=== PATIENT | female | born 1975 | race African-American/Black ===

== ENCOUNTER 2019-05-01 01:16 | Inpatient (IN) | payer OTHER ==
[~2019-05-01] VITALS: Ht 144.8 cm; Wt 51.7 kg
[2019-05-01 01:20] VITALS: BP 133/66
[2019-05-01] MEDS ORDERED: Piperacillin/Tazobactam 3.375 GM in NS 110 ML IVPB ONE (01:30)
--- NOTE | 2019-05-01 01:54 | Emergency Room Report ---
History of Present Illness General Chief Complaint: Skin Rash/Abscess Source: Patient Present Illness HPI Patient is a 43-year-old female presents after increased right lower extremity problems. Patient a prior history of anemia as well as type 1 diabetes. She reports having increased foul-smelling drainage from her right lower extremity. She had prior history of reported sickle cell anemia. She reports having seen physician at [facility] approximately 2 weeks ago. Patient reports having increased pain to the area. She cannot stay with her normal hemoglobin is. Patient not currently taking antibiotics. She reports having difficulty taking care of her wound. She reports having prior injury to her right lower extremity after a hip replacement. And states that she is not able to move this. Allergies: Coded Allergies: No Known Allergies (Unverified , 05/01/19) Patient History Past Medical History: see triage record Last Menstrual Period: 2014 Now: No : 2 Para: 0 Reviewed Nursing Documentation: PMH: Agreed; PSxH: Agreed Nursing Documentation-PM Past Medical History: No History, Except For Hx Diabetes: Yes Review of Systems All Other Systems: negative except mentioned in HPI Physical Exam Vital Signs Date Time Temp Pulse Resp B/P (MAP) Pulse Ox O2 Delivery O2 Flow Rate FiO2 05/01/19 01:09 98.4 73 18 133/66 (88) 98 Sp02 EP Interpretation: reviewed, normal General Appearance: normal inspection, alert, GCS 15, non-toxic, Chronically Ill Head: atraumatic ENT: normal ENT inspection, hearing grossly normal, normal voice Neck: normal inspection, full range of motion, supple, no bony tend Respiratory: normal inspection, lungs clear, normal breath sounds, no respiratory distress, no retraction, no wheezing Cardiovascular #1: edema Gastrointestinal: normal inspection, normal bowel sounds, non tender, soft, no guarding, no hernia Genitourinary: no CVA tenderness Musculoskeletal: back normal, decreased range of motion, swelling Neurologic: normal inspection, alert, responsive, speech normal, motor weakness , sensory deficit Psychiatric: normal inspection, judgement/insight normal, mood/affect normal Skin: other - grossly discolored foot Medical Decision Making Diagnostic Impression: Primary Impression: Infection of right foot Additional Impressions: Anemia Diabetes ER Course Patient presented for increased foot pain. Differential diagnosis include was not limited to vascular insufficiency, gangrene, sepsis among others. Because of complexity of patient's case laboratory testing and imaging studies were ordered. Patient was noted to have what appears to be a significant infection to her right foot. There appears to be some necrotic tissue. Patient was noted to have significant anemia on laboratory testing. patient was typed and screened for blood. Patient given pain medications. Patient initially refused blood transfusion. Patient will be admitted due to need for IV antibiotics and possible amputation. Dr. Marco Antonio Enriquez was contacted for inpatient management due to panel physician. Last Vital Signs Date Time Temp Pulse Resp B/P (MAP) Pulse Ox O2 Delivery O2 Flow Rate FiO2 05/01/19 01:09 98.4 73 18 133/66 (88) 98 Status: unchanged Disposition: ADMITTED INPATIENT Condition: Serious Scripts Acetaminophen With Codeine (T#3) (TYLENOL #3 TAB*) Y Tab 1 TAB ORAL Q4H PRN for 10 Days, TAB Prov: Serena Gordon MD 05/06/19 [facility] Jorge Upton MD May 01, 2019 01:54
[2019-05-01 01:59] LABS: HEMATOCRIT 18.4 % (37.0-47.0); MEAN CORPUSCULAR VOLUME 80 FL (80-99); PLATELET COUNT 468 K/UL (150-450); RED BLOOD COUNT 2.31 M/UL (4.20-5.40); RED CELL DISTRIBUTION WIDTH 19.2 % (11.6-14.8)
[2019-05-01 02:02] LABS: WHITE BLOOD COUNT 27.5 K/UL (4.8-10.8)
[2019-05-01 02:03] LABS: HEMOGLOBIN 5.5 G/DL (12.0-16.0)
[2019-05-01 02:18] LABS: ANION GAP 8 mmol/L (5-15); BLOOD UREA NITROGEN 29 mg/dL (7-18); CALCIUM 7.5 MG/DL (8.5-10.1); CARBON DIOXIDE 24 MMOL/L (21-32); CHLORIDE 98 MMOL/L (98-107); POTASSIUM 5.2 MMOL/L (3.5-5.1); SODIUM 130 MMOL/L (136-145)
[2019-05-01 02:21] LABS: ALANINE AMINOTRANSFERASE 20 U/L (12-78); ALBUMIN 2.7 G/DL (3.4-5.0); ALBUMIN/GLOBULIN RATIO 0.5 (1.0-2.7); ALKALINE PHOSPHATASE 180 U/L (46-116); ASPARTATE AMINO TRANSFERASE 15 U/L (15-37); BILIRUBIN,TOTAL 0.8 MG/DL (0.2-1.0)
[2019-05-01] MEDS ORDERED: Morphine Sulfate 4mg/ml Inj (IV USE ONLY) ONE (02:51)
[2019-05-01] MEDS ORDERED: Morphine Sulfate 4mg/ml Inj (IV USE ONLY) IVP ONE (03:00)
[2019-05-01 04:32] LABS: APPEARANCE,URINE SLIGHTLY CLOUDY; BILIRUBIN, URINE NEGATIVE (NEGATIVE); COLOR,URINE YELLOW; GLUCOSE, URINE (UA) NEGATIVE (NEGATIVE); KETONES,URINE 3+ (NEGATIVE); NITRITE,URINE NEGATIVE (NEGATIVE); PH,URINE 5 (4.5-8.0); PROTEIN,URINE 2+ (NEGATIVE); UROBILINOGEN,URINE NORMAL MG/DL (0.0-1.0)
[2019-05-01 04:33] LABS: LEUKOCYTE ESTERASE ,URINE 1+ (NEGATIVE)
[2019-05-01 04:37] LABS: INR 1.1 (0.9-1.1)
[2019-05-01] MEDS ORDERED: LANTUS SOL100 UNIT/1 SUBQ (04:43)
[2019-05-01] MEDS ORDERED: HUMALOG 75/255 UNIT1 SUBQ (04:43)
[2019-05-01] MEDS ORDERED: Zolpidem 5mg tab ORAL PRN ×2 (05:00→21:00)
[2019-05-01] MEDS ORDERED: HYDROcodone/Acetamin 5/325 tab ORAL PRN (05:00)
[2019-05-01] MEDS ORDERED: Morphine Sulfate 2mg/ml Inj(IV/IM USE ONLY) IVP PRN ×3 (05:00→18:00)
[2019-05-01] MEDS ORDERED: DiphenhydrAMINE 50mg/ml Inj IVP PRN ×2 (06:30→18:00)
[2019-05-01 08:19] VITALS: BP 122/60
[2019-05-01] MEDS ORDERED: NovoLOG Insulin Flexpen SUBQ SCH ×2 (11:30→18:00)
[2019-05-01] MEDS ORDERED: D5 1/2NS 1,000 ML IV SCH (12:00)
--- NOTE | 2019-05-01 13:31 | Consultation ---
Consult Note Consult Note asked to eval for renal failure Patient is a 43-year-old female presents after increased right lower extremity problems. Patient a prior history of anemia as well as type 1 diabetes. She reports having increased foul-smelling drainage from her right lower extremity. She had prior history of reported sickle cell anemia. She reports having seen physician at [facility] approximately 2 weeks ago. Patient reports having increased pain to the area. She cannot stay with her normal hemoglobin is. Patient not currently taking antibiotics. She reports having difficulty taking care of her wound. She reports having prior injury to her right lower extremity after a hip replacement. And states that she is not able to move this. No Known Allergies (Unverified , 05/01/19) Last Menstrual Period: 2014 Now: No : 2 Para: 0 Past Medical History: No History, Except For Hx Diabetes: Yes examined data reviewed . Assessment/Plan Renal Failure , likely diabetic nephropathy IDDM Anemia, h/o SS disease right foot appears gangerenous Plan: Iron panel NS BS check gastric support per consultants RICARDO Ibuprofen One dose Elfego Lopez MD May 01, 2019 13:30
[2019-05-01 13:58] LABS: FERRITIN 1448 NG/ML (8-388)
[2019-05-01 14:13] LABS: % IRON SATURATION 36 % (15-50); IRON 43 ug/dL (50-175); TOTAL IRON BINDING CAPACITY 118 ug/dL (250-450)
[2019-05-01] MEDS ORDERED: D5NS 1,000 ML IV SCH (14:15)
--- NOTE | 2019-05-01 15:19 | Consultation ---
History of Present Illness General Chief Complaint: Skin Rash/Abscess Present Illness Allergies: Coded Allergies: No Known Allergies (Unverified , 05/01/19) Medication History Scheduled Insulin Glargine (Lantus), 10 SUBQ BEDTIME, (Reported) Insulin Human Lispro (Humalog), 0 SUBQ AC+HS, (Reported) Patient History Healthcare decision maker SELF Resuscitation status Full Code Advanced Directive on File Physical Exam Last 24 Hour Vital Signs Date Time Temp Pulse Resp B/P (MAP) Pulse Ox O2 Delivery O2 Flow Rate FiO2 05/01/19 12:00 70 05/01/19 10:27 98.2 05/01/19 09:37 98.2 05/01/19 09:00 Room Air 05/01/19 08:19 98.2 74 22 122/60 (80) 96 05/01/19 08:00 69 05/01/19 04:32 Room Air 05/01/19 03:49 98.4 80 20 128/70 98 Room Air 05/01/19 01:20 98.4 75 18 133/66 98 Room Air 05/01/19 01:09 98.4 73 18 133/66 (88) 98 Laboratory Tests Test 05/01/19 01:40 05/01/19 02:14 05/01/19 07:30 05/01/19 11:28 White Blood Count 27.5 K/UL (4.8-10.8) *H Red Blood Count 2.31 M/UL (4.20-5.40) L Hemoglobin 5.5 G/DL (12.0-16.0) *L Hematocrit 18.4 % (37.0-47.0) L Mean Corpuscular Volume 80 FL (80-99) Mean Corpuscular Hemoglobin 24.0 PG (27.0-31.0) L Mean Corpuscular Hemoglobin Concent 30.0 G/DL (32.0-36.0) L Red Cell Distribution Width 19.2 % (11.6-14.8) H Platelet Count 468 K/UL (150-450) H Mean Platelet Volume 7.3 FL (6.5-10.1) Neutrophils (%) (Auto) % (45.0-75.0) Lymphocytes (%) (Auto) % (20.0-45.0) Monocytes (%) (Auto) % (1.0-10.0) Eosinophils (%) (Auto) % (0.0-3.0) Basophils (%) (Auto) % (0.0-2.0) Differential Total Cells Counted 100 Neutrophils % (Manual) 74 % (45-75) Lymphocytes % (Manual) 23 % (20-45) Monocytes % (Manual) 3 % (1-10) Eosinophils % (Manual) 0 % (0-3) Basophils % (Manual) 0 % (0-2) Band Neutrophils 0 % (0-8) Platelet Estimate Adequate Platelet Morphology Normal Prothrombin Time 11.3 SEC (9.30-11.50) Prothromb Time International Ratio 1.1 (0.9-1.1) Activated Partial Thromboplast Time 27 SEC (23-33) Sodium Level 130 MMOL/L (136-145) L Potassium Level 5.2 MMOL/L (3.5-5.1) H Chloride Level 98 MMOL/L (98-107) Carbon Dioxide Level 24 MMOL/L (21-32) Anion Gap 8 mmol/L (5-15) Blood Urea Nitrogen 29 mg/dL (7-18) H Creatinine 2.0 MG/DL (0.55-1.30) H Estimat Glomerular Filtration Rate 33.3 mL/min (>60) Glucose Level 371 MG/DL (74-106) H Calcium Level 7.5 MG/DL (8.5-10.1) L Total Bilirubin 0.8 MG/DL (0.2-1.0) Aspartate Amino Transf (AST/SGOT) 15 U/L (15-37) Alanine Aminotransferase (ALT/SGPT) 20 U/L (12-78) Alkaline Phosphatase 180 U/L (46-116) H Total Protein 8.3 G/DL (6.4-8.2) H Albumin 2.7 G/DL (3.4-5.0) L Globulin 5.6 g/dL Albumin/Globulin Ratio 0.5 (1.0-2.7) L Urine Color Yellow Urine Appearance Slightly cloudy Urine pH 5 (4.5-8.0) Urine Specific [place] 1.020 (1.005-1.035) Urine Protein 2+ (NEGATIVE) H Urine Glucose (UA) Negative (NEGATIVE) Urine Ketones 3+ (NEGATIVE) H Urine Blood 3+ (NEGATIVE) H Urine Nitrite Negative (NEGATIVE) Urine Bilirubin Negative (NEGATIVE) Urine Urobilinogen Normal MG/DL (0.0-1.0) Urine Leukocyte Esterase 1+ (NEGATIVE) H Urine RBC 5-10 /HPF (0 - 2) H Urine WBC 2-4 /HPF (0 - 2) Urine Squamous Epithelial Cells Few /LPF (NONE/OCC) Urine Bacteria Few /HPF (NONE) Urine Mucus Few /LPF (NONE/OCC) H Urine HCG, Qualitative Negative (NEGATIVE) Urine Opiates Screen Negative (NEGATIVE) Urine Barbiturates Screen Negative (NEGATIVE) Phencyclidine (PCP) Screen Negative (NEGATIVE) Urine Amphetamines Screen Negative (NEGATIVE) Urine Benzodiazepines Screen Negative (NEGATIVE) Urine Cocaine Screen Negative (NEGATIVE) Urine Marijuana (THC) Screen Negative (NEGATIVE) Erythrocyte Sedimentation Rate 95 MM/HR (0-20) H Hemoglobin A1c 10.0 % (4.3-6.0) H Lactic Acid Level 2.10 mmol/L (0.4-2.0) H 1.30 mmol/L (0.66-2.22) Iron Level 43 ug/dL (50-175) L Total Iron Binding Capacity 118 ug/dL (250-450) L Percent Iron Saturation 36 % (15-50) Unsaturated Iron Binding 75 ug/dL (112-346) L Ferritin 1448 NG/ML (8-388) H C-Reactive Protein, Quantitative 7.1 mg/dL (0.00-0.90) H Vitamin B12 Level 1186 PG/ML (193-986) H Folate 13.6 NG/ML (8.6-58.9) Height (Feet): 4 Height (Inches): 11.00 Weight (Pounds): 110 Medications Current Medications Medications (Trade) Dose Ordered Sig/Trey Route PRN Reason Start Time Stop Time Status Last Admin Dose Admin Acetaminophen (Tylenol) 650 mg Q4H PRN ORAL Mild Pain/Temp > 100.5 05/01/19 08:15 05/31/19 08:14 Acetaminophen/ Hydrocodone Bitart ([place] 5/325) 1 tab Q6H PRN ORAL Moderate Pain (Pain Scale 4-6) 05/01/19 05:00 05/08/19 04:59 05/01/19 09:47 Dextrose (Dextrose 50%) 25 ml Q30M PRN IV Hypoglycemia 05/01/19 11:30 05/31/19 11:29 Dextrose (Dextrose 50%) 50 ml Q30M PRN IV Hypoglycemia 05/01/19 11:30 05/31/19 11:29 05/01/19 11:29 Dextrose/Sodium Chloride 1,000 ml @ 75 mls/hr [id number] IV 05/01/19 14:15 05/31/19 14:14 05/01/19 14:15 Diphenhydramine HCl (Benadryl) 25 mg Q6H PRN IVP Itching 05/01/19 06:30 05/31/19 06:29 05/01/19 06:44 Docusate Sodium (Colace) 100 mg THREE TIMES A DAY ORAL 05/01/19 18:00 05/31/19 17:59 Epoetin Matt (Epoetin Matt-EPBX(NON ESRD)) 4,000 unit 3XW SUBQ 05/02/19 09:00 06/01/19 08:59 Insulin Aspart (NovoLOG) Q6HR SUBQ 05/01/19 18:00 05/31/19 17:59 Morphine Sulfate (Morphine Sulfate) 2 mg Q6H PRN IVP Severe Pain (Pain Scale 7-10) 05/01/19 06:00 05/08/19 05:59 05/01/19 06:08 Ondansetron HCl (Zofran) 4 mg Q6H PRN IVP Nausea & Vomiting 05/01/19 05:00 05/31/19 04:59 Pantoprazole (Protonix) 40 mg EVERY 12 HOURS ORAL 05/01/19 13:45 05/31/19 13:44 Vancomycin HCl 1 gm/Dextrose 275 ml @ 183.708 mls/hr ONCE ONCE IVPB 05/01/19 15:30 05/01/19 16:59 Zolpidem Tartrate (Ambien) 5 mg HSPRN PRN ORAL Insomnia 05/01/19 05:00 05/08/19 04:59 Assessment/Plan Assessment/Plan: Hematology Consultation BRIELLE LYNCH: Cole Enriquez RFC: Anemia of sickle cell disease DOS: 05/01/19 ID 43-year-old female presents after increased right lower extremity problems. Patient a prior history of anemia as well as type 1 diabetes. She reports having increased foul-smelling drainage from her right lower extremity. She had prior history of reported sickle cell anemia. She reports having seen physician at [facility] approximately 2 weeks ago. Patient reports having increased pain to the area. Per discussion, she is not on hydrea and her hgb approx 5-6 range. Patient not currently taking antibiotics. She reports having difficulty taking care of her wound. She reports having prior injury to her right lower extremity after a hip replacement. And states that she is not able to move leg, foul smelling again. Allergies: No Known Allergies (Unverified , 05/01/19) Patient History Past Medical History: see triage record Last Menstrual Period: 2014 Now: No : 2 Para: 0 Reviewed Nursing Documentation: PMH: Agreed; PSxH: Agreed Nursing Documentation-PMH Past Medical History: No History, Except For Hx Diabetes: Yes Review of Systems All Other Systems: negative except mentioned in HPI Physical Exam: Vitals: reviewed General Appearance: NAD HEENT: normocephalic, atraumatic Neck: non-tender, normal alignment Respiratory/Chest: normal breath sounds bilaterally Cardiovascular/Chest: normal peripheral pulses, normal rate Abdomen: normal bowel sounds, soft, nontender Extremities: normal range of motion ++ dressing wrapped on right leg covering eschar/degredattion of primary tissue++ reviewed photos Labs: noted Imaging: noted Assessment and Recs: # Sickle cell disease - hgb now 5-6 range, per patient she does not want blood transfusions --> refusing blood transfusions, per her the baseline is 5-6 range --> anemia panel reviewed and c/w these labs values, ferritin is high --> not in hemolysis at this time --> electrophoresis as needed, not during stay at this time --> epo has been ordered 3 x a week --> iron stores are sufficient --> recommended transfusion can be life saving but patient declined # Leukocytosis/elevated white blood cell count, unspecified likely related to underlying stress reaction, smoking v from crisis --> have reviewed peripheral smear and bandemia/neutrophilia noted --> continue antibiotics if they have been started by ID team --> monitor for resolution --> trend wbc 25k # HAYDEE can be dm related --> trend and establish baseline --> may be dehydrated # Electrolyte abnml --> as per renal, Na+ trend and volume expansion # DM2 --> a1c goal <8 goal The timing of this note does not necessarily reflect the time of the patient was seen. GREATLY APPRECIATE CONSULTATION. Raphael Shrestha MD May 01, 2019 15:19
[2019-05-01] MEDS ORDERED: Vancomycin 1 GM in D5W 275 ML IVPB ONE (15:30)
[2019-05-01 16:00] VITALS: BP 111/53
--- NOTE | 2019-05-01 16:28 | Consultation ---
History of Present Illness General Date patient seen: May 01, 2019 Reason for Hospitalization: Skin Rash/Abscess Present Illness HPI This is a pleasant 43-year-old female with multiple medical comorbidities who presented to the emergency department [facility] complaining of worsening right lower extremity wound. In emergency department identified to have a large concerning wound on her right lower extremity foot ankle requiring extensive care and management. She was identified to have a significant leukocytosis, acidosis, sepsis. She was admitted for care and management. Surgery called to evaluate and assist with care. Patient seen, patient evaluated, chart reviewed. In discussing care with patient states that she is only had this wound on her lower extremity for 2 months and does not take care of herself. She cannot recall how it began. States she has no feeling in her right foot or leg. In reviewing history she does not seem consistent and states that she is been at other hospitals prior. She states that she has not received any information about her extremity but seems to know that in the past they have recommended amputation. Unfortunately believe patient is likely poor historian and potentially even in denial about her care. She was started on IV antibiotics. Wound is been cared for since admission. Allergies: Coded Allergies: No Known Allergies (Unverified , 05/01/19) Medication History Scheduled Insulin Glargine (Lantus), 10 SUBQ BEDTIME, (Reported) Insulin Human Lispro (Humalog), 0 SUBQ AC+HS, (Reported) Patient History Limited by: other History Provided By: Patient, Medical Record, PMD Healthcare decision maker SELF Resuscitation status Full Code Advanced Directive on File Past Medical/Surgical History Past Medical/Surgical History: (1) Ischemia of right lower extremity (2) Infection of right foot (3) Right foot ulcer (4) Anemia Review of Systems Review of Symptoms General ROS: no weight loss or fever Psychological ROS: no depression or mood changes, no memory loss Ophthalmic ROS: no visual changes or eye irritation ENT ROS: no nasal congestion, hearing loss, dizziness Allergy and Immunology ROS: no allergic symptoms or urticaria Hematological and Lymphatic ROS: no swollen glands, unusual bleeding or bruising Endocrine ROS: no polyuria, polydipsia, weight changes, temperature intolerance Respiratory ROS: no cough, shortness of breath, or wheezing Cardiovascular ROS: no chest pain or dyspnea on exertion Gastrointestinal ROS: denies abdominal pain, no bright red blood in stool. Musculoskeletal ROS: no myalgias or arthralgias Neurological ROS: no TIA or stroke symptoms Dermatological ROS: no new or changing skin lesions, rashes or pruritis Physical Exam Physical Exam General appearance: alert, cooperative, no distress, appears stated age Head: Normocephalic, without obvious abnormality, atraumatic Eyes: conjunctivae/corneas clear. PERRL, EOM's intact. Fundi benign Throat: Lips, mucosa, and tongue normal. Teeth and gums normal Neck: supple, symmetrical, trachea midline, no adenopathy, thyroid: not enlarged, symmetric, no tenderness/mass/nodules, no carotid bruit and no JVD Lungs: clear to auscultation bilaterally Heart: regular rate and rhythm, S1, S2 normal, no murmur, click, rub or gallop Abdomen: soft, non-tender. Bowel sounds normal. No masses, no organomegaly Extremities: see below Pulses: 2+ and symmetric Skin: Skin color, texture, turgor normal. No rashes or lesions Neurologic: Grossly normal Last 24 Hour Vital Signs Date Time Temp Pulse Resp B/P (MAP) Pulse Ox O2 Delivery O2 Flow Rate FiO2 05/01/19 16:00 98.2 21 111/53 (72) 96 05/01/19 12:00 70 05/01/19 10:27 98.2 05/01/19 09:37 98.2 05/01/19 09:00 Room Air 05/01/19 08:19 98.2 74 22 122/60 (80) 96 05/01/19 08:00 69 05/01/19 04:32 Room Air 05/01/19 03:49 98.4 80 20 128/70 98 Room Air 05/01/19 01:20 98.4 75 18 133/66 98 Room Air 05/01/19 01:09 98.4 73 18 133/66 (88) 98 Laboratory Tests Test 05/01/19 01:40 05/01/19 02:14 05/01/19 07:30 05/01/19 11:28 White Blood Count 27.5 K/UL (4.8-10.8) *H Red Blood Count 2.31 M/UL (4.20-5.40) L Hemoglobin 5.5 G/DL (12.0-16.0) *L Hematocrit 18.4 % (37.0-47.0) L Mean Corpuscular Volume 80 FL (80-99) Mean Corpuscular Hemoglobin 24.0 PG (27.0-31.0) L Mean Corpuscular Hemoglobin Concent 30.0 G/DL (32.0-36.0) L Red Cell Distribution Width 19.2 % (11.6-14.8) H Platelet Count 468 K/UL (150-450) H Mean Platelet Volume 7.3 FL (6.5-10.1) Neutrophils (%) (Auto) % (45.0-75.0) Lymphocytes (%) (Auto) % (20.0-45.0) Monocytes (%) (Auto) % (1.0-10.0) Eosinophils (%) (Auto) % (0.0-3.0) Basophils (%) (Auto) % (0.0-2.0) Differential Total Cells Counted 100 Neutrophils % (Manual) 74 % (45-75) Lymphocytes % (Manual) 23 % (20-45) Monocytes % (Manual) 3 % (1-10) Eosinophils % (Manual) 0 % (0-3) Basophils % (Manual) 0 % (0-2) Band Neutrophils 0 % (0-8) Platelet Estimate Adequate Platelet Morphology Normal Prothrombin Time 11.3 SEC (9.30-11.50) Prothromb Time International Ratio 1.1 (0.9-1.1) Activated Partial Thromboplast Time 27 SEC (23-33) Sodium Level 130 MMOL/L (136-145) L Potassium Level 5.2 MMOL/L (3.5-5.1) H Chloride Level 98 MMOL/L (98-107) Carbon Dioxide Level 24 MMOL/L (21-32) Anion Gap 8 mmol/L (5-15) Blood Urea Nitrogen 29 mg/dL (7-18) H Creatinine 2.0 MG/DL (0.55-1.30) H Estimat Glomerular Filtration Rate 33.3 mL/min (>60) Glucose Level 371 MG/DL (74-106) H Calcium Level 7.5 MG/DL (8.5-10.1) L Total Bilirubin 0.8 MG/DL (0.2-1.0) Aspartate Amino Transf (AST/SGOT) 15 U/L (15-37) Alanine Aminotransferase (ALT/SGPT) 20 U/L (12-78) Alkaline Phosphatase 180 U/L (46-116) H Total Protein 8.3 G/DL (6.4-8.2) H Albumin 2.7 G/DL (3.4-5.0) L Globulin 5.6 g/dL Albumin/Globulin Ratio 0.5 (1.0-2.7) L Urine Color Yellow Urine Appearance Slightly cloudy Urine pH 5 (4.5-8.0) Urine Specific [place] 1.020 (1.005-1.035) Urine Protein 2+ (NEGATIVE) H Urine Glucose (UA) Negative (NEGATIVE) Urine Ketones 3+ (NEGATIVE) H Urine Blood 3+ (NEGATIVE) H Urine Nitrite Negative (NEGATIVE) Urine Bilirubin Negative (NEGATIVE) Urine Urobilinogen Normal MG/DL (0.0-1.0) Urine Leukocyte Esterase 1+ (NEGATIVE) H Urine RBC 5-10 /HPF (0 - 2) H Urine WBC 2-4 /HPF (0 - 2) Urine Squamous Epithelial Cells Few /LPF (NONE/OCC) Urine Bacteria Few /HPF (NONE) Urine Mucus Few /LPF (NONE/OCC) H Urine HCG, Qualitative Negative (NEGATIVE) Urine Opiates Screen Negative (NEGATIVE) Urine Barbiturates Screen Negative (NEGATIVE) Phencyclidine (PCP) Screen Negative (NEGATIVE) Urine Amphetamines Screen Negative (NEGATIVE) Urine Benzodiazepines Screen Negative (NEGATIVE) Urine Cocaine Screen Negative (NEGATIVE) Urine Marijuana (THC) Screen Negative (NEGATIVE) Erythrocyte Sedimentation Rate 95 MM/HR (0-20) H Reticulocyte Count Pending Hemoglobin A1c 10.0 % (4.3-6.0) H Lactic Acid Level 2.10 mmol/L (0.4-2.0) H 1.30 mmol/L (0.66-2.22) Iron Level 43 ug/dL (50-175) L Total Iron Binding Capacity 118 ug/dL (250-450) L Percent Iron Saturation 36 % (15-50) Unsaturated Iron Binding 75 ug/dL (112-346) L Ferritin 1448 NG/ML (8-388) H C-Reactive Protein, Quantitative 7.1 mg/dL (0.00-0.90) H Vitamin B12 Level 1186 PG/ML (193-986) H Folate 13.6 NG/ML (8.6-58.9) Height (Feet): 4 Height (Inches): 11.00 Weight (Pounds): 110 Medications Current Medications Medications (Trade) Dose Ordered Sig/Trey Route PRN Reason Start Time Stop Time Status Last Admin Dose Admin Acetaminophen (Tylenol) 650 mg Q4H PRN ORAL Mild Pain/Temp > 100.5 05/01/19 08:15 05/31/19 08:14 Acetaminophen/ Hydrocodone Bitart ([place] 5/325) 1 tab Q6H PRN ORAL Moderate Pain (Pain Scale 4-6) 05/01/19 05:00 05/08/19 04:59 05/01/19 09:47 Dextrose (Dextrose 50%) 25 ml Q30M PRN IV Hypoglycemia 05/01/19 11:30 05/31/19 11:29 Dextrose (Dextrose 50%) 50 ml Q30M PRN IV Hypoglycemia 05/01/19 11:30 05/31/19 11:29 05/01/19 16:19 Dextrose/Sodium Chloride 1,000 ml @ 75 mls/hr [id number] IV 05/01/19 14:15 05/31/19 14:14 05/01/19 14:15 Diphenhydramine HCl (Benadryl) 25 mg Q6H PRN IVP Itching 05/01/19 06:30 05/31/19 06:29 05/01/19 06:44 Docusate Sodium (Colace) 100 mg THREE TIMES A DAY ORAL 05/01/19 18:00 05/31/19 17:59 Epoetin Matt (Epoetin Matt-EPBX(NON ESRD)) 4,000 unit 3XW SUBQ 05/02/19 09:00 06/01/19 08:59 Insulin Aspart (NovoLOG) Q6HR SUBQ 05/01/19 18:00 05/31/19 17:59 Morphine Sulfate (Morphine Sulfate) 2 mg Q6H PRN IVP Severe Pain (Pain Scale 7-10) 05/01/19 06:00 05/08/19 05:59 05/01/19 06:08 Ondansetron HCl (Zofran) 4 mg Q6H PRN IVP Nausea & Vomiting 05/01/19 05:00 05/31/19 04:59 Pantoprazole (Protonix) 40 mg EVERY 12 HOURS ORAL 05/01/19 13:45 05/31/19 13:44 05/01/19 15:34 Vancomycin HCl 1 gm/Dextrose 275 ml @ 183.708 mls/hr ONCE ONCE IVPB 05/01/19 15:30 05/01/19 16:59 05/01/19 15:34 Zolpidem Tartrate (Ambien) 5 mg HSPRN PRN ORAL Insomnia 05/01/19 05:00 05/08/19 04:59 Assessment/Plan Problem List: (1) Right foot ulcer ICD Codes: L97.519 - Non-pressure chronic ulcer of other part of right foot with unspecified severity SNOMED: 25115472 (2) Infection of right foot Assessment & Plan: Patient presents with extensive wounds, ischemia, devitalization of her right foot and ankle. This is likely to have been ongoing and chronic for greater than 2 months and unfortunately patient's history is questionable and potentially patient in denial. Wound was evaluated multiple open areas of exposed bone tendon and even potentially bone in some areas. Wound is very foul-smelling with drainage. There is areas of ischemia on the anterior aspect of the ankle. The heel is open and draining. Strong suspicion for osteomyelitis. Strong suspicion for chronic infection with acute on chronic. Etiology of the sepsis likely this right lower extremity as she has a leukocytosis, acidosis, concerning labs. I spoke with patient at bedside regarding these findings and the physical examination. It seems the patient is likely been told in the past that she may require an amputation. Patient is unsure about her plans but was recommended by myself to have amputation of salvage of this extremities no longer possibility and the viability is concerning. Patient has no sensation in the extremity has no motor neuro or sensory below the mid tibia. The wound is very foul-smelling with exposed areas as above. IV antibiotics Recommend amputation Plain films ordered MRI ordered Podiatry evaluation We will follow with recommendations and discussions with patient as she is currently not considering amputation despite above concerns and potentially worsening condition. Thank you for allowing me to participate in patient's care ICD Codes: L08.9 - Local infection of the skin and subcutaneous tissue, unspecified SNOMED: 485929557 (3) Ischemia of right lower extremity ICD Codes: I99.8 - Other disorder of circulatory system SNOMED: 635717201 Tian Avalos May 01, 2019 16:28
[2019-05-01 16:50] VITALS: BP 110/51
[2019-05-01] MEDS ORDERED: Docusate 100mg cap ORAL SCH (18:00)
[2019-05-01] MEDS: NovoLOG Insulin Flexpen SUBQ SCH (18:00)
--- NOTE | 2019-05-01 18:00 | History and Physical Report ---
DATE OF ADMISSION: 05/01/2019 DATE AND TIME SEEN: 05/01/2019 at 11 a.m. CONSULTANTS: 1. Salvador Marques M.D. 2. Raphael Shrestha M.D. 3. Tian Avalos M.D. 4. Faraz Marsh M.D. CHIEF COMPLAINT: Necrotic right leg, sickle cell, diabetes, and anemia of 5.4. BRIEF HISTORY: The patient is a 43-year-old female, who lives at home with history of sickle cell disease and diabetes, developed right leg wound about a month, getting worse, became necrotic, came to [facility], diagnosed as above, admitted to telemetry for further care. Currently, slightly weak in bed. No complaint. REVIEW OF SYSTEMS: No chest pain. No shortness of breath. No nausea, vomiting, or diarrhea. PAST MEDICAL HISTORY: Includes diabetes, hypertension, anemia, and right leg wound. PAST SURGICAL HISTORY: Right hip. ALLERGIES: Denies. MEDICATIONS: Include insulin, dextrose, ibuprofen, morphine, Zofran, zolpidem, hydrocodone, IV fluids, and Zosyn. SOCIAL HISTORY: Positive smoking. No alcohol. No intravenous drug abuse. FAMILY HISTORY: Noncontributory. PHYSICAL EXAMINATION: GENERAL: Calm in bed, oriented x3, in slight distress secondary to pain. VITAL SIGNS: Temperature 98 degrees, pulse 74, respirations 22, and blood pressure 122/60. CARDIOVASCULAR: No murmurs. LUNGS: Distant and clear. ABDOMEN: Bowel sounds positive. Nontender. Nondistended. EXTREMITIES: No cyanosis, clubbing, or edema. Right foot dressing is clean and dry. NEUROLOGIC: The patient moves all extremities, slightly weak. LABORATORY AND DIAGNOSTIC DATA: Labs at this time show white count 27, H and H of 5.5/18, and platelets 468,000. BMP shows sodium 138, potassium 5.2, BUN and creatinine 29/2.0. Calcium . INR is 1.1. Urine tox is negative. Urinalysis, 1+ leukocyte esterase. ASSESSMENT: 1. Necrotic right leg. 2. Diabetes. 3. Sickle cell. 4. Renal insufficiency. 5. Anemia. 6. Hypertension. PLAN: 1. Transfuse p.r.n. 2. Wound care. 3. Antibiotics per Infectious disease. 4. Blood pressure and blood sugar control. 5. Pain control. 6. Dietary followup. 7. We will add Nephrology evaluation. Marco Antonio Enriquez D.O. DR: RALPH JOB#: [id number] CC:
[2019-05-01] MEDS: Docusate 100mg cap ORAL SCH (18:03)
[2019-05-01] MEDS: D5NS 1,000 ML IV SCH (18:03)
--- NOTE | 2019-05-01 18:26 | Diagnostic Imaging Report ---
Indication: Right ankle pain, infection Technique: XRAY Ankle 2v R Comparison: None FINDINGS-IMPRESSION: There is marked soft tissue swelling and significant amount of soft tissue gas including gas in the plantar soft tissues of the foot highly concerning for infection. There is soft tissue deficiency in the posterior aspect of the distal leg/ankle suggesting broad-based ulceration. Correlation with physical exam recommended. There is chronic appearing deformity of the hindfoot with flattening of the calcaneus which may represent sequela of remote trauma or degenerative changes. Superimposed acute infection/osteomyelitis cannot be excluded. No obvious acute fractures identified. Ankle mortise is intact. No radiopaque foreign body.
--- NOTE | 2019-05-01 18:26 | Diagnostic Imaging Report ---
Indication: Right foot pain, infection Technique: 2 views of the right foot Comparison: None FINDINGS-IMPRESSION: There is marked soft tissue swelling and significant amount of soft tissue gas including gas in the plantar soft tissues of the foot highly concerning for infection. There is soft tissue deficiency in the posterior aspect of the distal leg/ankle adjusting broad-based ulceration. Correlation with physical exam recommended. There is chronic appearing deformity of the hindfoot with flattening of the calcaneus which may represent sequela of remote trauma or degenerative changes. Superimposed acute infection/osteomyelitis cannot be excluded. No obvious acute fractures identified. No radiopaque foreign body.
--- NOTE | 2019-05-01 18:26 | Diagnostic Imaging Report ---
Indication: Right leg pain. Technique: XRAY Leg Lower Tib Fib 2v R Comparison: None FINDINGS-IMPRESSION: Marked soft tissue gas and edema in the distal leg and ankle highly concerning for an infection. Gas is also noted within the plantar soft tissues of the foot. There appears to be significant soft tissue deficiency of the posterior aspect of the ankle. Correlation with physical exam is recommended. There is chronic appearing deformity of the hindfoot with flattened an abnormal appearance of the calcaneus. No definite evidence of acute fracture. No radiopaque foreign body.
--- NOTE | 2019-05-01 19:22 | Consultation ---
History of Present Illness General Date patient seen: May 01, 2019 Chief Complaint: Skin Rash/Abscess Present Illness HPI 43 y/o F with hx of Dm1, HTN, sickle cell anemia, R hip replacement presented to ED on 05/01 with worsening RLE wound with foul-smelling drainage, pain. Upon admission, patient was found to have leukocytosis, acidosis, renal failure. She reports having an injusry to her RLE after she got R hip replacement. Denied CP, SOB, n/v/d. Allergies: Coded Allergies: No Known Allergies (Unverified , 05/01/19) Medication History Scheduled Insulin Glargine (Lantus), 10 SUBQ BEDTIME, (Reported) Insulin Human Lispro (Humalog), 0 SUBQ AC+HS, (Reported) Patient History Healthcare decision maker SELF Resuscitation status Full Code Advanced Directive on File Patient History Narrative Pmhx: as above Shx: Positive smoking. No alcohol. No intravenous drug abuse. Fhx: non contributory Review of Systems All Other Systems: negative except mentioned in HPI Physical Exam Physical Exam Narrative General appearance: alert, cooperative, no distress, appears stated age Head: Normocephalic, without obvious abnormality, atraumatic Eyes: conjunctivae/corneas clear. PERRL, EOM's intact. Fundi benign Throat: Lips, mucosa, and tongue normal. Teeth and gums normal Neck: supple, symmetrical, trachea midline, no adenopathy, thyroid: not enlarged, symmetric, no tenderness/mass/nodules, no carotid bruit and no JVD Lungs: clear to auscultation bilaterally Heart: regular rate and rhythm, S1, S2 normal, no murmur, click, rub or gallop Abdomen: soft, non-tender. Bowel sounds normal. No masses, no organomegaly Extremities: multiple open areas of exposed bone tendon and even potentially bone in some areas. Wound is very foul-smelling with drainage. There is areas of ischemia on the anterior aspect of the ankle. The heel is open and draining Pulses: 2+ and symmetric Skin: Skin color, texture, turgor normal. No rashes or lesions Neurologic: Grossly normal Last 24 Hour Vital Signs Date Time Temp Pulse Resp B/P (MAP) Pulse Ox O2 Delivery O2 Flow Rate FiO2 05/01/19 16:50 97.7 18 110/51 (70) 99 05/01/19 16:00 74 05/01/19 16:00 98.2 21 111/53 (72) 96 05/01/19 12:00 70 05/01/19 10:27 98.2 05/01/19 09:37 98.2 05/01/19 09:00 Room Air 05/01/19 08:19 98.2 74 22 122/60 (80) 96 05/01/19 08:00 69 05/01/19 04:32 Room Air 05/01/19 03:49 98.4 80 20 128/70 98 Room Air 05/01/19 01:20 98.4 75 18 133/66 98 Room Air 05/01/19 01:09 98.4 73 18 133/66 (88) 98 Laboratory Tests Test 05/01/19 01:40 05/01/19 02:14 05/01/19 07:30 05/01/19 11:28 White Blood Count 27.5 K/UL (4.8-10.8) *H Red Blood Count 2.31 M/UL (4.20-5.40) L Hemoglobin 5.5 G/DL (12.0-16.0) *L Hematocrit 18.4 % (37.0-47.0) L Mean Corpuscular Volume 80 FL (80-99) Mean Corpuscular Hemoglobin 24.0 PG (27.0-31.0) L Mean Corpuscular Hemoglobin Concent 30.0 G/DL (32.0-36.0) L Red Cell Distribution Width 19.2 % (11.6-14.8) H Platelet Count 468 K/UL (150-450) H Mean Platelet Volume 7.3 FL (6.5-10.1) Neutrophils (%) (Auto) % (45.0-75.0) Lymphocytes (%) (Auto) % (20.0-45.0) Monocytes (%) (Auto) % (1.0-10.0) Eosinophils (%) (Auto) % (0.0-3.0) Basophils (%) (Auto) % (0.0-2.0) Differential Total Cells Counted 100 Neutrophils % (Manual) 74 % (45-75) Lymphocytes % (Manual) 23 % (20-45) Monocytes % (Manual) 3 % (1-10) Eosinophils % (Manual) 0 % (0-3) Basophils % (Manual) 0 % (0-2) Band Neutrophils 0 % (0-8) Platelet Estimate Adequate Platelet Morphology Normal Prothrombin Time 11.3 SEC (9.30-11.50) Prothromb Time International Ratio 1.1 (0.9-1.1) Activated Partial Thromboplast Time 27 SEC (23-33) Sodium Level 130 MMOL/L (136-145) L Potassium Level 5.2 MMOL/L (3.5-5.1) H Chloride Level 98 MMOL/L (98-107) Carbon Dioxide Level 24 MMOL/L (21-32) Anion Gap 8 mmol/L (5-15) Blood Urea Nitrogen 29 mg/dL (7-18) H Creatinine 2.0 MG/DL (0.55-1.30) H Estimat Glomerular Filtration Rate 33.3 mL/min (>60) Glucose Level 371 MG/DL (74-106) H Calcium Level 7.5 MG/DL (8.5-10.1) L Total Bilirubin 0.8 MG/DL (0.2-1.0) Aspartate Amino Transf (AST/SGOT) 15 U/L (15-37) Alanine Aminotransferase (ALT/SGPT) 20 U/L (12-78) Alkaline Phosphatase 180 U/L (46-116) H Total Protein 8.3 G/DL (6.4-8.2) H Albumin 2.7 G/DL (3.4-5.0) L Globulin 5.6 g/dL Albumin/Globulin Ratio 0.5 (1.0-2.7) L Urine Color Yellow Urine Appearance Slightly cloudy Urine pH 5 (4.5-8.0) Urine Specific Bim 1.020 (1.005-1.035) Urine Protein 2+ (NEGATIVE) H Urine Glucose (UA) Negative (NEGATIVE) Urine Ketones 3+ (NEGATIVE) H Urine Blood 3+ (NEGATIVE) H Urine Nitrite Negative (NEGATIVE) Urine Bilirubin Negative (NEGATIVE) Urine Urobilinogen Normal MG/DL (0.0-1.0) Urine Leukocyte Esterase 1+ (NEGATIVE) H Urine RBC 5-10 /HPF (0 - 2) H Urine WBC 2-4 /HPF (0 - 2) Urine Squamous Epithelial Cells Few /LPF (NONE/OCC) Urine Bacteria Few /HPF (NONE) Urine Mucus Few /LPF (NONE/OCC) H Urine HCG, Qualitative Negative (NEGATIVE) Urine Opiates Screen Negative (NEGATIVE) Urine Barbiturates Screen Negative (NEGATIVE) Phencyclidine (PCP) Screen Negative (NEGATIVE) Urine Amphetamines Screen Negative (NEGATIVE) Urine Benzodiazepines Screen Negative (NEGATIVE) Urine Cocaine Screen Negative (NEGATIVE) Urine Marijuana (THC) Screen Negative (NEGATIVE) Erythrocyte Sedimentation Rate 95 MM/HR (0-20) H Reticulocyte Count 7.9 % (0.5-2.0) H Hemoglobin A1c 10.0 % (4.3-6.0) H Lactic Acid Level 2.10 mmol/L (0.4-2.0) H 1.30 mmol/L (0.66-2.22) Iron Level 43 ug/dL (50-175) L Total Iron Binding Capacity 118 ug/dL (250-450) L Percent Iron Saturation 36 % (15-50) Unsaturated Iron Binding 75 ug/dL (112-346) L Ferritin 1448 NG/ML (8-388) H C-Reactive Protein, Quantitative 7.1 mg/dL (0.00-0.90) H Vitamin B12 Level 1186 PG/ML (193-986) H Folate 13.6 NG/ML (8.6-58.9) Height (Feet): 4 Height (Inches): 11.00 Weight (Pounds): 110 Medications Current Medications Medications (Trade) Dose Ordered Sig/Trey Route PRN Reason Start Time Stop Time Status Last Admin Dose Admin Acetaminophen (Tylenol) 650 mg Q4H PRN ORAL Mild Pain/Temp > 100.5 05/01/19 18:00 05/31/19 17:59 Acetaminophen/ Hydrocodone Bitart ([place] 5/325) 1 tab Q6H PRN ORAL Moderate Pain (Pain Scale 4-6) 05/01/19 18:00 05/08/19 17:59 Dextrose (Dextrose 50%) 25 ml Q30M PRN IV Hypoglycemia 05/01/19 18:00 05/31/19 17:59 Dextrose (Dextrose 50%) 50 ml Q30M PRN IV Hypoglycemia 05/01/19 18:00 05/31/19 17:59 Dextrose/Sodium Chloride 1,000 ml @ 75 mls/hr [id number] IV 05/01/19 18:00 05/31/19 17:59 05/01/19 18:03 Diphenhydramine HCl (Benadryl) 25 mg Q6H PRN IVP Itching 05/01/19 18:00 05/31/19 17:59 Docusate Sodium (Colace) 100 mg THREE TIMES A DAY ORAL 05/01/19 18:00 05/31/19 17:59 05/01/19 18:03 Epoetin Matt (Epoetin Matt-EPBX(NON ESRD)) 4,000 unit MON-SUN-SUN SUBQ 05/02/19 21:00 06/01/19 20:59 Insulin Aspart (NovoLOG) Q6HR SUBQ 05/01/19 18:00 05/31/19 17:59 Morphine Sulfate (Morphine Sulfate) 2 mg Q6H PRN IVP Severe Pain (Pain Scale 7-10) 05/01/19 18:00 05/08/19 05:59 Ondansetron HCl (Zofran) 4 mg Q6H PRN IVP Nausea & Vomiting 05/01/19 18:00 05/31/19 17:59 Pantoprazole (Protonix) 40 mg EVERY 12 HOURS ORAL 05/01/19 21:00 05/31/19 13:44 Zolpidem Tartrate (Ambien) 5 mg HSPRN PRN ORAL Insomnia 05/01/19 21:00 05/08/19 20:59 Assessment/Plan Assessment/Plan: Abx: IV Vancomycin x1 05/01 Zosyn x1 05/01 Assessment: R LE wound- severe infection, likely necrotizing- r/o OM -Xray tibia/fibula: Soft tissue gas and edema in the foot and ankle are concerning for infection. No definite acute osseous abnormality. Osteopenia. -R foot/ankle xray: Soft tissue gas and edema in the foot and ankle are concerning for infection. Extensive soft tissue gas limits evaluation of fine bony detail. Deformity of the calcaneus is nonspecific and may be related to osteomyelitis or trauma. MRI with and without intravenous contrast may be considered for further characterization. -ESR 95, CRP 7.1 Afebrile Leukocytosis Dm1 HTN sickle cell anemia R hip replacement Plan: -Continue empiric IV Vancomcyin and ZOsyn #1 -f/u cx -Monitor CBC/CMP, temperatures -BCx x2, wound cx Thank you for this consultation. Will continue to follow along with you. Discussed with BARB. Radha Gill M.D. May 01, 2019 19:22
[2019-05-01] MEDS: Piperacillin/Tazobactam 3.375 GM in NS 110 ML IVPB SCH (20:32)
[2019-05-01] MEDS: HYDROcodone/Acetamin 5/325 tab ORAL PRN (20:32)
[2019-05-01] MEDS ORDERED: Levemir Flexpen SUBQ SCH (21:00)
[2019-05-02] VITALS (13 sets, daily range): BP systolic 93–130; BP diastolic 50–76
[2019-05-02] MEDS: Piperacillin/Tazobactam 3.375 GM in NS 110 ML IVPB SCH ×3 (05:27→22:06)
[2019-05-02] MEDS: D5NS 1,000 ML IV SCH ×2 (05:50→19:00)
[2019-05-02] MEDS: NovoLOG Insulin Flexpen SUBQ SCH ×5 (05:56→23:34)
[2019-05-02] MEDS: HYDROcodone/Acetamin 5/325 tab ORAL PRN (06:01)
[2019-05-02 07:31] LABS: HEMATOCRIT 15.3 % (37.0-47.0); MEAN CORPUSCULAR VOLUME 80 FL (80-99); PLATELET COUNT 379 K/UL (150-450); RED BLOOD COUNT 1.91 M/UL (4.20-5.40)
[2019-05-02 08:02] LABS: ALANINE AMINOTRANSFERASE 12 U/L (12-78); ALBUMIN 2.1 G/DL (3.4-5.0); ALBUMIN/GLOBULIN RATIO 0.4 (1.0-2.7); ALKALINE PHOSPHATASE 147 U/L (46-116); ANION GAP 3 mmol/L (5-15); ASPARTATE AMINO TRANSFERASE 14 U/L (15-37); BILIRUBIN,TOTAL 0.7 MG/DL (0.2-1.0); BLOOD UREA NITROGEN 21 mg/dL (7-18); CALCIUM 7.3 MG/DL (8.5-10.1); CARBON DIOXIDE 23 MMOL/L (21-32); CHLORIDE 106 MMOL/L (98-107); CHOLESTEROL 78 MG/DL (< 200); CREATININE 1.5 MG/DL (0.55-1.30); GAMMA GLUTAMYL TRANSPEPTIDASE 42 U/L (5-85); HDL CHOLESTEROL 21 MG/DL (40-60); POTASSIUM 4.3 MMOL/L (3.5-5.1); SODIUM 132 MMOL/L (136-145); TRIGLYCERIDES 108 MG/DL (30-150)
[2019-05-02 08:16] LABS: HEMOGLOBIN 4.8 G/DL (12.0-16.0); WHITE BLOOD COUNT 24.3 K/UL (4.8-10.8)
--- NOTE | 2019-05-02 08:58 | General Progress Note ---
Assessment/Plan Problem List: (1) Diabetes ICD Codes: E11.9 - Type 2 diabetes mellitus without complications SNOMED: 74097391 (2) Renal insufficiency ICD Codes: N28.9 - Disorder of kidney and ureter, unspecified SNOMED: 066083556, 061953332 (3) Anemia ICD Codes: D64.9 - Anemia, unspecified SNOMED: 422510292 (4) Infection of right foot ICD Codes: L08.9 - Local infection of the skin and subcutaneous tissue, unspecified SNOMED: 982321901 (5) Right foot ulcer ICD Codes: L97.519 - Non-pressure chronic ulcer of other part of right foot with unspecified severity SNOMED: 47456121 (6) Ischemia of right lower extremity ICD Codes: I99.8 - Other disorder of circulatory system SNOMED: 868507468 Status: stable, progressing Assessment/Plan: wound care abx pain control cbc bmp am Subjective Constitutional: Reports: weakness Allergies: Coded Allergies: No Known Allergies (Unverified , 05/01/19) All Systems: reviewed and negative except above Subjective calm awaiting mri Objective Last 24 Hour Vital Signs Date Time Temp Pulse Resp B/P (MAP) Pulse Ox O2 Delivery O2 Flow Rate FiO2 05/01/19 21:00 Room Air 05/01/19 16:50 97.7 18 110/51 (70) 99 05/01/19 16:00 74 05/01/19 16:00 98.2 21 111/53 (72) 96 05/01/19 12:00 70 05/01/19 10:27 98.2 05/01/19 09:37 98.2 05/01/19 09:00 Room Air Intake and Output 05/01/19 05/02/19 19:00 07:00 Intake Total 525 ml Balance 525 ml Intake IV Total 525 ml Laboratory Tests 05/01/19 11:28: Lactic Acid Level 1.30 05/02/19 05:28: Lactic Acid Level 1.20, White Blood Count 24.3*H, Red Blood Count 1.91L, Hemoglobin 4.8*L, Hematocrit 15.3L, Mean Corpuscular Volume 80, Mean Corpuscular Hemoglobin 25.1L, Mean Corpuscular Hemoglobin Concent 31.2L, Red Cell Distribution Width 19.0H, Platelet Count 379, Mean Platelet Volume 7.5, Neutrophils (%) (Auto) , Lymphocytes (%) (Auto) , Monocytes (%) (Auto) , Eosinophils (%) (Auto) , Basophils (%) (Auto) , Neutrophils % (Manual) [Pending] , Lymphocytes % (Manual) [Pending], Platelet Estimate [Pending], Platelet Morphology [Pending], Sodium Level 132L, Potassium Level 4.3, Chloride Level 106 , Carbon Dioxide Level 23, Anion Gap 3L, Blood Urea Nitrogen 21H, Creatinine 1.5H, Estimat Glomerular Filtration Rate 46.4, Glucose Level 65#L, Uric Acid 6.1 , Calcium Level 7.3L, Phosphorus Level 3.0, Magnesium Level 2.1, Total Bilirubin 0.7, Gamma Glutamyl Transpeptidase 42, Aspartate Amino Transf (AST/ SGOT) 14L, Alanine Aminotransferase (ALT/SGPT) 12, Alkaline Phosphatase 147H, C- Reactive Protein, Quantitative 4.6H, Pro-B-Type Natriuretic Peptide 1579H, Total Protein 6.8, Albumin 2.1L, Globulin 4.7, Albumin/Globulin Ratio 0.4L, Triglycerides Level 108, Cholesterol Level 78, LDL Cholesterol 37, HDL Cholesterol 21L, Cholesterol/HDL Ratio 3.7, Lipase 20L, Thyroid Stimulating Hormone (TSH) 2.104, Random Vancomycin Level 15.4 Height (Feet): 4 Height (Inches): 11.00 Weight (Pounds): 110 General Appearance: lethargic EENT: normal ENT inspection Neck: normal alignment Cardiovascular: normal peripheral pulses, normal rate, regular rhythm Respiratory/Chest: chest wall non-tender, lungs clear, normal breath sounds Abdomen: normal bowel sounds, non tender, soft Extremities: normal inspection Edema: no edema noted Arm (L), no edema noted Arm (R), no edema noted Leg (L), no edema noted Leg (R), no edema noted Pedal (L), no edema noted Pedal (R), no edema noted Generalized Neurologic: motor weakness Skin: normal pigmentation, warm/dry Marco Antonio Enriquez DO May 02, 2019 08:57
[2019-05-02] MEDS ORDERED: Epoetin Alfa-EPBX (NON ESRD)4000 units/ml vial SUBQ SCH ×3 (09:00→21:00)
[2019-05-02] MEDS: Docusate 100mg cap ORAL SCH ×3 (09:00→19:20)
--- NOTE | 2019-05-02 09:19 | Consultation ---
History of Present Illness General Date patient seen: May 02, 2019 Chief Complaint: Present Illness Allergies: Coded Allergies: No Known Allergies (Unverified , 05/01/19) Medication History Scheduled Insulin Glargine (Lantus), 10 SUBQ BEDTIME, (Reported) Insulin Human Lispro (Humalog), 0 SUBQ AC+HS, (Reported) Patient History Healthcare decision maker SELF Resuscitation status Full Code Advanced Directive on File Physical Exam Last 24 Hour Vital Signs Date Time Temp Pulse Resp B/P (MAP) Pulse Ox O2 Delivery O2 Flow Rate FiO2 05/02/19 08:00 98.0 61 18 94/53 (67) 99 05/01/19 21:00 Room Air 05/01/19 16:50 97.7 18 110/51 (70) 99 05/01/19 16:00 74 05/01/19 16:00 98.2 21 111/53 (72) 96 05/01/19 12:00 70 05/01/19 10:27 98.2 05/01/19 09:37 98.2 Intake and Output 05/01/19 05/02/19 19:00 07:00 Intake Total 525 ml Balance 525 ml Intake IV Total 525 ml Laboratory Tests Test 05/01/19 11:28 05/02/19 05:28 Lactic Acid Level 1.30 mmol/L (0.66-2.22) 1.20 mmol/L (0.4-2.0) White Blood Count 24.3 K/UL (4.8-10.8) *H Red Blood Count 1.91 M/UL (4.20-5.40) L Hemoglobin 4.8 G/DL (12.0-16.0) *L Hematocrit 15.3 % (37.0-47.0) L Mean Corpuscular Volume 80 FL (80-99) Mean Corpuscular Hemoglobin 25.1 PG (27.0-31.0) L Mean Corpuscular Hemoglobin Concent 31.2 G/DL (32.0-36.0) L Red Cell Distribution Width 19.0 % (11.6-14.8) H Platelet Count 379 K/UL (150-450) Mean Platelet Volume 7.5 FL (6.5-10.1) Neutrophils (%) (Auto) % (45.0-75.0) Lymphocytes (%) (Auto) % (20.0-45.0) Monocytes (%) (Auto) % (1.0-10.0) Eosinophils (%) (Auto) % (0.0-3.0) Basophils (%) (Auto) % (0.0-2.0) Neutrophils % (Manual) Pending Lymphocytes % (Manual) Pending Platelet Estimate Pending Platelet Morphology Pending Sodium Level 132 MMOL/L (136-145) L Potassium Level 4.3 MMOL/L (3.5-5.1) Chloride Level 106 MMOL/L (98-107) Carbon Dioxide Level 23 MMOL/L (21-32) Anion Gap 3 mmol/L (5-15) L Blood Urea Nitrogen 21 mg/dL (7-18) H Creatinine 1.5 MG/DL (0.55-1.30) H Estimat Glomerular Filtration Rate 46.4 mL/min (>60) Glucose Level 65 MG/DL (74-106) #L Uric Acid 6.1 MG/DL (2.6-7.2) Calcium Level 7.3 MG/DL (8.5-10.1) L Phosphorus Level 3.0 MG/DL (2.5-4.9) Magnesium Level 2.1 MG/DL (1.8-2.4) Total Bilirubin 0.7 MG/DL (0.2-1.0) Gamma Glutamyl Transpeptidase 42 U/L (5-85) Aspartate Amino Transf (AST/SGOT) 14 U/L (15-37) L Alanine Aminotransferase (ALT/SGPT) 12 U/L (12-78) Alkaline Phosphatase 147 U/L (46-116) H C-Reactive Protein, Quantitative 4.6 mg/dL (0.00-0.90) H Pro-B-Type Natriuretic Peptide 1579 pg/mL (0-125) H Total Protein 6.8 G/DL (6.4-8.2) Albumin 2.1 G/DL (3.4-5.0) L Globulin 4.7 g/dL Albumin/Globulin Ratio 0.4 (1.0-2.7) L Triglycerides Level 108 MG/DL (30-150) Cholesterol Level 78 MG/DL (< 200) LDL Cholesterol 37 mg/dL (<100) HDL Cholesterol 21 MG/DL (40-60) L Cholesterol/HDL Ratio 3.7 (3.3-4.4) Lipase 20 U/L (73-393) L Thyroid Stimulating Hormone (TSH) 2.104 uiU/mL (0.358-3.740) Random Vancomycin Level 15.4 ug/mL Height (Feet): 4 Height (Inches): 11.00 Weight (Pounds): 110 Medications Current Medications Medications (Trade) Dose Ordered Sig/Trey Route PRN Reason Start Time Stop Time Status Last Admin Dose Admin Acetaminophen (Tylenol) 650 mg Q4H PRN ORAL Mild Pain/Temp > 100.5 05/01/19 18:00 05/31/19 17:59 Acetaminophen/ Hydrocodone Bitart ([place] 5/325) 1 tab Q6H PRN ORAL Moderate Pain (Pain Scale 4-6) 05/01/19 18:00 05/08/19 17:59 05/02/19 06:01 Dextrose (Dextrose 50%) 25 ml Q30M PRN IV Hypoglycemia 05/01/19 18:00 05/31/19 17:59 Dextrose (Dextrose 50%) 50 ml Q30M PRN IV Hypoglycemia 05/01/19 18:00 05/31/19 17:59 05/02/19 00:12 Dextrose/Sodium Chloride 1,000 ml @ 75 mls/hr [id number] IV 05/01/19 18:00 05/31/19 17:59 05/01/19 18:03 Diphenhydramine HCl (Benadryl) 25 mg Q6H PRN IVP Itching 05/01/19 18:00 05/31/19 17:59 Docusate Sodium (Colace) 100 mg THREE TIMES A DAY ORAL 05/01/19 18:00 05/31/19 17:59 05/01/19 18:03 Epoetin Matt (Epoetin Matt-EPBX(NON ESRD)) 4,000 unit SUN-SUN-SUN SUBQ 05/02/19 21:00 06/01/19 20:59 Insulin Aspart (NovoLOG) Q6HR SUBQ 05/01/19 18:00 05/31/19 17:59 Morphine Sulfate (Morphine Sulfate) 2 mg Q6H PRN IVP Severe Pain (Pain Scale 7-10) 05/01/19 18:00 05/08/19 05:59 05/02/19 00:58 Ondansetron HCl (Zofran) 4 mg Q6H PRN IVP Nausea & Vomiting 05/01/19 18:00 05/31/19 17:59 Pantoprazole (Protonix) 40 mg EVERY 12 HOURS ORAL 05/01/19 21:00 05/31/19 13:44 05/01/19 20:31 Piperacillin Sod/ Tazobactam Sod 3.375 gm/Sodium Chloride 110 ml @ 27.5 mls/hr EVERY 8 HOURS IVPB 05/01/19 20:00 05/08/19 19:59 05/02/19 05:27 Vancomycin HCl (Vanco rx to dose) 1 ea DAILY PRN MISC Per rx protocol 05/01/19 19:30 05/31/19 19:29 Zolpidem Tartrate (Ambien) 5 mg HSPRN PRN ORAL Insomnia 05/01/19 21:00 05/08/19 20:59 Assessment/Plan Assessment/Plan: (1) Right foot pain (2) Right foot ulcer seen dictated Navi Menchcaa May 02, 2019 09:19
[2019-05-02] MEDS ORDERED: HYDROcodone/Acetamin 10/325 tab ORAL PRN ×2 (09:45→17:45)
--- NOTE | 2019-05-02 10:01 | Nephrology Progress Note ---
Assessment/Plan Problem List: (1) Diabetic nephropathy (2) Renal failure (ARF), acute on chronic (3) Anemia (4) Ischemia of right lower extremity (5) Right foot ulcer (6) Infection of right foot Assessment Renal Failure , likely diabetic nephropathy IDDM Anemia, h/o SS disease right foot appears gangerenous Plan Anemia management NS BS check gastric support per consultants DC Ibuprofen One dose Vanco given 05/01 Need amputation ! Subjective ROS Limited/Unobtainable: No Constitutional: Reports: malaise Objective Objective Last 24 Hour Vital Signs Date Time Temp Pulse Resp B/P (MAP) Pulse Ox O2 Delivery O2 Flow Rate FiO2 05/02/19 08:00 98.0 61 18 94/53 (67) 99 05/01/19 21:00 Room Air 05/01/19 16:50 97.7 18 110/51 (70) 99 05/01/19 16:00 74 05/01/19 16:00 98.2 21 111/53 (72) 96 05/01/19 12:00 70 05/01/19 10:27 98.2 Intake and Output 05/01/19 05/02/19 19:00 07:00 Intake Total 525 ml Balance 525 ml Intake IV Total 525 ml Laboratory Tests 05/01/19 11:28: Lactic Acid Level 1.30 05/02/19 05:28: Lactic Acid Level 1.20, White Blood Count 24.3*H, Red Blood Count 1.91L, Hemoglobin 4.8*L, Hematocrit 15.3L, Mean Corpuscular Volume 80, Mean Corpuscular Hemoglobin 25.1L, Mean Corpuscular Hemoglobin Concent 31.2L, Red Cell Distribution Width 19.0H, Platelet Count 379, Mean Platelet Volume 7.5, Neutrophils (%) (Auto) , Lymphocytes (%) (Auto) , Monocytes (%) (Auto) , Eosinophils (%) (Auto) , Basophils (%) (Auto) , Neutrophils % (Manual) [Pending] , Lymphocytes % (Manual) [Pending], Platelet Estimate [Pending], Platelet Morphology [Pending], Sodium Level 132L, Potassium Level 4.3, Chloride Level 106 , Carbon Dioxide Level 23, Anion Gap 3L, Blood Urea Nitrogen 21H, Creatinine 1.5H, Estimat Glomerular Filtration Rate 46.4, Glucose Level 65#L, Uric Acid 6.1 , Calcium Level 7.3L, Phosphorus Level 3.0, Magnesium Level 2.1, Total Bilirubin 0.7, Gamma Glutamyl Transpeptidase 42, Aspartate Amino Transf (AST/ SGOT) 14L, Alanine Aminotransferase (ALT/SGPT) 12, Alkaline Phosphatase 147H, C- Reactive Protein, Quantitative 4.6H, Pro-B-Type Natriuretic Peptide 1579H, Total Protein 6.8, Albumin 2.1L, Globulin 4.7, Albumin/Globulin Ratio 0.4L, Triglycerides Level 108, Cholesterol Level 78, LDL Cholesterol 37, HDL Cholesterol 21L, Cholesterol/HDL Ratio 3.7, Lipase 20L, Thyroid Stimulating Hormone (TSH) 2.104, Random Vancomycin Level 15.4 Height (Feet): 4 Height (Inches): 11.00 Weight (Pounds): 110 General Appearance: no apparent distress Extremities: other - right foot and LE ischemic Objective no change Elfego Vázquez MD May 02, 2019 10:01
[2019-05-02] MEDS ORDERED: Dyna-Hex 2% Top Sol 2oz TOPIC SCH (11:00)
[2019-05-02] MEDS ORDERED: Lac Hydrin 12% Lotion 8oz TOPIC SCH (11:30)
--- NOTE | 2019-05-02 12:41 | Infectious Diseases Prog Note ---
Assessment/Plan Assessment/Plan Abx: IV Vancomycin x1 05/01 Zosyn x1 05/01 Assessment: R LE wound- severe infection, likely necrotizing- r/o OM -Xray tibia/fibula: Soft tissue gas and edema in the foot and ankle are concerning for infection. No definite acute osseous abnormality. Osteopenia. -R foot/ankle xray: Soft tissue gas and edema in the foot and ankle are concerning for infection. Extensive soft tissue gas limits evaluation of fine bony detail. Deformity of the calcaneus is nonspecific and may be related to osteomyelitis or trauma. MRI with and without intravenous contrast may be considered for further characterization. -ESR 95, CRP 7.1 Afebrile Leukocytosis; improving Dm1 HTN sickle cell anemia R hip replacement Plan: -Continue empiric IV Vancomcyin and ZOsyn #2 -f/u cx -Monitor CBC/CMP, temperatures -f/u BCx x2, wound cx -Sx f/u- will likely need amputation Thank you for this consultation. Will continue to follow along with you. Discussed with RN. Subjective Allergies: Coded Allergies: No Known Allergies (Unverified , 05/01/19) Subjective afebrile wbc improving Objective Vital Signs Last 24 Hour Vital Signs Date Time Temp Pulse Resp B/P (MAP) Pulse Ox O2 Delivery O2 Flow Rate FiO2 05/02/19 08:00 98.0 61 18 94/53 (67) 99 05/01/19 21:00 Room Air 05/01/19 16:50 97.7 18 110/51 (70) 99 05/01/19 16:00 74 05/01/19 16:00 98.2 21 111/53 (72) 96 Height (Feet): 4 Height (Inches): 11.00 Weight (Pounds): 110 Objective General appearance: alert, cooperative, no distress, appears stated age Head: Normocephalic, without obvious abnormality, atraumatic Eyes: conjunctivae/corneas clear. PERRL, EOM's intact. Fundi benign Throat: Lips, mucosa, and tongue normal. Teeth and gums normal Neck: supple, symmetrical, trachea midline, no adenopathy, thyroid: not enlarged, symmetric, no tenderness/mass/nodules, no carotid bruit and no JVD Lungs: clear to auscultation bilaterally Heart: regular rate and rhythm, S1, S2 normal, no murmur, click, rub or gallop Abdomen: soft, non-tender. Bowel sounds normal. No masses, no organomegaly Extremities: multiple open areas of exposed bone tendon and even potentially bone in some areas. Wound is very foul-smelling with drainage. There is areas of ischemia on the anterior aspect of the ankle. The heel is open and draining Pulses: 2+ and symmetric Skin: Skin color, texture, turgor normal. No rashes or lesions Neurologic: Grossly normal Laboratory Tests Test 05/02/19 05:28 White Blood Count 24.3 K/UL (4.8-10.8) *H Red Blood Count 1.91 M/UL (4.20-5.40) L Hemoglobin 4.8 G/DL (12.0-16.0) *L Hematocrit 15.3 % (37.0-47.0) L Mean Corpuscular Volume 80 FL (80-99) Mean Corpuscular Hemoglobin 25.1 PG (27.0-31.0) L Mean Corpuscular Hemoglobin Concent 31.2 G/DL (32.0-36.0) L Red Cell Distribution Width 19.0 % (11.6-14.8) H Platelet Count 379 K/UL (150-450) Mean Platelet Volume 7.5 FL (6.5-10.1) Neutrophils (%) (Auto) % (45.0-75.0) Lymphocytes (%) (Auto) % (20.0-45.0) Monocytes (%) (Auto) % (1.0-10.0) Eosinophils (%) (Auto) % (0.0-3.0) Basophils (%) (Auto) % (0.0-2.0) Differential Total Cells Counted 100 Neutrophils % (Manual) 74 % (45-75) Lymphocytes % (Manual) 18 % (20-45) L Monocytes % (Manual) 2 % (1-10) Eosinophils % (Manual) 2 % (0-3) Basophils % (Manual) 0 % (0-2) Band Neutrophils 4 % (0-8) Platelet Estimate Adequate Platelet Morphology Normal Polychromasia 3+ Hypochromasia 3+ Anisocytosis 1+ Microcytosis 2+ Target Cells 3+ Tear Drop Cells Occasional Ovalocytes 1+ Blum-Frankclay Bodies Rare Sodium Level 132 MMOL/L (136-145) L Potassium Level 4.3 MMOL/L (3.5-5.1) Chloride Level 106 MMOL/L (98-107) Carbon Dioxide Level 23 MMOL/L (21-32) Anion Gap 3 mmol/L (5-15) L Blood Urea Nitrogen 21 mg/dL (7-18) H Creatinine 1.5 MG/DL (0.55-1.30) H Estimat Glomerular Filtration Rate 46.4 mL/min (>60) Glucose Level 65 MG/DL (74-106) #L Lactic Acid Level 1.20 mmol/L (0.4-2.0) Uric Acid 6.1 MG/DL (2.6-7.2) Calcium Level 7.3 MG/DL (8.5-10.1) L Phosphorus Level 3.0 MG/DL (2.5-4.9) Magnesium Level 2.1 MG/DL (1.8-2.4) Total Bilirubin 0.7 MG/DL (0.2-1.0) Gamma Glutamyl Transpeptidase 42 U/L (5-85) Aspartate Amino Transf (AST/SGOT) 14 U/L (15-37) L Alanine Aminotransferase (ALT/SGPT) 12 U/L (12-78) Alkaline Phosphatase 147 U/L (46-116) H C-Reactive Protein, Quantitative 4.6 mg/dL (0.00-0.90) H Pro-B-Type Natriuretic Peptide 1579 pg/mL (0-125) H Total Protein 6.8 G/DL (6.4-8.2) Albumin 2.1 G/DL (3.4-5.0) L Globulin 4.7 g/dL Albumin/Globulin Ratio 0.4 (1.0-2.7) L Triglycerides Level 108 MG/DL (30-150) Cholesterol Level 78 MG/DL (< 200) LDL Cholesterol 37 mg/dL (<100) HDL Cholesterol 21 MG/DL (40-60) L Cholesterol/HDL Ratio 3.7 (3.3-4.4) Lipase 20 U/L (73-393) L Thyroid Stimulating Hormone (TSH) 2.104 uiU/mL (0.358-3.740) Random Vancomycin Level 15.4 ug/mL Current Medications Medications (Trade) Dose Ordered Sig/Trey Route PRN Reason Start Time Stop Time Status Last Admin Dose Admin Acetaminophen (Tylenol) 650 mg Q4H PRN ORAL Mild Pain/Temp > 100.5 05/01/19 18:00 05/31/19 17:59 Acetaminophen/ Hydrocodone Bitart ([place] 10/325) 1 tab Q4H PRN ORAL modp 05/02/19 09:45 05/09/19 09:44 05/02/19 10:03 Ammonium Lactate (Lac Hydrin) 1 applic TWICE A DAY TOPIC 05/02/19 11:30 06/01/19 11:29 Chlorhexidine Gluconate (An-Hex 2%) 1 applic TWICE A DAY TOPIC 05/02/19 11:00 06/01/19 10:59 Dextrose (Dextrose 50%) 25 ml Q30M PRN IV Hypoglycemia 05/01/19 18:00 05/31/19 17:59 Dextrose (Dextrose 50%) 50 ml Q30M PRN IV Hypoglycemia 05/01/19 18:00 05/31/19 17:59 05/02/19 00:12 Dextrose/Sodium Chloride 1,000 ml @ 75 mls/hr [id number] IV 05/01/19 18:00 05/31/19 17:59 05/01/19 18:03 Diphenhydramine HCl (Benadryl) 25 mg Q6H PRN IVP Itching 05/01/19 18:00 05/31/19 17:59 Docusate Sodium (Colace) 100 mg THREE TIMES A DAY ORAL 05/01/19 18:00 05/31/19 17:59 05/01/19 18:03 Epoetin Matt (Epoetin Matt-EPBX(NON ESRD)) 4,000 unit SUN-SUN-SUN SUBQ 05/02/19 21:00 06/01/19 20:59 Insulin Aspart (NovoLOG) Q6HR SUBQ 05/01/19 18:00 05/31/19 17:59 Morphine Sulfate (Morphine Sulfate) 2 mg Q6H PRN IVP Severe Pain (Pain Scale 7-10) 05/01/19 18:00 05/08/19 05:59 05/02/19 00:58 Ondansetron HCl (Zofran) 4 mg Q6H PRN IVP Nausea & Vomiting 05/01/19 18:00 05/31/19 17:59 Pantoprazole (Protonix) 40 mg EVERY 12 HOURS ORAL 05/01/19 21:00 05/31/19 13:44 05/01/19 20:31 Piperacillin Sod/ Tazobactam Sod 3.375 gm/Sodium Chloride 110 ml @ 27.5 mls/hr EVERY 8 HOURS IVPB 05/01/19 20:00 05/08/19 19:59 05/02/19 05:27 Vancomycin HCl (Vanco rx to dose) 1 ea DAILY PRN MISC Per rx protocol 05/01/19 19:30 05/31/19 19:29 Zolpidem Tartrate (Ambien) 5 mg HSPRN PRN ORAL Insomnia 05/01/19 21:00 05/08/19 20:59 Radha Gill M.D. May 02, 2019 12:41
[2019-05-02] MEDS ORDERED: LR 1000ml ONE (14:00)
[2019-05-02] MEDS ORDERED: Propofol 200mg/20ml IV ONE (14:00)
[2019-05-02] MEDS ORDERED: LR 1000ml 1,000 ML IVLG SCH (14:24)
--- NOTE | 2019-05-02 14:27 | Anethesia Preoperative Eval ---
Anesthesia Pre-op PMH/ROS General Date of Evaluation: May 02, 2019 Time of Evaluation: 14:19 Anesthesiologist: Devante ASA Score: ASA 3 Mallampati Score Class I : Soft palate, uvula, fauces, pillars visible Class II: Soft palate, uvula, fauces visible Class III: Soft palate, base of uvula visible Class IV: Only hard plate visible Mallampati Classification: Class II Surgeon: Apryl Diagnosis: R Foot Necrosis Surgical Procedure: R BKA Anesthesia History: none Family History: no anesthesia problems Allergies: Coded Allergies: No Known Allergies (Unverified , 05/01/19) Medications: see eMAR Patient NPO?: Yes NPO Date: May 01, 2019 NPO Time: 0000 Past Medical History Endocrine: Reports: DM Hematology/Immune: Reports: anemia, other - SSA Anesthesia Pre-op Phys. Exam Physician Exam Last Vital Signs Date Time Temp Pulse Resp B/P (MAP) Pulse Ox O2 Delivery O2 Flow Rate FiO2 05/02/19 09:00 Room Air 05/02/19 08:00 98.0 61 18 94/53 (67) 99 Constitutional: NAD Neurologic: CN 2-12 intact Cardiovascular: RRR Respiratory: CTA Gastrointestinal: S/NT/ND Airway Exam Mallampati Score: Class II MO: limited ROM: limited Teeth: missing Dentures: upper, lower Anesthesia Pre-op A/P Labs Hematology Test 05/02/19 05:28 White Blood Count 24.3 K/UL (4.8-10.8) *H Red Blood Count 1.91 M/UL (4.20-5.40) L Hemoglobin 4.8 G/DL (12.0-16.0) *L Hematocrit 15.3 % (37.0-47.0) L Mean Corpuscular Volume 80 FL (80-99) Mean Corpuscular Hemoglobin 25.1 PG (27.0-31.0) L Mean Corpuscular Hemoglobin Concent 31.2 G/DL (32.0-36.0) L Red Cell Distribution Width 19.0 % (11.6-14.8) H Platelet Count 379 K/UL (150-450) Mean Platelet Volume 7.5 FL (6.5-10.1) Neutrophils (%) (Auto) % (45.0-75.0) Lymphocytes (%) (Auto) % (20.0-45.0) Monocytes (%) (Auto) % (1.0-10.0) Eosinophils (%) (Auto) % (0.0-3.0) Basophils (%) (Auto) % (0.0-2.0) Differential Total Cells Counted 100 Neutrophils % (Manual) 74 % (45-75) Lymphocytes % (Manual) 18 % (20-45) L Monocytes % (Manual) 2 % (1-10) Eosinophils % (Manual) 2 % (0-3) Basophils % (Manual) 0 % (0-2) Band Neutrophils 4 % (0-8) Platelet Estimate Adequate Platelet Morphology Normal Polychromasia 3+ Hypochromasia 3+ Anisocytosis 1+ Microcytosis 2+ Target Cells 3+ Tear Drop Cells Occasional Ovalocytes 1+ Blum-Woodson Bodies Rare Chemistry Test 05/02/19 05:28 Sodium Level 132 MMOL/L (136-145) L Potassium Level 4.3 MMOL/L (3.5-5.1) Chloride Level 106 MMOL/L (98-107) Carbon Dioxide Level 23 MMOL/L (21-32) Anion Gap 3 mmol/L (5-15) L Blood Urea Nitrogen 21 mg/dL (7-18) H Creatinine 1.5 MG/DL (0.55-1.30) H Estimat Glomerular Filtration Rate 46.4 mL/min (>60) Glucose Level 65 MG/DL (74-106) #L Lactic Acid Level 1.20 mmol/L (0.4-2.0) Uric Acid 6.1 MG/DL (2.6-7.2) Calcium Level 7.3 MG/DL (8.5-10.1) L Phosphorus Level 3.0 MG/DL (2.5-4.9) Magnesium Level 2.1 MG/DL (1.8-2.4) Total Bilirubin 0.7 MG/DL (0.2-1.0) Gamma Glutamyl Transpeptidase 42 U/L (5-85) Aspartate Amino Transf (AST/SGOT) 14 U/L (15-37) L Alanine Aminotransferase (ALT/SGPT) 12 U/L (12-78) Alkaline Phosphatase 147 U/L (46-116) H C-Reactive Protein, Quantitative 4.6 mg/dL (0.00-0.90) H Pro-B-Type Natriuretic Peptide 1579 pg/mL (0-125) H Total Protein 6.8 G/DL (6.4-8.2) Albumin 2.1 G/DL (3.4-5.0) L Globulin 4.7 g/dL Albumin/Globulin Ratio 0.4 (1.0-2.7) L Triglycerides Level 108 MG/DL (30-150) Cholesterol Level 78 MG/DL (< 200) LDL Cholesterol 37 mg/dL (<100) HDL Cholesterol 21 MG/DL (40-60) L Cholesterol/HDL Ratio 3.7 (3.3-4.4) Lipase 20 U/L (73-393) L Thyroid Stimulating Hormone (TSH) 2.104 uiU/mL (0.358-3.740) Risk Assessment & Plan Assessment: ASA 3E Plan: GA Status Change Before Surgery: No Pre-Antibiotics Dru Gram Ancef IV Given Within 1 Hr of Incision: Yes Time Given: 14:46 Fabio Maradiaga MD May 02, 2019 14:27
[2019-05-02] MEDS ORDERED: Metoclopramide 10mg/2ml Inj IVP PRN ×2 (14:30→16:30)
[2019-05-02] MEDS ORDERED: Ketorolac 30mg Inj IV PRN ×4 (14:30→16:30)
[2019-05-02] MEDS ORDERED: oxyCODONE HCL/Acetaminophen 5/325mg ORAL PRN ×2 (14:30→16:30)
[2019-05-02] MEDS ORDERED: Labetalol 5mg/ml 20ml vial IV PRN ×2 (14:30→16:30)
[2019-05-02] MEDS ORDERED: DiphenhydrAMINE 50mg/ml Inj IVP PRN ×3 (14:30→17:00)
[2019-05-02] MEDS ORDERED: LORazepam Inj 2mg/ml 1ml IV PRN ×2 (14:30→16:30)
[2019-05-02] MEDS ORDERED: fentaNYL 100 mcg/2 mL IV PRN ×2 (14:30→16:30)
[2019-05-02] MEDS ORDERED: Hydromorphone 0.5mg/0.5ml inj IVP PRN ×2 (14:30→16:30)
[2019-05-02] MEDS ORDERED: Meperidine 50mg/ml Inj(FOR RIGORS ONLY) IVP PRN ×2 (14:30→16:30)
[2019-05-02] MEDS ORDERED: HYDROcodone/Acetamin 7.5/325 tab ORAL PRN ×2 (14:30→16:30)
[2019-05-02] MEDS ORDERED: HYDROcodone/Acetamin 5/325 tab ORAL PRN ×2 (14:30→16:30)
[2019-05-02] MEDS ORDERED: Midazolam 2mg/2ml Inj IVP PRN ×2 (14:30→16:30)
[2019-05-02] MEDS ORDERED: Atropine Sulfate 0.4mg/ml inj IVP PRN ×2 (14:30→16:30)
--- NOTE | 2019-05-02 14:33 | Pre-Procedure Note/Attestation ---
Pre-Procedure Note/Attestation Complete Prior to Procedure Planned Procedure: right Procedure Narrative: emergency right lower extremity amputation, AKA vs BKA Indications for Procedure Pre-Operative Diagnosis: right lower extremity infection Attestation I attest that I discussed the nature of the procedure; its benefits; risks and complications; and alternatives (and the risks and benefits of such alternatives ), prior to the procedure, with the patient (or the patient's legal sales representative livestock). I attest that, if there was a reasonable possibility of needing a blood transfusion, the patient (or the patient's legal sales representative livestock) was given the [facility] standardized written summary, pursuant to the [place] Blood Safety Act ([place] Health and Safety Code # 1645, as amended). I attest that I re-evaluated the patient just prior to the surgery and that there has been no change in the patient's H&P, except as documented below: Tian Avalos May 02, 2019 14:33
[2019-05-02] MEDS ORDERED: Bacitracin 50000 Units Vial ONE (14:36)
[2019-05-02] MEDS ORDERED: Bacitracin Oint 15gm Tube TOPIC ONE (14:36)
[2019-05-02] MEDS ORDERED: Lidocaine 1% MPF 10mg/ml 5ml ONE (14:42)
[2019-05-02] MEDS ORDERED: Sodium Chloride 10ml vial INJ ONE (14:42)
[2019-05-02] MEDS ORDERED: fentaNYL 100 mcg/2 mL IV ONE (14:44)
[2019-05-02] MEDS ORDERED: Lidocaine 1% Plain 30 ml INJ ONE (14:50)
[2019-05-02] MEDS ORDERED: Phenylephrine 10mg/ml Vial ONE (14:53)
--- NOTE | 2019-05-02 15:10 | Hematology/Onc Progress Note ---
Assessment/Plan Assessment/Plan Assessment and Recs: # Sickle cell disease - hgb baseline 5-6 range, per patient she does not want blood transfusions --> refusing blood transfusions, per her the baseline is 5-6 range --> trend hgb 5.85-->4.8 --> anemia panel reviewed and c/w these labs values, ferritin is high --> not in hemolysis at this time --> electrophoresis as needed, not during stay at this time --> epo has been ordered 3 x a week --> iron stores are sufficient --> recommended transfusion can be life saving but patient declined # Leukocytosis/elevated white blood cell count, unspecified likely related to underlying stress reaction, smoking v from crisis --> have reviewed peripheral smear and bandemia/neutrophilia noted --> continue antibiotics if they have been started by ID team --> monitor for resolution --> trend wbc 25k-->23k --> may need surg, refusing # HAYDEE can be dm related --> trend and establish baseline --> may be dehydrated --> cr 2-->1.5 # Electrolyte abnml --> as per renal, Na+ trend and volume expansion # DM2 --> a1c goal <8 goal The timing of this note does not necessarily reflect the time of the patient was seen. GREATLY APPRECIATE CONSULTATION. Subjective Constitutional: Denies: no symptoms, chills, fever, malaise, weakness, other Genitourinary: Denies: no symptoms, burning, discharge, frequency, flank pain, hematuria, incontinence, pain, urgency, other Neurologic/Psychiatric: Denies: no symptoms, anxiety, depressed, emotional problems, headache, numbness, paresthesia, pre-existing deficit, seizure, tingling, tremors, weakness, other Endocrine: Denies: no symptoms, excessive sweating, flushing, intolerance to cold, intolerance to heat, increased hunger, increased thirst, increased urine, unexplained weight gain, unexplained weight loss, other Hematologic/Lymphatic: Denies: no symptoms, anemia, easy bleeding, easy bruising, adenopathy, other Allergies: Coded Allergies: No Known Allergies (Unverified , 05/01/19) Subjective 05/02: on epogen, hgb lower 4.8, initially refused transfusion, now accepting, shiva rn, refusing sx Objective Objective Current Medications Medications (Trade) Dose Ordered Sig/Trey Route PRN Reason Start Time Stop Time Status Last Admin Dose Admin Acetaminophen (Tylenol) 650 mg Q4H PRN ORAL Mild Pain/Temp > 100.5 05/01/19 18:00 05/31/19 17:59 Acetaminophen/ Hydrocodone Bitart ([place] 10/325) 1 tab Q4H PRN ORAL modp 05/02/19 09:45 05/09/19 09:44 05/02/19 10:03 Acetaminophen/ Hydrocodone Bitart ([place] 5/325) 1 tab Q1H PRN ORAL Mild Pain (Pain Scale 1-3) 05/02/19 14:30 05/02/19 20:30 Acetaminophen/ Hydrocodone Bitart ([place] 7.5/325) 1 tab Q1H PRN ORAL Moderate Pain (Pain Scale 4-6) 05/02/19 14:30 05/02/19 20:30 Al Hydroxide/Mg Hydroxide (Mylanta) 15 ml Q1H PRN ORAL gi upset 05/02/19 14:30 05/02/19 20:30 Ammonium Lactate (Lac Hydrin) 1 applic TWICE A DAY TOPIC 05/02/19 11:30 06/01/19 11:29 Atropine Sulfate (Atropine 0.4mg/ ml) 0.5 mg Q5M PRN IVP HR<40 05/02/19 14:30 05/02/19 20:30 Chlorhexidine Gluconate (An-Hex 2%) 1 applic TWICE A DAY TOPIC 05/02/19 11:00 06/01/19 10:59 Dextrose (Dextrose 50%) 25 ml Q30M PRN IV Hypoglycemia 05/01/19 18:00 05/31/19 17:59 Dextrose (Dextrose 50%) 50 ml Q30M PRN IV Hypoglycemia 05/01/19 18:00 05/31/19 17:59 05/02/19 00:12 Dextrose/Sodium Chloride 1,000 ml @ 75 mls/hr [id number] IV 05/01/19 18:00 05/31/19 17:59 05/01/19 18:03 Diphenhydramine HCl (Benadryl) 25 mg Q15M PRN IVP Itching 05/02/19 14:30 05/02/19 20:30 Diphenhydramine HCl (Benadryl) 25 mg Q6H PRN IVP Itching 05/01/19 18:00 05/31/19 17:59 Docusate Sodium (Colace) 100 mg THREE TIMES A DAY ORAL 05/01/19 18:00 05/31/19 17:59 05/01/19 18:03 Epoetin Matt (Epoetin Matt-EPBX(NON ESRD)) 4,000 unit SUN-SUN-SUN SUBQ 05/02/19 21:00 06/01/19 20:59 Fentanyl Citrate (Sublimaze 100 mcg/2 mL) 25 mcg Q10M PRN IV Moderate Pain (Pain Scale 4-6) 05/02/19 14:30 05/02/19 20:30 Hydralazine HCl (Apresoline) 5 mg Q30M PRN IV SBP>160 / DBP>90 05/02/19 14:30 05/02/19 20:30 Hydromorphone HCl (Dilaudid) 0.5 mg Q15M PRN IVP Severe Pain (Pain Scale 7-10) 05/02/19 14:30 05/02/19 20:30 Insulin Aspart (NovoLOG) Q6HR SUBQ 05/01/19 18:00 05/31/19 17:59 Ketorolac Tromethamine (Toradol 30mg) 15 mg Q1H PRN IV Moderate Breakthru Pain (5-7) 05/02/19 14:30 05/02/19 20:30 Ketorolac Tromethamine (Toradol 30mg) 30 mg Q1H PRN IV Severe Breakthru Pain (>7) 05/02/19 14:30 05/02/19 20:30 Labetalol HCl (Normodyne) 5 mg Q10M PRN IV SBP>160 / DBP>90 05/02/19 14:30 05/02/19 20:30 Lactated Ringer's 1,000 ml @ 10 mls/hr Q24H IVLG 05/02/19 14:24 05/02/19 16:23 Lorazepam (Ativan 2mg/ml 1ml) 1 mg Q15M PRN IV For Anxiety 05/02/19 14:30 05/02/19 20:30 Meperidine HCl (Demerol) 25 mg Q5M PRN IVP Shivering.May repeat x 1 8/9/19 14:30 05/02/19 20:30 Metoclopramide HCl (Reglan) 10 mg Q1H PRN IVP Nausea & Vomiting 05/02/19 14:30 05/02/19 20:30 Midazolam HCl (Versed 2mg/2ml vial) 1 mg Q15M PRN IVP For Anxiety 05/02/19 14:30 05/02/19 20:30 Morphine Sulfate (Morphine Sulfate) 2 mg Q6H PRN IVP Severe Pain (Pain Scale 7-10) 05/01/19 18:00 05/08/19 05:59 05/02/19 00:58 Ondansetron HCl (Zofran) 4 mg Q1H PRN IVP Nausea & Vomiting 05/02/19 14:30 05/02/19 20:30 Ondansetron HCl (Zofran) 4 mg Q6H PRN IVP Nausea & Vomiting 05/01/19 18:00 05/31/19 17:59 Oxycodone/ Acetaminophen (Percocet 5-325) 1 tab Q1H PRN ORAL Severe Pain (Pain Scale 7-10) 05/02/19 14:30 05/02/19 20:30 Pantoprazole (Protonix) 40 mg EVERY 12 HOURS ORAL 05/01/19 21:00 05/31/19 13:44 05/01/19 20:31 Piperacillin Sod/ Tazobactam Sod 3.375 gm/Sodium Chloride 110 ml @ 27.5 mls/hr EVERY 8 HOURS IVPB 05/01/19 20:00 05/08/19 19:59 05/02/19 05:27 Vancomycin HCl (Vanco rx to dose) 1 ea DAILY PRN MISC Per rx protocol 05/01/19 19:30 05/31/19 19:29 Vancomycin HCl 750 mg/Sodium Chloride 275 ml @ 183.333 mls/hr Q24H IVPB 05/02/19 16:00 05/07/19 15:59 Zolpidem Tartrate (Ambien) 5 mg HSPRN PRN ORAL Insomnia 05/01/19 21:00 05/08/19 20:59 Last 24 Hour Vital Signs Date Time Temp Pulse Resp B/P (MAP) Pulse Ox O2 Delivery O2 Flow Rate FiO2 05/02/19 09:00 Room Air 05/02/19 08:00 98.0 61 18 94/53 (67) 99 05/01/19 21:00 Room Air 05/01/19 16:50 97.7 18 110/51 (70) 99 05/01/19 16:00 74 05/01/19 16:00 98.2 21 111/53 (72) 96 05/01/19 12:00 70 05/01/19 10:27 98.2 05/01/19 09:37 98.2 05/01/19 09:00 Room Air 05/01/19 08:19 98.2 74 22 122/60 (80) 96 05/01/19 08:00 69 05/01/19 04:32 Room Air 05/01/19 03:49 98.4 80 20 128/70 98 Room Air 05/01/19 01:20 98.4 75 18 133/66 98 Room Air 05/01/19 01:09 98.4 73 18 133/66 (88) 98 Intake and Output 05/01/19 05/02/19 19:00 07:00 Intake Total 525 ml Balance 525 ml Intake IV Total 525 ml Labs Test 05/01/19 01:40 05/01/19 02:14 05/01/19 07:30 05/01/19 11:28 White Blood Count 27.5 K/UL (4.8-10.8) Red Blood Count 2.31 M/UL (4.20-5.40) Hemoglobin 5.5 G/DL (12.0-16.0) Hematocrit 18.4 % (37.0-47.0) Mean Corpuscular Volume 80 FL (80-99) Mean Corpuscular Hemoglobin 24.0 PG (27.0-31.0) Mean Corpuscular Hemoglobin Concent 30.0 G/DL (32.0-36.0) Red Cell Distribution Width 19.2 % (11.6-14.8) Platelet Count 468 K/UL (150-450) Mean Platelet Volume 7.3 FL (6.5-10.1) Neutrophils (%) (Auto) % (45.0-75.0) Lymphocytes (%) (Auto) % (20.0-45.0) Monocytes (%) (Auto) % (1.0-10.0) Eosinophils (%) (Auto) % (0.0-3.0) Basophils (%) (Auto) % (0.0-2.0) Differential Total Cells Counted 100 Neutrophils % (Manual) 74 % (45-75) Lymphocytes % (Manual) 23 % (20-45) Monocytes % (Manual) 3 % (1-10) Eosinophils % (Manual) 0 % (0-3) Basophils % (Manual) 0 % (0-2) Band Neutrophils 0 % (0-8) Platelet Estimate Adequate Platelet Morphology Normal Prothrombin Time 11.3 SEC (9.30-11.50) Prothromb Time International Ratio 1.1 (0.9-1.1) Activated Partial Thromboplast Time 27 SEC (23-33) Sodium Level 130 MMOL/L (136-145) Potassium Level 5.2 MMOL/L (3.5-5.1) Chloride Level 98 MMOL/L (98-107) Carbon Dioxide Level 24 MMOL/L (21-32) Anion Gap 8 mmol/L (5-15) Blood Urea Nitrogen 29 mg/dL (7-18) Creatinine 2.0 MG/DL (0.55-1.30) Estimat Glomerular Filtration Rate 33.3 mL/min (>60) Glucose Level 371 MG/DL (74-106) Calcium Level 7.5 MG/DL (8.5-10.1) Total Bilirubin 0.8 MG/DL (0.2-1.0) Aspartate Amino Transf (AST/SGOT) 15 U/L (15-37) Alanine Aminotransferase (ALT/SGPT) 20 U/L (12-78) Alkaline Phosphatase 180 U/L (46-116) Total Protein 8.3 G/DL (6.4-8.2) Albumin 2.7 G/DL (3.4-5.0) Globulin 5.6 g/dL Albumin/Globulin Ratio 0.5 (1.0-2.7) Urine Color Yellow Urine Appearance Slightly cloudy Urine pH 5 (4.5-8.0) Urine Specific [place] 1.020 (1.005-1.035) Urine Protein 2+ (NEGATIVE) Urine Glucose (UA) Negative (NEGATIVE) Urine Ketones 3+ (NEGATIVE) Urine Blood 3+ (NEGATIVE) Urine Nitrite Negative (NEGATIVE) Urine Bilirubin Negative (NEGATIVE) Urine Urobilinogen Normal MG/DL (0.0-1.0) Urine Leukocyte Esterase 1+ (NEGATIVE) Urine RBC 5-10 /HPF (0 - 2) Urine WBC 2-4 /HPF (0 - 2) Urine Squamous Epithelial Cells Few /LPF (NONE/OCC) Urine Bacteria Few /HPF (NONE) Urine Mucus Few /LPF (NONE/OCC) Urine HCG, Qualitative Negative (NEGATIVE) Urine Opiates Screen Negative (NEGATIVE) Urine Barbiturates Screen Negative (NEGATIVE) Phencyclidine (PCP) Screen Negative (NEGATIVE) Urine Amphetamines Screen Negative (NEGATIVE) Urine Benzodiazepines Screen Negative (NEGATIVE) Urine Cocaine Screen Negative (NEGATIVE) Urine Marijuana (THC) Screen Negative (NEGATIVE) Erythrocyte Sedimentation Rate 95 MM/HR (0-20) Reticulocyte Count 7.9 % (0.5-2.0) Hemoglobin A1c 10.0 % (4.3-6.0) Lactic Acid Level 2.10 mmol/L (0.4-2.0) 1.30 mmol/L (0.66-2.22) Iron Level 43 ug/dL (50-175) Total Iron Binding Capacity 118 ug/dL (250-450) Percent Iron Saturation 36 % (15-50) Unsaturated Iron Binding 75 ug/dL (112-346) Ferritin 1448 NG/ML (8-388) C-Reactive Protein, Quantitative 7.1 mg/dL (0.00-0.90) Vitamin B12 Level 1186 PG/ML (193-986) Folate 13.6 NG/ML (8.6-58.9) Test 05/02/19 05:28 White Blood Count 24.3 K/UL (4.8-10.8) Red Blood Count 1.91 M/UL (4.20-5.40) Hemoglobin 4.8 G/DL (12.0-16.0) Hematocrit 15.3 % (37.0-47.0) Mean Corpuscular Volume 80 FL (80-99) Mean Corpuscular Hemoglobin 25.1 PG (27.0-31.0) Mean Corpuscular Hemoglobin Concent 31.2 G/DL (32.0-36.0) Red Cell Distribution Width 19.0 % (11.6-14.8) Platelet Count 379 K/UL (150-450) Mean Platelet Volume 7.5 FL (6.5-10.1) Neutrophils (%) (Auto) % (45.0-75.0) Lymphocytes (%) (Auto) % (20.0-45.0) Monocytes (%) (Auto) % (1.0-10.0) Eosinophils (%) (Auto) % (0.0-3.0) Basophils (%) (Auto) % (0.0-2.0) Differential Total Cells Counted 100 Neutrophils % (Manual) 74 % (45-75) Lymphocytes % (Manual) 18 % (20-45) Monocytes % (Manual) 2 % (1-10) Eosinophils % (Manual) 2 % (0-3) Basophils % (Manual) 0 % (0-2) Band Neutrophils 4 % (0-8) Platelet Estimate Adequate Platelet Morphology Normal Polychromasia 3+ Hypochromasia 3+ Anisocytosis 1+ Microcytosis 2+ Target Cells 3+ Tear Drop Cells Occasional Ovalocytes 1+ [place] Bodies Rare Sodium Level 132 MMOL/L (136-145) Potassium Level 4.3 MMOL/L (3.5-5.1) Chloride Level 106 MMOL/L (98-107) Carbon Dioxide Level 23 MMOL/L (21-32) Anion Gap 3 mmol/L (5-15) Blood Urea Nitrogen 21 mg/dL (7-18) Creatinine 1.5 MG/DL (0.55-1.30) Estimat Glomerular Filtration Rate 46.4 mL/min (>60) Glucose Level 65 MG/DL (74-106) Lactic Acid Level 1.20 mmol/L (0.4-2.0) Uric Acid 6.1 MG/DL (2.6-7.2) Calcium Level 7.3 MG/DL (8.5-10.1) Phosphorus Level 3.0 MG/DL (2.5-4.9) Magnesium Level 2.1 MG/DL (1.8-2.4) Total Bilirubin 0.7 MG/DL (0.2-1.0) Gamma Glutamyl Transpeptidase 42 U/L (5-85) Aspartate Amino Transf (AST/SGOT) 14 U/L (15-37) Alanine Aminotransferase (ALT/SGPT) 12 U/L (12-78) Alkaline Phosphatase 147 U/L (46-116) C-Reactive Protein, Quantitative 4.6 mg/dL (0.00-0.90) Pro-B-Type Natriuretic Peptide 1579 pg/mL (0-125) Total Protein 6.8 G/DL (6.4-8.2) Albumin 2.1 G/DL (3.4-5.0) Globulin 4.7 g/dL Albumin/Globulin Ratio 0.4 (1.0-2.7) Triglycerides Level 108 MG/DL (30-150) Cholesterol Level 78 MG/DL (< 200) LDL Cholesterol 37 mg/dL (<100) HDL Cholesterol 21 MG/DL (40-60) Cholesterol/HDL Ratio 3.7 (3.3-4.4) Lipase 20 U/L (73-393) Thyroid Stimulating Hormone (TSH) 2.104 uiU/mL (0.358-3.740) Random Vancomycin Level 15.4 ug/mL Height (Feet): 4 Height (Inches): 9.00 Weight (Pounds): 106 Objective Vitals: reviewed General Appearance: NAD HEENT: normocephalic, atraumatic Neck: non-tender, normal alignment Respiratory/Chest: normal breath sounds bilaterally Cardiovascular/Chest: normal peripheral pulses, normal rate Abdomen: normal bowel sounds, soft, nontender Extremities: normal range of motion ++ dressing wrapped on right leg covering eschar/degredattion of primary tissue Raphael Shrestha MD May 02, 2019 15:10
--- NOTE | 2019-05-02 15:11 | Immediate Post-Op Evaluation ---
Immediate Post-Op Evalulation Immediate Post-Op Evalulation Procedure: R BKA Date of Evaluation: May 02, 2019 Time of Evaluation: 16:32 IV Fluids: 500 LR Blood Products: 0 Estimated Blood Loss: 75 Urinary Output: 0 Blood Pressure Systolic: 142 Blood Pressure Diastolic: 83 Pulse Rate: 98 Respiratory Rate: 9 O2 Sat by Pulse Oximetry: 100 Temperature (Fahrenheit): 97.4 Pain Score (1-10): 2 Nausea: No Vomiting: No Complications 0 Patient Status: awake, reacts, patent, none Hydration Status: adequate Dru Gram Ancef IV Given Within 1 Hr of Incision: Yes Time Given: 14:46 Fabio Maradiaga MD May 02, 2019 15:11
--- NOTE | 2019-05-02 15:11 | 48 Hour Post Anesthesia Eval ---
Post Anesthesia Evaluation Procedure: R BKA Date of Evaluation: May 02, 2019 Time of Evaluation: 18:43 Blood Pressure Systolic: 104 0: 67 Pulse Rate: 56 Respiratory Rate: 12 Temperature (Fahrenheit): 98 O2 Sat by Pulse Oximetry: 100 Airway: patent Nausea: No Vomiting: No Pain Intensity: 3 Hydration Status: adequate Cardiopulmonary Status: Stable Mental Status/LOC: patient returned to baseline Follow-up Care/Observations: 0 Post-Anesthesia Complications: 0 Follow-up care needed: ready to discharge Fabio Maradiaga MD May 02, 2019 15:11
[2019-05-02] MEDS ORDERED: NS Irrig 1000ml IRRIG ONE (15:15)
--- NOTE | 2019-05-02 15:20 | Diagnostic Imaging Report ---
Indication: Right ankle pain with large necrotic wound. Assess for osteomyelitis. Technique: MRI of the right leg was performed utilizing a multisequence, multiplanar acquisition without IV gadolinium. Sequences obtained: 3 plane localizer; axial coronal and sagittal T1 and STIR sequences. Comparison: Concurrent radiographs of the right leg/ankle/foot Findings: There is a large broad-based ulcer with soft tissue swelling and subcutaneous cutaneous phlegmon/abscess involving the soft tissues of the distal posterior leg. There is extensive subcutaneous gas. There is also marked soft tissue swelling of the soft tissues of the foot. There is chronic appearing destruction and flattening of the calcaneus and degenerative changes involving multiple hindfoot articulations which may be on the basis of osteomyelitis (acute or chronic) as well as chronic injury. There is some serpiginous areas of T1 signal loss in the distal tibial metaphysis and epiphysis which may representing areas of bone infarct, especially given history of sickle cell disease. There is diffuse marrow signal heterogeneity which may potentially be related to marrow changes related to known history of sickle cell disease. There is more focal abnormal T1 hypointense intensity/STIR signal hyperintensity involving the distal tibial diaphysis spanning up to approximately 9 to 10 cm cranial of the ankle joint concerning for infection/osteomyelitis. IMPRESSION: Large ulcer with large amount of subcutaneous gas in the soft tissues of the posterior distal leg. Chronic deformity of the calcaneus with abnormal bone marrow signal suggesting osteomyelitis. Markedly abnormal bone marrow signal of the distal tibia including the tibial diaphysis spanning up at least 10 cm cranial to the ankle joint highly concerning for infection/osteomyelitis. This is on a background of diffuse marrow signal heterogeneity which may be related to patient's known history of sickle cell disease. Findings discussed with ordering physician Dr. Avalos
[2019-05-02] MEDS ORDERED: ePHEDrine 50mg/ml Inj ONE (15:43)
[2019-05-02] MEDS ORDERED: EPINEPHrine 1mg/1ml Amp ONE (15:47)
--- NOTE | 2019-05-02 15:53 | Brief Operative Note ---
Immediate Post Operative Note Operative Note Pre-op Diagnosis: right lower extremity infection Procedure: emergency right lower extremity amputation bka Post-op Diagnosis: same as pre-op Surgeon: hieu Anesthesiologist: diana Anesthesia: general Specimen: yes Complications: none Fluids: see records Estimated Blood Loss: minimal Drains: none Implant(s) used?: No Tian Avalos May 02, 2019 15:53
[2019-05-02] MEDS ORDERED: Vancomycin 750 MG in NS 275 ML IVPB SCH ×2 (16:00→18:00)
[2019-05-02] MEDS ORDERED: Morphine Sulfate 2mg/ml Inj(IV/IM USE ONLY) IVP PRN (18:00)
[2019-05-02] MEDS: Lac Hydrin 12% Lotion 8oz TOPIC SCH (18:00)
--- NOTE | 2019-05-02 18:15 | Consultation ---
DATE OF CONSULTATION: 05/02/2019 PAIN MANAGEMENT CONSULTATION CONSULTING PHYSICIAN: Faraz Marsh M.D. REFERRING PHYSICIAN: Marco Antonio Enriquez D.O. PHYSICIAN CORPORATE TRAVEL AGENT: BARBARA Xie. CHIEF COMPLAINT: Right foot pain. HISTORY OF PRESENT ILLNESS: This is a 43-year-old female, who is being seen on the Med/Surg floor of [facility] for initial pain management consultation. The patient was admitted under the care of Dr. Enriquez with right foot pain for the past 2 months. It is a constant acute pain, rating at a 8/10, describing as sharp pain with burning, increased with touch and movement, and reduced with medication. As an outpatient, she is taking morphine 30 mg 3 times a day as needed for pain due to sickle cell disease and anemia. Needing a right hip replacement in the past due to avascular necrosis. Now is in the hospital on morphine 2 mg IV every 6 hours as needed for severe pain and [place] 5/325 one tablet every 6 hours as needed for moderate pain with minimal pain relief. Due to this, we were consulted to help the patient to have adequate pain control while here in the hospital. PAST MEDICAL HISTORY: Hypertension, diabetes mellitus, sickle cell disease. PAST SURGICAL HISTORY: Right hip replacement. SOCIAL HISTORY: She is a smoker. Denies alcohol or IV drug abuse. ALLERGIES: No known drug allergies. MEDICATIONS: Morphine extended release, insulin. REVIEW OF SYSTEMS: Denies rash, fever, chills, sweating, dizziness, drowsiness, blurred vision, sore throat, change in weight. No shortness of breath or chest pain. No nausea, vomiting, or blood in the stool or urine. No bowel or bladder incontinence. No dysuria. She is complaining of right foot pain. PHYSICAL EXAMINATION: GENERAL: Alert, awake, and oriented x3. VITAL SIGNS: Blood pressure 94/50, heart rate 61, oxygen saturation 98%, respiratory rate 18, temperature 98 degrees Fahrenheit. HEENT: PERRLA. NECK: Range of motion is full. No tenderness to paracervical muscles. No adenopathy. LUNGS: Decreased breath sounds bilaterally. HEART: S1 and S2 regular. ABDOMEN: Soft, nontender. BACK: Range motion is decreased in flexion, extension. EXTREMITIES: Upper and lower extremity range of motion due to the patient's condition with right foot ulcer noted. Tenderness to palpation. Sensory is reduced. Reflexes are not obtainable. No adenopathy. ASSESSMENT AND PLAN: This is a 43-year-old female with right foot pain, right foot ulcer. The patient will be continued on the morphine. We will increase the [place] to 10/325 one tablet every 4 hours as needed for moderate pain. The patient was discussed with Dr. Marsh and he concurred. We will follow the patient. Thank you very much for the courtesy of this consultation. Faraz Marsh M.D. BARBARA Tsai DR: JANICE JOB#: [id number] CC:
[2019-05-02] MEDS: Dyna-Hex 2% Top Sol 2oz TOPIC SCH (19:20)
[2019-05-02] MEDS ORDERED: Zolpidem 5mg tab ORAL PRN (21:00)
[2019-05-02] MEDS ORDERED: Hydromorphone 0.5mg/0.5ml inj ONE (21:13)
[2019-05-02] MEDS: Hydromorphone 0.5mg/0.5ml inj IVP PRN ×2 (21:15→23:15)
[2019-05-03] VITALS (10 sets, daily range): BP systolic 109–140; BP diastolic 56–75
[2019-05-03] MEDS: Hydromorphone 0.5mg/0.5ml inj IVP PRN ×8 (01:26→21:36)
--- NOTE | 2019-05-03 04:00 | Operative Note - Dictated ---
DATE OF OPERATION: 05/02/2019 PREOPERATIVE DIAGNOSES: Acutely infected necrotic gangrenous with subcutaneous gas and soft tissues of the right lower extremity concerning for necrotizing infection and with sepsis. POSTOPERATIVE DIAGNOSES: 1. Acutely infected necrotic gangrenous with subcutaneous gas and soft tissues of the right lower extremity concerning for necrotizing infection and with sepsis. 2. Emergency amputation of right lower extremity, below-knee amputation. ATTENDING SURGEON: Tian Avalos M.D. OPERATING ROOM COORDINATOR: None. ANESTHESIOLOGIST: Fabio Maradiaga M.D. ANESTHESIA: General TRACTOR SWEEPER DRIVER. ESTIMATED BLOOD LOSS: 10 mL. IV FLUIDS: Please see anesthesia records. COMPLICATIONS: None. DRAINS: None. COUNTS: Sponge and needle count correct x2. SPECIMENS: Right lower extremity below-knee amputation. WOUND CONSULTATION: Class 3/4. IV ANTIBIOTICS: The patient is on scheduled IV antibiotics. INDICATIONS FOR PROCEDURE: This is a 43-year-old female with a history of right lower extremity wound from uncontrolled diabetes and peripheral vascular disease who has multiple medical comorbidities, who presented to [facility] with sepsis. Noted to have significantly elevated leukocytosis of 27,500, ESR of 95, abnormal electrolytes, renal insufficiency, lactic acidosis of 2.0, and CRP of 4.6. She is complaining of worsening right lower extremity. The patient was identified to have significant open wounds to the right lower extremity with significant foul smell and crepitus. MRI and plain films were performed. The patient was started on resuscitation and IV antibiotics. MRI and plain films concerning for subcutaneous tissue, gas and the patient's condition did not significantly improve and she remained with leukocytosis and in guarded condition. Amputation was indicated and recommended. The patient states she has been told she needs amputation prior, but has declined, but states that she is unable to use the extremity or move it and currently has no feeling with worsening wound and identified that it is worsening to the point that she understands that she needs amputation. Long discussion was held with the patient in regard to physical exam findings, laboratory data, examination findings, and imaging. It was all explained to the patient in detail. She understood and expressed understanding of need for amputation. Discussion was had about below and above-knee amputation. The patient expressed understanding of rationale for the two and intraoperative decision-making depending on tissue viability. The patient understands the postoperative course afterwards and the high risk for potential infection and further surgery being necessary. Consent was obtained from the patient. The patient initially stated that she is not a Judaism, and her air press operator told her in the past that she does not need a blood transfusion and she was firm on that decision. In discussing the operative plan and her current hematological status, I explained to her that I do strongly recommend that she receive transfusion as necessary as long as she has no potential scientology or personal beliefs against them. The patient states she is okay with the transfusion but just believes she did not need one as she was told by an outside air press operator prior that she does not need one. I explained to her that her current condition is different than what may have been at that time and I do recommend she get transfusion as necessary. The patient expressed understanding. After discussion was had about transfusions and their risks, benefits, and alternatives, consented to transfusion as necessary. OPERATIVE NOTE: The patient was taken to the operating room and placed on the operating table in supine position with bilateral arms out. All bony prominences well padded. SCDs were placed on left lower extremity. General anesthesia was induced and the patient was intubated. The right lower extremity was prepped and draped in standard surgical fashion. A transverse incision was made at the midshaft of the tibia and a long posterior flap was created. It was taken to the subcutaneous tissue with electrocautery. The superficial peroneal nerve was identified, clamped and cut. The anterior compartment was divided. The anterior neurovascular bundle was identified, clamped and cut after hemostasis was obtained with #0 silk tie. The plane was taken between the deep superficial compartments. The superficial compartment was reflected posteriorly. The tibial nerve was identified, clamped, and cut. The tibial vessels were identified, clamped, ligated with #0 silk tie and cut. The periosteum of the tibia was elevated proximally along with the fibula. The tibia was then cut with an electric saw. It was beveled anteriorly and smoothened down with a rasp. The fibula was then cut about a centimeter and a half proximal to this with a large bone cutter. The remaining very posterior compartment was then divided. The peroneal bundle was identified, clamped and cut. The leg was then passed off the operative field. Of note, each vascular bundle was doubly ligated with #0 silk tie. The nerves were then pulled at length and proximally allowed to retract. The wound was then copiously irrigated with antibiotic impregnated solution. The deep wound and the bone were then closed with reapproximation of the fascia over the muscle. #0 Vicryl sutures were used in interrupted fashion to reapproximate the fascia allowing the muscle to cover the bone. Following this, the subcutaneous tissue was reapproximated using 3-0 Vicryl sutures, followed by closure of the skin using surgical skin randi. Xeroform, 4 x 4s, and padded dressing were applied. The patient tolerated the procedure well, was taken to the intensive care unit postoperatively for monitoring. Tian Avalos M.D. DR: JESSE JOB#: [id number] CC:
[2019-05-03] MEDS: Piperacillin/Tazobactam 3.375 GM in NS 110 ML IVPB SCH ×3 (05:35→22:29)
[2019-05-03] MEDS: NovoLOG Insulin Flexpen SUBQ SCH ×3 (05:45→18:20)
--- NOTE | 2019-05-03 06:07 | Pulmonolgy Critical Care Note ---
Critical Care - Asmt/Plan Problems: (1) Renal failure (ARF), acute on chronic (2) Gas gangrene (3) Anemia (4) Right foot ulcer (5) Diabetes (6) Diabetic nephropathy Respiratory: monitor respiratory rate, adjust FIO2 Cardiac: continue to monitor HR/BP Renal: F/U I&O, keep IV fluid Infectious Disease: check cultures Gastrointestinal: continue feedings/current rate Endocrine: monitor blood sugar, continue sliding scale insulin Hematologic: monitor H/H, transfuse if hgb<8.5 Neurologic: PRN Ativan, keep patient comfortable Affect: PRN ativan Prophylaxis: Heparin Notes Reviewed: safety lamp keeper Discussed with: nurses, consultants, upper casermanager statistical - Objective Last 24 Hour Vital Signs Date Time Temp Pulse Resp B/P (MAP) Pulse Ox O2 Delivery O2 Flow Rate FiO2 05/03/19 04:00 Room Air 05/03/19 04:00 65 05/03/19 01:00 73 14 125/60 (81) 100 05/03/19 00:00 Room Air 05/03/19 00:00 97.4 75 10 140/64 (89) 99 05/03/19 00:00 75 05/02/19 23:00 75 13 130/60 (83) 100 05/02/19 22:00 79 16 119/66 (83) 100 05/02/19 21:00 101 20 125/76 (92) 100 05/02/19 20:11 99 05/02/19 20:00 99 14 115/59 (77) 94 05/02/19 19:00 95 17 121/62 (81) 100 05/02/19 18:00 89 16 103/55 (71) 05/02/19 18:00 Simple Mask 4.0 05/02/19 17:54 90 12 106/57 (73) 05/02/19 17:30 92 11 94/59 (71) 100 05/02/19 17:27 97.5 93 13 93/50 (64) 100 05/02/19 17:12 97.3 94 12 99/57 (71) 05/02/19 17:00 96 13 100/52 (68) 05/02/19 16:30 Simple Mask 4.0 05/02/19 16:30 98 16 122/62 (82) 05/02/19 16:18 56 12 100 05/02/19 16:15 98 9 100 05/02/19 09:00 Room Air 05/02/19 08:00 98.0 61 18 94/53 (67) 99 Status: awake Condition: improving HEENT: atraumatic Neck: full ROM Lungs: clear Heart: HR/BP stable, regular Abdomen: non-tender, feeding tube Extremities: no C/C/E Micro: Microbiology Date/Time Source Procedure Growth Status 05/01/19 20:40 Blood Blood Culture - Preliminary NO GROWTH AFTER 24 HOURS Resulted 05/01/19 20:35 Blood Blood Culture - Preliminary NO GROWTH AFTER 24 HOURS Resulted Accucheck: 263 Critical Care - Subjective ROS Limited/Unobtainable: Yes Condition: critical EKG Rhythm: Sinus Rhythm I&O: Intake and Output 05/02/19 05/03/19 19:00 07:00 Intake Total 430.0 ml 1750.000 ml Output Total 0 ml 600 ml Balance 430.0 ml 1150.000 ml Intake Oral 0 ml 90 ml IV Total 430.0 ml 1060.000 ml Blood Product 600 ml Output Urine Total 0 ml 600 ml Serena Gordon MD May 03, 2019 06:07
[2019-05-03 06:28] LABS: HEMATOCRIT 27.7 % (37.0-47.0); MEAN CORPUSCULAR VOLUME 86 FL (80-99); PLATELET COUNT 327 K/UL (150-450); RED BLOOD COUNT 3.21 M/UL (4.20-5.40); WHITE BLOOD COUNT 19.5 K/UL (4.8-10.8)
[2019-05-03 07:09] LABS: HEMOGLOBIN 8.9 G/DL (12.0-16.0)
[2019-05-03 07:50] LABS: ALANINE AMINOTRANSFERASE 12 U/L (12-78); ALBUMIN 2.1 G/DL (3.4-5.0); ALBUMIN/GLOBULIN RATIO 0.4 (1.0-2.7); ALKALINE PHOSPHATASE 156 U/L (46-116); ANION GAP 7 mmol/L (5-15); ASPARTATE AMINO TRANSFERASE 14 U/L (15-37); BILIRUBIN,TOTAL 0.9 MG/DL (0.2-1.0); BLOOD UREA NITROGEN 21 mg/dL (7-18); CALCIUM 7.1 MG/DL (8.5-10.1); CARBON DIOXIDE 23 MMOL/L (21-32); CHLORIDE 106 MMOL/L (98-107); CREATININE 1.8 MG/DL (0.55-1.30); POTASSIUM 4.3 MMOL/L (3.5-5.1); SODIUM 136 MMOL/L (136-145)
[2019-05-03] MEDS: Dyna-Hex 2% Top Sol 2oz TOPIC SCH ×2 (08:04→18:23)
[2019-05-03] MEDS: Docusate 100mg cap ORAL SCH ×5 (08:04→18:00)
[2019-05-03] MEDS: Lac Hydrin 12% Lotion 8oz TOPIC SCH ×2 (08:04→18:22)
[2019-05-03] MEDS: D5NS 1,000 ML IV SCH ×2 (08:04→11:07)
[2019-05-03 08:21] LABS: PHOSPHORUS 3.7 MG/DL (2.5-4.9)
--- NOTE | 2019-05-03 09:09 | General Progress Note ---
Assessment/Plan Problem List: (1) Diabetes ICD Codes: E11.9 - Type 2 diabetes mellitus without complications SNOMED: 55992443 (2) Renal insufficiency ICD Codes: N28.9 - Disorder of kidney and ureter, unspecified SNOMED: 530781282, 921907695 (3) Anemia ICD Codes: D64.9 - Anemia, unspecified SNOMED: 246084158 (4) Infection of right foot ICD Codes: L08.9 - Local infection of the skin and subcutaneous tissue, unspecified SNOMED: 074001691 (5) Right foot ulcer ICD Codes: L97.519 - Non-pressure chronic ulcer of other part of right foot with unspecified severity SNOMED: 44715828 (6) Ischemia of right lower extremity ICD Codes: I99.8 - Other disorder of circulatory system SNOMED: 199582924 Status: stable, progressing Assessment/Plan: wound care abx pain control cbc bmp am Subjective Allergies: Coded Allergies: No Known Allergies (Unverified , 05/01/19) All Systems: reviewed and negative except above Subjective calm in icu Objective Last 24 Hour Vital Signs Date Time Temp Pulse Resp B/P (MAP) Pulse Ox O2 Delivery O2 Flow Rate FiO2 05/03/19 04:00 Room Air 05/03/19 04:00 65 05/03/19 01:00 73 14 125/60 (81) 100 05/03/19 00:00 Room Air 05/03/19 00:00 97.4 75 10 140/64 (89) 99 05/03/19 00:00 75 05/02/19 23:00 75 13 130/60 (83) 100 05/02/19 22:00 79 16 119/66 (83) 100 05/02/19 21:00 101 20 125/76 (92) 100 05/02/19 20:11 99 05/02/19 20:00 99 14 115/59 (77) 94 05/02/19 19:00 95 17 121/62 (81) 100 05/02/19 18:00 89 16 103/55 (71) 05/02/19 18:00 Simple Mask 4.0 05/02/19 17:54 90 12 106/57 (73) 05/02/19 17:30 92 11 94/59 (71) 100 05/02/19 17:27 97.5 93 13 93/50 (64) 100 05/02/19 17:12 97.3 94 12 99/57 (71) 05/02/19 17:00 96 13 100/52 (68) 05/02/19 16:30 Simple Mask 4.0 05/02/19 16:30 98 16 122/62 (82) 05/02/19 16:18 56 12 100 05/02/19 16:15 98 9 100 Intake and Output 05/02/19 05/03/19 18:59 06:59 Intake Total 430.0 ml 1927.500 ml Output Total 0 ml 700 ml Balance 430.0 ml 1227.500 ml Intake Oral 0 ml 90 ml IV Total 430.0 ml 1237.500 ml Blood Product 600 ml Output Urine Total 0 ml 700 ml Laboratory Tests 05/03/19 06:00: White Blood Count 19.5H, Red Blood Count 3.21L, Hemoglobin 8.9#L, Hematocrit 27.7#L, Mean Corpuscular Volume 86, Mean Corpuscular Hemoglobin 27.7, Mean Corpuscular Hemoglobin Concent 32.1, Red Cell Distribution Width 17.0H, Platelet Count 327, Mean Platelet Volume 7.9, Neutrophils (%) (Auto) , Lymphocytes (%) (Auto) , Monocytes (%) (Auto) , Eosinophils (%) (Auto) , Basophils (%) (Auto) , Differential Total Cells Counted 100, Neutrophils % ( Manual) 72, Lymphocytes % (Manual) 19L, Monocytes % (Manual) 6, Eosinophils % ( Manual) 2, Basophils % (Manual) 1, Band Neutrophils 0, Platelet Estimate Adequate, Platelet Morphology Normal, Polychromasia 2+, Target Cells 3+, Ovalocytes Rare, Sodium Level 136, Potassium Level 4.3, Chloride Level 106, Carbon Dioxide Level 23, Anion Gap 7, Blood Urea Nitrogen 21H, Creatinine 1.8H, Estimat Glomerular Filtration Rate 37.6, Glucose Level 258#H, Calcium Level 7.1L , Phosphorus Level 3.7, Magnesium Level 2.0, Total Bilirubin 0.9, Aspartate Amino Transf (AST/SGOT) 14L, Alanine Aminotransferase (ALT/SGPT) 12, Alkaline Phosphatase 156H, Total Protein 7.0, Albumin 2.1L, Globulin 4.9, Albumin/ Globulin Ratio 0.4L Height (Feet): 4 Height (Inches): 9.00 Weight (Pounds): 101 General Appearance: lethargic EENT: normal ENT inspection Neck: normal alignment Cardiovascular: normal peripheral pulses, normal rate, regular rhythm Respiratory/Chest: chest wall non-tender, lungs clear, normal breath sounds Abdomen: normal bowel sounds, non tender, soft Extremities: normal inspection Edema: no edema noted Arm (L), no edema noted Arm (R), no edema noted Leg (L), no edema noted Leg (R), no edema noted Pedal (L), no edema noted Pedal (R), no edema noted Generalized Neurologic: responsive, motor weakness Skin: normal pigmentation, warm/dry Marco Antonio Enriquez DO May 03, 2019 09:09
--- NOTE | 2019-05-03 10:14 | Nephrology Progress Note ---
Assessment/Plan Problem List: (1) Diabetic nephropathy (2) Renal failure (ARF), acute on chronic (3) Anemia (4) Ischemia of right lower extremity (5) Right foot ulcer (6) Infection of right foot Assessment Renal Failure , likely diabetic nephropathy IDDM Anemia, h/o SS disease right foot appears gangerenous Plan Anemia management NS BS check gastric support per consultants DC Ibuprofen One dose Vanco given 05/01 post amputation day 1 Subjective ROS Limited/Unobtainable: No Constitutional: Reports: malaise Objective Objective Last 24 Hour Vital Signs Date Time Temp Pulse Resp B/P (MAP) Pulse Ox O2 Delivery O2 Flow Rate FiO2 05/03/19 09:00 76 17 110/64 (79) 100 05/03/19 08:00 97.8 64 14 129/59 (82) 100 05/03/19 08:00 Room Air 05/03/19 07:00 64 11 129/60 (83) 100 05/03/19 04:00 Room Air 05/03/19 04:00 65 05/03/19 01:00 73 14 125/60 (81) 100 05/03/19 00:00 Room Air 05/03/19 00:00 97.4 75 10 140/64 (89) 99 05/03/19 00:00 75 05/02/19 23:00 75 13 130/60 (83) 100 05/02/19 22:00 79 16 119/66 (83) 100 05/02/19 21:00 101 20 125/76 (92) 100 05/02/19 20:11 99 05/02/19 20:00 99 14 115/59 (77) 94 05/02/19 19:00 95 17 121/62 (81) 100 05/02/19 18:00 89 16 103/55 (71) 05/02/19 18:00 Simple Mask 4.0 05/02/19 17:54 90 12 106/57 (73) 05/02/19 17:30 92 11 94/59 (71) 100 05/02/19 17:27 97.5 93 13 93/50 (64) 100 05/02/19 17:12 97.3 94 12 99/57 (71) 05/02/19 17:00 96 13 100/52 (68) 05/02/19 16:30 Simple Mask 4.0 05/02/19 16:30 98 16 122/62 (82) 05/02/19 16:18 56 12 100 05/02/19 16:15 98 9 100 Intake and Output 05/02/19 05/03/19 19:00 07:00 Intake Total 430.0 ml 2030.000 ml Output Total 0 ml 700 ml Balance 430.0 ml 1330.000 ml Intake Oral 0 ml 90 ml IV Total 430.0 ml 1340.000 ml Blood Product 600 ml Output Urine Total 0 ml 700 ml Laboratory Tests 05/03/19 06:00: White Blood Count 19.5H, Red Blood Count 3.21L, Hemoglobin 8.9#L, Hematocrit 27.7#L, Mean Corpuscular Volume 86, Mean Corpuscular Hemoglobin 27.7, Mean Corpuscular Hemoglobin Concent 32.1, Red Cell Distribution Width 17.0H, Platelet Count 327, Mean Platelet Volume 7.9, Neutrophils (%) (Auto) , Lymphocytes (%) (Auto) , Monocytes (%) (Auto) , Eosinophils (%) (Auto) , Basophils (%) (Auto) , Differential Total Cells Counted 100, Neutrophils % ( Manual) 72, Lymphocytes % (Manual) 19L, Monocytes % (Manual) 6, Eosinophils % ( Manual) 2, Basophils % (Manual) 1, Band Neutrophils 0, Platelet Estimate Adequate, Platelet Morphology Normal, Polychromasia 2+, Target Cells 3+, Ovalocytes Rare, Sodium Level 136, Potassium Level 4.3, Chloride Level 106, Carbon Dioxide Level 23, Anion Gap 7, Blood Urea Nitrogen 21H, Creatinine 1.8H, Estimat Glomerular Filtration Rate 37.6, Glucose Level 258#H, Calcium Level 7.1L , Phosphorus Level 3.7, Magnesium Level 2.0, Total Bilirubin 0.9, Aspartate Amino Transf (AST/SGOT) 14L, Alanine Aminotransferase (ALT/SGPT) 12, Alkaline Phosphatase 156H, Total Protein 7.0, Albumin 2.1L, Globulin 4.9, Albumin/ Globulin Ratio 0.4L Height (Feet): 4 Height (Inches): 9.00 Weight (Pounds): 101 General Appearance: no apparent distress Respiratory/Chest: lungs clear Abdomen: soft Extremities: other - right leg BK dreessed Objective no change Elfego Vázquez MD May 03, 2019 10:14
[2019-05-03] MEDS ORDERED: Tubing IV Secondary IV ONE (10:42)
[2019-05-03] MEDS ORDERED: D5NS 1000ml IV ONE (10:42)
[2019-05-03] MEDS ORDERED: NS 275ml ONE (10:42)
[2019-05-03] MEDS ORDERED: Tubing IV Blood Pump IV ONE (10:42)
--- NOTE | 2019-05-03 11:13 | General Progress Note ---
Progress Note Progress Note POD #1 doing well labs improved looks better today dressings c/d/i diet activity rx as written Tian Avalos May 03, 2019 11:13
--- NOTE | 2019-05-03 11:35 | Infectious Diseases Prog Note ---
Assessment/Plan Assessment/Plan Assessment: R LE wound- severe necrotizing infection, gangrene, OM -05/02 SP emergency right lower extremity amputation bka --OR findings: Acutely infected necrotic gangrenous with subcutaneous gas and soft tissues of the right lower extremity --cx: -Tibia/fibula MRI: Large ulcer with large amount of subcutaneous gas in the soft tissues of the posterior distal leg. Chronic deformity of the calcaneus with abnormal bone marrow signal suggesting osteomyelitis. Markedly abnormal bone marrow signal of the distal tibia including the tibial diaphysis spanning up at least 10 cm cranial to the ankle joint highly concerning for infection/ osteomyelitis. This is on a background of diffuse marrow signal heterogeneity which may be related to patient's known history of sickle cell disease. -Xray tibia/fibula: Soft tissue gas and edema in the foot and ankle are concerning for infection. No definite acute osseous abnormality. Osteopenia. -R foot/ankle xray: Soft tissue gas and edema in the foot and ankle are concerning for infection. Extensive soft tissue gas limits evaluation of fine bony detail. Deformity of the calcaneus is nonspecific and may be related to osteomyelitis or trauma. MRI with and without intravenous contrast may be considered for further characterization. -ESR 95, CRP 7.1 Afebrile Leukocytosis; improving Dm1 HTN sickle cell anemia R hip replacement Plan: -Continue empiric IV Vancomcyin and ZOsyn #3 pending cultures -f/u cx -Monitor CBC/CMP, temperatures -f/u BCx x2, wound cx -Sx f/u -wound care per surgical team -ICU care -aspiration precautions Thank you for this consultation. Will continue to follow along with you. Discussed with RN. Subjective Allergies: Coded Allergies: No Known Allergies (Unverified , 05/01/19) Subjective afebrile wbc improving s/p R BKA yesterday, now on ICU for post-op care Objective Vital Signs Last 24 Hour Vital Signs Date Time Temp Pulse Resp B/P (MAP) Pulse Ox O2 Delivery O2 Flow Rate FiO2 05/03/19 10:00 67 15 133/56 (81) 100 05/03/19 09:00 76 17 110/64 (79) 100 05/03/19 08:00 97.8 64 14 129/59 (82) 100 05/03/19 08:00 Room Air 05/03/19 08:00 66 05/03/19 07:00 64 11 129/60 (83) 100 05/03/19 04:00 Room Air 05/03/19 04:00 65 05/03/19 01:00 73 14 125/60 (81) 100 05/03/19 00:00 Room Air 05/03/19 00:00 97.4 75 10 140/64 (89) 99 05/03/19 00:00 75 05/02/19 23:00 75 13 130/60 (83) 100 05/02/19 22:00 79 16 119/66 (83) 100 05/02/19 21:00 101 20 125/76 (92) 100 05/02/19 20:11 99 05/02/19 20:00 99 14 115/59 (77) 94 05/02/19 19:00 95 17 121/62 (81) 100 05/02/19 18:00 89 16 103/55 (71) 05/02/19 18:00 Simple Mask 4.0 05/02/19 17:54 90 12 106/57 (73) 05/02/19 17:30 92 11 94/59 (71) 100 05/02/19 17:27 97.5 93 13 93/50 (64) 100 05/02/19 17:12 97.3 94 12 99/57 (71) 05/02/19 17:00 96 13 100/52 (68) 05/02/19 16:30 Simple Mask 4.0 05/02/19 16:30 98 16 122/62 (82) 05/02/19 16:18 56 12 100 05/02/19 16:15 98 9 100 Height (Feet): 4 Height (Inches): 9.00 Weight (Pounds): 101 Objective General appearance: alert, cooperative, no distress, appears stated age Head: Normocephalic, without obvious abnormality, atraumatic Eyes: conjunctivae/corneas clear. PERRL, EOM's intact. Fundi benign Throat: Lips, mucosa, and tongue normal. Teeth and gums normal Neck: supple, symmetrical, trachea midline, no adenopathy, thyroid: not enlarged, symmetric, no tenderness/mass/nodules, no carotid bruit and no JVD Lungs: clear to auscultation bilaterally Heart: regular rate and rhythm, S1, S2 normal, no murmur, click, rub or gallop Abdomen: soft, non-tender. Bowel sounds normal. No masses, no organomegaly Extremities: multiple open areas of exposed bone tendon and even potentially bone in some areas. Wound is very foul-smelling with drainage. There is areas of ischemia on the anterior aspect of the ankle. The heel is open and draining Pulses: 2+ and symmetric Skin: Skin color, texture, turgor normal. No rashes or lesions Neurologic: Grossly normal Microbiology Date/Time Source Procedure Growth Status 05/01/19 20:40 Blood Blood Culture - Preliminary NO GROWTH AFTER 24 HOURS Resulted 05/01/19 20:35 Blood Blood Culture - Preliminary NO GROWTH AFTER 24 HOURS Resulted Laboratory Tests Test 05/03/19 06:00 White Blood Count 19.5 K/UL (4.8-10.8) H Red Blood Count 3.21 M/UL (4.20-5.40) L Hemoglobin 8.9 G/DL (12.0-16.0) #L Hematocrit 27.7 % (37.0-47.0) #L Mean Corpuscular Volume 86 FL (80-99) Mean Corpuscular Hemoglobin 27.7 PG (27.0-31.0) Mean Corpuscular Hemoglobin Concent 32.1 G/DL (32.0-36.0) Red Cell Distribution Width 17.0 % (11.6-14.8) H Platelet Count 327 K/UL (150-450) Mean Platelet Volume 7.9 FL (6.5-10.1) Neutrophils (%) (Auto) % (45.0-75.0) Lymphocytes (%) (Auto) % (20.0-45.0) Monocytes (%) (Auto) % (1.0-10.0) Eosinophils (%) (Auto) % (0.0-3.0) Basophils (%) (Auto) % (0.0-2.0) Differential Total Cells Counted 100 Neutrophils % (Manual) 72 % (45-75) Lymphocytes % (Manual) 19 % (20-45) L Monocytes % (Manual) 6 % (1-10) Eosinophils % (Manual) 2 % (0-3) Basophils % (Manual) 1 % (0-2) Band Neutrophils 0 % (0-8) Platelet Estimate Adequate Platelet Morphology Normal Polychromasia 2+ Target Cells 3+ Ovalocytes Rare Sodium Level 136 MMOL/L (136-145) Potassium Level 4.3 MMOL/L (3.5-5.1) Chloride Level 106 MMOL/L (98-107) Carbon Dioxide Level 23 MMOL/L (21-32) Anion Gap 7 mmol/L (5-15) Blood Urea Nitrogen 21 mg/dL (7-18) H Creatinine 1.8 MG/DL (0.55-1.30) H Estimat Glomerular Filtration Rate 37.6 mL/min (>60) Glucose Level 258 MG/DL (74-106) #H Calcium Level 7.1 MG/DL (8.5-10.1) L Phosphorus Level 3.7 MG/DL (2.5-4.9) Magnesium Level 2.0 MG/DL (1.8-2.4) Total Bilirubin 0.9 MG/DL (0.2-1.0) Aspartate Amino Transf (AST/SGOT) 14 U/L (15-37) L Alanine Aminotransferase (ALT/SGPT) 12 U/L (12-78) Alkaline Phosphatase 156 U/L (46-116) H Total Protein 7.0 G/DL (6.4-8.2) Albumin 2.1 G/DL (3.4-5.0) L Globulin 4.9 g/dL Albumin/Globulin Ratio 0.4 (1.0-2.7) L Current Medications Medications (Trade) Dose Ordered Sig/Trey Route PRN Reason Start Time Stop Time Status Last Admin Dose Admin Acetaminophen (Tylenol) 650 mg Q4H PRN ORAL Mild Pain/Temp > 100.5 05/03/19 11:05 06/02/19 11:04 Acetaminophen/ Hydrocodone Bitart ([place] 10/325) 1 tab Q4H PRN ORAL Moderate Pain (Pain Scale 4-6) 05/03/19 11:06 05/10/19 11:05 Ammonium Lactate (Lac Hydrin) 1 applic TWICE A DAY TOPIC 05/03/19 18:00 06/01/19 11:29 Chlorhexidine Gluconate (An-Hex 2%) 1 applic TWICE A DAY TOPIC 05/03/19 18:00 06/01/19 10:59 Dextrose (Dextrose 50%) 25 ml Q30M PRN IV Hypoglycemia 05/03/19 11:00 05/31/19 17:59 Dextrose (Dextrose 50%) 50 ml Q30M PRN IV Hypoglycemia 05/03/19 11:00 05/31/19 17:59 Dextrose/Sodium Chloride 1,000 ml @ 75 mls/hr [id number] IV 05/03/19 11:04 06/02/19 11:03 05/03/19 11:07 Diphenhydramine HCl (Benadryl) 25 mg Q6H PRN IVP Itching 05/03/19 11:05 06/02/19 11:04 Docusate Sodium (Colace) 100 mg THREE TIMES A DAY ORAL 05/03/19 13:00 05/31/19 17:59 Epoetin Matt (Epoetin Matt-EPBX(NON ESRD)) 4,000 unit SUN- SUBQ 05/05/19 21:00 06/01/19 20:59 Hydromorphone HCl (Dilaudid) 0.5 mg Q2H PRN IVP Severe Breakthru Pain (>7) 05/03/19 11:06 05/10/19 11:05 Insulin Aspart (NovoLOG) Q6HR SUBQ 05/03/19 12:00 05/31/19 17:59 Morphine Sulfate (Morphine Sulfate) 2 mg Q6H PRN IVP Severe Pain (Pain Scale 7-10) 05/03/19 11:06 05/10/19 11:05 Ondansetron HCl (Zofran) 4 mg Q6H PRN IVP Nausea & Vomiting 05/03/19 12:00 05/31/19 17:59 Pantoprazole (Protonix) 40 mg EVERY 12 HOURS ORAL 05/03/19 21:00 05/31/19 13:44 Piperacillin Sod/ Tazobactam Sod 3.375 gm/Sodium Chloride 110 ml @ 27.5 mls/hr EVERY 8 HOURS IVPB 05/03/19 14:00 05/08/19 19:59 Vancomycin HCl (Vanco rx to dose) 1 ea DAILY PRN MISC Per rx protocol 05/04/19 09:00 06/01/19 16:59 Zolpidem Tartrate (Ambien) 5 mg HSPRN PRN ORAL Insomnia 05/03/19 21:00 05/08/19 20:59 Radha Gill M.D. May 03, 2019 11:35
[2019-05-03] MEDS ORDERED: Vancomycin 500mg/D5W 110ml IVPB ONE ×2 (20:00)
[2019-05-03] MEDS ORDERED: NovoLOG Insulin Flexpen SUBQ STA ×2 (22:00→22:09)
[2019-05-04] VITALS: BP 126/66
[2019-05-04] MEDS: Morphine Sulfate 2mg/ml Inj(IV/IM USE ONLY) IVP PRN (00:22)
[2019-05-04] MEDS: D5NS 1,000 ML IV SCH ×3 (00:25→23:53)
[2019-05-04] MEDS: Hydromorphone 0.5mg/0.5ml inj IVP PRN ×6 (01:38→21:21)
[2019-05-04 04:00] VITALS: BP 146/75
[2019-05-04] MEDS: Piperacillin/Tazobactam 3.375 GM in NS 110 ML IVPB SCH ×3 (06:10→21:22)
[2019-05-04] MEDS: HYDROcodone/Acetamin 10/325 tab ORAL PRN ×2 (06:10→12:07)
[2019-05-04] MEDS: NovoLOG Insulin Flexpen SUBQ SCH ×4 (06:18→21:31)
[2019-05-04 08:00] VITALS: BP_SYST 146; BP_SYST 156; BP_DIAS 75; BP_DIAS 81
[2019-05-04 08:23] LABS: ALANINE AMINOTRANSFERASE 13 U/L (12-78); ALBUMIN 2.1 G/DL (3.4-5.0); ALBUMIN/GLOBULIN RATIO 0.4 (1.0-2.7); ALKALINE PHOSPHATASE 163 U/L (46-116); ANION GAP 10 mmol/L (5-15); ASPARTATE AMINO TRANSFERASE 19 U/L (15-37); BILIRUBIN,TOTAL 0.5 MG/DL (0.2-1.0); BLOOD UREA NITROGEN 18 mg/dL (7-18); CALCIUM 6.8 MG/DL (8.5-10.1); CARBON DIOXIDE 19 MMOL/L (21-32); CHLORIDE 107 MMOL/L (98-107); CREATININE 1.9 MG/DL (0.55-1.30); PHOSPHORUS 3.5 MG/DL (2.5-4.9); POTASSIUM 3.9 MMOL/L (3.5-5.1); SODIUM 136 MMOL/L (136-145)
[2019-05-04 08:25] LABS: BASOPHILS % (AUTO) 0.5 % (0.0-2.0); EOSINOPHILS % (AUTO) 3.7 % (0.0-3.0); HEMOGLOBIN 8.9 G/DL (12.0-16.0); INR 1.2 (0.9-1.1); LYMPHOCYTES % (AUTO) 18.8 % (20.0-45.0); MEAN CORPUSCULAR VOLUME 87 FL (80-99); MONOCYTES % (AUTO) 4.3 % (1.0-10.0); NEUTROPHILS % (AUTO) 72.7 % (45.0-75.0); PLATELET COUNT 347 K/UL (150-450); RED BLOOD COUNT 3.21 M/UL (4.20-5.40); WHITE BLOOD COUNT 11.5 K/UL (4.8-10.8)
[2019-05-04] MEDS: Docusate 100mg cap ORAL SCH ×4 (08:35→17:15)
[2019-05-04] MEDS: Dyna-Hex 2% Top Sol 2oz TOPIC SCH (08:36)
[2019-05-04] MEDS: Lac Hydrin 12% Lotion 8oz TOPIC SCH ×2 (08:37→17:21)
--- NOTE | 2019-05-04 08:54 | General Progress Note ---
Assessment/Plan Problem List: (1) Diabetes ICD Codes: E11.9 - Type 2 diabetes mellitus without complications SNOMED: 85073970 (2) Renal insufficiency ICD Codes: N28.9 - Disorder of kidney and ureter, unspecified SNOMED: 018025827, 246875034 (3) Anemia ICD Codes: D64.9 - Anemia, unspecified SNOMED: 246048598 (4) Infection of right foot ICD Codes: L08.9 - Local infection of the skin and subcutaneous tissue, unspecified SNOMED: 975827299 (5) Right foot ulcer ICD Codes: L97.519 - Non-pressure chronic ulcer of other part of right foot with unspecified severity SNOMED: 61849846 (6) Ischemia of right lower extremity ICD Codes: I99.8 - Other disorder of circulatory system SNOMED: 312523563 Status: stable, progressing Assessment/Plan: wound care abx pain control cbc bmp am Subjective Constitutional: Reports: weakness Allergies: Coded Allergies: No Known Allergies (Unverified , 05/01/19) All Systems: reviewed and negative except above Subjective calm in bed Objective Last 24 Hour Vital Signs Date Time Temp Pulse Resp B/P (MAP) Pulse Ox O2 Delivery O2 Flow Rate FiO2 05/04/19 04:00 99.0 67 18 146/75 (98) 96 05/04/19 00:00 98.4 84 18 126/66 (86) 98 05/03/19 21:00 Room Air 05/03/19 20:00 98.4 84 18 109/75 (86) 97 05/03/19 18:08 97.8 05/03/19 16:00 97.2 78 18 125/71 (89) 98 05/03/19 12:00 67 15 133/56 (81) 100 05/03/19 11:00 67 15 133/56 (81) 100 05/03/19 10:00 67 15 133/56 (81) 100 05/03/19 09:00 76 17 110/64 (79) 100 Intake and Output 05/03/19 05/04/19 19:00 07:00 Intake Total 480 ml Output Total 300 ml 600 ml Balance 180 ml -600 ml Intake Oral 480 ml Output Urine Total 300 ml 600 ml # Voids 2 Laboratory Tests 05/03/19 17:15: Vancomycin Level Trough 17.8H 05/03/19 19:30: Glucose Level 512#*H 05/04/19 07:15: Glucose Level 328#H, White Blood Count 11.5H, Red Blood Count 3.21L, Hemoglobin 8.9L, Hematocrit 28.0L, Mean Corpuscular Volume 87, Mean Corpuscular Hemoglobin 27.6, Mean Corpuscular Hemoglobin Concent 31.7L, Red Cell Distribution Width 18.0H, Platelet Count 347, Mean Platelet Volume 7.6, Neutrophils (%) (Auto) 72.7 , Lymphocytes (%) (Auto) 18.8L, Monocytes (%) (Auto) 4.3, Eosinophils (%) (Auto ) 3.7H, Basophils (%) (Auto) 0.5, Prothrombin Time 12.2H, Prothromb Time International Ratio 1.2H, Activated Partial Thromboplast Time 36H, Sodium Level 136, Potassium Level 3.9, Chloride Level 107, Carbon Dioxide Level 19L, Anion Gap 10, Blood Urea Nitrogen 18, Creatinine 1.9H, Estimat Glomerular Filtration Rate 35.4, Calcium Level 6.8L, Phosphorus Level 3.5, Magnesium Level 1.8, Total Bilirubin 0.5, Aspartate Amino Transf (AST/SGOT) 19, Alanine Aminotransferase ( ALT/SGPT) 13, Alkaline Phosphatase 163H, Total Protein 7.3, Albumin 2.1L, Globulin 5.2, Albumin/Globulin Ratio 0.4L Height (Feet): 4 Height (Inches): 9.00 Weight (Pounds): 121 General Appearance: lethargic EENT: normal ENT inspection Neck: normal alignment Cardiovascular: normal peripheral pulses, normal rate, regular rhythm Respiratory/Chest: chest wall non-tender, lungs clear, normal breath sounds Abdomen: normal bowel sounds, non tender, soft Extremities: normal inspection Edema: no edema noted Arm (L), no edema noted Arm (R), no edema noted Leg (L), no edema noted Leg (R), no edema noted Pedal (L), no edema noted Pedal (R), no edema noted Generalized Neurologic: responsive, motor weakness Skin: normal pigmentation, warm/dry Marco Antonio Enriquez DO May 04, 2019 08:54
--- NOTE | 2019-05-04 11:54 | Nephrology Progress Note ---
Assessment/Plan Problem List: (1) Diabetic nephropathy (2) Renal failure (ARF), acute on chronic (3) Anemia (4) Ischemia of right lower extremity (5) Right foot ulcer (6) Infection of right foot Assessment Renal Failure , likely diabetic nephropathy IDDM Anemia, h/o SS disease right foot appears gangerenous Plan Anemia management BS check gastric support per consultants post amputation care ( 05/02/19 amputation) Subjective ROS Limited/Unobtainable: No Constitutional: Reports: malaise, weakness Objective Objective Last 24 Hour Vital Signs Date Time Temp Pulse Resp B/P (MAP) Pulse Ox O2 Delivery O2 Flow Rate FiO2 05/04/19 09:00 Room Air 05/04/19 08:00 97.8 87 18 156/81 (106) 97 05/04/19 04:00 99.0 67 18 146/75 (98) 96 05/04/19 00:00 98.4 84 18 126/66 (86) 98 05/03/19 21:00 Room Air 05/03/19 20:00 98.4 84 18 109/75 (86) 97 05/03/19 18:08 97.8 05/03/19 16:00 97.2 78 18 125/71 (89) 98 05/03/19 12:00 67 15 133/56 (81) 100 Intake and Output 05/03/19 05/04/19 19:00 07:00 Intake Total 480 ml Output Total 300 ml 600 ml Balance 180 ml -600 ml Intake Oral 480 ml Output Urine Total 300 ml 600 ml # Voids 2 Laboratory Tests 05/03/19 17:15: Vancomycin Level Trough 17.8H 05/03/19 19:30: Glucose Level 512#*H 05/04/19 07:15: Glucose Level 328#H, White Blood Count 11.5H, Red Blood Count 3.21L, Hemoglobin 8.9L, Hematocrit 28.0L, Mean Corpuscular Volume 87, Mean Corpuscular Hemoglobin 27.6, Mean Corpuscular Hemoglobin Concent 31.7L, Red Cell Distribution Width 18.0H, Platelet Count 347, Mean Platelet Volume 7.6, Neutrophils (%) (Auto) 72.7 , Lymphocytes (%) (Auto) 18.8L, Monocytes (%) (Auto) 4.3, Eosinophils (%) (Auto ) 3.7H, Basophils (%) (Auto) 0.5, Prothrombin Time 12.2H, Prothromb Time International Ratio 1.2H, Activated Partial Thromboplast Time 36H, Sodium Level 136, Potassium Level 3.9, Chloride Level 107, Carbon Dioxide Level 19L, Anion Gap 10, Blood Urea Nitrogen 18, Creatinine 1.9H, Estimat Glomerular Filtration Rate 35.4, Calcium Level 6.8L, Phosphorus Level 3.5, Magnesium Level 1.8, Total Bilirubin 0.5, Aspartate Amino Transf (AST/SGOT) 19, Alanine Aminotransferase ( ALT/SGPT) 13, Alkaline Phosphatase 163H, Total Protein 7.3, Albumin 2.1L, Globulin 5.2, Albumin/Globulin Ratio 0.4L Height (Feet): 4 Height (Inches): 9.00 Weight (Pounds): 121 General Appearance: no apparent distress Objective no change Elfego Vázquez MD May 04, 2019 11:54
[2019-05-04 12:00] VITALS: BP 140/68
--- NOTE | 2019-05-04 12:22 | General Progress Note ---
Progress Note Progress Note POD #2 doing well labs improved looks better dressings c/d/i diet activity rx as written keep dressings for now Tian Avalos May 04, 2019 12:22
--- NOTE | 2019-05-04 14:57 | Cardiology Report ---
APPROVED REPORT EKG Measurement Heart [id number] Normal sinus rhythm Normal ECG
[2019-05-04] MEDS ORDERED: D5NS 1000ml IV ONE (15:24)
[2019-05-04] MEDS ORDERED: Tubing IV Secondary IV ONE (15:24)
--- NOTE | 2019-05-04 15:59 | Hematology/Onc Progress Note ---
Assessment/Plan Assessment/Plan Assessment and Recs: # Sickle cell disease - hgb baseline 5-6 range, per patient she does not want blood transfusions --> refusing blood transfusions, per her the baseline is 5-6 range --> trend hgb 5.85-->4.8->8.9-->8.9 --> anemia panel reviewed and c/w these labs values, ferritin is high --> not in hemolysis at this time --> electrophoresis as needed, not during stay at this time --> epo has been ordered 3 x a week --> iron stores are sufficient --> recommended transfusion can be life saving but patient declined # Leukocytosis/elevated white blood cell count, unspecified likely related to underlying stress reaction, smoking v from crisis, doing better s/o bka r --> have reviewed peripheral smear and bandemia/neutrophilia noted --> continue antibiotics if they have been started by ID team --> monitor for resolution --> trend wbc 25k-->23k->12k --> may need surg, refusing # HAYDEE can be dm related --> trend and establish baseline --> may be dehydrated --> cr 2-->1.5 # Electrolyte abnml --> as per renal, Na+ trend and volume expansion # DM2 --> a1c goal <8 goal The timing of this note does not necessarily reflect the time of the patient was seen. GREATLY APPRECIATE CONSULTATION. Subjective HEENT: Denies: no symptoms, eye pain, blurred vision, tearing, double vision, ear pain, ear discharge, nose pain, nose congestion, throat pain, throat swelling, mouth pain, mouth swelling, other Cardiovascular: Denies: no symptoms, chest pain, edema, irregular heart rate, lightheadedness, palpitations, syncope, other Respiratory: Denies: no symptoms, cough, shortness of breath, SOB with excertion, SOB at rest, sputum, wheezing, other Gastrointestinal/Abdominal: Denies: no symptoms, abdomen distended, abdominal pain, black stools, tarry stools, blood in stool, constipated, diarrhea, difficulty swallowing, nausea, poor appetite, poor fluid intake, rectal bleeding , vomiting, other Genitourinary: Denies: no symptoms, burning, discharge, frequency, flank pain, hematuria, incontinence, pain, urgency, other Neurologic/Psychiatric: Denies: no symptoms, anxiety, depressed, emotional problems, headache, numbness, paresthesia, pre-existing deficit, seizure, tingling, tremors, weakness, other Endocrine: Denies: no symptoms, excessive sweating, flushing, intolerance to cold, intolerance to heat, increased hunger, increased thirst, increased urine, unexplained weight gain, unexplained weight loss, other Hematologic/Lymphatic: Denies: no symptoms, anemia, easy bleeding, easy bruising, adenopathy, other Allergies: Coded Allergies: No Known Allergies (Unverified , 05/01/19) Subjective 05/02: on epogen, hgb lower 4.8, initially refused transfusion, now accepting, shiva rn, refusing sx 05/04: is pod 2 and doing better, still in pain this am Objective Objective Current Medications Medications (Trade) Dose Ordered Sig/Trey Route PRN Reason Start Time Stop Time Status Last Admin Dose Admin Acetaminophen (Tylenol) 650 mg Q4H PRN ORAL Mild Pain/Temp > 100.5 05/03/19 11:05 06/02/19 11:04 Acetaminophen/ Hydrocodone Bitart ([place] 10/325) 1 tab Q4H PRN ORAL Moderate Pain (Pain Scale 4-6) 05/03/19 11:06 05/10/19 11:05 05/04/19 12:07 Ammonium Lactate (Lac Hydrin) 1 applic TWICE A DAY TOPIC 05/03/19 18:00 06/01/19 11:29 05/04/19 08:37 Chlorhexidine Gluconate (An-Hex 2%) 1 applic TWICE A DAY TOPIC 05/03/19 18:00 06/01/19 10:59 05/04/19 08:36 Dextrose (Dextrose 50%) 25 ml Q30M PRN IV Hypoglycemia 05/03/19 11:00 05/31/19 17:59 Dextrose (Dextrose 50%) 50 ml Q30M PRN IV Hypoglycemia 05/03/19 11:00 05/31/19 17:59 Dextrose/Sodium Chloride 1,000 ml @ 75 mls/hr [id number] IV 05/03/19 11:04 06/02/19 11:03 05/04/19 14:06 Diphenhydramine HCl (Benadryl) 25 mg Q6H PRN IVP Itching 05/03/19 11:05 06/02/19 11:04 Docusate Sodium (Colace) 100 mg THREE TIMES A DAY ORAL 05/03/19 13:00 05/31/19 17:59 Epoetin Matt (Epoetin Matt-EPBX(NON ESRD)) 4,000 unit MON-WED-SUN SUBQ 05/05/19 21:00 06/01/19 20:59 Hydromorphone HCl (Dilaudid) 0.5 mg Q2H PRN IVP Severe Breakthru Pain (>7) 05/03/19 11:06 05/10/19 11:05 05/04/19 13:03 Insulin Aspart (NovoLOG) BEFORE MEALS AND HS SUBQ 05/04/19 06:30 05/31/19 17:59 05/04/19 12:26 Morphine Sulfate (Morphine Sulfate) 2 mg Q6H PRN IVP Severe Pain (Pain Scale 7-10) 05/03/19 11:06 05/10/19 11:05 05/04/19 00:22 Ondansetron HCl (Zofran) 4 mg Q6H PRN IVP Nausea & Vomiting 05/03/19 12:00 05/31/19 17:59 Pantoprazole (Protonix) 40 mg EVERY 12 HOURS ORAL 05/03/19 21:00 05/31/19 13:44 05/03/19 21:28 Piperacillin Sod/ Tazobactam Sod 3.375 gm/Sodium Chloride 110 ml @ 27.5 mls/hr EVERY 8 HOURS IVPB 05/03/19 14:00 05/08/19 19:59 05/04/19 14:05 Vancomycin HCl (Vanco rx to dose) 1 ea DAILY PRN MISC Per rx protocol 05/04/19 09:00 06/01/19 16:59 Zolpidem Tartrate (Ambien) 5 mg HSPRN PRN ORAL Insomnia 05/03/19 21:00 05/08/19 20:59 Last 24 Hour Vital Signs Date Time Temp Pulse Resp B/P (MAP) Pulse Ox O2 Delivery O2 Flow Rate FiO2 05/04/19 12:00 98.1 70 18 140/68 (92) 100 05/04/19 09:00 Room Air 05/04/19 08:00 97.8 87 18 156/81 (106) 97 05/04/19 04:00 99.0 67 18 146/75 (98) 96 05/04/19 00:00 98.4 84 18 126/66 (86) 98 05/03/19 21:00 Room Air 05/03/19 20:00 98.4 84 18 109/75 (86) 97 05/03/19 18:08 97.8 05/03/19 16:00 97.2 78 18 125/71 (89) 98 05/03/19 12:00 67 15 133/56 (81) 100 05/03/19 11:00 67 15 133/56 (81) 100 05/03/19 10:00 67 15 133/56 (81) 100 05/03/19 09:00 76 17 110/64 (79) 100 05/03/19 08:00 97.8 64 14 129/59 (82) 100 05/03/19 08:00 Room Air 05/03/19 08:00 66 05/03/19 07:00 64 11 129/60 (83) 100 05/03/19 04:00 Room Air 05/03/19 04:00 65 05/03/19 01:00 73 14 125/60 (81) 100 05/03/19 00:00 Room Air 05/03/19 00:00 97.4 75 10 140/64 (89) 99 05/03/19 00:00 75 05/02/19 23:00 75 13 130/60 (83) 100 05/02/19 22:00 79 16 119/66 (83) 100 05/02/19 21:00 101 20 125/76 (92) 100 05/02/19 20:11 99 05/02/19 20:00 99 14 115/59 (77) 94 05/02/19 19:00 95 17 121/62 (81) 100 05/02/19 18:00 89 16 103/55 (71) 05/02/19 18:00 Simple Mask 4.0 05/02/19 17:54 90 12 106/57 (73) 05/02/19 17:30 92 11 94/59 (71) 100 05/02/19 17:27 97.5 93 13 93/50 (64) 100 05/02/19 17:12 97.3 94 12 99/57 (71) 05/02/19 17:00 96 13 100/52 (68) 05/02/19 16:30 Simple Mask 4.0 05/02/19 16:30 98 16 122/62 (82) 05/02/19 16:18 56 12 100 05/02/19 16:15 98 9 100 Intake and Output 05/03/19 05/04/19 18:59 06:59 Intake Total 582.5 ml Output Total 300 ml 600 ml Balance 282.5 ml -600 ml Intake Oral 480 ml IV Total 102.5 ml Output Urine Total 300 ml 600 ml # Voids 2 Labs Test 05/02/19 05:28 05/03/19 06:00 05/03/19 17:15 05/03/19 19:30 White Blood Count 24.3 K/UL (4.8-10.8) 19.5 K/UL (4.8-10.8) Red Blood Count 1.91 M/UL (4.20-5.40) 3.21 M/UL (4.20-5.40) Hemoglobin 4.8 G/DL (12.0-16.0) 8.9 G/DL (12.0-16.0) Hematocrit 15.3 % (37.0-47.0) 27.7 % (37.0-47.0) Mean Corpuscular Volume 80 FL (80-99) 86 FL (80-99) Mean Corpuscular Hemoglobin 25.1 PG (27.0-31.0) 27.7 PG (27.0-31.0) Mean Corpuscular Hemoglobin Concent 31.2 G/DL (32.0-36.0) 32.1 G/DL (32.0-36.0) Red Cell Distribution Width 19.0 % (11.6-14.8) 17.0 % (11.6-14.8) Platelet Count 379 K/UL (150-450) 327 K/UL (150-450) Mean Platelet Volume 7.5 FL (6.5-10.1) 7.9 FL (6.5-10.1) Neutrophils (%) (Auto) % (45.0-75.0) % (45.0-75.0) Lymphocytes (%) (Auto) % (20.0-45.0) % (20.0-45.0) Monocytes (%) (Auto) % (1.0-10.0) % (1.0-10.0) Eosinophils (%) (Auto) % (0.0-3.0) % (0.0-3.0) Basophils (%) (Auto) % (0.0-2.0) % (0.0-2.0) Differential Total Cells Counted 100 100 Neutrophils % (Manual) 74 % (45-75) 72 % (45-75) Lymphocytes % (Manual) 18 % (20-45) 19 % (20-45) Monocytes % (Manual) 2 % (1-10) 6 % (1-10) Eosinophils % (Manual) 2 % (0-3) 2 % (0-3) Basophils % (Manual) 0 % (0-2) 1 % (0-2) Band Neutrophils 4 % (0-8) 0 % (0-8) Platelet Estimate Adequate Adequate Platelet Morphology Normal Normal Polychromasia 3+ 2+ Hypochromasia 3+ Anisocytosis 1+ Microcytosis 2+ Target Cells 3+ 3+ Tear Drop Cells Occasional Ovalocytes 1+ Rare [place] Bodies Rare Sodium Level 132 MMOL/L (136-145) 136 MMOL/L (136-145) Potassium Level 4.3 MMOL/L (3.5-5.1) 4.3 MMOL/L (3.5-5.1) Chloride Level 106 MMOL/L (98-107) 106 MMOL/L (98-107) Carbon Dioxide Level 23 MMOL/L (21-32) 23 MMOL/L (21-32) Anion Gap 3 mmol/L (5-15) 7 mmol/L (5-15) Blood Urea Nitrogen 21 mg/dL (7-18) 21 mg/dL (7-18) Creatinine 1.5 MG/DL (0.55-1.30) 1.8 MG/DL (0.55-1.30) Estimat Glomerular Filtration Rate 46.4 mL/min (>60) 37.6 mL/min (>60) Glucose Level 65 MG/DL (74-106) 258 MG/DL (74-106) 512 MG/DL (74-106) Lactic Acid Level 1.20 mmol/L (0.4-2.0) Uric Acid 6.1 MG/DL (2.6-7.2) Calcium Level 7.3 MG/DL (8.5-10.1) 7.1 MG/DL (8.5-10.1) Phosphorus Level 3.0 MG/DL (2.5-4.9) 3.7 MG/DL (2.5-4.9) Magnesium Level 2.1 MG/DL (1.8-2.4) 2.0 MG/DL (1.8-2.4) Total Bilirubin 0.7 MG/DL (0.2-1.0) 0.9 MG/DL (0.2-1.0) Gamma Glutamyl Transpeptidase 42 U/L (5-85) Aspartate Amino Transf (AST/SGOT) 14 U/L (15-37) 14 U/L (15-37) Alanine Aminotransferase (ALT/SGPT) 12 U/L (12-78) 12 U/L (12-78) Alkaline Phosphatase 147 U/L (46-116) 156 U/L (46-116) C-Reactive Protein, Quantitative 4.6 mg/dL (0.00-0.90) Pro-B-Type Natriuretic Peptide 1579 pg/mL (0-125) Total Protein 6.8 G/DL (6.4-8.2) 7.0 G/DL (6.4-8.2) Albumin 2.1 G/DL (3.4-5.0) 2.1 G/DL (3.4-5.0) Globulin 4.7 g/dL 4.9 g/dL Albumin/Globulin Ratio 0.4 (1.0-2.7) 0.4 (1.0-2.7) Triglycerides Level 108 MG/DL (30-150) Cholesterol Level 78 MG/DL (< 200) LDL Cholesterol 37 mg/dL (<100) HDL Cholesterol 21 MG/DL (40-60) Cholesterol/HDL Ratio 3.7 (3.3-4.4) Lipase 20 U/L (73-393) Thyroid Stimulating Hormone (TSH) 2.104 uiU/mL (0.358-3.740) Random Vancomycin Level 15.4 ug/mL Vancomycin Level Trough 17.8 ug/mL (5.0-12.0) Test 05/04/19 07:15 White Blood Count 11.5 K/UL (4.8-10.8) Red Blood Count 3.21 M/UL (4.20-5.40) Hemoglobin 8.9 G/DL (12.0-16.0) Hematocrit 28.0 % (37.0-47.0) Mean Corpuscular Volume 87 FL (80-99) Mean Corpuscular Hemoglobin 27.6 PG (27.0-31.0) Mean Corpuscular Hemoglobin Concent 31.7 G/DL (32.0-36.0) Red Cell Distribution Width 18.0 % (11.6-14.8) Platelet Count 347 K/UL (150-450) Mean Platelet Volume 7.6 FL (6.5-10.1) Neutrophils (%) (Auto) 72.7 % (45.0-75.0) Lymphocytes (%) (Auto) 18.8 % (20.0-45.0) Monocytes (%) (Auto) 4.3 % (1.0-10.0) Eosinophils (%) (Auto) 3.7 % (0.0-3.0) Basophils (%) (Auto) 0.5 % (0.0-2.0) Prothrombin Time 12.2 SEC (9.30-11.50) Prothromb Time International Ratio 1.2 (0.9-1.1) Activated Partial Thromboplast Time 36 SEC (23-33) Sodium Level 136 MMOL/L (136-145) Potassium Level 3.9 MMOL/L (3.5-5.1) Chloride Level 107 MMOL/L (98-107) Carbon Dioxide Level 19 MMOL/L (21-32) Anion Gap 10 mmol/L (5-15) Blood Urea Nitrogen 18 mg/dL (7-18) Creatinine 1.9 MG/DL (0.55-1.30) Estimat Glomerular Filtration Rate 35.4 mL/min (>60) Glucose Level 328 MG/DL (74-106) Calcium Level 6.8 MG/DL (8.5-10.1) Phosphorus Level 3.5 MG/DL (2.5-4.9) Magnesium Level 1.8 MG/DL (1.8-2.4) Total Bilirubin 0.5 MG/DL (0.2-1.0) Aspartate Amino Transf (AST/SGOT) 19 U/L (15-37) Alanine Aminotransferase (ALT/SGPT) 13 U/L (12-78) Alkaline Phosphatase 163 U/L (46-116) Total Protein 7.3 G/DL (6.4-8.2) Albumin 2.1 G/DL (3.4-5.0) Globulin 5.2 g/dL Albumin/Globulin Ratio 0.4 (1.0-2.7) Height (Feet): 4 Height (Inches): 9.00 Weight (Pounds): 121 Objective Vitals: reviewed General Appearance: NAD HEENT: normocephalic, atraumatic Neck: non-tender, normal alignment Respiratory/Chest: normal breath sounds bilaterally Cardiovascular/Chest: normal peripheral pulses, normal rate Abdomen: normal bowel sounds, soft, nontender Extremities: normal range of motion, is now s/p R BKA (05/02) Raphael Shrestha MD May 04, 2019 15:59
[2019-05-04 16:00] VITALS: BP 133/70
--- NOTE | 2019-05-04 19:33 | Pulmonology Progress Note ---
Assessment/Plan Problems: (1) Gas gangrene (2) Diabetic nephropathy (3) Renal insufficiency (4) Diabetes (5) Ischemia of right lower extremity Assessment/Plan s/p amputation sliding scale diabetic diet Subjective ROS Limited/Unobtainable: Yes Constitutional: Reports: no symptoms HEENT: Repors: no symptoms Allergies: Coded Allergies: No Known Allergies (Unverified , 05/01/19) Objective Last 24 Hour Vital Signs Date Time Temp Pulse Resp B/P (MAP) Pulse Ox O2 Delivery O2 Flow Rate FiO2 05/04/19 16:00 97.6 69 18 133/70 (91) 99 05/04/19 12:00 98.1 70 18 140/68 (92) 100 05/04/19 09:00 Room Air 05/04/19 08:00 97.8 87 18 156/81 (106) 97 05/04/19 04:00 99.0 67 18 146/75 (98) 96 05/04/19 00:00 98.4 84 18 126/66 (86) 98 05/03/19 21:00 Room Air 05/03/19 20:00 98.4 84 18 109/75 (86) 97 Intake and Output 05/03/19 05/04/19 18:59 06:59 Intake Total 582.5 ml Output Total 300 ml 600 ml Balance 282.5 ml -600 ml Intake Oral 480 ml IV Total 102.5 ml Output Urine Total 300 ml 600 ml # Voids 2 General Appearance: WD/WN HEENT: normocephalic, atraumatic Respiratory/Chest: chest wall non-tender, lungs clear Breasts: no masses Cardiovascular: normal peripheral pulses Abdomen: normal bowel sounds, soft, non tender Genitourinary: normal external genitalia Extremities: no cyanosis, no clubbing Neurologic/Psychiatric: columnist II-XII grossly normal Lymphatic: no neck adenopathy Musculoskeletal: normal muscle bulk Microbiology Date/Time Source Procedure Growth Status 05/01/19 20:40 Blood Blood Culture - Preliminary NO GROWTH AFTER 48 HOURS Resulted 05/01/19 20:35 Blood Blood Culture - Preliminary NO GROWTH AFTER 48 HOURS Resulted Laboratory Tests 05/04/19 07:15: White Blood Count 11.5H, Red Blood Count 3.21L, Hemoglobin 8.9L, Hematocrit 28.0L, Mean Corpuscular Volume 87, Mean Corpuscular Hemoglobin 27.6, Mean Corpuscular Hemoglobin Concent 31.7L, Red Cell Distribution Width 18.0H, Platelet Count 347, Mean Platelet Volume 7.6, Neutrophils (%) (Auto) 72.7, Lymphocytes (%) (Auto) 18.8L, Monocytes (%) (Auto) 4.3, Eosinophils (%) (Auto) 3.7H, Basophils (%) (Auto) 0.5, Prothrombin Time 12.2H, Prothromb Time International Ratio 1.2H, Activated Partial Thromboplast Time 36H, Sodium Level 136, Potassium Level 3.9, Chloride Level 107, Carbon Dioxide Level 19L, Anion Gap 10, Blood Urea Nitrogen 18, Creatinine 1.9H, Estimat Glomerular Filtration Rate 35.4, Glucose Level 328#H, Calcium Level 6.8L, Phosphorus Level 3.5, Magnesium Level 1.8, Total Bilirubin 0.5, Aspartate Amino Transf (AST/SGOT) 19, Alanine Aminotransferase (ALT/SGPT) 13, Alkaline Phosphatase 163H, Total Protein 7.3, Albumin 2.1L, Globulin 5.2, Albumin/Globulin Ratio 0.4L 05/04/19 18:30: Random Vancomycin Level [Pending] Current Medications Medications (Trade) Dose Ordered Sig/Trey Route PRN Reason Start Time Stop Time Status Last Admin Dose Admin Acetaminophen (Tylenol) 650 mg Q4H PRN ORAL Mild Pain/Temp > 100.5 05/03/19 11:05 06/02/19 11:04 Acetaminophen/ Hydrocodone Bitart ([place] 10/325) 1 tab Q4H PRN ORAL Moderate Pain (Pain Scale 4-6) 05/03/19 11:06 05/10/19 11:05 05/04/19 12:07 Ammonium Lactate (Lac Hydrin) 1 applic TWICE A DAY TOPIC 05/03/19 18:00 06/01/19 11:29 05/04/19 17:21 Dextrose (Dextrose 50%) 25 ml Q30M PRN IV Hypoglycemia 05/03/19 11:00 05/31/19 17:59 Dextrose (Dextrose 50%) 50 ml Q30M PRN IV Hypoglycemia 05/03/19 11:00 05/31/19 17:59 Dextrose/Sodium Chloride 1,000 ml @ 75 mls/hr [id number] IV 05/03/19 11:04 06/02/19 11:03 05/04/19 14:06 Diphenhydramine HCl (Benadryl) 25 mg Q6H PRN IVP Itching 05/03/19 11:05 06/02/19 11:04 Docusate Sodium (Colace) 100 mg THREE TIMES A DAY ORAL 05/03/19 13:00 05/31/19 17:59 Epoetin Matt (Epoetin Matt-EPBX(NON ESRD)) 4,000 unit SUN-SUN-SUN SUBQ 05/05/19 21:00 06/01/19 20:59 Hydromorphone HCl (Dilaudid) 0.5 mg Q2H PRN IVP Severe Breakthru Pain (>7) 05/03/19 11:06 05/10/19 11:05 05/04/19 16:31 Insulin Aspart (NovoLOG) BEFORE MEALS AND HS SUBQ 05/04/19 06:30 05/31/19 17:59 05/04/19 17:19 Morphine Sulfate (Morphine Sulfate) 2 mg Q6H PRN IVP Severe Pain (Pain Scale 7-10) 05/03/19 11:06 05/10/19 11:05 05/04/19 00:22 Ondansetron HCl (Zofran) 4 mg Q6H PRN IVP Nausea & Vomiting 05/03/19 12:00 05/31/19 17:59 Pantoprazole (Protonix) 40 mg EVERY 12 HOURS ORAL 05/03/19 21:00 05/31/19 13:44 05/03/19 21:28 Piperacillin Sod/ Tazobactam Sod 3.375 gm/Sodium Chloride 110 ml @ 27.5 mls/hr EVERY 8 HOURS IVPB 05/03/19 14:00 05/08/19 19:59 05/04/19 14:05 Vancomycin HCl (Vanco rx to dose) 1 ea DAILY PRN MISC Per rx protocol 05/04/19 09:00 06/01/19 16:59 Zolpidem Tartrate (Ambien) 5 mg HSPRN PRN ORAL Insomnia 05/03/19 21:00 05/08/19 20:59 Serena Gordon MD May 04, 2019 19:33
[2019-05-04 20:00] VITALS: BP 134/71
[2019-05-04] MEDS: Zolpidem 5mg tab ORAL PRN (22:15)
[2019-05-04] MEDS: DiphenhydrAMINE 50mg/ml Inj IVP PRN (23:48)
[2019-05-05] VITALS: BP 144/75
[2019-05-05] MEDS ORDERED: Vancomycin 500mg/D5W 110ml IVPB ONE ×2
[2019-05-05 04:00] VITALS: BP 142/85
[2019-05-05] MEDS: Piperacillin/Tazobactam 3.375 GM in NS 110 ML IVPB SCH ×3 (05:19→21:07)
[2019-05-05] MEDS: Hydromorphone 0.5mg/0.5ml inj IVP PRN ×8 (05:19→22:34)
[2019-05-05] MEDS: NovoLOG Insulin Flexpen SUBQ SCH ×4 (05:58→21:06)
[2019-05-05 06:39] LABS: BASOPHILS % (AUTO) 1.7 % (0.0-2.0); EOSINOPHILS % (AUTO) 2.7 % (0.0-3.0); HEMATOCRIT 30.5 % (37.0-47.0); HEMOGLOBIN 9.5 G/DL (12.0-16.0); LYMPHOCYTES % (AUTO) 22.3 % (20.0-45.0); MEAN CORPUSCULAR VOLUME 88 FL (80-99); MONOCYTES % (AUTO) 4.3 % (1.0-10.0); PLATELET COUNT 341 K/UL (150-450); RED BLOOD COUNT 3.47 M/UL (4.20-5.40); RED CELL DISTRIBUTION WIDTH 17.7 % (11.6-14.8); WHITE BLOOD COUNT 12.1 K/UL (4.8-10.8)
[2019-05-05 06:52] LABS: ANION GAP 10 mmol/L (5-15); BLOOD UREA NITROGEN 13 mg/dL (7-18); CARBON DIOXIDE 19 MMOL/L (21-32); CHLORIDE 109 MMOL/L (98-107); CREATININE 1.8 MG/DL (0.55-1.30); POTASSIUM 4.1 MMOL/L (3.5-5.1); SODIUM 138 MMOL/L (136-145)
[2019-05-05 08:00] VITALS: BP 152/93
[2019-05-05] MEDS: Docusate 100mg cap ORAL SCH ×3 (08:17→17:10)
[2019-05-05] MEDS: Lac Hydrin 12% Lotion 8oz TOPIC SCH ×2 (08:34→17:10)
--- NOTE | 2019-05-05 08:49 | General Progress Note ---
Assessment/Plan Assessment/Plan: (1) Right foot pain (2) Right foot ulcer (3) S/p Right LE BKA Patient will be continued on [place], Morphine and Dilaudid. D/w Dr. Marsh and he concurred. Subjective Date patient seen: May 05, 2019 Time patient seen: 07:15 - am Constitutional: Reports: no symptoms HEENT: Reports: no symptoms Cardiovascular: Reports: no symptoms Respiratory: Reports: no symptoms Gastrointestinal/Abdominal: Reports: no symptoms Genitourinary: Reports: no symptoms Neurologic/Psychiatric: Reports: no symptoms Endocrine: Reports: no symptoms Hematologic/Lymphatic: Reports: no symptoms Allergies: Coded Allergies: No Known Allergies (Unverified , 05/01/19) Subjective Patient is in bed and is s/p right BKA amputation which was performed on Sunday, started on Dilaudid .5mg IV Q2H PRN with adequate pain relief. . Objective Last 24 Hour Vital Signs Date Time Temp Pulse Resp B/P (MAP) Pulse Ox O2 Delivery O2 Flow Rate FiO2 05/05/19 08:00 98.0 80 20 152/93 (112) 100 05/05/19 04:00 98.1 69 18 142/85 (104) 99 05/05/19 00:00 98.1 68 18 144/75 (98) 100 05/04/19 21:00 Room Air 05/04/19 20:00 98.0 72 18 134/71 (92) 100 05/04/19 16:00 97.6 69 18 133/70 (91) 99 05/04/19 12:00 98.1 70 18 140/68 (92) 100 05/04/19 09:00 Room Air Intake and Output 05/04/19 05/05/19 19:00 07:00 Intake Total 360 ml Output Total 600 ml Balance -240 ml Intake Oral 360 ml Output Urine Total 600 ml # Voids 3 Laboratory Tests 05/04/19 18:30: Random Vancomycin Level 19.6 05/05/19 05:05: White Blood Count 12.1H, Red Blood Count 3.47L, Hemoglobin 9.5L, Hematocrit 30.5L, Mean Corpuscular Volume 88, Mean Corpuscular Hemoglobin 27.3, Mean Corpuscular Hemoglobin Concent 31.1L, Red Cell Distribution Width 17.7H, Platelet Count 341, Mean Platelet Volume 7.1, Neutrophils (%) (Auto) 69.0, Lymphocytes (%) (Auto) 22.3, Monocytes (%) (Auto) 4.3, Eosinophils (%) (Auto) 2.7, Basophils (%) (Auto) 1.7, Sodium Level 138, Potassium Level 4.1, Chloride Level 109H, Carbon Dioxide Level 19L, Anion Gap 10, Blood Urea Nitrogen 13, Creatinine 1.8H, Estimat Glomerular Filtration Rate 37.6, Glucose Level 82#, Calcium Level 7.0L Height (Feet): 4 Height (Inches): 9.00 Weight (Pounds): 125 General Appearance: no apparent distress, alert EENT: PERRL/EOMI, normal ENT inspection Neck: non-tender, normal alignment Cardiovascular: normal rate, regular rhythm Respiratory/Chest: lungs clear, normal breath sounds Abdomen: non tender, soft Extremities: other - right LE BKA noted Edema: trace edema Neurologic: alert, oriented x 3 Skin: normal pigmentation Navi Menchaca May 05, 2019 08:49
--- NOTE | 2019-05-05 09:02 | General Progress Note ---
Assessment/Plan Problem List: (1) Diabetes ICD Codes: E11.9 - Type 2 diabetes mellitus without complications SNOMED: 66578024 (2) Renal insufficiency ICD Codes: N28.9 - Disorder of kidney and ureter, unspecified SNOMED: 644587497, 752457421 (3) Anemia ICD Codes: D64.9 - Anemia, unspecified SNOMED: 222038412 (4) Infection of right foot ICD Codes: L08.9 - Local infection of the skin and subcutaneous tissue, unspecified SNOMED: 820928114 (5) Right foot ulcer ICD Codes: L97.519 - Non-pressure chronic ulcer of other part of right foot with unspecified severity SNOMED: 10921837 (6) Ischemia of right lower extremity ICD Codes: I99.8 - Other disorder of circulatory system SNOMED: 644984609 Status: stable, progressing Assessment/Plan: wound care abx pain control cbc bmp am Subjective Constitutional: Reports: weakness Allergies: Coded Allergies: No Known Allergies (Unverified , 05/01/19) All Systems: reviewed and negative except above Subjective calm in bed Objective Last 24 Hour Vital Signs Date Time Temp Pulse Resp B/P (MAP) Pulse Ox O2 Delivery O2 Flow Rate FiO2 05/05/19 08:00 98.0 80 20 152/93 (112) 100 05/05/19 04:00 98.1 69 18 142/85 (104) 99 05/05/19 00:00 98.1 68 18 144/75 (98) 100 05/04/19 21:00 Room Air 05/04/19 20:00 98.0 72 18 134/71 (92) 100 05/04/19 16:00 97.6 69 18 133/70 (91) 99 05/04/19 12:00 98.1 70 18 140/68 (92) 100 Intake and Output 05/04/19 05/05/19 19:00 07:00 Intake Total 360 ml Output Total 600 ml Balance -240 ml Intake Oral 360 ml Output Urine Total 600 ml # Voids 3 Laboratory Tests 05/04/19 18:30: Random Vancomycin Level 19.6 05/05/19 05:05: White Blood Count 12.1H, Red Blood Count 3.47L, Hemoglobin 9.5L, Hematocrit 30.5L, Mean Corpuscular Volume 88, Mean Corpuscular Hemoglobin 27.3, Mean Corpuscular Hemoglobin Concent 31.1L, Red Cell Distribution Width 17.7H, Platelet Count 341, Mean Platelet Volume 7.1, Neutrophils (%) (Auto) 69.0, Lymphocytes (%) (Auto) 22.3, Monocytes (%) (Auto) 4.3, Eosinophils (%) (Auto) 2.7, Basophils (%) (Auto) 1.7, Sodium Level 138, Potassium Level 4.1, Chloride Level 109H, Carbon Dioxide Level 19L, Anion Gap 10, Blood Urea Nitrogen 13, Creatinine 1.8H, Estimat Glomerular Filtration Rate 37.6, Glucose Level 82#, Calcium Level 7.0L Height (Feet): 4 Height (Inches): 9.00 Weight (Pounds): 125 General Appearance: lethargic EENT: normal ENT inspection Neck: normal alignment Cardiovascular: normal peripheral pulses, normal rate, regular rhythm Respiratory/Chest: chest wall non-tender, lungs clear, normal breath sounds Abdomen: normal bowel sounds, non tender, soft Extremities: normal inspection Edema: no edema noted Arm (L), no edema noted Arm (R), no edema noted Leg (L), no edema noted Leg (R), no edema noted Pedal (L), no edema noted Pedal (R), no edema noted Generalized Neurologic: motor weakness Skin: normal pigmentation, warm/dry Marco Antonio Enriquez DO May 05, 2019 09:02
[2019-05-05 10:17] LABS: ALANINE AMINOTRANSFERASE 12 U/L (12-78); ALBUMIN 1.9 G/DL (3.4-5.0); ALKALINE PHOSPHATASE 153 U/L (46-116); ASPARTATE AMINO TRANSFERASE 22 U/L (15-37); BILIRUBIN,DIRECT 0.2 MG/DL (0.0-0.3); BILIRUBIN,TOTAL 0.6 MG/DL (0.2-1.0); PHOSPHORUS 2.8 MG/DL (2.5-4.9)
--- NOTE | 2019-05-05 10:49 | Hematology/Onc Progress Note ---
Assessment/Plan Assessment/Plan Assessment and Recs: # Sickle cell disease - hgb baseline 5-6 range, per patient she does not want blood transfusions --> refusing blood transfusions, per her the baseline is 5-6 range --> trend hgb 5.85-->4.8->8.9-->8.9-->9.5 --> anemia panel reviewed and c/w these labs values, ferritin is high --> not in hemolysis at this time --> electrophoresis as needed, not during stay at this time --> epo has been ordered 3 x a week --> iron stores are sufficient --> recommended transfusion can be life saving but patient declined # Leukocytosis/elevated white blood cell count, unspecified likely related to underlying stress reaction, smoking v from crisis, doing better s/o bka r --> have reviewed peripheral smear and bandemia/neutrophilia noted --> continue antibiotics if they have been started by ID team --> monitor for resolution --> trend wbc 25k-->23k->12k --> may need surg, refusing # HAYDEE can be dm related --> trend and establish baseline --> may be dehydrated --> cr 2-->1.5-->1.8 # Electrolyte abnml --> as per renal, Na+ trend and volume expansion # DM2 --> a1c goal <8 goal --> accuchecks qac and qhs The timing of this note does not necessarily reflect the time of the patient was seen. GREATLY APPRECIATE CONSULTATION. Subjective HEENT: Denies: no symptoms, eye pain, blurred vision, tearing, double vision, ear pain, ear discharge, nose pain, nose congestion, throat pain, throat swelling, mouth pain, mouth swelling, other Cardiovascular: Denies: no symptoms, chest pain, edema, irregular heart rate, lightheadedness, palpitations, syncope, other Respiratory: Denies: no symptoms, cough, shortness of breath, SOB with excertion, SOB at rest, sputum, wheezing, other Gastrointestinal/Abdominal: Denies: no symptoms, abdomen distended, abdominal pain, black stools, tarry stools, blood in stool, constipated, diarrhea, difficulty swallowing, nausea, poor appetite, poor fluid intake, rectal bleeding , vomiting, other Neurologic/Psychiatric: Denies: no symptoms, anxiety, depressed, emotional problems, headache, numbness, paresthesia, pre-existing deficit, seizure, tingling, tremors, weakness, other Endocrine: Denies: no symptoms, excessive sweating, flushing, intolerance to cold, intolerance to heat, increased hunger, increased thirst, increased urine, unexplained weight gain, unexplained weight loss, other Allergies: Coded Allergies: No Known Allergies (Unverified , 05/01/19) Subjective 05/02: on epogen, hgb lower 4.8, initially refused transfusion, now accepting, shiva rn, refusing sx 05/04: is pod 2 and doing better, still in pain this am 05/05: no bleeding noted, no chills, no night sweats, no f/c Objective Objective Current Medications Medications (Trade) Dose Ordered Sig/Trey Route PRN Reason Start Time Stop Time Status Last Admin Dose Admin Acetaminophen (Tylenol) 650 mg Q4H PRN ORAL Mild Pain/Temp > 100.5 05/03/19 11:05 06/02/19 11:04 Acetaminophen/ Hydrocodone Bitart ([place] 10/325) 1 tab Q4H PRN ORAL Moderate Pain (Pain Scale 4-6) 05/03/19 11:06 05/10/19 11:05 05/04/19 12:07 Ammonium Lactate (Lac Hydrin) 1 applic TWICE A DAY TOPIC 05/03/19 18:00 06/01/19 11:29 05/04/19 17:21 Dextrose (Dextrose 50%) 25 ml Q30M PRN IV Hypoglycemia 05/03/19 11:00 05/31/19 17:59 Dextrose (Dextrose 50%) 50 ml Q30M PRN IV Hypoglycemia 05/03/19 11:00 05/31/19 17:59 Dextrose/Sodium Chloride 1,000 ml @ 75 mls/hr [id number] IV 05/03/19 11:04 06/02/19 11:03 05/04/19 23:53 Diphenhydramine HCl (Benadryl) 25 mg Q6H PRN IVP Itching 05/03/19 11:05 06/02/19 11:04 05/04/19 23:48 Docusate Sodium (Colace) 100 mg THREE TIMES A DAY ORAL 05/03/19 13:00 05/31/19 17:59 Epoetin Matt (Epoetin Matt-EPBX(NON ESRD)) 4,000 unit MON-SUN-SUN SUBQ 05/05/19 21:00 06/01/19 20:59 Hydromorphone HCl (Dilaudid) 0.5 mg Q2H PRN IVP Severe Breakthru Pain (>7) 05/03/19 11:06 05/10/19 11:05 05/05/19 10:38 Insulin Aspart (NovoLOG) BEFORE MEALS AND HS SUBQ 05/04/19 06:30 05/31/19 17:59 05/05/19 05:58 Morphine Sulfate (Morphine Sulfate) 2 mg Q6H PRN IVP Severe Pain (Pain Scale 7-10) 05/03/19 11:06 05/10/19 11:05 05/04/19 00:22 Ondansetron HCl (Zofran) 4 mg Q6H PRN IVP Nausea & Vomiting 05/03/19 12:00 05/31/19 17:59 Pantoprazole (Protonix) 40 mg EVERY 12 HOURS ORAL 05/03/19 21:00 05/31/19 13:44 05/05/19 08:33 Piperacillin Sod/ Tazobactam Sod 3.375 gm/Sodium Chloride 110 ml @ 27.5 mls/hr EVERY 8 HOURS IVPB 05/03/19 14:00 05/08/19 19:59 05/05/19 05:19 Vancomycin HCl (Vanco rx to dose) 1 ea DAILY PRN MISC Per rx protocol 05/04/19 09:00 06/01/19 16:59 Zolpidem Tartrate (Ambien) 5 mg HSPRN PRN ORAL Insomnia 05/03/19 21:00 05/08/19 20:59 05/04/19 22:15 Last 24 Hour Vital Signs Date Time Temp Pulse Resp B/P (MAP) Pulse Ox O2 Delivery O2 Flow Rate FiO2 05/05/19 09:03 98.0 05/05/19 08:00 98.0 80 20 152/93 (112) 100 05/05/19 04:00 98.1 69 18 142/85 (104) 99 05/05/19 00:00 98.1 68 18 144/75 (98) 100 05/04/19 21:00 Room Air 05/04/19 20:00 98.0 72 18 134/71 (92) 100 05/04/19 16:00 97.6 69 18 133/70 (91) 99 05/04/19 12:00 98.1 70 18 140/68 (92) 100 05/04/19 09:00 Room Air 05/04/19 08:00 97.8 87 18 156/81 (106) 97 05/04/19 04:00 99.0 67 18 146/75 (98) 96 05/04/19 00:00 98.4 84 18 126/66 (86) 98 05/03/19 21:00 Room Air 05/03/19 20:00 98.4 84 18 109/75 (86) 97 05/03/19 16:00 97.2 78 18 125/71 (89) 98 05/03/19 12:00 67 15 133/56 (81) 100 05/03/19 11:00 67 15 133/56 (81) 100 Intake and Output 05/04/19 05/05/19 19:00 07:00 Intake Total 360 ml Output Total 600 ml Balance -240 ml Intake Oral 360 ml Output Urine Total 600 ml # Voids 3 Labs Test 05/03/19 06:00 05/03/19 17:15 05/03/19 19:30 05/04/19 07:15 White Blood Count 19.5 K/UL (4.8-10.8) 11.5 K/UL (4.8-10.8) Red Blood Count 3.21 M/UL (4.20-5.40) 3.21 M/UL (4.20-5.40) Hemoglobin 8.9 G/DL (12.0-16.0) 8.9 G/DL (12.0-16.0) Hematocrit 27.7 % (37.0-47.0) 28.0 % (37.0-47.0) Mean Corpuscular Volume 86 FL (80-99) 87 FL (80-99) Mean Corpuscular Hemoglobin 27.7 PG (27.0-31.0) 27.6 PG (27.0-31.0) Mean Corpuscular Hemoglobin Concent 32.1 G/DL (32.0-36.0) 31.7 G/DL (32.0-36.0) Red Cell Distribution Width 17.0 % (11.6-14.8) 18.0 % (11.6-14.8) Platelet Count 327 K/UL (150-450) 347 K/UL (150-450) Mean Platelet Volume 7.9 FL (6.5-10.1) 7.6 FL (6.5-10.1) Neutrophils (%) (Auto) % (45.0-75.0) 72.7 % (45.0-75.0) Lymphocytes (%) (Auto) % (20.0-45.0) 18.8 % (20.0-45.0) Monocytes (%) (Auto) % (1.0-10.0) 4.3 % (1.0-10.0) Eosinophils (%) (Auto) % (0.0-3.0) 3.7 % (0.0-3.0) Basophils (%) (Auto) % (0.0-2.0) 0.5 % (0.0-2.0) Differential Total Cells Counted 100 Neutrophils % (Manual) 72 % (45-75) Lymphocytes % (Manual) 19 % (20-45) Monocytes % (Manual) 6 % (1-10) Eosinophils % (Manual) 2 % (0-3) Basophils % (Manual) 1 % (0-2) Band Neutrophils 0 % (0-8) Platelet Estimate Adequate Platelet Morphology Normal Polychromasia 2+ Target Cells 3+ Ovalocytes Rare Sodium Level 136 MMOL/L (136-145) 136 MMOL/L (136-145) Potassium Level 4.3 MMOL/L (3.5-5.1) 3.9 MMOL/L (3.5-5.1) Chloride Level 106 MMOL/L (98-107) 107 MMOL/L (98-107) Carbon Dioxide Level 23 MMOL/L (21-32) 19 MMOL/L (21-32) Anion Gap 7 mmol/L (5-15) 10 mmol/L (5-15) Blood Urea Nitrogen 21 mg/dL (7-18) 18 mg/dL (7-18) Creatinine 1.8 MG/DL (0.55-1.30) 1.9 MG/DL (0.55-1.30) Estimat Glomerular Filtration Rate 37.6 mL/min (>60) 35.4 mL/min (>60) Glucose Level 258 MG/DL (74-106) 512 MG/DL (74-106) 328 MG/DL (74-106) Calcium Level 7.1 MG/DL (8.5-10.1) 6.8 MG/DL (8.5-10.1) Phosphorus Level 3.7 MG/DL (2.5-4.9) 3.5 MG/DL (2.5-4.9) Magnesium Level 2.0 MG/DL (1.8-2.4) 1.8 MG/DL (1.8-2.4) Total Bilirubin 0.9 MG/DL (0.2-1.0) 0.5 MG/DL (0.2-1.0) Aspartate Amino Transf (AST/SGOT) 14 U/L (15-37) 19 U/L (15-37) Alanine Aminotransferase (ALT/SGPT) 12 U/L (12-78) 13 U/L (12-78) Alkaline Phosphatase 156 U/L (46-116) 163 U/L (46-116) Total Protein 7.0 G/DL (6.4-8.2) 7.3 G/DL (6.4-8.2) Albumin 2.1 G/DL (3.4-5.0) 2.1 G/DL (3.4-5.0) Globulin 4.9 g/dL 5.2 g/dL Albumin/Globulin Ratio 0.4 (1.0-2.7) 0.4 (1.0-2.7) Vancomycin Level Trough 17.8 ug/mL (5.0-12.0) Prothrombin Time 12.2 SEC (9.30-11.50) Prothromb Time International Ratio 1.2 (0.9-1.1) Activated Partial Thromboplast Time 36 SEC (23-33) Test 05/04/19 18:30 05/05/19 05:05 Random Vancomycin Level 19.6 ug/mL White Blood Count 12.1 K/UL (4.8-10.8) Red Blood Count 3.47 M/UL (4.20-5.40) Hemoglobin 9.5 G/DL (12.0-16.0) Hematocrit 30.5 % (37.0-47.0) Mean Corpuscular Volume 88 FL (80-99) Mean Corpuscular Hemoglobin 27.3 PG (27.0-31.0) Mean Corpuscular Hemoglobin Concent 31.1 G/DL (32.0-36.0) Red Cell Distribution Width 17.7 % (11.6-14.8) Platelet Count 341 K/UL (150-450) Mean Platelet Volume 7.1 FL (6.5-10.1) Neutrophils (%) (Auto) 69.0 % (45.0-75.0) Lymphocytes (%) (Auto) 22.3 % (20.0-45.0) Monocytes (%) (Auto) 4.3 % (1.0-10.0) Eosinophils (%) (Auto) 2.7 % (0.0-3.0) Basophils (%) (Auto) 1.7 % (0.0-2.0) Sodium Level 138 MMOL/L (136-145) Potassium Level 4.1 MMOL/L (3.5-5.1) Chloride Level 109 MMOL/L (98-107) Carbon Dioxide Level 19 MMOL/L (21-32) Anion Gap 10 mmol/L (5-15) Blood Urea Nitrogen 13 mg/dL (7-18) Creatinine 1.8 MG/DL (0.55-1.30) Estimat Glomerular Filtration Rate 37.6 mL/min (>60) Glucose Level 82 MG/DL (74-106) Calcium Level 7.0 MG/DL (8.5-10.1) Phosphorus Level 2.8 MG/DL (2.5-4.9) Magnesium Level 1.5 MG/DL (1.8-2.4) Total Bilirubin 0.6 MG/DL (0.2-1.0) Direct Bilirubin 0.2 MG/DL (0.0-0.3) Aspartate Amino Transf (AST/SGOT) 22 U/L (15-37) Alanine Aminotransferase (ALT/SGPT) 12 U/L (12-78) Alkaline Phosphatase 153 U/L (46-116) Total Protein 7.2 G/DL (6.4-8.2) Albumin 1.9 G/DL (3.4-5.0) Height (Feet): 4 Height (Inches): 9.00 Weight (Pounds): 125 Objective Vitals: reviewed General Appearance: NAD HEENT: normocephalic, atraumatic Neck: non-tender, normal alignment Respiratory/Chest: normal breath sounds bilaterally Cardiovascular/Chest: normal peripheral pulses, normal rate Abdomen: normal bowel sounds, soft, nontender Extremities: normal range of motion, is now s/p R BKA (05/02) Raphael Shrestha MD May 05, 2019 10:49
--- NOTE | 2019-05-05 11:52 | Nephrology Progress Note ---
Assessment/Plan Problem List: (1) Diabetic nephropathy (2) Renal failure (ARF), acute on chronic (3) Anemia (4) Ischemia of right lower extremity (5) Right foot ulcer (6) Infection of right foot Assessment Renal Failure , likely diabetic nephropathy IDDM Anemia, h/o SS disease right foot appears gangerenous Plan Anemia management BS check gastric support per consultants post amputation care ( 05/02/19 amputation) Subjective ROS Limited/Unobtainable: No Objective Objective Last 24 Hour Vital Signs Date Time Temp Pulse Resp B/P (MAP) Pulse Ox O2 Delivery O2 Flow Rate FiO2 05/05/19 11:08 98.0 05/05/19 09:00 Room Air 05/05/19 08:00 98.0 80 20 152/93 (112) 100 05/05/19 04:00 98.1 69 18 142/85 (104) 99 05/05/19 00:00 98.1 68 18 144/75 (98) 100 05/04/19 21:00 Room Air 05/04/19 20:00 98.0 72 18 134/71 (92) 100 05/04/19 16:00 97.6 69 18 133/70 (91) 99 05/04/19 12:00 98.1 70 18 140/68 (92) 100 Intake and Output 05/04/19 05/05/19 19:00 07:00 Intake Total 360 ml Output Total 600 ml Balance -240 ml Intake Oral 360 ml Output Urine Total 600 ml # Voids 3 Laboratory Tests 05/04/19 18:30: Random Vancomycin Level 19.6 05/05/19 05:05: White Blood Count 12.1H, Red Blood Count 3.47L, Hemoglobin 9.5L, Hematocrit 30.5L, Mean Corpuscular Volume 88, Mean Corpuscular Hemoglobin 27.3, Mean Corpuscular Hemoglobin Concent 31.1L, Red Cell Distribution Width 17.7H, Platelet Count 341, Mean Platelet Volume 7.1, Neutrophils (%) (Auto) 69.0, Lymphocytes (%) (Auto) 22.3, Monocytes (%) (Auto) 4.3, Eosinophils (%) (Auto) 2.7, Basophils (%) (Auto) 1.7, Sodium Level 138, Potassium Level 4.1, Chloride Level 109H, Carbon Dioxide Level 19L, Anion Gap 10, Blood Urea Nitrogen 13, Creatinine 1.8H, Estimat Glomerular Filtration Rate 37.6, Glucose Level 82#, Calcium Level 7.0L, Phosphorus Level 2.8, Magnesium Level 1.5L, Total Bilirubin 0.6, Direct Bilirubin 0.2, Aspartate Amino Transf (AST/SGOT) 22, Alanine Aminotransferase (ALT/SGPT) 12, Alkaline Phosphatase 153H, Total Protein 7.2, Albumin 1.9L Height (Feet): 4 Height (Inches): 9.00 Weight (Pounds): 125 General Appearance: no apparent distress Objective no change Elfego Vázquez MD May 05, 2019 11:52
[2019-05-05 12:00] VITALS: BP 152/93
--- NOTE | 2019-05-05 12:12 | Pulmonology Progress Note ---
Assessment/Plan Problems: (1) Gas gangrene (2) Diabetic nephropathy (3) Renal insufficiency (4) Diabetes (5) Ischemia of right lower extremity Assessment/Plan s/p amputation sliding scale diabetic diet Subjective ROS Limited/Unobtainable: No Constitutional: Reports: no symptoms HEENT: Repors: no symptoms Respiratory: Reports: no symptoms Allergies: Coded Allergies: No Known Allergies (Unverified , 05/01/19) Objective Last 24 Hour Vital Signs Date Time Temp Pulse Resp B/P (MAP) Pulse Ox O2 Delivery O2 Flow Rate FiO2 05/05/19 11:08 98.0 05/05/19 09:00 Room Air 05/05/19 08:00 98.0 80 20 152/93 (112) 100 05/05/19 04:00 98.1 69 18 142/85 (104) 99 05/05/19 00:00 98.1 68 18 144/75 (98) 100 05/04/19 21:00 Room Air 05/04/19 20:00 98.0 72 18 134/71 (92) 100 05/04/19 16:00 97.6 69 18 133/70 (91) 99 Intake and Output 05/04/19 05/05/19 19:00 07:00 Intake Total 360 ml Output Total 600 ml Balance -240 ml Intake Oral 360 ml Output Urine Total 600 ml # Voids 3 General Appearance: WD/WN HEENT: normocephalic, atraumatic Respiratory/Chest: chest wall non-tender, lungs clear Breasts: no masses Cardiovascular: normal rate Abdomen: normal bowel sounds, no organomegaly Genitourinary: normal external genitalia Skin: no rash Laboratory Tests 05/04/19 18:30: Random Vancomycin Level 19.6 05/05/19 05:05: White Blood Count 12.1H, Red Blood Count 3.47L, Hemoglobin 9.5L, Hematocrit 30.5L, Mean Corpuscular Volume 88, Mean Corpuscular Hemoglobin 27.3, Mean Corpuscular Hemoglobin Concent 31.1L, Red Cell Distribution Width 17.7H, Platelet Count 341, Mean Platelet Volume 7.1, Neutrophils (%) (Auto) 69.0, Lymphocytes (%) (Auto) 22.3, Monocytes (%) (Auto) 4.3, Eosinophils (%) (Auto) 2.7, Basophils (%) (Auto) 1.7, Sodium Level 138, Potassium Level 4.1, Chloride Level 109H, Carbon Dioxide Level 19L, Anion Gap 10, Blood Urea Nitrogen 13, Creatinine 1.8H, Estimat Glomerular Filtration Rate 37.6, Glucose Level 82#, Calcium Level 7.0L, Phosphorus Level 2.8, Magnesium Level 1.5L, Total Bilirubin 0.6, Direct Bilirubin 0.2, Aspartate Amino Transf (AST/SGOT) 22, Alanine Aminotransferase (ALT/SGPT) 12, Alkaline Phosphatase 153H, Total Protein 7.2, Albumin 1.9L Current Medications Medications (Trade) Dose Ordered Sig/Trey Route PRN Reason Start Time Stop Time Status Last Admin Dose Admin Acetaminophen (Tylenol) 650 mg Q4H PRN ORAL Mild Pain/Temp > 100.5 05/03/19 11:05 06/02/19 11:04 Acetaminophen/ Hydrocodone Bitart ([place] 10/325) 1 tab Q4H PRN ORAL Moderate Pain (Pain Scale 4-6) 05/03/19 11:06 05/10/19 11:05 05/04/19 12:07 Ammonium Lactate (Lac Hydrin) 1 applic TWICE A DAY TOPIC 05/03/19 18:00 06/01/19 11:29 05/04/19 17:21 Dextrose (Dextrose 50%) 25 ml Q30M PRN IV Hypoglycemia 05/03/19 11:00 05/31/19 17:59 Dextrose (Dextrose 50%) 50 ml Q30M PRN IV Hypoglycemia 05/03/19 11:00 05/31/19 17:59 Dextrose/Sodium Chloride 1,000 ml @ 75 mls/hr [id number] IV 05/03/19 11:04 06/02/19 11:03 05/04/19 23:53 Diphenhydramine HCl (Benadryl) 25 mg Q6H PRN IVP Itching 05/03/19 11:05 06/02/19 11:04 05/04/19 23:48 Docusate Sodium (Colace) 100 mg THREE TIMES A DAY ORAL 05/03/19 13:00 05/31/19 17:59 Epoetin Matt (Epoetin Matt-EPBX(NON ESRD)) 4,000 unit SUN-SUN-SUN SUBQ 05/05/19 21:00 06/01/19 20:59 Hydromorphone HCl (Dilaudid) 0.5 mg Q2H PRN IVP Severe Breakthru Pain (>7) 05/03/19 11:06 05/10/19 11:05 05/05/19 10:38 Insulin Aspart (NovoLOG) BEFORE MEALS AND HS SUBQ 05/04/19 06:30 05/31/19 17:59 05/05/19 12:05 Magnesium Sulfate 100 ml @ 100 mls/hr Q1H IVPB 05/05/19 12:00 05/05/19 13:59 Morphine Sulfate (Morphine Sulfate) 2 mg Q6H PRN IVP Severe Pain (Pain Scale 7-10) 05/03/19 11:06 05/10/19 11:05 05/04/19 00:22 Ondansetron HCl (Zofran) 4 mg Q6H PRN IVP Nausea & Vomiting 05/03/19 12:00 05/31/19 17:59 Pantoprazole (Protonix) 40 mg EVERY 12 HOURS ORAL 05/03/19 21:00 05/31/19 13:44 05/05/19 08:33 Piperacillin Sod/ Tazobactam Sod 3.375 gm/Sodium Chloride 110 ml @ 27.5 mls/hr EVERY 8 HOURS IVPB 05/03/19 14:00 05/08/19 19:59 05/05/19 05:19 Vancomycin HCl (Vanco rx to dose) 1 ea DAILY PRN MISC Per rx protocol 05/04/19 09:00 06/01/19 16:59 Zolpidem Tartrate (Ambien) 5 mg HSPRN PRN ORAL Insomnia 05/03/19 21:00 05/08/19 20:59 05/04/19 22:15 Serean Gordon MD May 05, 2019 12:12
--- NOTE | 2019-05-05 13:16 | Infectious Diseases Prog Note ---
Assessment/Plan Assessment/Plan Assessment: R LE wound- severe necrotizing infection, gangrene, OM -05/02 SP emergency right lower extremity amputation bka --OR findings: Acutely infected necrotic gangrenous with subcutaneous gas and soft tissues of the right lower extremity --cx: ?done -Tibia/fibula MRI: Large ulcer with large amount of subcutaneous gas in the soft tissues of the posterior distal leg. Chronic deformity of the calcaneus with abnormal bone marrow signal suggesting osteomyelitis. Markedly abnormal bone marrow signal of the distal tibia including the tibial diaphysis spanning up at least 10 cm cranial to the ankle joint highly concerning for infection/ osteomyelitis. This is on a background of diffuse marrow signal heterogeneity which may be related to patient's known history of sickle cell disease. -Xray tibia/fibula: Soft tissue gas and edema in the foot and ankle are concerning for infection. No definite acute osseous abnormality. Osteopenia. -R foot/ankle xray: Soft tissue gas and edema in the foot and ankle are concerning for infection. Extensive soft tissue gas limits evaluation of fine bony detail. Deformity of the calcaneus is nonspecific and may be related to osteomyelitis or trauma. MRI with and without intravenous contrast may be considered for further characterization. -ESR 95, CRP 7.1 Afebrile Leukocytosis; improving Dm1 HTN sickle cell anemia R hip replacement Plan: -Continue empiric IV Vancomcyin and ZOsyn #5/7 -f/u cx -Monitor CBC/CMP, temperatures -f/u BCx x2, wound cx -Sx f/u -wound care per surgical team -aspiration precautions Thank you for this consultation. Will continue to follow along with you. Discussed with RN. Subjective Allergies: Coded Allergies: No Known Allergies (Unverified , 05/01/19) Subjective afebrile wbc improving no wound cx result available Objective Vital Signs Last 24 Hour Vital Signs Date Time Temp Pulse Resp B/P (MAP) Pulse Ox O2 Delivery O2 Flow Rate FiO2 05/05/19 12:00 98.0 80 20 152/93 (112) 100 05/05/19 11:08 98.0 05/05/19 09:00 Room Air 05/05/19 08:00 98.0 80 20 152/93 (112) 100 05/05/19 04:00 98.1 69 18 142/85 (104) 99 05/05/19 00:00 98.1 68 18 144/75 (98) 100 05/04/19 21:00 Room Air 05/04/19 20:00 98.0 72 18 134/71 (92) 100 05/04/19 16:00 97.6 69 18 133/70 (91) 99 Height (Feet): 4 Height (Inches): 9.00 Weight (Pounds): 125 Objective General appearance: alert, cooperative, no distress, appears stated age Head: Normocephalic, without obvious abnormality, atraumatic Eyes: conjunctivae/corneas clear. PERRL, EOM's intact. Fundi benign Throat: Lips, mucosa, and tongue normal. Teeth and gums normal Neck: supple, symmetrical, trachea midline, no adenopathy, thyroid: not enlarged, symmetric, no tenderness/mass/nodules, no carotid bruit and no JVD Lungs: clear to auscultation bilaterally Heart: regular rate and rhythm, S1, S2 normal, no murmur, click, rub or gallop Abdomen: soft, non-tender. Bowel sounds normal. No masses, no organomegaly Extremities: multiple open areas of exposed bone tendon and even potentially bone in some areas. Wound is very foul-smelling with drainage. There is areas of ischemia on the anterior aspect of the ankle. The heel is open and draining Pulses: 2+ and symmetric Skin: Skin color, texture, turgor normal. No rashes or lesions Neurologic: Grossly normal Laboratory Tests Test 05/04/19 18:30 05/05/19 05:05 Random Vancomycin Level 19.6 ug/mL White Blood Count 12.1 K/UL (4.8-10.8) H Red Blood Count 3.47 M/UL (4.20-5.40) L Hemoglobin 9.5 G/DL (12.0-16.0) L Hematocrit 30.5 % (37.0-47.0) L Mean Corpuscular Volume 88 FL (80-99) Mean Corpuscular Hemoglobin 27.3 PG (27.0-31.0) Mean Corpuscular Hemoglobin Concent 31.1 G/DL (32.0-36.0) L Red Cell Distribution Width 17.7 % (11.6-14.8) H Platelet Count 341 K/UL (150-450) Mean Platelet Volume 7.1 FL (6.5-10.1) Neutrophils (%) (Auto) 69.0 % (45.0-75.0) Lymphocytes (%) (Auto) 22.3 % (20.0-45.0) Monocytes (%) (Auto) 4.3 % (1.0-10.0) Eosinophils (%) (Auto) 2.7 % (0.0-3.0) Basophils (%) (Auto) 1.7 % (0.0-2.0) Sodium Level 138 MMOL/L (136-145) Potassium Level 4.1 MMOL/L (3.5-5.1) Chloride Level 109 MMOL/L (98-107) H Carbon Dioxide Level 19 MMOL/L (21-32) L Anion Gap 10 mmol/L (5-15) Blood Urea Nitrogen 13 mg/dL (7-18) Creatinine 1.8 MG/DL (0.55-1.30) H Estimat Glomerular Filtration Rate 37.6 mL/min (>60) Glucose Level 82 MG/DL (74-106) # Calcium Level 7.0 MG/DL (8.5-10.1) L Phosphorus Level 2.8 MG/DL (2.5-4.9) Magnesium Level 1.5 MG/DL (1.8-2.4) L Total Bilirubin 0.6 MG/DL (0.2-1.0) Direct Bilirubin 0.2 MG/DL (0.0-0.3) Aspartate Amino Transf (AST/SGOT) 22 U/L (15-37) Alanine Aminotransferase (ALT/SGPT) 12 U/L (12-78) Alkaline Phosphatase 153 U/L (46-116) H Total Protein 7.2 G/DL (6.4-8.2) Albumin 1.9 G/DL (3.4-5.0) L Current Medications Medications (Trade) Dose Ordered Sig/Trey Route PRN Reason Start Time Stop Time Status Last Admin Dose Admin Acetaminophen (Tylenol) 650 mg Q4H PRN ORAL Mild Pain/Temp > 100.5 05/03/19 11:05 06/02/19 11:04 Acetaminophen/ Hydrocodone Bitart ([place] 10) 1 tab Q4H PRN ORAL Moderate Pain (Pain Scale 4-6) 05/03/19 11:06 05/10/19 11:05 05/04/19 12:07 Ammonium Lactate (Lac Hydrin) 1 applic TWICE A DAY TOPIC 05/03/19 18:00 06/01/19 11:29 05/04/19 17:21 Dextrose (Dextrose 50%) 25 ml Q30M PRN IV Hypoglycemia 05/03/19 11:00 05/31/19 17:59 Dextrose (Dextrose 50%) 50 ml Q30M PRN IV Hypoglycemia 05/03/19 11:00 05/31/19 17:59 Dextrose/Sodium Chloride 1,000 ml @ 75 mls/hr [id number] IV 05/03/19 11:04 06/02/19 11:03 05/04/19 23:53 Diphenhydramine HCl (Benadryl) 25 mg Q6H PRN IVP Itching 05/03/19 11:05 06/02/19 11:04 05/04/19 23:48 Docusate Sodium (Colace) 100 mg THREE TIMES A DAY ORAL 05/03/19 13:00 05/31/19 17:59 Epoetin Matt (Epoetin Matt-EPBX(NON ESRD)) 4,000 unit SUN-SUN-SUN SUBQ 05/05/19 21:00 06/01/19 20:59 Hydromorphone HCl (Dilaudid) 0.5 mg Q2H PRN IVP Severe Breakthru Pain (>7) 05/03/19 11:06 05/10/19 11:05 05/05/19 12:48 Insulin Aspart (NovoLOG) BEFORE MEALS AND HS SUBQ 05/04/19 06:30 05/31/19 17:59 05/05/19 12:05 Magnesium Sulfate 100 ml @ 100 mls/hr Q1H IVPB 05/05/19 12:00 05/05/19 13:59 05/05/19 12:44 Morphine Sulfate (Morphine Sulfate) 2 mg Q6H PRN IVP Severe Pain (Pain Scale 7-10) 05/03/19 11:06 05/10/19 11:05 05/04/19 00:22 Ondansetron HCl (Zofran) 4 mg Q6H PRN IVP Nausea & Vomiting 05/03/19 12:00 05/31/19 17:59 Pantoprazole (Protonix) 40 mg EVERY 12 HOURS ORAL 05/03/19 21:00 05/31/19 13:44 05/05/19 08:33 Piperacillin Sod/ Tazobactam Sod 3.375 gm/Sodium Chloride 110 ml @ 27.5 mls/hr EVERY 8 HOURS IVPB 05/03/19 14:00 05/08/19 19:59 05/05/19 05:19 Vancomycin HCl (Vanco rx to dose) 1 ea DAILY PRN MISC Per rx protocol 05/04/19 09:00 06/01/19 16:59 Zolpidem Tartrate (Ambien) 5 mg HSPRN PRN ORAL Insomnia 05/03/19 21:00 05/08/19 20:59 05/04/19 22:15 Radha Gill M.D. May 05, 2019 13:16
[2019-05-05] MEDS ORDERED: D5NS 1000ml IV ONE ×2 (14:41)
[2019-05-05] MEDS ORDERED: Tubing IV Secondary IV ONE (14:41)
[2019-05-05 16:00] VITALS: BP 155/73
[2019-05-05] MEDS: D5NS 1,000 ML IV SCH (17:21)
[2019-05-05 20:00] VITALS: BP 134/68
[2019-05-05] MEDS: Epoetin Alfa-EPBX (NON ESRD)4000 units/ml vial SUBQ SCH (21:14)
[2019-05-05] MEDS: Zolpidem 5mg tab ORAL PRN (23:28)
[2019-05-06] VITALS: BP 151/71
[2019-05-06] MEDS: Hydromorphone 0.5mg/0.5ml inj IVP PRN ×7 (03:38→23:22)
[2019-05-06 04:00] VITALS: BP 155/79
[2019-05-06] MEDS: D5NS 1,000 ML IV SCH (05:52)
[2019-05-06] MEDS: Piperacillin/Tazobactam 3.375 GM in NS 110 ML IVPB SCH ×3 (05:52→21:02)
[2019-05-06 06:11] LABS: BASOPHILS % (AUTO) 0.7 % (0.0-2.0); EOSINOPHILS % (AUTO) 3.2 % (0.0-3.0); HEMATOCRIT 28.9 % (37.0-47.0); LYMPHOCYTES % (AUTO) 36.5 % (20.0-45.0); MEAN CORPUSCULAR VOLUME 88 FL (80-99); MONOCYTES % (AUTO) 6.5 % (1.0-10.0); PLATELET COUNT 322 K/UL (150-450); RED BLOOD COUNT 3.28 M/UL (4.20-5.40); RED CELL DISTRIBUTION WIDTH 17.9 % (11.6-14.8); WHITE BLOOD COUNT 12.5 K/UL (4.8-10.8)
[2019-05-06 06:26] LABS: ANION GAP 10 mmol/L (5-15); BLOOD UREA NITROGEN 12 mg/dL (7-18); CARBON DIOXIDE 19 MMOL/L (21-32); CHLORIDE 111 MMOL/L (98-107); CREATININE 1.8 MG/DL (0.55-1.30); POTASSIUM 3.9 MMOL/L (3.5-5.1); SODIUM 140 MMOL/L (136-145)
[2019-05-06] MEDS: NovoLOG Insulin Flexpen SUBQ SCH ×4 (06:30→20:26)
[2019-05-06 08:00] VITALS: BP 130/68
--- NOTE | 2019-05-06 08:13 | Surgery Progress Note ---
Surgery Progress Note Subjective Procedure Performed emergency right lower extremity amputation bka Additional Comments labs stable exam stable recovering pain improved no n/v/f/c. Objective Last 24 Hour Vital Signs Date Time Temp Pulse Resp B/P (MAP) Pulse Ox O2 Delivery O2 Flow Rate FiO2 05/06/19 04:00 98.2 64 18 155/79 (104) 100 05/06/19 00:00 97.6 62 18 151/71 (97) 100 05/05/19 21:00 Room Air 05/05/19 20:00 97.6 66 18 134/68 (90) 95 05/05/19 17:35 98.0 05/05/19 16:00 98.3 65 20 155/73 (100) 100 05/05/19 12:00 98.0 80 20 152/93 (112) 100 05/05/19 09:00 Room Air I&O Intake and Output 05/05/19 05/06/19 19:00 07:00 Intake Total 300 ml Balance 300 ml Intake Oral 300 ml # Voids 3 3 # Bowel Movements 2 Dressing: dry Wound: clean, dry Cardiovascular: RSR Respiratory: clear Abdomen: soft, flat, non-tender, present bowel sounds Extremities: no cyanosis, other Laboratory Tests Test 05/06/19 05:25 White Blood Count 12.5 K/UL (4.8-10.8) H Red Blood Count 3.28 M/UL (4.20-5.40) L Hemoglobin 9.0 G/DL (12.0-16.0) L Hematocrit 28.9 % (37.0-47.0) L Mean Corpuscular Volume 88 FL (80-99) Mean Corpuscular Hemoglobin 27.5 PG (27.0-31.0) Mean Corpuscular Hemoglobin Concent 31.2 G/DL (32.0-36.0) L Red Cell Distribution Width 17.9 % (11.6-14.8) H Platelet Count 322 K/UL (150-450) Mean Platelet Volume 7.5 FL (6.5-10.1) Neutrophils (%) (Auto) 53.0 % (45.0-75.0) Lymphocytes (%) (Auto) 36.5 % (20.0-45.0) Monocytes (%) (Auto) 6.5 % (1.0-10.0) Eosinophils (%) (Auto) 3.2 % (0.0-3.0) H Basophils (%) (Auto) 0.7 % (0.0-2.0) Sodium Level 140 MMOL/L (136-145) Potassium Level 3.9 MMOL/L (3.5-5.1) Chloride Level 111 MMOL/L (98-107) H Carbon Dioxide Level 19 MMOL/L (21-32) L Anion Gap 10 mmol/L (5-15) Blood Urea Nitrogen 12 mg/dL (7-18) Creatinine 1.8 MG/DL (0.55-1.30) H Estimat Glomerular Filtration Rate 37.6 mL/min (>60) Glucose Level 80 MG/DL (74-106) Calcium Level 7.0 MG/DL (8.5-10.1) L Random Vancomycin Level 17.3 ug/mL Plan Problems: (1) Right foot ulcer (2) Infection of right foot Assessment & Plan: Patient presents with extensive wounds, ischemia, devitalization of her right foot and ankle. This is likely to have been ongoing and chronic for greater than 2 months and unfortunately patient's history is questionable and potentially patient in denial. Wound was evaluated multiple open areas of exposed bone tendon and even potentially bone in some areas. Wound is very foul-smelling with drainage. There is areas of ischemia on the anterior aspect of the ankle. The heel is open and draining. Strong suspicion for osteomyelitis. Strong suspicion for chronic infection with acute on chronic. Etiology of the sepsis likely this right lower extremity as she has a leukocytosis, acidosis, concerning labs. I spoke with patient at bedside regarding these findings and the physical examination. It seems the patient is likely been told in the past that she may require an amputation. Patient is unsure about her plans but was recommended by myself to have amputation of salvage of this extremities no longer possibility and the viability is concerning. Patient has no sensation in the extremity has no motor neuro or sensory below the mid tibia. The wound is very foul-smelling with exposed areas as above. s/p right BKA recovering wound evaluated today and flap looks good with randi intact and clean edges dressings daily with dry gauze and wrap randi to be removed in 6 weeks d/c planning thank you (3) Ischemia of right lower extremity Tian Avalos May 06, 2019 08:13
[2019-05-06] MEDS: Docusate 100mg cap ORAL SCH ×3 (08:42→17:59)
[2019-05-06] MEDS: Lac Hydrin 12% Lotion 8oz TOPIC SCH ×2 (08:43→17:58)
[2019-05-06] MEDS ORDERED: Vancomycin 500mg/D5W 110ml IVPB SCH ×2 (09:00)
--- NOTE | 2019-05-06 09:03 | General Progress Note ---
Assessment/Plan Status: stable, progressing Assessment/Plan: (1) Right foot pain (2) Right foot ulcer (3) S/p Right LE BKA Patient will be continued on Cambria, Morphine and Dilaudid. D/w Dr. Marsh and he concurred. Subjective Date patient seen: May 06, 2019 Time patient seen: 07:15 - am Constitutional: Reports: no symptoms HEENT: Reports: no symptoms Cardiovascular: Reports: no symptoms Respiratory: Reports: no symptoms Gastrointestinal/Abdominal: Reports: no symptoms Genitourinary: Reports: no symptoms Neurologic/Psychiatric: Reports: no symptoms Endocrine: Reports: no symptoms Hematologic/Lymphatic: Reports: no symptoms Allergies: Coded Allergies: No Known Allergies (Unverified , 05/01/19) Subjective Patient reports continued pain which has been tolerated at a moderate level on the Dilaudid, Morphine and Cambria. No new complaints at this time. Objective Last 24 Hour Vital Signs Date Time Temp Pulse Resp B/P (MAP) Pulse Ox O2 Delivery O2 Flow Rate FiO2 05/06/19 04:00 98.2 64 18 155/79 (104) 100 05/06/19 00:00 97.6 62 18 151/71 (97) 100 05/05/19 21:00 Room Air 05/05/19 20:00 97.6 66 18 134/68 (90) 95 05/05/19 17:35 98.0 05/05/19 16:00 98.3 65 20 155/73 (100) 100 05/05/19 12:00 98.0 80 20 152/93 (112) 100 Intake and Output 05/05/19 05/06/19 19:00 07:00 Intake Total 300 ml Balance 300 ml Intake Oral 300 ml # Voids 3 3 # Bowel Movements 2 Laboratory Tests 05/06/19 05:25: White Blood Count 12.5H, Red Blood Count 3.28L, Hemoglobin 9.0L, Hematocrit 28.9L, Mean Corpuscular Volume 88, Mean Corpuscular Hemoglobin 27.5, Mean Corpuscular Hemoglobin Concent 31.2L, Red Cell Distribution Width 17.9H, Platelet Count 322, Mean Platelet Volume 7.5, Neutrophils (%) (Auto) 53.0, Lymphocytes (%) (Auto) 36.5, Monocytes (%) (Auto) 6.5, Eosinophils (%) (Auto) 3.2H, Basophils (%) (Auto) 0.7, Sodium Level 140, Potassium Level 3.9, Chloride Level 111H, Carbon Dioxide Level 19L, Anion Gap 10, Blood Urea Nitrogen 12, Creatinine 1.8H, Estimat Glomerular Filtration Rate 37.6, Glucose Level 80, Calcium Level 7.0L, Random Vancomycin Level 17.3 Height (Feet): 4 Height (Inches): 9.00 Weight (Pounds): 125 General Appearance: no apparent distress, alert EENT: PERRL/EOMI, normal ENT inspection Neck: non-tender, normal alignment Respiratory/Chest: lungs clear, normal breath sounds Abdomen: non tender, soft Extremities: swelling - right BKA noted, other Neurologic: alert, oriented x 3 Skin: warm/dry Navi Menchaca May 06, 2019 09:03
[2019-05-06] MEDS: DiphenhydrAMINE 50mg/ml Inj IVP PRN (09:49)
--- NOTE | 2019-05-06 10:32 | Nephrology Progress Note ---
Assessment/Plan Problem List: (1) Diabetic nephropathy (2) Renal failure (ARF), acute on chronic (3) Anemia (4) Ischemia of right lower extremity (5) Right foot ulcer (6) Infection of right foot Assessment Renal Failure , likely diabetic nephropathy IDDM Anemia, h/o SS disease right foot appears gangerenous Plan DC IV fluid Anemia management BS check gastric support per consultants post amputation care ( 05/02/19 amputation) Subjective ROS Limited/Unobtainable: No Constitutional: Reports: malaise Objective Objective Last 24 Hour Vital Signs Date Time Temp Pulse Resp B/P (MAP) Pulse Ox O2 Delivery O2 Flow Rate FiO2 05/06/19 09:43 98.2 05/06/19 04:00 98.2 64 18 155/79 (104) 100 05/06/19 00:00 97.6 62 18 151/71 (97) 100 05/05/19 21:00 Room Air 05/05/19 20:00 97.6 66 18 134/68 (90) 95 05/05/19 16:00 98.3 65 20 155/73 (100) 100 05/05/19 12:00 98.0 80 20 152/93 (112) 100 Intake and Output 05/05/19 05/06/19 19:00 07:00 Intake Total 300 ml Balance 300 ml Intake Oral 300 ml # Voids 3 3 # Bowel Movements 2 Laboratory Tests 05/06/19 05:25: White Blood Count 12.5H, Red Blood Count 3.28L, Hemoglobin 9.0L, Hematocrit 28.9L, Mean Corpuscular Volume 88, Mean Corpuscular Hemoglobin 27.5, Mean Corpuscular Hemoglobin Concent 31.2L, Red Cell Distribution Width 17.9H, Platelet Count 322, Mean Platelet Volume 7.5, Neutrophils (%) (Auto) 53.0, Lymphocytes (%) (Auto) 36.5, Monocytes (%) (Auto) 6.5, Eosinophils (%) (Auto) 3.2H, Basophils (%) (Auto) 0.7, Sodium Level 140, Potassium Level 3.9, Chloride Level 111H, Carbon Dioxide Level 19L, Anion Gap 10, Blood Urea Nitrogen 12, Creatinine 1.8H, Estimat Glomerular Filtration Rate 37.6, Glucose Level 80, Calcium Level 7.0L, Random Vancomycin Level 17.3 Height (Feet): 4 Height (Inches): 9.00 Weight (Pounds): 125 General Appearance: no apparent distress Objective no change Elfego Vázquez MD May 06, 2019 10:32
--- NOTE | 2019-05-06 11:36 | Infectious Diseases Prog Note ---
Assessment/Plan Assessment/Plan Assessment: R LE wound- severe necrotizing infection, gangrene, OM -05/02 SP emergency right lower extremity amputation bka --OR findings: Acutely infected necrotic gangrenous with subcutaneous gas and soft tissues of the right lower extremity --cx: ?done -Tibia/fibula MRI: Large ulcer with large amount of subcutaneous gas in the soft tissues of the posterior distal leg. Chronic deformity of the calcaneus with abnormal bone marrow signal suggesting osteomyelitis. Markedly abnormal bone marrow signal of the distal tibia including the tibial diaphysis spanning up at least 10 cm cranial to the ankle joint highly concerning for infection/ osteomyelitis. This is on a background of diffuse marrow signal heterogeneity which may be related to patient's known history of sickle cell disease. -Xray tibia/fibula: Soft tissue gas and edema in the foot and ankle are concerning for infection. No definite acute osseous abnormality. Osteopenia. -R foot/ankle xray: Soft tissue gas and edema in the foot and ankle are concerning for infection. Extensive soft tissue gas limits evaluation of fine bony detail. Deformity of the calcaneus is nonspecific and may be related to osteomyelitis or trauma. MRI with and without intravenous contrast may be considered for further characterization. -ESR 95, CRP 7.1 Afebrile Leukocytosis; improving Dm1 HTN sickle cell anemia R hip replacement Plan: -Continue empiric IV Vancomcyin and ZOsyn #6/7 -f/u cx -Monitor CBC/CMP, temperatures -f/u BCx x2, wound cx -Sx f/u -wound care per surgical team -aspiration precautions Thank you for this consultation. Will continue to follow along with you. Discussed with RN. Subjective Allergies: Coded Allergies: No Known Allergies (Unverified , 05/01/19) Subjective afebrile wbc improving no wound cx result available Bcx NTD Objective Vital Signs Last 24 Hour Vital Signs Date Time Temp Pulse Resp B/P (MAP) Pulse Ox O2 Delivery O2 Flow Rate FiO2 05/06/19 09:43 98.2 05/06/19 04:00 98.2 64 18 155/79 (104) 100 05/06/19 00:00 97.6 62 18 151/71 (97) 100 05/05/19 21:00 Room Air 05/05/19 20:00 97.6 66 18 134/68 (90) 95 8/12/19 16:00 98.3 65 20 155/73 (100) 100 05/05/19 12:00 98.0 80 20 152/93 (112) 100 Height (Feet): 4 Height (Inches): 9.00 Weight (Pounds): 125 Objective General appearance: alert, cooperative, no distress, appears stated age Head: Normocephalic, without obvious abnormality, atraumatic Eyes: conjunctivae/corneas clear. PERRL, EOM's intact. Fundi benign Throat: Lips, mucosa, and tongue normal. Teeth and gums normal Neck: supple, symmetrical, trachea midline, no adenopathy, thyroid: not enlarged, symmetric, no tenderness/mass/nodules, no carotid bruit and no JVD Lungs: clear to auscultation bilaterally Heart: regular rate and rhythm, S1, S2 normal, no murmur, click, rub or gallop Abdomen: soft, non-tender. Bowel sounds normal. No masses, no organomegaly Extremities: s/p R BKA, dressings in place Pulses: 2+ and symmetric Skin: Skin color, texture, turgor normal. No rashes or lesions Neurologic: Grossly normal Laboratory Tests Test 05/06/19 05:25 White Blood Count 12.5 K/UL (4.8-10.8) H Red Blood Count 3.28 M/UL (4.20-5.40) L Hemoglobin 9.0 G/DL (12.0-16.0) L Hematocrit 28.9 % (37.0-47.0) L Mean Corpuscular Volume 88 FL (80-99) Mean Corpuscular Hemoglobin 27.5 PG (27.0-31.0) Mean Corpuscular Hemoglobin Concent 31.2 G/DL (32.0-36.0) L Red Cell Distribution Width 17.9 % (11.6-14.8) H Platelet Count 322 K/UL (150-450) Mean Platelet Volume 7.5 FL (6.5-10.1) Neutrophils (%) (Auto) 53.0 % (45.0-75.0) Lymphocytes (%) (Auto) 36.5 % (20.0-45.0) Monocytes (%) (Auto) 6.5 % (1.0-10.0) Eosinophils (%) (Auto) 3.2 % (0.0-3.0) H Basophils (%) (Auto) 0.7 % (0.0-2.0) Sodium Level 140 MMOL/L (136-145) Potassium Level 3.9 MMOL/L (3.5-5.1) Chloride Level 111 MMOL/L (98-107) H Carbon Dioxide Level 19 MMOL/L (21-32) L Anion Gap 10 mmol/L (5-15) Blood Urea Nitrogen 12 mg/dL (7-18) Creatinine 1.8 MG/DL (0.55-1.30) H Estimat Glomerular Filtration Rate 37.6 mL/min (>60) Glucose Level 80 MG/DL (74-106) Calcium Level 7.0 MG/DL (8.5-10.1) L Random Vancomycin Level 17.3 ug/mL Current Medications Medications (Trade) Dose Ordered Sig/Trey Route PRN Reason Start Time Stop Time Status Last Admin Dose Admin Acetaminophen (Tylenol) 650 mg Q4H PRN ORAL Mild Pain/Temp > 100.5 05/03/19 11:05 06/02/19 11:04 Acetaminophen/ Hydrocodone Bitart ([place] 10/325) 1 tab Q4H PRN ORAL Moderate Pain (Pain Scale 4-6) 05/03/19 11:06 05/10/19 11:05 05/04/19 12:07 Ammonium Lactate (Lac Hydrin) 1 applic TWICE A DAY TOPIC 05/03/19 18:00 06/01/19 11:29 05/06/19 08:43 Dextrose (Dextrose 50%) 25 ml Q30M PRN IV Hypoglycemia 05/03/19 11:00 05/31/19 17:59 Dextrose (Dextrose 50%) 50 ml Q30M PRN IV Hypoglycemia 05/03/19 11:00 05/31/19 17:59 Diphenhydramine HCl (Benadryl) 25 mg Q6H PRN IVP Itching 05/03/19 11:05 06/02/19 11:04 05/06/19 09:49 Docusate Sodium (Colace) 100 mg THREE TIMES A DAY ORAL 05/03/19 13:00 05/31/19 17:59 05/06/19 08:42 Epoetin Matt (Epoetin Matt-EPBX(NON ESRD)) 4,000 unit SUN-SUN-SUN SUBQ 05/05/19 21:00 06/01/19 20:59 05/05/19 21:14 Hydromorphone HCl (Dilaudid) 0.5 mg Q2H PRN IVP Severe Breakthru Pain (>7) 05/03/19 11:06 05/10/19 11:05 05/06/19 09:13 Insulin Aspart (NovoLOG) BEFORE MEALS AND HS SUBQ 05/04/19 06:30 05/31/19 17:59 05/05/19 21:06 Morphine Sulfate (Morphine Sulfate) 2 mg Q6H PRN IVP Severe Pain (Pain Scale 7-10) 05/03/19 11:06 05/10/19 11:05 05/04/19 00:22 Ondansetron HCl (Zofran) 4 mg Q6H PRN IVP Nausea & Vomiting 05/03/19 12:00 05/31/19 17:59 Pantoprazole (Protonix) 40 mg EVERY 12 HOURS ORAL 05/03/19 21:00 05/31/19 13:44 05/06/19 08:42 Piperacillin Sod/ Tazobactam Sod 3.375 gm/Sodium Chloride 110 ml @ 27.5 mls/hr EVERY 8 HOURS IVPB 05/03/19 14:00 05/08/19 19:59 05/06/19 05:52 Vancomycin HCl (Vanco rx to dose) 1 ea DAILY PRN MISC Per rx protocol 05/04/19 09:00 06/01/19 16:59 Zolpidem Tartrate (Ambien) 5 mg HSPRN PRN ORAL Insomnia 05/03/19 21:00 05/08/19 20:59 05/05/19 23:28 Radha Gill M.D. May 06, 2019 11:35
--- NOTE | 2019-05-06 11:55 | Pulmonology Progress Note ---
Assessment/Plan Problems: (1) Gas gangrene (2) Diabetic nephropathy (3) Renal insufficiency (4) Diabetes (5) Ischemia of right lower extremity Assessment/Plan s/p amputation sliding scale diabetic diet dc home when ok with surgeon Subjective ROS Limited/Unobtainable: No Constitutional: Reports: no symptoms Respiratory: Reports: no symptoms Allergies: Coded Allergies: No Known Allergies (Unverified , 05/01/19) Objective Last 24 Hour Vital Signs Date Time Temp Pulse Resp B/P (MAP) Pulse Ox O2 Delivery O2 Flow Rate FiO2 05/06/19 09:43 98.2 05/06/19 04:00 98.2 64 18 155/79 (104) 100 05/06/19 00:00 97.6 62 18 151/71 (97) 100 05/05/19 21:00 Room Air 05/05/19 20:00 97.6 66 18 134/68 (90) 95 05/05/19 16:00 98.3 65 20 155/73 (100) 100 05/05/19 12:00 98.0 80 20 152/93 (112) 100 Intake and Output 05/05/19 05/06/19 19:00 07:00 Intake Total 300 ml Balance 300 ml Intake Oral 300 ml # Voids 3 3 # Bowel Movements 2 General Appearance: WD/WN HEENT: normocephalic, atraumatic Respiratory/Chest: lungs clear, normal breath sounds Cardiovascular: normal peripheral pulses, regularly irregular Abdomen: soft, non tender Laboratory Tests 05/06/19 05:25: White Blood Count 12.5H, Red Blood Count 3.28L, Hemoglobin 9.0L, Hematocrit 28.9L, Mean Corpuscular Volume 88, Mean Corpuscular Hemoglobin 27.5, Mean Corpuscular Hemoglobin Concent 31.2L, Red Cell Distribution Width 17.9H, Platelet Count 322, Mean Platelet Volume 7.5, Neutrophils (%) (Auto) 53.0, Lymphocytes (%) (Auto) 36.5, Monocytes (%) (Auto) 6.5, Eosinophils (%) (Auto) 3.2H, Basophils (%) (Auto) 0.7, Sodium Level 140, Potassium Level 3.9, Chloride Level 111H, Carbon Dioxide Level 19L, Anion Gap 10, Blood Urea Nitrogen 12, Creatinine 1.8H, Estimat Glomerular Filtration Rate 37.6, Glucose Level 80, Calcium Level 7.0L, Random Vancomycin Level 17.3 Current Medications Medications (Trade) Dose Ordered Sig/Trey Route PRN Reason Start Time Stop Time Status Last Admin Dose Admin Acetaminophen (Tylenol) 650 mg Q4H PRN ORAL Mild Pain/Temp > 100.5 05/03/19 11:05 06/02/19 11:04 Acetaminophen/ Hydrocodone Bitart ([place] 10/325) 1 tab Q4H PRN ORAL Moderate Pain (Pain Scale 4-6) 05/03/19 11:06 05/10/19 11:05 05/04/19 12:07 Ammonium Lactate (Lac Hydrin) 1 applic TWICE A DAY TOPIC 05/03/19 18:00 06/01/19 11:29 05/06/19 08:43 Dextrose (Dextrose 50%) 25 ml Q30M PRN IV Hypoglycemia 05/03/19 11:00 05/31/19 17:59 Dextrose (Dextrose 50%) 50 ml Q30M PRN IV Hypoglycemia 05/03/19 11:00 05/31/19 17:59 Diphenhydramine HCl (Benadryl) 25 mg Q6H PRN IVP Itching 05/03/19 11:05 06/02/19 11:04 05/06/19 09:49 Docusate Sodium (Colace) 100 mg THREE TIMES A DAY ORAL 05/03/19 13:00 05/31/19 17:59 05/06/19 08:42 Epoetin Matt (Epoetin Matt-EPBX(NON ESRD)) 4,000 unit SUN-SUN-SUN SUBQ 05/05/19 21:00 06/01/19 20:59 05/05/19 21:14 Hydromorphone HCl (Dilaudid) 0.5 mg Q2H PRN IVP Severe Breakthru Pain (>7) 05/03/19 11:06 05/10/19 11:05 05/06/19 09:13 Insulin Aspart (NovoLOG) BEFORE MEALS AND HS SUBQ 05/04/19 06:30 05/31/19 17:59 05/05/19 21:06 Morphine Sulfate (Morphine Sulfate) 2 mg Q6H PRN IVP Severe Pain (Pain Scale 7-10) 05/03/19 11:06 05/10/19 11:05 05/04/19 00:22 Ondansetron HCl (Zofran) 4 mg Q6H PRN IVP Nausea & Vomiting 05/03/19 12:00 05/31/19 17:59 Pantoprazole (Protonix) 40 mg EVERY 12 HOURS ORAL 05/03/19 21:00 05/31/19 13:44 05/06/19 08:42 Piperacillin Sod/ Tazobactam Sod 3.375 gm/Sodium Chloride 110 ml @ 27.5 mls/hr EVERY 8 HOURS IVPB 05/03/19 14:00 05/08/19 19:59 05/06/19 05:52 Vancomycin HCl (Vanco rx to dose) 1 ea DAILY PRN MISC Per rx protocol 05/04/19 09:00 06/01/19 16:59 Zolpidem Tartrate (Ambien) 5 mg HSPRN PRN ORAL Insomnia 05/03/19 21:00 05/08/19 20:59 05/05/19 23:28 Serena Gordon MD May 06, 2019 11:55
[2019-05-06] MEDS ORDERED: ACETAMINOPHEN-1 EAC1 ORAL (11:56)
[2019-05-06 12:00] VITALS: BP 134/73
[2019-05-06] MEDS: Morphine Sulfate 2mg/ml Inj(IV/IM USE ONLY) IVP PRN ×2 (14:43→20:54)
--- NOTE | 2019-05-06 14:58 | General Progress Note ---
Assessment/Plan Problem List: (1) Diabetes ICD Codes: E11.9 - Type 2 diabetes mellitus without complications SNOMED: 71643274 (2) Renal insufficiency ICD Codes: N28.9 - Disorder of kidney and ureter, unspecified SNOMED: 946186267, 209766654 (3) Anemia ICD Codes: D64.9 - Anemia, unspecified SNOMED: 601848592 (4) Infection of right foot ICD Codes: L08.9 - Local infection of the skin and subcutaneous tissue, unspecified SNOMED: 143757389 (5) Right foot ulcer ICD Codes: L97.519 - Non-pressure chronic ulcer of other part of right foot with unspecified severity SNOMED: 53108225 (6) Ischemia of right lower extremity ICD Codes: I99.8 - Other disorder of circulatory system SNOMED: 455222856 Status: stable, progressing Assessment/Plan: wound care abx pain control cbc bmp am dc plan snf Subjective Constitutional: Reports: weakness Allergies: Coded Allergies: No Known Allergies (Unverified , 05/01/19) All Systems: reviewed and negative except above Subjective calm in bed Objective Last 24 Hour Vital Signs Date Time Temp Pulse Resp B/P (MAP) Pulse Ox O2 Delivery O2 Flow Rate FiO2 05/06/19 14:15 98.8 05/06/19 12:00 98.8 68 18 134/73 (93) 100 05/06/19 09:00 Room Air 05/06/19 08:00 98.6 65 18 130/68 (88) 100 05/06/19 04:00 98.2 64 18 155/79 (104) 100 05/06/19 00:00 97.6 62 18 151/71 (97) 100 05/05/19 21:00 Room Air 05/05/19 20:00 97.6 66 18 134/68 (90) 95 05/05/19 16:00 98.3 65 20 155/73 (100) 100 Intake and Output 05/05/19 05/06/19 19:00 07:00 Intake Total 300 ml Balance 300 ml Intake Oral 300 ml # Voids 3 3 # Bowel Movements 2 Laboratory Tests 05/06/19 05:25: White Blood Count 12.5H, Red Blood Count 3.28L, Hemoglobin 9.0L, Hematocrit 28.9L, Mean Corpuscular Volume 88, Mean Corpuscular Hemoglobin 27.5, Mean Corpuscular Hemoglobin Concent 31.2L, Red Cell Distribution Width 17.9H, Platelet Count 322, Mean Platelet Volume 7.5, Neutrophils (%) (Auto) 53.0, Lymphocytes (%) (Auto) 36.5, Monocytes (%) (Auto) 6.5, Eosinophils (%) (Auto) 3.2H, Basophils (%) (Auto) 0.7, Sodium Level 140, Potassium Level 3.9, Chloride Level 111H, Carbon Dioxide Level 19L, Anion Gap 10, Blood Urea Nitrogen 12, Creatinine 1.8H, Estimat Glomerular Filtration Rate 37.6, Glucose Level 80, Calcium Level 7.0L, Random Vancomycin Level 17.3 Height (Feet): 4 Height (Inches): 9.00 Weight (Pounds): 125 General Appearance: lethargic EENT: normal ENT inspection Neck: normal alignment Cardiovascular: normal peripheral pulses, normal rate, regular rhythm Respiratory/Chest: chest wall non-tender, lungs clear, normal breath sounds Abdomen: normal bowel sounds, non tender, soft Extremities: normal inspection Edema: no edema noted Arm (L), no edema noted Arm (R), no edema noted Leg (L), no edema noted Leg (R), no edema noted Pedal (L), no edema noted Pedal (R), no edema noted Generalized Neurologic: motor weakness Skin: normal pigmentation, warm/dry Marco Antonio Enriquez DO May 06, 2019 14:58
[2019-05-06 16:00] VITALS: BP 166/80
--- NOTE | 2019-05-06 16:22 | Hematology/Onc Progress Note ---
Assessment/Plan Assessment/Plan Assessment and Recs: # Sickle cell disease - hgb baseline 5-6 range, per patient she does not want blood transfusions --> refusing blood transfusions, per her the baseline is 5-6 range --> trend hgb 5.85-->4.8->8.9-->8.9-->9.5->9 --> anemia panel reviewed and c/w these labs values, ferritin is high --> not in hemolysis at this time --> electrophoresis as needed, not during stay at this time --> epo has been ordered 3 x a week --> iron stores are sufficient --> recommended transfusion can be life saving but patient declined # Leukocytosis/elevated white blood cell count, unspecified likely related to underlying stress reaction, smoking v from crisis, doing better s/o bka r --> have reviewed peripheral smear and bandemia/neutrophilia noted --> continue antibiotics if they have been started by ID team --> monitor for resolution --> trend wbc 25k-->23k->12k --> may need surg, refusing # HAYDEE can be dm related --> trend and establish baseline --> may be dehydrated --> cr 2-->1.5-->1.8 # Electrolyte abnml --> as per renal, Na+ trend and volume expansion # DM2 --> a1c goal <8 goal --> accuchecks qac and qhs The timing of this note does not necessarily reflect the time of the patient was seen. GREATLY APPRECIATE CONSULTATION. Subjective Constitutional: Denies: no symptoms, chills, fever, malaise, weakness, other HEENT: Denies: no symptoms, eye pain, blurred vision, tearing, double vision, ear pain, ear discharge, nose pain, nose congestion, throat pain, throat swelling, mouth pain, mouth swelling, other Cardiovascular: Denies: no symptoms, chest pain, edema, irregular heart rate, lightheadedness, palpitations, syncope, other Gastrointestinal/Abdominal: Denies: no symptoms, abdomen distended, abdominal pain, black stools, tarry stools, blood in stool, constipated, diarrhea, difficulty swallowing, nausea, poor appetite, poor fluid intake, rectal bleeding , vomiting, other Genitourinary: Denies: no symptoms, burning, discharge, frequency, flank pain, hematuria, incontinence, pain, urgency, other Neurologic/Psychiatric: Denies: no symptoms, anxiety, depressed, emotional problems, headache, numbness, paresthesia, pre-existing deficit, seizure, tingling, tremors, weakness, other Endocrine: Denies: no symptoms, excessive sweating, flushing, intolerance to cold, intolerance to heat, increased hunger, increased thirst, increased urine, unexplained weight gain, unexplained weight loss, other Allergies: Coded Allergies: No Known Allergies (Unverified , 05/01/19) Subjective 05/02: on epogen, hgb lower 4.8, initially refused transfusion, now accepting, shiva rn, refusing sx 05/04: is pod 2 and doing better, still in pain this am 05/05: no bleeding noted, no chills, no night sweats, no f/c 05/06: no bleeding, no chills, appears to be in pain on subj, but when not interviewed asymptomatic Objective Objective Current Medications Medications (Trade) Dose Ordered Sig/Trey Route PRN Reason Start Time Stop Time Status Last Admin Dose Admin Acetaminophen (Tylenol) 650 mg Q4H PRN ORAL Mild Pain/Temp > 100.5 05/03/19 11:05 06/02/19 11:04 Acetaminophen/ Hydrocodone Bitart ([place] 10/325) 1 tab Q4H PRN ORAL Moderate Pain (Pain Scale 4-6) 05/03/19 11:06 05/10/19 11:05 05/04/19 12:07 Ammonium Lactate (Lac Hydrin) 1 applic TWICE A DAY TOPIC 05/03/19 18:00 06/01/19 11:29 05/06/19 08:43 Dextrose (Dextrose 50%) 25 ml Q30M PRN IV Hypoglycemia 05/03/19 11:00 05/31/19 17:59 Dextrose (Dextrose 50%) 50 ml Q30M PRN IV Hypoglycemia 05/03/19 11:00 05/31/19 17:59 Diphenhydramine HCl (Benadryl) 25 mg Q6H PRN IVP Itching 05/03/19 11:05 06/02/19 11:04 05/06/19 09:49 Docusate Sodium (Colace) 100 mg THREE TIMES A DAY ORAL 05/03/19 13:00 05/31/19 17:59 05/06/19 12:17 Epoetin Matt (Epoetin Matt-EPBX(NON ESRD)) 4,000 unit SUN-SUN-SUN SUBQ 05/05/19 21:00 06/01/19 20:59 05/05/19 21:14 Hydromorphone HCl (Dilaudid) 0.5 mg Q2H PRN IVP Severe Breakthru Pain (>7) 05/03/19 11:06 05/10/19 11:05 05/06/19 13:45 Insulin Aspart (NovoLOG) BEFORE MEALS AND HS SUBQ 05/04/19 06:30 05/31/19 17:59 05/06/19 12:15 Morphine Sulfate (Morphine Sulfate) 2 mg Q6H PRN IVP Severe Pain (Pain Scale 7-10) 05/03/19 11:06 05/10/19 11:05 05/06/19 14:43 Ondansetron HCl (Zofran) 4 mg Q6H PRN IVP Nausea & Vomiting 05/03/19 12:00 05/31/19 17:59 Pantoprazole (Protonix) 40 mg EVERY 12 HOURS ORAL 05/03/19 21:00 05/31/19 13:44 05/06/19 08:42 Piperacillin Sod/ Tazobactam Sod 3.375 gm/Sodium Chloride 110 ml @ 27.5 mls/hr EVERY 8 HOURS IVPB 05/03/19 14:00 05/08/19 19:59 05/06/19 13:45 Vancomycin HCl (Vanco rx to dose) 1 ea DAILY PRN MISC Per rx protocol 05/04/19 09:00 06/01/19 16:59 Zolpidem Tartrate (Ambien) 5 mg HSPRN PRN ORAL Insomnia 05/03/19 21:00 05/08/19 20:59 05/05/19 23:28 Last 24 Hour Vital Signs Date Time Temp Pulse Resp B/P (MAP) Pulse Ox O2 Delivery O2 Flow Rate FiO2 05/06/19 16:00 98.1 65 20 166/80 (108) 100 05/06/19 15:13 98.8 05/06/19 14:15 98.8 05/06/19 12:00 98.8 68 18 134/73 (93) 100 05/06/19 09:00 Room Air 05/06/19 08:00 98.6 65 18 130/68 (88) 100 05/06/19 04:00 98.2 64 18 155/79 (104) 100 05/06/19 00:00 97.6 62 18 151/71 (97) 100 05/05/19 21:00 Room Air 05/05/19 20:00 97.6 66 18 134/68 (90) 95 05/05/19 16:00 98.3 65 20 155/73 (100) 100 05/05/19 12:00 98.0 80 20 152/93 (112) 100 05/05/19 09:00 Room Air 05/05/19 08:00 98.0 80 20 152/93 (112) 100 05/05/19 04:00 98.1 69 18 142/85 (104) 99 05/05/19 00:00 98.1 68 18 144/75 (98) 100 05/04/19 21:00 Room Air 05/04/19 20:00 98.0 72 18 134/71 (92) 100 Intake and Output 05/05/19 05/06/19 19:00 07:00 Intake Total 300 ml Balance 300 ml Intake Oral 300 ml # Voids 3 3 # Bowel Movements 2 Labs Test 05/03/19 17:15 05/03/19 19:30 05/04/19 07:15 05/04/19 18:30 Vancomycin Level Trough 17.8 ug/mL (5.0-12.0) Glucose Level 512 MG/DL (74-106) 328 MG/DL (74-106) White Blood Count 11.5 K/UL (4.8-10.8) Red Blood Count 3.21 M/UL (4.20-5.40) Hemoglobin 8.9 G/DL (12.0-16.0) Hematocrit 28.0 % (37.0-47.0) Mean Corpuscular Volume 87 FL (80-99) Mean Corpuscular Hemoglobin 27.6 PG (27.0-31.0) Mean Corpuscular Hemoglobin Concent 31.7 G/DL (32.0-36.0) Red Cell Distribution Width 18.0 % (11.6-14.8) Platelet Count 347 K/UL (150-450) Mean Platelet Volume 7.6 FL (6.5-10.1) Neutrophils (%) (Auto) 72.7 % (45.0-75.0) Lymphocytes (%) (Auto) 18.8 % (20.0-45.0) Monocytes (%) (Auto) 4.3 % (1.0-10.0) Eosinophils (%) (Auto) 3.7 % (0.0-3.0) Basophils (%) (Auto) 0.5 % (0.0-2.0) Prothrombin Time 12.2 SEC (9.30-11.50) Prothromb Time International Ratio 1.2 (0.9-1.1) Activated Partial Thromboplast Time 36 SEC (23-33) Sodium Level 136 MMOL/L (136-145) Potassium Level 3.9 MMOL/L (3.5-5.1) Chloride Level 107 MMOL/L (98-107) Carbon Dioxide Level 19 MMOL/L (21-32) Anion Gap 10 mmol/L (5-15) Blood Urea Nitrogen 18 mg/dL (7-18) Creatinine 1.9 MG/DL (0.55-1.30) Estimat Glomerular Filtration Rate 35.4 mL/min (>60) Calcium Level 6.8 MG/DL (8.5-10.1) Phosphorus Level 3.5 MG/DL (2.5-4.9) Magnesium Level 1.8 MG/DL (1.8-2.4) Total Bilirubin 0.5 MG/DL (0.2-1.0) Aspartate Amino Transf (AST/SGOT) 19 U/L (15-37) Alanine Aminotransferase (ALT/SGPT) 13 U/L (12-78) Alkaline Phosphatase 163 U/L (46-116) Total Protein 7.3 G/DL (6.4-8.2) Albumin 2.1 G/DL (3.4-5.0) Globulin 5.2 g/dL Albumin/Globulin Ratio 0.4 (1.0-2.7) Random Vancomycin Level 19.6 ug/mL Test 05/05/19 05:05 05/06/19 05:25 White Blood Count 12.1 K/UL (4.8-10.8) 12.5 K/UL (4.8-10.8) Red Blood Count 3.47 M/UL (4.20-5.40) 3.28 M/UL (4.20-5.40) Hemoglobin 9.5 G/DL (12.0-16.0) 9.0 G/DL (12.0-16.0) Hematocrit 30.5 % (37.0-47.0) 28.9 % (37.0-47.0) Mean Corpuscular Volume 88 FL (80-99) 88 FL (80-99) Mean Corpuscular Hemoglobin 27.3 PG (27.0-31.0) 27.5 PG (27.0-31.0) Mean Corpuscular Hemoglobin Concent 31.1 G/DL (32.0-36.0) 31.2 G/DL (32.0-36.0) Red Cell Distribution Width 17.7 % (11.6-14.8) 17.9 % (11.6-14.8) Platelet Count 341 K/UL (150-450) 322 K/UL (150-450) Mean Platelet Volume 7.1 FL (6.5-10.1) 7.5 FL (6.5-10.1) Neutrophils (%) (Auto) 69.0 % (45.0-75.0) 53.0 % (45.0-75.0) Lymphocytes (%) (Auto) 22.3 % (20.0-45.0) 36.5 % (20.0-45.0) Monocytes (%) (Auto) 4.3 % (1.0-10.0) 6.5 % (1.0-10.0) Eosinophils (%) (Auto) 2.7 % (0.0-3.0) 3.2 % (0.0-3.0) Basophils (%) (Auto) 1.7 % (0.0-2.0) 0.7 % (0.0-2.0) Sodium Level 138 MMOL/L (136-145) 140 MMOL/L (136-145) Potassium Level 4.1 MMOL/L (3.5-5.1) 3.9 MMOL/L (3.5-5.1) Chloride Level 109 MMOL/L (98-107) 111 MMOL/L (98-107) Carbon Dioxide Level 19 MMOL/L (21-32) 19 MMOL/L (21-32) Anion Gap 10 mmol/L (5-15) 10 mmol/L (5-15) Blood Urea Nitrogen 13 mg/dL (7-18) 12 mg/dL (7-18) Creatinine 1.8 MG/DL (0.55-1.30) 1.8 MG/DL (0.55-1.30) Estimat Glomerular Filtration Rate 37.6 mL/min (>60) 37.6 mL/min (>60) Glucose Level 82 MG/DL (74-106) 80 MG/DL (74-106) Calcium Level 7.0 MG/DL (8.5-10.1) 7.0 MG/DL (8.5-10.1) Phosphorus Level 2.8 MG/DL (2.5-4.9) Magnesium Level 1.5 MG/DL (1.8-2.4) Total Bilirubin 0.6 MG/DL (0.2-1.0) Direct Bilirubin 0.2 MG/DL (0.0-0.3) Aspartate Amino Transf (AST/SGOT) 22 U/L (15-37) Alanine Aminotransferase (ALT/SGPT) 12 U/L (12-78) Alkaline Phosphatase 153 U/L (46-116) Total Protein 7.2 G/DL (6.4-8.2) Albumin 1.9 G/DL (3.4-5.0) Random Vancomycin Level 17.3 ug/mL Height (Feet): 4 Height (Inches): 9.00 Weight (Pounds): 125 Objective Vitals: reviewed General Appearance: NAD HEENT: normocephalic, atraumatic Neck: non-tender, normal alignment Respiratory/Chest: normal breath sounds bilaterally Cardiovascular/Chest: normal peripheral pulses, normal rate Abdomen: normal bowel sounds, soft, nontender Extremities: normal range of motion, is now s/p R BKA (05/02) Raphael Shrestha MD May 06, 2019 16:22
[2019-05-06 20:00] VITALS: BP 157/75
[2019-05-06] MEDS: Zolpidem 5mg tab ORAL PRN (20:30)
[2019-05-07] VITALS: BP 144/78
[2019-05-07] MEDS: DiphenhydrAMINE 50mg/ml Inj IVP PRN ×2 (00:19→20:03)
[2019-05-07] MEDS: Hydromorphone 0.5mg/0.5ml inj IVP PRN ×6 (02:38→20:04)
[2019-05-07 04:00] VITALS: BP 165/75
[2019-05-07] MEDS: Morphine Sulfate 2mg/ml Inj(IV/IM USE ONLY) IVP PRN ×2 (04:02→11:37)
[2019-05-07] MEDS: Piperacillin/Tazobactam 3.375 GM in NS 110 ML IVPB SCH ×3 (05:43→21:20)
[2019-05-07 05:49] LABS: BASOPHILS % (AUTO) 1.1 % (0.0-2.0); EOSINOPHILS % (AUTO) 3.5 % (0.0-3.0); HEMATOCRIT 27.6 % (37.0-47.0); HEMOGLOBIN 8.6 G/DL (12.0-16.0); LYMPHOCYTES % (AUTO) 35.1 % (20.0-45.0); MEAN CORPUSCULAR VOLUME 88 FL (80-99); MONOCYTES % (AUTO) 6.1 % (1.0-10.0); NEUTROPHILS % (AUTO) 54.2 % (45.0-75.0); PLATELET COUNT 292 K/UL (150-450); RED BLOOD COUNT 3.13 M/UL (4.20-5.40); RED CELL DISTRIBUTION WIDTH 17.7 % (11.6-14.8); WHITE BLOOD COUNT 14.2 K/UL (4.8-10.8)
[2019-05-07 06:30] LABS: ALANINE AMINOTRANSFERASE 34 U/L (12-78); ALBUMIN 1.8 G/DL (3.4-5.0); ALBUMIN/GLOBULIN RATIO 0.4 (1.0-2.7); ALKALINE PHOSPHATASE 324 U/L (46-116); ANION GAP 10 mmol/L (5-15); ASPARTATE AMINO TRANSFERASE 57 U/L (15-37); BILIRUBIN,TOTAL 0.4 MG/DL (0.2-1.0); BLOOD UREA NITROGEN 12 mg/dL (7-18); CALCIUM 6.9 MG/DL (8.5-10.1); CARBON DIOXIDE 18 MMOL/L (21-32); CHLORIDE 111 MMOL/L (98-107); CREATININE 1.8 MG/DL (0.55-1.30); POTASSIUM 3.9 MMOL/L (3.5-5.1); SODIUM 139 MMOL/L (136-145)
[2019-05-07 08:00] VITALS: BP 171/79
[2019-05-07] MEDS: Docusate 100mg cap ORAL SCH ×4 (08:31→18:00)
[2019-05-07] MEDS: Lac Hydrin 12% Lotion 8oz TOPIC SCH ×2 (09:00→18:02)
[2019-05-07] MEDS ORDERED: Levemir Flexpen SUBQ SCH (09:00)
--- NOTE | 2019-05-07 09:01 | General Progress Note ---
Assessment/Plan Assessment/Plan: (1) Right foot pain (2) Right foot ulcer (3) S/p Right LE BKA Patient will be continued on [place], Morphine and Dilaudid. D/w Dr. Marsh and he concurred. Subjective Date patient seen: May 07, 2019 Time patient seen: 07:00 - am Constitutional: Reports: no symptoms HEENT: Reports: no symptoms Cardiovascular: Reports: no symptoms Respiratory: Reports: no symptoms Gastrointestinal/Abdominal: Reports: no symptoms Genitourinary: Reports: no symptoms Neurologic/Psychiatric: Reports: no symptoms Endocrine: Reports: no symptoms Hematologic/Lymphatic: Reports: no symptoms Allergies: Coded Allergies: No Known Allergies (Unverified , 05/01/19) Subjective Patient is in bed showing no signs of pain or distress. Pain has been at a moderate level and tolerated on the Morphine, [place] and Dilaudid. She has no new complaints at this time. Objective Last 24 Hour Vital Signs Date Time Temp Pulse Resp B/P (MAP) Pulse Ox O2 Delivery O2 Flow Rate FiO2 05/07/19 04:00 98.0 66 18 165/75 (105) 100 05/07/19 00:00 98.2 62 18 144/78 (100) 98 05/06/19 21:00 Room Air 05/06/19 20:00 97.9 66 17 157/75 (102) 99 05/06/19 17:26 98.1 05/06/19 16:00 98.1 65 20 166/80 (108) 100 05/06/19 15:13 98.8 05/06/19 12:00 98.8 68 18 134/73 (93) 100 Intake and Output 05/06/19 05/07/19 19:00 07:00 Intake Total 300 ml 137.5 ml Balance 300 ml 137.5 ml Intake Oral 300 ml IV Total 137.5 ml # Voids 3 2 # Bowel Movements 3 Laboratory Tests 05/07/19 05:20: White Blood Count 14.2H, Red Blood Count 3.13L, Hemoglobin 8.6L, Hematocrit 27.6L, Mean Corpuscular Volume 88, Mean Corpuscular Hemoglobin 27.4, Mean Corpuscular Hemoglobin Concent 31.2L, Red Cell Distribution Width 17.7H, Platelet Count 292, Mean Platelet Volume 7.6, Neutrophils (%) (Auto) 54.2, Lymphocytes (%) (Auto) 35.1, Monocytes (%) (Auto) 6.1, Eosinophils (%) (Auto) 3.5H, Basophils (%) (Auto) 1.1, Sodium Level 139, Potassium Level 3.9, Chloride Level 111H, Carbon Dioxide Level 18L, Anion Gap 10, Blood Urea Nitrogen 12, Creatinine 1.8H, Estimat Glomerular Filtration Rate 37.6, Glucose Level 116H, Uric Acid 3.8, Calcium Level 6.9L, Phosphorus Level 3.0, Magnesium Level 1.7L, Total Bilirubin 0.4, Aspartate Amino Transf (AST/SGOT) 57H, Alanine Aminotransferase (ALT/SGPT) 34, Alkaline Phosphatase 324H, C-Reactive Protein, Quantitative 0.8, Pro-B-Type Natriuretic Peptide 2955H, Total Protein 6.5, Albumin 1.8L, Globulin 4.7, Albumin/Globulin Ratio 0.4L Height (Feet): 4 Height (Inches): 9.00 Weight (Pounds): 117 General Appearance: no apparent distress, alert EENT: PERRL/EOMI, normal ENT inspection Neck: non-tender, normal alignment Cardiovascular: normal rate, regular rhythm Abdomen: non tender, soft Extremities: other - BKA noted Neurologic: abnormal gait, oriented x 3 Skin: normal pigmentation Navi Menchaca May 07, 2019 09:01
--- NOTE | 2019-05-07 09:02 | Consultation ---
History of Present Illness General Date patient seen: May 07, 2019 Time patient seen: 08:56 Chief Complaint: Skin Rash/Abscess Present Illness HPI Coverage for [facility] Cardiology consulted for hypertension management. 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 BP noted to be in 160s Allergies: Coded Allergies: No Known Allergies (Unverified , 05/01/19) Medication History Scheduled Insulin Glargine (Lantus), 10 SUBQ BEDTIME, (Reported) Insulin Human Lispro (Humalog), 0 SUBQ AC+HS, (Reported) Scheduled PRN Acetaminophen With Codeine (T#3) (Tylenol #3 Tab*), 1 TAB ORAL Q4H PRN Patient History Healthcare decision maker SELF Resuscitation status Full Code Advanced Directive on File Review of Systems Constitutional: Reports: no symptoms Eye: Reports: no symptoms ENT: Reports: no symptoms Respiratory: Reports: no symptoms Cardiovascular: Reports: no symptoms Gastrointestinal: Reports: no symptoms Genitourinary: Reports: no symptoms Musculoskeletal: Reports: no symptoms Skin: Reports: no symptoms Psychiatric: Reports: no symptoms Neurological: Reports: no symptoms Endocrine: Reports: no symptoms Hematologic/Lymphatic: Reports: no symptoms Physical Exam General Appearance: no apparent distress, alert Lines, tubes and drains: peripheral HEENT: normocephalic, atraumatic, anicteric, mucous membranes moist, PERRL Neck: non-tender, normal alignment, supple, normal inspection Respiratory/Chest: chest wall non-tender, lungs clear, normal breath sounds Cardiovascular/Chest: normal peripheral pulses, normal rate, regular rhythm Abdomen: normal bowel sounds, non tender, soft, no organomegaly Extremities: normal range of motion, non-tender, normal inspection Skin Exam: normal pigmentation, palled 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, no motor/sensory deficits Last 24 Hour Vital Signs Date Time Temp Pulse Resp B/P (MAP) Pulse Ox O2 Delivery O2 Flow Rate FiO2 05/07/19 04:00 98.0 66 18 165/75 (105) 100 05/07/19 00:00 98.2 62 18 144/78 (100) 98 05/06/19 21:00 Room Air 05/06/19 20:00 97.9 66 17 157/75 (102) 99 05/06/19 17:26 98.1 05/06/19 16:00 98.1 65 20 166/80 (108) 100 05/06/19 15:13 98.8 05/06/19 12:00 98.8 68 18 134/73 (93) 100 05/06/19 09:00 Room Air Intake and Output 05/06/19 05/07/19 19:00 07:00 Intake Total 300 ml 137.5 ml Balance 300 ml 137.5 ml Intake Oral 300 ml IV Total 137.5 ml # Voids 3 2 # Bowel Movements 3 Laboratory Tests Test 05/07/19 05:20 White Blood Count 14.2 K/UL (4.8-10.8) H Red Blood Count 3.13 M/UL (4.20-5.40) L Hemoglobin 8.6 G/DL (12.0-16.0) L Hematocrit 27.6 % (37.0-47.0) L Mean Corpuscular Volume 88 FL (80-99) Mean Corpuscular Hemoglobin 27.4 PG (27.0-31.0) Mean Corpuscular Hemoglobin Concent 31.2 G/DL (32.0-36.0) L Red Cell Distribution Width 17.7 % (11.6-14.8) H Platelet Count 292 K/UL (150-450) Mean Platelet Volume 7.6 FL (6.5-10.1) Neutrophils (%) (Auto) 54.2 % (45.0-75.0) Lymphocytes (%) (Auto) 35.1 % (20.0-45.0) Monocytes (%) (Auto) 6.1 % (1.0-10.0) Eosinophils (%) (Auto) 3.5 % (0.0-3.0) H Basophils (%) (Auto) 1.1 % (0.0-2.0) Sodium Level 139 MMOL/L (136-145) Potassium Level 3.9 MMOL/L (3.5-5.1) Chloride Level 111 MMOL/L (98-107) H Carbon Dioxide Level 18 MMOL/L (21-32) L Anion Gap 10 mmol/L (5-15) Blood Urea Nitrogen 12 mg/dL (7-18) Creatinine 1.8 MG/DL (0.55-1.30) H Estimat Glomerular Filtration Rate 37.6 mL/min (>60) Glucose Level 116 MG/DL (74-106) H Uric Acid 3.8 MG/DL (2.6-7.2) Calcium Level 6.9 MG/DL (8.5-10.1) L Phosphorus Level 3.0 MG/DL (2.5-4.9) Magnesium Level 1.7 MG/DL (1.8-2.4) L Total Bilirubin 0.4 MG/DL (0.2-1.0) Aspartate Amino Transf (AST/SGOT) 57 U/L (15-37) H Alanine Aminotransferase (ALT/SGPT) 34 U/L (12-78) Alkaline Phosphatase 324 U/L (46-116) H C-Reactive Protein, Quantitative 0.8 mg/dL (0.00-0.90) Pro-B-Type Natriuretic Peptide 2955 pg/mL (0-125) H Total Protein 6.5 G/DL (6.4-8.2) Albumin 1.8 G/DL (3.4-5.0) L Globulin 4.7 g/dL Albumin/Globulin Ratio 0.4 (1.0-2.7) L Height (Feet): 4 Height (Inches): 9.00 Weight (Pounds): 117 Medications Current Medications Medications (Trade) Dose Ordered Sig/Trye Route PRN Reason Start Time Stop Time Status Last Admin Dose Admin Acetaminophen (Tylenol) 650 mg Q4H PRN ORAL Mild Pain/Temp > 100.5 05/03/19 11:05 06/02/19 11:04 Acetaminophen/ Hydrocodone Bitart ([place] 10/325) 1 tab Q4H PRN ORAL Moderate Pain (Pain Scale 4-6) 05/03/19 11:06 05/10/19 11:05 05/04/19 12:07 Ammonium Lactate (Lac Hydrin) 1 applic TWICE A DAY TOPIC 05/03/19 18:00 06/01/19 11:29 05/06/19 17:58 Clonidine HCl (Catapres Tab) 0.1 mg Q12H PRN ORAL For High Blood Pressure 05/07/19 08:30 06/06/19 08:29 Dextrose (Dextrose 50%) 25 ml Q30M PRN IV Hypoglycemia 05/07/19 06:45 06/06/19 06:44 Dextrose (Dextrose 50%) 50 ml Q30M PRN IV Hypoglycemia 05/07/19 06:45 06/06/19 06:44 Diphenhydramine HCl (Benadryl) 25 mg Q6H PRN IVP Itching 05/03/19 11:05 06/02/19 11:04 05/07/19 00:19 Docusate Sodium (Colace) 100 mg THREE TIMES A DAY ORAL 05/03/19 13:00 05/31/19 17:59 05/06/19 12:17 Epoetin Matt (Epoetin Matt-EPBX(NON ESRD)) 4,000 unit SUN-SUN-SUN SUBQ 05/05/19 21:00 06/01/19 20:59 05/05/19 21:14 Hydralazine HCl (Apresoline) 25 mg Q6H PRN ORAL For High Blood Pressure 05/07/19 08:30 06/06/19 08:29 Hydromorphone HCl (Dilaudid) 0.5 mg Q2H PRN IVP Severe Breakthru Pain (>7) 05/03/19 11:06 05/10/19 11:05 05/07/19 08:32 Insulin Aspart (NovoLOG) BEFORE MEALS AND HS SUBQ 05/07/19 11:30 06/06/19 11:29 Insulin Detemir (Levemir) 3 units DAILY SUBQ 05/07/19 09:00 06/06/19 08:59 Morphine Sulfate (Morphine Sulfate) 2 mg Q6H PRN IVP Severe Pain (Pain Scale 7-10) 05/03/19 11:06 05/10/19 11:05 05/07/19 04:02 Ondansetron HCl (Zofran) 4 mg Q6H PRN IVP Nausea & Vomiting 05/03/19 12:00 05/31/19 17:59 Pantoprazole (Protonix) 40 mg EVERY 12 HOURS ORAL 05/03/19 21:00 05/31/19 13:44 05/06/19 20:26 Piperacillin Sod/ Tazobactam Sod 3.375 gm/Sodium Chloride 110 ml @ 27.5 mls/hr EVERY 8 HOURS IVPB 05/03/19 14:00 05/08/19 19:59 05/07/19 05:43 Vancomycin HCl (Vanco rx to dose) 1 ea DAILY PRN MISC Per rx protocol 05/04/19 09:00 06/01/19 16:59 Zolpidem Tartrate (Ambien) 5 mg HSPRN PRN ORAL Insomnia 05/03/19 21:00 05/08/19 20:59 05/06/19 20:30 Assessment/Plan Status: stable Assessment/Plan: Assessment/Plan Problem List: Assessment: (1) Diabetes (2) Renal insufficiency (3) Anemia (4) Infection of right foot (5) Right foot ulcer (6) Ischemia of right lower extremity (7) Hypertension Recommendations/Plan: Echocardiogram re: elevated BNP Start norvasc 10 mg daily Continue to monitor Outpatient stress test when stable Christopher Cole MD May 07, 2019 09:02
--- NOTE | 2019-05-07 10:12 | General Progress Note ---
Assessment/Plan Problem List: (1) Diabetes ICD Codes: E11.9 - Type 2 diabetes mellitus without complications SNOMED: 02254763 (2) Renal insufficiency ICD Codes: N28.9 - Disorder of kidney and ureter, unspecified SNOMED: 364809831, 214195226 (3) Anemia ICD Codes: D64.9 - Anemia, unspecified SNOMED: 611280521 (4) Infection of right foot ICD Codes: L08.9 - Local infection of the skin and subcutaneous tissue, unspecified SNOMED: 996658699 (5) Right foot ulcer ICD Codes: L97.519 - Non-pressure chronic ulcer of other part of right foot with unspecified severity SNOMED: 26871399 (6) Ischemia of right lower extremity ICD Codes: I99.8 - Other disorder of circulatory system SNOMED: 712972785 Status: stable, progressing Assessment/Plan: wound care abx pain control cbc bmp am dc plan snf Subjective Constitutional: Reports: weakness Allergies: Coded Allergies: No Known Allergies (Unverified , 05/01/19) All Systems: reviewed and negative except above Subjective calm in bed Objective Last 24 Hour Vital Signs Date Time Temp Pulse Resp B/P (MAP) Pulse Ox O2 Delivery O2 Flow Rate FiO2 05/07/19 09:02 98.0 05/07/19 09:00 Room Air 05/07/19 08:00 97.9 66 18 171/79 (109) 99 05/07/19 04:00 98.0 66 18 165/75 (105) 100 05/07/19 00:00 98.2 62 18 144/78 (100) 98 05/06/19 21:00 Room Air 05/06/19 20:00 97.9 66 17 157/75 (102) 99 05/06/19 16:00 98.1 65 20 166/80 (108) 100 05/06/19 15:13 98.8 05/06/19 12:00 98.8 68 18 134/73 (93) 100 Intake and Output 05/06/19 05/07/19 19:00 07:00 Intake Total 300 ml 137.5 ml Balance 300 ml 137.5 ml Intake Oral 300 ml IV Total 137.5 ml # Voids 3 2 # Bowel Movements 3 Laboratory Tests 05/07/19 05:20: White Blood Count 14.2H, Red Blood Count 3.13L, Hemoglobin 8.6L, Hematocrit 27.6L, Mean Corpuscular Volume 88, Mean Corpuscular Hemoglobin 27.4, Mean Corpuscular Hemoglobin Concent 31.2L, Red Cell Distribution Width 17.7H, Platelet Count 292, Mean Platelet Volume 7.6, Neutrophils (%) (Auto) 54.2, Lymphocytes (%) (Auto) 35.1, Monocytes (%) (Auto) 6.1, Eosinophils (%) (Auto) 3.5H, Basophils (%) (Auto) 1.1, Sodium Level 139, Potassium Level 3.9, Chloride Level 111H, Carbon Dioxide Level 18L, Anion Gap 10, Blood Urea Nitrogen 12, Creatinine 1.8H, Estimat Glomerular Filtration Rate 37.6, Glucose Level 116H, Uric Acid 3.8, Calcium Level 6.9L, Phosphorus Level 3.0, Magnesium Level 1.7L, Total Bilirubin 0.4, Aspartate Amino Transf (AST/SGOT) 57H, Alanine Aminotransferase (ALT/SGPT) 34, Alkaline Phosphatase 324H, C-Reactive Protein, Quantitative 0.8, Pro-B-Type Natriuretic Peptide 2955H, Total Protein 6.5, Albumin 1.8L, Globulin 4.7, Albumin/Globulin Ratio 0.4L Height (Feet): 4 Height (Inches): 9.00 Weight (Pounds): 117 General Appearance: lethargic EENT: normal ENT inspection Neck: normal alignment Cardiovascular: normal peripheral pulses, normal rate, regular rhythm Respiratory/Chest: chest wall non-tender, lungs clear, normal breath sounds Abdomen: normal bowel sounds, non tender, soft Extremities: normal inspection Edema: no edema noted Arm (L), no edema noted Arm (R), no edema noted Leg (L), no edema noted Leg (R), no edema noted Pedal (L), no edema noted Pedal (R), no edema noted Generalized Neurologic: responsive, motor weakness Skin: normal pigmentation, warm/dry Marco Antonio Enriquez DO May 07, 2019 10:11
[2019-05-07] MEDS: NovoLOG Insulin Flexpen SUBQ SCH ×3 (11:30→20:06)
--- NOTE | 2019-05-07 11:49 | Pulmonology Progress Note ---
Assessment/Plan Problems: (1) Gas gangrene (2) Diabetic nephropathy (3) Renal insufficiency (4) Diabetes (5) Ischemia of right lower extremity Assessment/Plan s/p amputation sliding scale diabetic diet needs placement pt./ot pending Subjective ROS Limited/Unobtainable: No Constitutional: Reports: no symptoms HEENT: Repors: no symptoms Respiratory: Reports: no symptoms Allergies: Coded Allergies: No Known Allergies (Unverified , 05/01/19) Objective Last 24 Hour Vital Signs Date Time Temp Pulse Resp B/P (MAP) Pulse Ox O2 Delivery O2 Flow Rate FiO2 05/07/19 09:02 98.0 05/07/19 09:00 Room Air 05/07/19 08:00 97.9 66 18 171/79 (109) 99 05/07/19 04:00 98.0 66 18 165/75 (105) 100 05/07/19 00:00 98.2 62 18 144/78 (100) 98 05/06/19 21:00 Room Air 05/06/19 20:00 97.9 66 17 157/75 (102) 99 05/06/19 16:00 98.1 65 20 166/80 (108) 100 05/06/19 15:13 98.8 05/06/19 12:00 98.8 68 18 134/73 (93) 100 Intake and Output 05/06/19 05/07/19 19:00 07:00 Intake Total 300 ml 137.5 ml Balance 300 ml 137.5 ml Intake Oral 300 ml IV Total 137.5 ml # Voids 3 2 # Bowel Movements 3 General Appearance: WD/WN HEENT: normocephalic, atraumatic Respiratory/Chest: chest wall non-tender, lungs clear Breasts: no masses Cardiovascular: normal peripheral pulses, regularly irregular Abdomen: soft, non tender, no organomegaly Genitourinary: normal external genitalia Extremities: no clubbing Skin: no rash Laboratory Tests 05/07/19 05:20: White Blood Count 14.2H, Red Blood Count 3.13L, Hemoglobin 8.6L, Hematocrit 27.6L, Mean Corpuscular Volume 88, Mean Corpuscular Hemoglobin 27.4, Mean Corpuscular Hemoglobin Concent 31.2L, Red Cell Distribution Width 17.7H, Platelet Count 292, Mean Platelet Volume 7.6, Neutrophils (%) (Auto) 54.2, Lymphocytes (%) (Auto) 35.1, Monocytes (%) (Auto) 6.1, Eosinophils (%) (Auto) 3.5H, Basophils (%) (Auto) 1.1, Sodium Level 139, Potassium Level 3.9, Chloride Level 111H, Carbon Dioxide Level 18L, Anion Gap 10, Blood Urea Nitrogen 12, Creatinine 1.8H, Estimat Glomerular Filtration Rate 37.6, Glucose Level 116H, Uric Acid 3.8, Calcium Level 6.9L, Phosphorus Level 3.0, Magnesium Level 1.7L, Total Bilirubin 0.4, Aspartate Amino Transf (AST/SGOT) 57H, Alanine Aminotransferase (ALT/SGPT) 34, Alkaline Phosphatase 324H, C-Reactive Protein, Quantitative 0.8, Pro-B-Type Natriuretic Peptide 2955H, Total Protein 6.5, Albumin 1.8L, Globulin 4.7, Albumin/Globulin Ratio 0.4L Current Medications Medications (Trade) Dose Ordered Sig/Trey Route PRN Reason Start Time Stop Time Status Last Admin Dose Admin Acetaminophen (Tylenol) 650 mg Q4H PRN ORAL Mild Pain/Temp > 100.5 05/03/19 11:05 06/02/19 11:04 Acetaminophen/ Hydrocodone Bitart ([place] 10/325) 1 tab Q4H PRN ORAL Moderate Pain (Pain Scale 4-6) 05/03/19 11:06 05/10/19 11:05 05/04/19 12:07 Amlodipine Besylate (Norvasc) 10 mg DAILY ORAL 05/08/19 09:00 06/07/19 08:59 Ammonium Lactate (Lac Hydrin) 1 applic TWICE A DAY TOPIC 05/03/19 18:00 06/01/19 11:29 05/07/19 09:00 Clonidine HCl (Catapres Tab) 0.1 mg Q12H PRN ORAL For High Blood Pressure 05/07/19 08:30 06/06/19 08:29 Dextrose (Dextrose 50%) 25 ml Q30M PRN IV Hypoglycemia 05/07/19 06:45 06/06/19 06:44 Dextrose (Dextrose 50%) 50 ml Q30M PRN IV Hypoglycemia 05/07/19 06:45 06/06/19 06:44 Diphenhydramine HCl (Benadryl) 25 mg Q6H PRN IVP Itching 05/03/19 11:05 06/02/19 11:04 05/07/19 00:19 Docusate Sodium (Colace) 100 mg THREE TIMES A DAY ORAL 05/03/19 13:00 05/31/19 17:59 05/06/19 12:17 Epoetin Matt (Epoetin Matt-EPBX(NON ESRD)) 4,000 unit SUN-SUN-SUN SUBQ 05/05/19 21:00 06/01/19 20:59 05/05/19 21:14 Hydralazine HCl (Apresoline) 25 mg Q6H PRN ORAL For High Blood Pressure 05/07/19 08:30 06/06/19 08:29 Hydromorphone HCl (Dilaudid) 0.5 mg Q2H PRN IVP Severe Breakthru Pain (>7) 05/03/19 11:06 05/10/19 11:05 05/07/19 08:32 Insulin Aspart (NovoLOG) BEFORE MEALS AND HS SUBQ 05/07/19 11:30 06/06/19 11:29 Insulin Detemir (Levemir) 3 units DAILY SUBQ 05/07/19 09:00 06/06/19 08:59 05/07/19 09:52 Morphine Sulfate (Morphine Sulfate) 2 mg Q6H PRN IVP Severe Pain (Pain Scale 7-10) 05/03/19 11:06 05/10/19 11:05 05/07/19 11:37 Ondansetron HCl (Zofran) 4 mg Q6H PRN IVP Nausea & Vomiting 05/03/19 12:00 05/31/19 17:59 Pantoprazole (Protonix) 40 mg EVERY 12 HOURS ORAL 05/03/19 21:00 05/31/19 13:44 05/06/19 20:26 Piperacillin Sod/ Tazobactam Sod 3.375 gm/Sodium Chloride 110 ml @ 27.5 mls/hr EVERY 8 HOURS IVPB 05/03/19 14:00 05/08/19 19:59 05/07/19 05:43 Vancomycin HCl (Vanco rx to dose) 1 ea DAILY PRN MISC Per rx protocol 05/04/19 09:00 06/01/19 16:59 Zolpidem Tartrate (Ambien) 5 mg HSPRN PRN ORAL Insomnia 05/03/19 21:00 05/08/19 20:59 05/06/19 20:30 Serena Gordon MD May 07, 2019 11:49
[2019-05-07 12:00] VITALS: BP 166/79
[2019-05-07] MEDS: HydrALAZINE 25mg tab ORAL PRN (12:15)
--- NOTE | 2019-05-07 12:57 | Infectious Diseases Prog Note ---
Assessment/Plan Assessment/Plan Assessment: R LE wound- severe necrotizing infection, gangrene, OM -05/02 SP emergency right lower extremity amputation bka --OR findings: Acutely infected necrotic gangrenous with subcutaneous gas and soft tissues of the right lower extremity --cx: ?done -Tibia/fibula MRI: Large ulcer with large amount of subcutaneous gas in the soft tissues of the posterior distal leg. Chronic deformity of the calcaneus with abnormal bone marrow signal suggesting osteomyelitis. Markedly abnormal bone marrow signal of the distal tibia including the tibial diaphysis spanning up at least 10 cm cranial to the ankle joint highly concerning for infection/ osteomyelitis. This is on a background of diffuse marrow signal heterogeneity which may be related to patient's known history of sickle cell disease. -Xray tibia/fibula: Soft tissue gas and edema in the foot and ankle are concerning for infection. No definite acute osseous abnormality. Osteopenia. -R foot/ankle xray: Soft tissue gas and edema in the foot and ankle are concerning for infection. Extensive soft tissue gas limits evaluation of fine bony detail. Deformity of the calcaneus is nonspecific and may be related to osteomyelitis or trauma. MRI with and without intravenous contrast may be considered for further characterization. -ESR 95, CRP 7.1 Afebrile Leukocytosis; increased Dm1 HTN sickle cell anemia R hip replacement Plan: -Continue empiric IV Vancomcyin and ZOsyn #7/7 -f/u cx -Monitor CBC/CMP, temperatures -f/u BCx x2 -Sx f/u -wound care per surgical team -aspiration precautions -Cdiff, CXR Thank you for this consultation. Will continue to follow along with you. Discussed with RN. Subjective Allergies: Coded Allergies: No Known Allergies (Unverified , 05/01/19) Subjective afebrile wbc increased Bcx Neg Objective Vital Signs Last 24 Hour Vital Signs Date Time Temp Pulse Resp B/P (MAP) Pulse Ox O2 Delivery O2 Flow Rate FiO2 05/07/19 12:15 166/79 05/07/19 12:07 98.0 05/07/19 12:00 98.4 63 21 166/79 (108) 99 05/07/19 09:02 98.0 05/07/19 09:00 Room Air 05/07/19 08:00 97.9 66 18 171/79 (109) 99 8/14/19 04:00 98.0 66 18 165/75 (105) 100 05/07/19 00:00 98.2 62 18 144/78 (100) 98 05/06/19 21:00 Room Air 05/06/19 20:00 97.9 66 17 157/75 (102) 99 05/06/19 16:00 98.1 65 20 166/80 (108) 100 Height (Feet): 4 Height (Inches): 9.00 Weight (Pounds): 117 Objective General appearance: alert, cooperative, no distress, appears stated age Head: Normocephalic, without obvious abnormality, atraumatic Eyes: conjunctivae/corneas clear. PERRL, EOM's intact. Fundi benign Throat: Lips, mucosa, and tongue normal. Teeth and gums normal Neck: supple, symmetrical, trachea midline, no adenopathy, thyroid: not enlarged, symmetric, no tenderness/mass/nodules, no carotid bruit and no JVD Lungs: clear to auscultation bilaterally Heart: regular rate and rhythm, S1, S2 normal, no murmur, click, rub or gallop Abdomen: soft, non-tender. Bowel sounds normal. No masses, no organomegaly Extremities: s/p R BKA, dressings in place Pulses: 2+ and symmetric Skin: Skin color, texture, turgor normal. No rashes or lesions Neurologic: Grossly normal Laboratory Tests Test 05/07/19 05:20 White Blood Count 14.2 K/UL (4.8-10.8) H Red Blood Count 3.13 M/UL (4.20-5.40) L Hemoglobin 8.6 G/DL (12.0-16.0) L Hematocrit 27.6 % (37.0-47.0) L Mean Corpuscular Volume 88 FL (80-99) Mean Corpuscular Hemoglobin 27.4 PG (27.0-31.0) Mean Corpuscular Hemoglobin Concent 31.2 G/DL (32.0-36.0) L Red Cell Distribution Width 17.7 % (11.6-14.8) H Platelet Count 292 K/UL (150-450) Mean Platelet Volume 7.6 FL (6.5-10.1) Neutrophils (%) (Auto) 54.2 % (45.0-75.0) Lymphocytes (%) (Auto) 35.1 % (20.0-45.0) Monocytes (%) (Auto) 6.1 % (1.0-10.0) Eosinophils (%) (Auto) 3.5 % (0.0-3.0) H Basophils (%) (Auto) 1.1 % (0.0-2.0) Sodium Level 139 MMOL/L (136-145) Potassium Level 3.9 MMOL/L (3.5-5.1) Chloride Level 111 MMOL/L (98-107) H Carbon Dioxide Level 18 MMOL/L (21-32) L Anion Gap 10 mmol/L (5-15) Blood Urea Nitrogen 12 mg/dL (7-18) Creatinine 1.8 MG/DL (0.55-1.30) H Estimat Glomerular Filtration Rate 37.6 mL/min (>60) Glucose Level 116 MG/DL (74-106) H Uric Acid 3.8 MG/DL (2.6-7.2) Calcium Level 6.9 MG/DL (8.5-10.1) L Phosphorus Level 3.0 MG/DL (2.5-4.9) Magnesium Level 1.7 MG/DL (1.8-2.4) L Total Bilirubin 0.4 MG/DL (0.2-1.0) Aspartate Amino Transf (AST/SGOT) 57 U/L (15-37) H Alanine Aminotransferase (ALT/SGPT) 34 U/L (12-78) Alkaline Phosphatase 324 U/L (46-116) H C-Reactive Protein, Quantitative 0.8 mg/dL (0.00-0.90) Pro-B-Type Natriuretic Peptide 2955 pg/mL (0-125) H Total Protein 6.5 G/DL (6.4-8.2) Albumin 1.8 G/DL (3.4-5.0) L Globulin 4.7 g/dL Albumin/Globulin Ratio 0.4 (1.0-2.7) L Current Medications Medications (Trade) Dose Ordered Sig/Trey Route PRN Reason Start Time Stop Time Status Last Admin Dose Admin Acetaminophen (Tylenol) 650 mg Q4H PRN ORAL Mild Pain/Temp > 100.5 05/03/19 11:05 06/02/19 11:04 Acetaminophen/ Hydrocodone Bitart ([place] 10/325) 1 tab Q4H PRN ORAL Moderate Pain (Pain Scale 4-6) 05/03/19 11:06 05/10/19 11:05 05/04/19 12:07 Amlodipine Besylate (Norvasc) 10 mg DAILY ORAL 05/08/19 09:00 06/07/19 08:59 Ammonium Lactate (Lac Hydrin) 1 applic TWICE A DAY TOPIC 05/03/19 18:00 06/01/19 11:29 05/07/19 09:00 Clonidine HCl (Catapres Tab) 0.1 mg Q12H PRN ORAL For High Blood Pressure 05/07/19 08:30 06/06/19 08:29 Dextrose (Dextrose 50%) 25 ml Q30M PRN IV Hypoglycemia 05/07/19 06:45 06/06/19 06:44 Dextrose (Dextrose 50%) 50 ml Q30M PRN IV Hypoglycemia 05/07/19 06:45 06/06/19 06:44 Diphenhydramine HCl (Benadryl) 25 mg Q6H PRN IVP Itching 05/03/19 11:05 06/02/19 11:04 05/07/19 00:19 Docusate Sodium (Colace) 100 mg THREE TIMES A DAY ORAL 05/03/19 13:00 05/31/19 17:59 05/06/19 12:17 Epoetin Matt (Epoetin Matt-EPBX(NON ESRD)) 4,000 unit SUN-SUN-SUN SUBQ 05/05/19 21:00 06/01/19 20:59 05/05/19 21:14 Hydralazine HCl (Apresoline) 25 mg Q6H PRN ORAL For High Blood Pressure 05/07/19 08:30 06/06/19 08:29 05/07/19 12:15 Hydromorphone HCl (Dilaudid) 0.5 mg Q2H PRN IVP Severe Breakthru Pain (>7) 05/03/19 11:06 05/10/19 11:05 05/07/19 08:32 Insulin Aspart (NovoLOG) BEFORE MEALS AND HS SUBQ 05/07/19 11:30 06/06/19 11:29 Insulin Detemir (Levemir) 3 units DAILY SUBQ 05/07/19 09:00 06/06/19 08:59 05/07/19 09:52 Morphine Sulfate (Morphine Sulfate) 2 mg Q6H PRN IVP Severe Pain (Pain Scale 7-10) 05/03/19 11:06 05/10/19 11:05 05/07/19 11:37 Ondansetron HCl (Zofran) 4 mg Q6H PRN IVP Nausea & Vomiting 05/03/19 12:00 05/31/19 17:59 Pantoprazole (Protonix) 40 mg EVERY 12 HOURS ORAL 05/03/19 21:00 05/31/19 13:44 05/06/19 20:26 Piperacillin Sod/ Tazobactam Sod 3.375 gm/Sodium Chloride 110 ml @ 27.5 mls/hr EVERY 8 HOURS IVPB 05/03/19 14:00 05/08/19 19:59 05/07/19 05:43 Vancomycin HCl (Vanco rx to dose) 1 ea DAILY PRN MISC Per rx protocol 05/04/19 09:00 06/01/19 16:59 Zolpidem Tartrate (Ambien) 5 mg HSPRN PRN ORAL Insomnia 05/03/19 21:00 05/08/19 20:59 05/06/19 20:30 Radha Gill M.D. May 07, 2019 12:57
--- NOTE | 2019-05-07 13:18 | Nephrology Progress Note ---
Assessment/Plan Problem List: (1) Diabetic nephropathy (2) Renal failure (ARF), acute on chronic (3) Anemia (4) Ischemia of right lower extremity (5) Right foot ulcer (6) Infection of right foot Assessment Renal Failure , likely diabetic nephropathy IDDM Anemia, h/o SS disease right foot appears gangerenous Plan DC IV fluid Anemia management BS check gastric support per consultants post amputation care ( 05/02/19 amputation) Subjective ROS Limited/Unobtainable: No Objective Objective Last 24 Hour Vital Signs Date Time Temp Pulse Resp B/P (MAP) Pulse Ox O2 Delivery O2 Flow Rate FiO2 05/07/19 12:15 166/79 05/07/19 12:07 98.0 05/07/19 12:00 98.4 63 21 166/79 (108) 99 05/07/19 09:02 98.0 05/07/19 09:00 Room Air 05/07/19 08:00 97.9 66 18 171/79 (109) 99 05/07/19 04:00 98.0 66 18 165/75 (105) 100 05/07/19 00:00 98.2 62 18 144/78 (100) 98 05/06/19 21:00 Room Air 05/06/19 20:00 97.9 66 17 157/75 (102) 99 05/06/19 16:00 98.1 65 20 166/80 (108) 100 Intake and Output 05/06/19 05/07/19 19:00 07:00 Intake Total 300 ml 137.5 ml Balance 300 ml 137.5 ml Intake Oral 300 ml IV Total 137.5 ml # Voids 3 2 # Bowel Movements 3 Laboratory Tests 05/07/19 05:20: White Blood Count 14.2H, Red Blood Count 3.13L, Hemoglobin 8.6L, Hematocrit 27.6L, Mean Corpuscular Volume 88, Mean Corpuscular Hemoglobin 27.4, Mean Corpuscular Hemoglobin Concent 31.2L, Red Cell Distribution Width 17.7H, Platelet Count 292, Mean Platelet Volume 7.6, Neutrophils (%) (Auto) 54.2, Lymphocytes (%) (Auto) 35.1, Monocytes (%) (Auto) 6.1, Eosinophils (%) (Auto) 3.5H, Basophils (%) (Auto) 1.1, Sodium Level 139, Potassium Level 3.9, Chloride Level 111H, Carbon Dioxide Level 18L, Anion Gap 10, Blood Urea Nitrogen 12, Creatinine 1.8H, Estimat Glomerular Filtration Rate 37.6, Glucose Level 116H, Uric Acid 3.8, Calcium Level 6.9L, Phosphorus Level 3.0, Magnesium Level 1.7L, Total Bilirubin 0.4, Aspartate Amino Transf (AST/SGOT) 57H, Alanine Aminotransferase (ALT/SGPT) 34, Alkaline Phosphatase 324H, C-Reactive Protein, Quantitative 0.8, Pro-B-Type Natriuretic Peptide 2955H, Total Protein 6.5, Albumin 1.8L, Globulin 4.7, Albumin/Globulin Ratio 0.4L Height (Feet): 4 Height (Inches): 9.00 Weight (Pounds): 117 General Appearance: no apparent distress Cardiovascular: normal rate Respiratory/Chest: lungs clear Abdomen: soft Objective no change Elfego Vázquez MD May 07, 2019 13:18
--- NOTE | 2019-05-07 13:29 | Hematology/Onc Progress Note ---
Assessment/Plan Assessment/Plan Assessment and Recs: # Sickle cell disease - hgb baseline 5-6 range, per patient she does not want blood transfusions --> refusing blood transfusions, per her the baseline is 5-6 range --> trend hgb 5.85-->4.8->8.9-->8.9-->9.5->9->8.6 --> anemia panel reviewed and c/w these labs values, ferritin is high --> not in hemolysis at this time --> electrophoresis as needed, not during stay at this time --> epo has been ordered 3 x a week --> iron stores are sufficient --> recommended transfusion can be life saving but patient declined # Leukocytosis/elevated white blood cell count, unspecified likely related to underlying stress reaction, smoking v from crisis, doing better s/o bka r --> have reviewed peripheral smear and bandemia/neutrophilia noted --> continue antibiotics if they have been started by ID team --> monitor for resolution --> trend wbc 25k-->23k->12k --> may need surg, refusing # HAYDEE can be dm related --> trend and establish baseline --> may be dehydrated --> cr 2-->1.5-->1.8 # Electrolyte abnml --> as per renal, Na+ trend and volume expansion # DM2 --> a1c goal <8 goal --> accuchecks qac and qhs # HTN, persistent --> bp goal <150, on clonidine and hydra prn The timing of this note does not necessarily reflect the time of the patient was seen. GREATLY APPRECIATE CONSULTATION. Subjective HEENT: Denies: no symptoms, eye pain, blurred vision, tearing, double vision, ear pain, ear discharge, nose pain, nose congestion, throat pain, throat swelling, mouth pain, mouth swelling, other Cardiovascular: Denies: no symptoms, chest pain, edema, irregular heart rate, lightheadedness, palpitations, syncope, other Respiratory: Denies: no symptoms, cough, shortness of breath, SOB with excertion, SOB at rest, sputum, wheezing, other Gastrointestinal/Abdominal: Denies: no symptoms, abdomen distended, abdominal pain, black stools, tarry stools, blood in stool, constipated, diarrhea, difficulty swallowing, nausea, poor appetite, poor fluid intake, rectal bleeding , vomiting, other Genitourinary: Denies: no symptoms, burning, discharge, frequency, flank pain, hematuria, incontinence, pain, urgency, other Neurologic/Psychiatric: Denies: no symptoms, anxiety, depressed, emotional problems, headache, numbness, paresthesia, pre-existing deficit, seizure, tingling, tremors, weakness, other Endocrine: Denies: no symptoms, excessive sweating, flushing, intolerance to cold, intolerance to heat, increased hunger, increased thirst, increased urine, unexplained weight gain, unexplained weight loss, other Allergies: Coded Allergies: No Known Allergies (Unverified , 05/01/19) Subjective 05/02: on epogen, hgb lower 4.8, initially refused transfusion, now accepting, shiva rn, refusing sx 05/04: is pod 2 and doing better, still in pain this am 05/05: no bleeding noted, no chills, no night sweats, no f/c 05/06: no bleeding, no chills, appears to be in pain on subj, but when not interviewed asymptomatic 05/07: still with some foot pain, remains on abx, no f/c Objective Objective Current Medications Medications (Trade) Dose Ordered Sig/Trey Route PRN Reason Start Time Stop Time Status Last Admin Dose Admin Acetaminophen (Tylenol) 650 mg Q4H PRN ORAL Mild Pain/Temp > 100.5 05/03/19 11:05 06/02/19 11:04 Acetaminophen/ Hydrocodone Bitart ([place] 10/325) 1 tab Q4H PRN ORAL Moderate Pain (Pain Scale 4-6) 05/03/19 11:06 05/10/19 11:05 05/04/19 12:07 Amlodipine Besylate (Norvasc) 10 mg DAILY ORAL 05/08/19 09:00 06/07/19 08:59 Ammonium Lactate (Lac Hydrin) 1 applic TWICE A DAY TOPIC 05/03/19 18:00 06/01/19 11:29 05/07/19 09:00 Clonidine HCl (Catapres Tab) 0.1 mg Q12H PRN ORAL For High Blood Pressure 05/07/19 08:30 06/06/19 08:29 Dextrose (Dextrose 50%) 25 ml Q30M PRN IV Hypoglycemia 05/07/19 06:45 06/06/19 06:44 Dextrose (Dextrose 50%) 50 ml Q30M PRN IV Hypoglycemia 05/07/19 06:45 06/06/19 06:44 Diphenhydramine HCl (Benadryl) 25 mg Q6H PRN IVP Itching 05/03/19 11:05 06/02/19 11:04 05/07/19 00:19 Docusate Sodium (Colace) 100 mg THREE TIMES A DAY ORAL 05/03/19 13:00 05/31/19 17:59 05/06/19 12:17 Epoetin Matt (Epoetin Matt-EPBX(NON ESRD)) 4,000 unit SUN-SUN-SUN SUBQ 05/05/19 21:00 06/01/19 20:59 05/05/19 21:14 Hydralazine HCl (Apresoline) 25 mg Q6H PRN ORAL For High Blood Pressure 05/07/19 08:30 06/06/19 08:29 05/07/19 12:15 Hydromorphone HCl (Dilaudid) 0.5 mg Q2H PRN IVP Severe Breakthru Pain (>7) 05/03/19 11:06 05/10/19 11:05 05/07/19 08:32 Insulin Aspart (NovoLOG) BEFORE MEALS AND HS SUBQ 05/07/19 11:30 06/06/19 11:29 Insulin Detemir (Levemir) 3 units DAILY SUBQ 05/07/19 09:00 06/06/19 08:59 05/07/19 09:52 Morphine Sulfate (Morphine Sulfate) 2 mg Q6H PRN IVP Severe Pain (Pain Scale 7-10) 05/03/19 11:06 05/10/19 11:05 05/07/19 11:37 Ondansetron HCl (Zofran) 4 mg Q6H PRN IVP Nausea & Vomiting 05/03/19 12:00 05/31/19 17:59 Pantoprazole (Protonix) 40 mg EVERY 12 HOURS ORAL 05/03/19 21:00 05/31/19 13:44 05/06/19 20:26 Piperacillin Sod/ Tazobactam Sod 3.375 gm/Sodium Chloride 110 ml @ 27.5 mls/hr EVERY 8 HOURS IVPB 05/03/19 14:00 05/08/19 19:59 05/07/19 05:43 Vancomycin HCl (Vanco rx to dose) 1 ea DAILY PRN MISC Per rx protocol 05/04/19 09:00 06/01/19 16:59 Zolpidem Tartrate (Ambien) 5 mg HSPRN PRN ORAL Insomnia 05/03/19 21:00 05/08/19 20:59 05/06/19 20:30 Last 24 Hour Vital Signs Date Time Temp Pulse Resp B/P (MAP) Pulse Ox O2 Delivery O2 Flow Rate FiO2 05/07/19 12:15 166/79 05/07/19 12:07 98.0 05/07/19 12:00 98.4 63 21 166/79 (108) 99 05/07/19 09:02 98.0 05/07/19 09:00 Room Air 05/07/19 08:00 97.9 66 18 171/79 (109) 99 05/07/19 04:00 98.0 66 18 165/75 (105) 100 05/07/19 00:00 98.2 62 18 144/78 (100) 98 05/06/19 21:00 Room Air 05/06/19 20:00 97.9 66 17 157/75 (102) 99 05/06/19 16:00 98.1 65 20 166/80 (108) 100 05/06/19 12:00 98.8 68 18 134/73 (93) 100 05/06/19 09:00 Room Air 05/06/19 08:00 98.6 65 18 130/68 (88) 100 05/06/19 04:00 98.2 64 18 155/79 (104) 100 05/06/19 00:00 97.6 62 18 151/71 (97) 100 05/05/19 21:00 Room Air 05/05/19 20:00 97.6 66 18 134/68 (90) 95 05/05/19 16:00 98.3 65 20 155/73 (100) 100 Intake and Output 05/06/19 05/07/19 19:00 07:00 Intake Total 300 ml 137.5 ml Balance 300 ml 137.5 ml Intake Oral 300 ml IV Total 137.5 ml # Voids 3 2 # Bowel Movements 3 Labs Test 05/04/19 18:30 05/05/19 05:05 05/06/19 05:25 05/07/19 05:20 Random Vancomycin Level 19.6 ug/mL 17.3 ug/mL White Blood Count 12.1 K/UL (4.8-10.8) 12.5 K/UL (4.8-10.8) 14.2 K/UL (4.8-10.8) Red Blood Count 3.47 M/UL (4.20-5.40) 3.28 M/UL (4.20-5.40) 3.13 M/UL (4.20-5.40) Hemoglobin 9.5 G/DL (12.0-16.0) 9.0 G/DL (12.0-16.0) 8.6 G/DL (12.0-16.0) Hematocrit 30.5 % (37.0-47.0) 28.9 % (37.0-47.0) 27.6 % (37.0-47.0) Mean Corpuscular Volume 88 FL (80-99) 88 FL (80-99) 88 FL (80-99) Mean Corpuscular Hemoglobin 27.3 PG (27.0-31.0) 27.5 PG (27.0-31.0) 27.4 PG (27.0-31.0) Mean Corpuscular Hemoglobin Concent 31.1 G/DL (32.0-36.0) 31.2 G/DL (32.0-36.0) 31.2 G/DL (32.0-36.0) Red Cell Distribution Width 17.7 % (11.6-14.8) 17.9 % (11.6-14.8) 17.7 % (11.6-14.8) Platelet Count 341 K/UL (150-450) 322 K/UL (150-450) 292 K/UL (150-450) Mean Platelet Volume 7.1 FL (6.5-10.1) 7.5 FL (6.5-10.1) 7.6 FL (6.5-10.1) Neutrophils (%) (Auto) 69.0 % (45.0-75.0) 53.0 % (45.0-75.0) 54.2 % (45.0-75.0) Lymphocytes (%) (Auto) 22.3 % (20.0-45.0) 36.5 % (20.0-45.0) 35.1 % (20.0-45.0) Monocytes (%) (Auto) 4.3 % (1.0-10.0) 6.5 % (1.0-10.0) 6.1 % (1.0-10.0) Eosinophils (%) (Auto) 2.7 % (0.0-3.0) 3.2 % (0.0-3.0) 3.5 % (0.0-3.0) Basophils (%) (Auto) 1.7 % (0.0-2.0) 0.7 % (0.0-2.0) 1.1 % (0.0-2.0) Sodium Level 138 MMOL/L (136-145) 140 MMOL/L (136-145) 139 MMOL/L (136-145) Potassium Level 4.1 MMOL/L (3.5-5.1) 3.9 MMOL/L (3.5-5.1) 3.9 MMOL/L (3.5-5.1) Chloride Level 109 MMOL/L (98-107) 111 MMOL/L (98-107) 111 MMOL/L (98-107) Carbon Dioxide Level 19 MMOL/L (21-32) 19 MMOL/L (21-32) 18 MMOL/L (21-32) Anion Gap 10 mmol/L (5-15) 10 mmol/L (5-15) 10 mmol/L (5-15) Blood Urea Nitrogen 13 mg/dL (7-18) 12 mg/dL (7-18) 12 mg/dL (7-18) Creatinine 1.8 MG/DL (0.55-1.30) 1.8 MG/DL (0.55-1.30) 1.8 MG/DL (0.55-1.30) Estimat Glomerular Filtration Rate 37.6 mL/min (>60) 37.6 mL/min (>60) 37.6 mL/min (>60) Glucose Level 82 MG/DL (74-106) 80 MG/DL (74-106) 116 MG/DL (74-106) Calcium Level 7.0 MG/DL (8.5-10.1) 7.0 MG/DL (8.5-10.1) 6.9 MG/DL (8.5-10.1) Phosphorus Level 2.8 MG/DL (2.5-4.9) 3.0 MG/DL (2.5-4.9) Magnesium Level 1.5 MG/DL (1.8-2.4) 1.7 MG/DL (1.8-2.4) Total Bilirubin 0.6 MG/DL (0.2-1.0) 0.4 MG/DL (0.2-1.0) Direct Bilirubin 0.2 MG/DL (0.0-0.3) Aspartate Amino Transf (AST/SGOT) 22 U/L (15-37) 57 U/L (15-37) Alanine Aminotransferase (ALT/SGPT) 12 U/L (12-78) 34 U/L (12-78) Alkaline Phosphatase 153 U/L (46-116) 324 U/L (46-116) Total Protein 7.2 G/DL (6.4-8.2) 6.5 G/DL (6.4-8.2) Albumin 1.9 G/DL (3.4-5.0) 1.8 G/DL (3.4-5.0) Uric Acid 3.8 MG/DL (2.6-7.2) C-Reactive Protein, Quantitative 0.8 mg/dL (0.00-0.90) Pro-B-Type Natriuretic Peptide 2955 pg/mL (0-125) Globulin 4.7 g/dL Albumin/Globulin Ratio 0.4 (1.0-2.7) Height (Feet): 4 Height (Inches): 9.00 Weight (Pounds): 117 Objective Vitals: reviewed General Appearance: NAD HEENT: normocephalic, atraumatic Neck: non-tender, normal alignment Respiratory/Chest: normal breath sounds bilaterally Cardiovascular/Chest: normal peripheral pulses, normal rate Abdomen: normal bowel sounds, soft, nontender Extremities: normal range of motion, 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
--- NOTE | 2019-05-07 15:27 | Diagnostic Imaging Report ---
Indication: Cough Comparison: None A single view chest radiograph was obtained. Findings: Cardiomediastinal appearance is within normal limits for age. The lungs are clear. Pulmonary vascularity is appropriate. The diaphragmatic contour is smooth and costophrenic angles are sharp. No pleural effusions are identified. The bones are osteopenic. Impression: No acute findings
[2019-05-07 16:00] VITALS: BP 144/75
--- NOTE | 2019-05-07 17:30 | Consultation ---
DATE OF CONSULTATION: 05/07/2019 NEPHROLOGY CONSULTATION CONSULTING PHYSICIAN: Isaac Velázquez M.D. REFERRING PHYSICIAN: Dr. Marco Antonio Enriquez. REASON FOR CONSULTATION: Uncontrolled diabetes, hypoglycemia. HISTORY OF PRESENT ILLNESS: The patient is a 43-year-old female with past medical history of insulin-dependent diabetes and sickle cell anemia who presented to the hospital on 05/01/2019 with foul smelling drainage from the right lower extremity. The patient has been followed by a doctor at [facility] approximately 2 weeks ago, 2 weeks prior to the admission. The patient had a hypoglycemic reaction this morning. Therefore, Endocrinology was consulted. Diabetes was managed by sliding scale insulin. PAST MEDICAL HISTORY: 1. Diabetes, insulin dependent. 2. Hypertension. 3. Sickle cell anemia. 4. Right leg wound. PAST SURGICAL HISTORY: Right hip surgery. ALLERGIES TO MEDICATIONS: None. MEDICATIONS: Reviewed and reconciled. SOCIAL HISTORY: She smokes. No alcohol or drug use. FAMILY HISTORY: Noncontributory. REVIEW OF SYSTEMS: A-12 point system was performed and pertinent positives and negatives are mentioned in history of present illness. PHYSICAL EXAMINATION: GENERAL: Not in apparent distress. VITAL SIGNS: Stable. HEART: Regular. LUNGS: Clear. ABDOMEN: Positive bowel sound EXT: right BKA DIAGNOSES: 1. Uncontrolled diabetes. 2. Right BKA. 3. Sickle cell anemia. 4. Chronic kidney disease. PLAN: 1. Continue NovoLog sliding scale, medium to lower scale. 2. Start basal insulin Levemir at a very low dose 3 units daily. 3. Diabetic diet. 4. Further adjustment according to the blood glucose values. 5. Thank you, Dr. Enriquez. We will follow the patient with you during the hospital stay. Isaac Velázquez M.D. DR: EL JOB#: [id number] CC: TODD
[2019-05-07 20:00] VITALS: BP 157/84
[2019-05-07] MEDS: Epoetin Alfa-EPBX (NON ESRD)4000 units/ml vial SUBQ SCH (21:20)
[2019-05-08] VITALS (7 sets, daily range): BP systolic 152–171; BP diastolic 78–93
[2019-05-08] MEDS: HydrALAZINE 25mg tab ORAL PRN (00:15)
[2019-05-08] MEDS: Hydromorphone 0.5mg/0.5ml inj IVP PRN ×5 (00:15→21:05)
[2019-05-08] MEDS: Zolpidem 5mg tab ORAL PRN (01:36)
[2019-05-08] MEDS: DiphenhydrAMINE 50mg/ml Inj IVP PRN ×3 (03:25→17:59)
[2019-05-08] MEDS: Morphine Sulfate 2mg/ml Inj(IV/IM USE ONLY) IVP PRN ×2 (03:42→10:28)
[2019-05-08] MEDS: Piperacillin/Tazobactam 3.375 GM in NS 110 ML IVPB SCH ×3 (05:04→21:12)
[2019-05-08] MEDS: NovoLOG Insulin Flexpen SUBQ SCH ×4 (05:59→21:00)
[2019-05-08 06:03] LABS: BASOPHILS % (AUTO) 0.9 % (0.0-2.0); HEMATOCRIT 28.3 % (37.0-47.0); HEMOGLOBIN 8.9 G/DL (12.0-16.0); LYMPHOCYTES % (AUTO) 33.8 % (20.0-45.0); MEAN CORPUSCULAR VOLUME 88 FL (80-99); MONOCYTES % (AUTO) 5.5 % (1.0-10.0); NEUTROPHILS % (AUTO) 56.9 % (45.0-75.0); PLATELET COUNT 330 K/UL (150-450); RED BLOOD COUNT 3.23 M/UL (4.20-5.40); WHITE BLOOD COUNT 14.8 K/UL (4.8-10.8)
[2019-05-08 06:25] LABS: ANION GAP 10 mmol/L (5-15); BLOOD UREA NITROGEN 16 mg/dL (7-18); CALCIUM 7.2 MG/DL (8.5-10.1); CARBON DIOXIDE 19 MMOL/L (21-32); CHLORIDE 110 MMOL/L (98-107); CREATININE 1.8 MG/DL (0.55-1.30); POTASSIUM 4.1 MMOL/L (3.5-5.1); SODIUM 139 MMOL/L (136-145)
--- NOTE | 2019-05-08 06:37 | General Progress Note ---
Assessment/Plan Problem List: (1) Gas gangrene ICD Codes: A48.0 - Gas gangrene SNOMED: 73739826 (2) Diabetes ICD Codes: E11.9 - Type 2 diabetes mellitus without complications SNOMED: 52222586 (3) Infection of right foot ICD Codes: L08.9 - Local infection of the skin and subcutaneous tissue, unspecified SNOMED: 676348656 (4) Diabetic nephropathy ICD Codes: E11.21 - Type 2 diabetes mellitus with diabetic nephropathy SNOMED: 569951577 Assessment/Plan: increase Levemir to 5 units daily continue Novolog insulin sliding scale ac / hs Subjective Allergies: Coded Allergies: No Known Allergies (Unverified , 05/01/19) Subjective events noted she is resting no recurrence of hypoglycemia Item Value Date Time Bedside Blood Glucose 184 mg/dl H 05/08/19 0559 Bedside Blood Glucose 193 mg/dl H 05/07/19 2250 Bedside Blood Glucose 234 mg/dl H 05/07/19 1636 Bedside Blood Glucose 89 mg/dl 05/07/19 1130 Bedside Blood Glucose 138 mg/dl H 05/07/19 0952 Bedside Blood Glucose 138 mg/dl H 05/07/19 0617 Bedside Blood Glucose 132 mg/dl H 05/07/19 0125 Objective Last 24 Hour Vital Signs Date Time Temp Pulse Resp B/P (MAP) Pulse Ox O2 Delivery O2 Flow Rate FiO2 05/08/19 05:38 97.1 05/08/19 05:06 166/88 05/08/19 04:12 97.1 05/08/19 04:00 97.1 78 18 166/88 (114) 98 05/08/19 00:15 171/80 05/08/19 00:00 97.5 73 18 161/80 (107) 98 05/07/19 22:49 Room Air 05/07/19 20:00 98.2 69 18 157/84 (108) 97 05/07/19 16:00 98.2 69 18 144/75 (98) 97 05/07/19 12:15 166/79 05/07/19 12:00 98.4 63 21 166/79 (108) 99 05/07/19 09:00 Room Air 05/07/19 08:00 97.9 66 18 171/79 (109) 99 Intake and Output 05/07/19 05/08/19 18:59 06:59 Intake Total 960 ml 150 ml Balance 960 ml 150 ml Intake Oral 960 ml 150 ml # Voids 1 2 Laboratory Tests 05/08/19 05:30: White Blood Count 14.8H, Red Blood Count 3.23L, Hemoglobin 8.9L, Hematocrit 28.3L, Mean Corpuscular Volume 88, Mean Corpuscular Hemoglobin 27.5, Mean Corpuscular Hemoglobin Concent 31.4L, Red Cell Distribution Width 18.0H, Platelet Count 330, Mean Platelet Volume 7.7, Neutrophils (%) (Auto) 56.9, Lymphocytes (%) (Auto) 33.8, Monocytes (%) (Auto) 5.5, Eosinophils (%) (Auto) 3.0, Basophils (%) (Auto) 0.9, Sodium Level 139, Potassium Level 4.1, Chloride Level 110H, Carbon Dioxide Level 19L, Anion Gap 10, Blood Urea Nitrogen 16, Creatinine 1.8H, Estimat Glomerular Filtration Rate 37.6, Glucose Level 167H, Calcium Level 7.2L, Random Vancomycin Level 8.3 Height (Feet): 4 Height (Inches): 9.00 Weight (Pounds): 117 General Appearance: no apparent distress Neck: normal alignment Cardiovascular: normal rate Respiratory/Chest: lungs clear Abdomen: normal bowel sounds Objective Current Medications Medications (Trade) Dose Ordered Sig/Trey Route PRN Reason Start Time Stop Time Status Last Admin Dose Admin Acetaminophen (Tylenol) 650 mg Q4H PRN ORAL Mild Pain/Temp > 100.5 05/03/19 11:05 06/02/19 11:04 Acetaminophen/ Hydrocodone Bitart ([place] 10/325) 1 tab Q4H PRN ORAL Moderate Pain (Pain Scale 4-6) 05/03/19 11:06 05/10/19 11:05 05/04/19 12:07 Amlodipine Besylate (Norvasc) 10 mg DAILY ORAL 05/08/19 09:00 06/07/19 08:59 Ammonium Lactate (Lac Hydrin) 1 applic TWICE A DAY TOPIC 05/03/19 18:00 06/01/19 11:29 05/07/19 18:02 Clonidine HCl (Catapres Tab) 0.1 mg Q12H PRN ORAL For High Blood Pressure 05/07/19 08:30 06/06/19 08:29 05/08/19 05:06 Dextrose (Dextrose 50%) 25 ml Q30M PRN IV Hypoglycemia 05/07/19 06:45 06/06/19 06:44 Dextrose (Dextrose 50%) 50 ml Q30M PRN IV Hypoglycemia 05/07/19 06:45 06/06/19 06:44 Diphenhydramine HCl (Benadryl) 25 mg Q6H PRN IVP Itching 05/03/19 11:05 06/02/19 11:04 05/08/19 03:25 Docusate Sodium (Colace) 100 mg THREE TIMES A DAY ORAL 05/03/19 13:00 05/31/19 17:59 05/06/19 12:17 Epoetin Matt (Epoetin Matt-EPBX(NON ESRD)) 4,000 unit SUBQ 05/05/19 21:00 06/01/19 20:59 05/07/19 21:20 Hydralazine HCl (Apresoline) 25 mg Q6H PRN ORAL For High Blood Pressure 05/07/19 08:30 06/06/19 08:29 05/08/19 00:15 Hydromorphone HCl (Dilaudid) 0.5 mg Q2H PRN IVP Severe Breakthru Pain (>7) 05/03/19 11:06 05/10/19 11:05 05/08/19 05:08 Insulin Aspart (NovoLOG) BEFORE MEALS AND HS SUBQ 05/07/19 11:30 06/06/19 11:29 05/08/19 05:59 Insulin Detemir (Levemir) 3 units DAILY SUBQ 05/07/19 09:00 06/06/19 08:59 05/07/19 09:52 Morphine Sulfate (Morphine Sulfate) 2 mg Q6H PRN IVP Severe Pain (Pain Scale 7-10) 05/03/19 11:06 05/10/19 11:05 05/08/19 03:42 Ondansetron HCl (Zofran) 4 mg Q6H PRN IVP Nausea & Vomiting 05/03/19 12:00 05/31/19 17:59 Pantoprazole (Protonix) 40 mg EVERY 12 HOURS ORAL 05/03/19 21:00 05/31/19 13:44 05/07/19 20:03 Piperacillin Sod/ Tazobactam Sod 3.375 gm/Sodium Chloride 110 ml @ 27.5 mls/hr EVERY 8 HOURS IVPB 05/03/19 14:00 05/08/19 19:59 05/08/19 05:04 Vancomycin HCl (Vanco rx to dose) 1 ea DAILY PRN MISC Per rx protocol 05/04/19 09:00 06/01/19 16:59 Zolpidem Tartrate (Ambien) 5 mg HSPRN PRN ORAL Insomnia 05/03/19 21:00 05/08/19 20:59 05/08/19 01:36 Isaac Velázquez MD May 08, 2019 06:37
[2019-05-08] MEDS ORDERED: Vancomycin 500mg/D5W 110ml IVPB ONE ×2 (08:00)
[2019-05-08] MEDS: Docusate 100mg cap ORAL SCH (08:05)
[2019-05-08] MEDS: Lac Hydrin 12% Lotion 8oz TOPIC SCH ×2 (08:28→17:27)
[2019-05-08] MEDS: Levemir Flexpen SUBQ SCH (08:32)
--- NOTE | 2019-05-08 09:32 | General Progress Note ---
Assessment/Plan Assessment/Plan: (1) Right foot pain (2) Right foot ulcer (3) S/p Right LE BKA Patient will be continued on [place], Morphine and Dilaudid. D/w Dr. Marsh and he concurred. Subjective Date patient seen: May 08, 2019 Time patient seen: 08:30 - am Constitutional: Reports: no symptoms HEENT: Reports: no symptoms Cardiovascular: Reports: no symptoms Respiratory: Reports: no symptoms Gastrointestinal/Abdominal: Reports: nausea Genitourinary: Reports: no symptoms Neurologic/Psychiatric: Reports: no symptoms Endocrine: Reports: no symptoms Hematologic/Lymphatic: Reports: no symptoms Allergies: Coded Allergies: No Known Allergies (Unverified , 05/01/19) Subjective Patient is in bed reports that she continues to c/o pain which has been tolerated on the Dilaudid, Morphine and [place]. She is c/o nausea unable to tolerate PO medication. Objective Last 24 Hour Vital Signs Date Time Temp Pulse Resp B/P (MAP) Pulse Ox O2 Delivery O2 Flow Rate FiO2 05/08/19 08:36 97.1 05/08/19 08:00 99.2 88 15 171/93 (119) 98 05/08/19 05:06 166/88 05/08/19 04:12 97.1 05/08/19 04:00 97.1 78 18 166/88 (114) 98 05/08/19 00:15 171/80 05/08/19 00:00 97.5 73 18 161/80 (107) 98 05/07/19 22:49 Room Air 05/07/19 20:00 98.2 69 18 157/84 (108) 97 05/07/19 16:00 98.2 69 18 144/75 (98) 97 05/07/19 12:15 166/79 05/07/19 12:00 98.4 63 21 166/79 (108) 99 Intake and Output 05/07/19 05/08/19 19:00 07:00 Intake Total 960 ml 150 ml Balance 960 ml 150 ml Intake Oral 960 ml 150 ml # Voids 1 2 Laboratory Tests 05/08/19 05:30: White Blood Count 14.8H, Red Blood Count 3.23L, Hemoglobin 8.9L, Hematocrit 28.3L, Mean Corpuscular Volume 88, Mean Corpuscular Hemoglobin 27.5, Mean Corpuscular Hemoglobin Concent 31.4L, Red Cell Distribution Width 18.0H, Platelet Count 330, Mean Platelet Volume 7.7, Neutrophils (%) (Auto) 56.9, Lymphocytes (%) (Auto) 33.8, Monocytes (%) (Auto) 5.5, Eosinophils (%) (Auto) 3.0, Basophils (%) (Auto) 0.9, Sodium Level 139, Potassium Level 4.1, Chloride Level 110H, Carbon Dioxide Level 19L, Anion Gap 10, Blood Urea Nitrogen 16, Creatinine 1.8H, Estimat Glomerular Filtration Rate 37.6, Glucose Level 167H, Calcium Level 7.2L, Random Vancomycin Level 8.3 Height (Feet): 4 Height (Inches): 9.00 Weight (Pounds): 117 Objective General Appearance: no apparent distress, alert EENT: PERRL/EOMI, normal ENT inspection Neck: non-tender, normal alignment Cardiovascular: normal rate, regular rhythm Abdomen: non tender, soft Extremities: other - BKA noted Neurologic: abnormal gait, oriented x 3 Skin: normal pigmentation Navi Menchaca May 08, 2019 09:32
--- NOTE | 2019-05-08 10:09 | Cardiology Progress Note ---
Assessment/Plan Status: stable Assessment/Plan Assessment/Plan Status: stable Assessment/Plan: Assessment/Plan Problem List: Assessment: (1) Diabetes (2) Renal insufficiency (3) Anemia (4) Infection of right foot (5) Right foot ulcer (6) Ischemia of right lower extremity (7) Hypertension Recommendations/Plan: Echocardiogram re: elevated BNP Start norvasc 10 mg daily Continue to monitor Outpatient stress test when stable Subjective Cardiovascular: Reports: no symptoms Respiratory: Reports: no symptoms Gastrointestinal/Abdominal: Reports: no symptoms Genitourinary: Reports: no symptoms Subjective Coverage for Jaci Refused AM meds, had N/V, no distress, vitals stable Objective Last 24 Hour Vital Signs Date Time Temp Pulse Resp B/P (MAP) Pulse Ox O2 Delivery O2 Flow Rate FiO2 05/08/19 08:36 97.1 05/08/19 08:00 99.2 88 15 171/93 (119) 98 05/08/19 05:06 166/88 05/08/19 04:12 97.1 05/08/19 04:00 97.1 78 18 166/88 (114) 98 05/08/19 00:15 171/80 05/08/19 00:00 97.5 73 18 161/80 (107) 98 05/07/19 22:49 Room Air 05/07/19 20:00 98.2 69 18 157/84 (108) 97 05/07/19 16:00 98.2 69 18 144/75 (98) 97 05/07/19 12:15 166/79 05/07/19 12:00 98.4 63 21 166/79 (108) 99 General Appearance: no apparent distress, alert EENT: PERRL/EOMI, normal ENT inspection, TMs normal, pharynx normal Neck: non-tender, normal alignment, supple, normal inspection, no JVD Rhythm: NSR Cardiovascular: normal peripheral pulses, normal rate, regular rhythm Respiratory/Chest: chest wall non-tender, lungs clear, normal breath sounds, no respiratory distress, no accessory muscle use Abdomen: normal bowel sounds, non tender, soft, no organomegaly, no mass Extremities: normal range of motion, non-tender, normal inspection, no calf tenderness, no swelling Neurologic: pediatric assistant II-XII grossly normal, no motor/sensory deficits Intake and Output 05/07/19 05/08/19 19:00 07:00 Intake Total 960 ml 150 ml Balance 960 ml 150 ml Intake Oral 960 ml 150 ml # Voids 1 2 Laboratory Tests Test 05/08/19 05:30 White Blood Count 14.8 K/UL (4.8-10.8) H Red Blood Count 3.23 M/UL (4.20-5.40) L Hemoglobin 8.9 G/DL (12.0-16.0) L Hematocrit 28.3 % (37.0-47.0) L Mean Corpuscular Volume 88 FL (80-99) Mean Corpuscular Hemoglobin 27.5 PG (27.0-31.0) Mean Corpuscular Hemoglobin Concent 31.4 G/DL (32.0-36.0) L Red Cell Distribution Width 18.0 % (11.6-14.8) H Platelet Count 330 K/UL (150-450) Mean Platelet Volume 7.7 FL (6.5-10.1) Neutrophils (%) (Auto) 56.9 % (45.0-75.0) Lymphocytes (%) (Auto) 33.8 % (20.0-45.0) Monocytes (%) (Auto) 5.5 % (1.0-10.0) Eosinophils (%) (Auto) 3.0 % (0.0-3.0) Basophils (%) (Auto) 0.9 % (0.0-2.0) Sodium Level 139 MMOL/L (136-145) Potassium Level 4.1 MMOL/L (3.5-5.1) Chloride Level 110 MMOL/L (98-107) H Carbon Dioxide Level 19 MMOL/L (21-32) L Anion Gap 10 mmol/L (5-15) Blood Urea Nitrogen 16 mg/dL (7-18) Creatinine 1.8 MG/DL (0.55-1.30) H Estimat Glomerular Filtration Rate 37.6 mL/min (>60) Glucose Level 167 MG/DL (74-106) H Calcium Level 7.2 MG/DL (8.5-10.1) L Random Vancomycin Level 8.3 ug/mL Christopher Cole MD May 08, 2019 10:09
--- NOTE | 2019-05-08 11:24 | Infectious Diseases Prog Note ---
Assessment/Plan Assessment/Plan Assessment: R LE wound- severe necrotizing infection, gangrene, OM -05/02 SP emergency right lower extremity amputation bka --OR findings: Acutely infected necrotic gangrenous with subcutaneous gas and soft tissues of the right lower extremity --cx: ?done -Tibia/fibula MRI: Large ulcer with large amount of subcutaneous gas in the soft tissues of the posterior distal leg. Chronic deformity of the calcaneus with abnormal bone marrow signal suggesting osteomyelitis. Markedly abnormal bone marrow signal of the distal tibia including the tibial diaphysis spanning up at least 10 cm cranial to the ankle joint highly concerning for infection/ osteomyelitis. This is on a background of diffuse marrow signal heterogeneity which may be related to patient's known history of sickle cell disease. -Xray tibia/fibula: Soft tissue gas and edema in the foot and ankle are concerning for infection. No definite acute osseous abnormality. Osteopenia. -R foot/ankle xray: Soft tissue gas and edema in the foot and ankle are concerning for infection. Extensive soft tissue gas limits evaluation of fine bony detail. Deformity of the calcaneus is nonspecific and may be related to osteomyelitis or trauma. MRI with and without intravenous contrast may be considered for further characterization. -ESR 95, CRP 7.1 Afebrile Leukocytosis; increased- r/o Cdiff -05/07 CXR: No acute findings Dm1 HTN sickle cell anemia R hip replacement Plan: -D/c empiric IV Vancomcyin #7 -Continue empric ZOsyn #7/7-10 -f/u cx -Monitor CBC/CMP, temperatures -Sx f/u -wound care per surgical team -aspiration precautions -f/u Cdiff Thank you for this consultation. Will continue to follow along with you. Discussed with RN. Subjective Allergies: Coded Allergies: No Known Allergies (Unverified , 05/01/19) Subjective afebrile wbc persistent at 14 Objective Vital Signs Last 24 Hour Vital Signs Date Time Temp Pulse Resp B/P (MAP) Pulse Ox O2 Delivery O2 Flow Rate FiO2 05/08/19 09:00 88 171/93 05/08/19 09:00 Room Air 05/08/19 08:36 97.1 05/08/19 08:00 99.2 88 15 171/93 (119) 98 05/08/19 05:06 166/88 05/08/19 04:12 97.1 05/08/19 04:00 97.1 78 18 166/88 (114) 98 05/08/19 00:15 171/80 05/08/19 00:00 97.5 73 18 161/80 (107) 98 05/07/19 22:49 Room Air 05/07/19 20:00 98.2 69 18 157/84 (108) 97 05/07/19 16:00 98.2 69 18 144/75 (98) 97 05/07/19 12:15 166/79 05/07/19 12:00 98.4 63 21 166/79 (108) 99 Height (Feet): 4 Height (Inches): 9.00 Weight (Pounds): 117 Objective General appearance: alert, cooperative, no distress, appears stated age Head: Normocephalic, without obvious abnormality, atraumatic Eyes: conjunctivae/corneas clear. PERRL, EOM's intact. Fundi benign Throat: Lips, mucosa, and tongue normal. Teeth and gums normal Neck: supple, symmetrical, trachea midline, no adenopathy, thyroid: not enlarged, symmetric, no tenderness/mass/nodules, no carotid bruit and no JVD Lungs: clear to auscultation bilaterally Heart: regular rate and rhythm, S1, S2 normal, no murmur, click, rub or gallop Abdomen: soft, non-tender. Bowel sounds normal. No masses, no organomegaly Extremities: s/p R BKA, dressings in place Pulses: 2+ and symmetric Skin: Skin color, texture, turgor normal. No rashes or lesions Neurologic: Grossly normal Laboratory Tests Test 05/08/19 05:30 White Blood Count 14.8 K/UL (4.8-10.8) H Red Blood Count 3.23 M/UL (4.20-5.40) L Hemoglobin 8.9 G/DL (12.0-16.0) L Hematocrit 28.3 % (37.0-47.0) L Mean Corpuscular Volume 88 FL (80-99) Mean Corpuscular Hemoglobin 27.5 PG (27.0-31.0) Mean Corpuscular Hemoglobin Concent 31.4 G/DL (32.0-36.0) L Red Cell Distribution Width 18.0 % (11.6-14.8) H Platelet Count 330 K/UL (150-450) Mean Platelet Volume 7.7 FL (6.5-10.1) Neutrophils (%) (Auto) 56.9 % (45.0-75.0) Lymphocytes (%) (Auto) 33.8 % (20.0-45.0) Monocytes (%) (Auto) 5.5 % (1.0-10.0) Eosinophils (%) (Auto) 3.0 % (0.0-3.0) Basophils (%) (Auto) 0.9 % (0.0-2.0) Sodium Level 139 MMOL/L (136-145) Potassium Level 4.1 MMOL/L (3.5-5.1) Chloride Level 110 MMOL/L (98-107) H Carbon Dioxide Level 19 MMOL/L (21-32) L Anion Gap 10 mmol/L (5-15) Blood Urea Nitrogen 16 mg/dL (7-18) Creatinine 1.8 MG/DL (0.55-1.30) H Estimat Glomerular Filtration Rate 37.6 mL/min (>60) Glucose Level 167 MG/DL (74-106) H Calcium Level 7.2 MG/DL (8.5-10.1) L Random Vancomycin Level 8.3 ug/mL Current Medications Medications (Trade) Dose Ordered Sig/Trey Route PRN Reason Start Time Stop Time Status Last Admin Dose Admin Acetaminophen (Tylenol) 650 mg Q4H PRN ORAL Mild Pain/Temp > 100.5 05/03/19 11:05 06/02/19 11:04 Acetaminophen/ Hydrocodone Bitart ([place] 10/325) 1 tab Q4H PRN ORAL Moderate Pain (Pain Scale 4-6) 05/03/19 11:06 05/10/19 11:05 05/04/19 12:07 Amlodipine Besylate (Norvasc) 10 mg DAILY ORAL 05/08/19 09:00 06/07/19 08:59 Ammonium Lactate (Lac Hydrin) 1 applic TWICE A DAY TOPIC 05/03/19 18:00 06/01/19 11:29 05/08/19 08:28 Clonidine HCl (Catapres Tab) 0.1 mg Q12H PRN ORAL For High Blood Pressure 05/07/19 08:30 06/06/19 08:29 05/08/19 05:06 Dextrose (Dextrose 50%) 25 ml Q30M PRN IV Hypoglycemia 05/07/19 06:45 06/06/19 06:44 Dextrose (Dextrose 50%) 50 ml Q30M PRN IV Hypoglycemia 05/07/19 06:45 06/06/19 06:44 Diphenhydramine HCl (Benadryl) 25 mg Q6H PRN IVP Itching 05/03/19 11:05 06/02/19 11:04 05/08/19 03:25 Docusate Sodium (Colace) 100 mg THREE TIMES A DAY ORAL 05/03/19 13:00 05/31/19 17:59 05/06/19 12:17 Epoetin Matt (Epoetin Matt-EPBX(NON ESRD)) 4,000 unit SUN- SUBQ 05/05/19 21:00 06/01/19 20:59 05/07/19 21:20 Hydralazine HCl (Apresoline) 25 mg Q6H PRN ORAL For High Blood Pressure 05/07/19 08:30 06/06/19 08:29 05/08/19 00:15 Hydromorphone HCl (Dilaudid) 0.5 mg Q2H PRN IVP Severe Breakthru Pain (>7) 05/03/19 11:06 05/10/19 11:05 05/08/19 08:06 Insulin Aspart (NovoLOG) BEFORE MEALS AND HS SUBQ 05/07/19 11:30 06/06/19 11:29 05/08/19 05:59 Insulin Detemir (Levemir) 5 units DAILY SUBQ 05/08/19 09:00 06/06/19 08:59 05/08/19 08:32 Morphine Sulfate (Morphine Sulfate) 2 mg Q6H PRN IVP Severe Pain (Pain Scale 7-10) 05/03/19 11:06 05/10/19 11:05 05/08/19 10:28 Ondansetron HCl (Zofran) 4 mg Q6H PRN IVP Nausea & Vomiting 05/03/19 12:00 05/31/19 17:59 05/08/19 08:22 Pantoprazole (Protonix) 40 mg EVERY 12 HOURS ORAL 05/03/19 21:00 05/31/19 13:44 05/07/19 20:03 Piperacillin Sod/ Tazobactam Sod 3.375 gm/Sodium Chloride 110 ml @ 27.5 mls/hr EVERY 8 HOURS IVPB 05/03/19 14:00 05/08/19 19:59 05/08/19 05:04 Vancomycin HCl (Vanco rx to dose) 1 ea DAILY PRN MISC Per rx protocol 05/04/19 09:00 06/01/19 16:59 Zolpidem Tartrate (Ambien) 5 mg HSPRN PRN ORAL Insomnia 05/03/19 21:00 05/08/19 20:59 05/08/19 01:36 Radha Gill M.D. May 08, 2019 11:24
--- NOTE | 2019-05-08 11:30 | Nephrology Progress Note ---
Assessment/Plan Problem List: (1) Diabetic nephropathy (2) Renal failure (ARF), acute on chronic (3) Anemia (4) Ischemia of right lower extremity (5) Right foot ulcer (6) Infection of right foot Assessment Renal Failure , likely diabetic nephropathy IDDM Anemia, h/o SS disease right foot appears gangerenous Plan change PO meds to IV and per cutaneous NPO Slow IV fluid IV Reglan Anemia management BS check gastric support per consultants post amputation care ( 05/02/19 amputation) Subjective ROS Limited/Unobtainable: No Constitutional: Reports: weakness Objective Objective Last 24 Hour Vital Signs Date Time Temp Pulse Resp B/P (MAP) Pulse Ox O2 Delivery O2 Flow Rate FiO2 05/08/19 10:58 97.1 05/08/19 09:00 88 171/93 05/08/19 09:00 Room Air 05/08/19 08:36 97.1 05/08/19 08:00 99.2 88 15 171/93 (119) 98 05/08/19 05:06 166/88 05/08/19 04:00 97.1 78 18 166/88 (114) 98 05/08/19 00:15 171/80 05/08/19 00:00 97.5 73 18 161/80 (107) 98 05/07/19 22:49 Room Air 05/07/19 20:00 98.2 69 18 157/84 (108) 97 05/07/19 16:00 98.2 69 18 144/75 (98) 97 05/07/19 12:15 166/79 05/07/19 12:00 98.4 63 21 166/79 (108) 99 Intake and Output 05/07/19 05/08/19 19:00 07:00 Intake Total 960 ml 150 ml Balance 960 ml 150 ml Intake Oral 960 ml 150 ml # Voids 1 2 Laboratory Tests 05/08/19 05:30: White Blood Count 14.8H, Red Blood Count 3.23L, Hemoglobin 8.9L, Hematocrit 28.3L, Mean Corpuscular Volume 88, Mean Corpuscular Hemoglobin 27.5, Mean Corpuscular Hemoglobin Concent 31.4L, Red Cell Distribution Width 18.0H, Platelet Count 330, Mean Platelet Volume 7.7, Neutrophils (%) (Auto) 56.9, Lymphocytes (%) (Auto) 33.8, Monocytes (%) (Auto) 5.5, Eosinophils (%) (Auto) 3.0, Basophils (%) (Auto) 0.9, Sodium Level 139, Potassium Level 4.1, Chloride Level 110H, Carbon Dioxide Level 19L, Anion Gap 10, Blood Urea Nitrogen 16, Creatinine 1.8H, Estimat Glomerular Filtration Rate 37.6, Glucose Level 167H, Calcium Level 7.2L, Random Vancomycin Level 8.3 Height (Feet): 4 Height (Inches): 9.00 Weight (Pounds): 117 General Appearance: other - been vomiting since this am Cardiovascular: regular rhythm Abdomen: soft Objective no change Elfego Vázquez MD May 08, 2019 11:30
--- NOTE | 2019-05-08 11:53 | Pulmonology Progress Note ---
Assessment/Plan Problems: (1) Gas gangrene (2) Diabetic nephropathy (3) Renal insufficiency (4) Diabetes (5) Ischemia of right lower extremity Assessment/Plan s/p amputation sliding scale diabetic diet needs placement pt./ot pending Subjective ROS Limited/Unobtainable: No Constitutional: Reports: no symptoms HEENT: Repors: no symptoms Allergies: Coded Allergies: No Known Allergies (Unverified , 05/01/19) Objective Last 24 Hour Vital Signs Date Time Temp Pulse Resp B/P (MAP) Pulse Ox O2 Delivery O2 Flow Rate FiO2 05/08/19 10:58 97.1 05/08/19 09:00 88 171/93 05/08/19 09:00 Room Air 05/08/19 08:36 97.1 05/08/19 08:00 99.2 88 15 171/93 (119) 98 05/08/19 05:06 166/88 05/08/19 04:00 97.1 78 18 166/88 (114) 98 05/08/19 00:15 171/80 05/08/19 00:00 97.5 73 18 161/80 (107) 98 05/07/19 22:49 Room Air 05/07/19 20:00 98.2 69 18 157/84 (108) 97 05/07/19 16:00 98.2 69 18 144/75 (98) 97 05/07/19 12:15 166/79 05/07/19 12:00 98.4 63 21 166/79 (108) 99 Intake and Output 05/07/19 05/08/19 19:00 07:00 Intake Total 960 ml 150 ml Balance 960 ml 150 ml Intake Oral 960 ml 150 ml # Voids 1 2 General Appearance: WD/WN HEENT: normocephalic, atraumatic Respiratory/Chest: chest wall non-tender, lungs clear Cardiovascular: normal peripheral pulses, normal rate Abdomen: normal bowel sounds, soft, non tender Genitourinary: normal external genitalia Extremities: no cyanosis Laboratory Tests 05/08/19 05:30: White Blood Count 14.8H, Red Blood Count 3.23L, Hemoglobin 8.9L, Hematocrit 28.3L, Mean Corpuscular Volume 88, Mean Corpuscular Hemoglobin 27.5, Mean Corpuscular Hemoglobin Concent 31.4L, Red Cell Distribution Width 18.0H, Platelet Count 330, Mean Platelet Volume 7.7, Neutrophils (%) (Auto) 56.9, Lymphocytes (%) (Auto) 33.8, Monocytes (%) (Auto) 5.5, Eosinophils (%) (Auto) 3.0, Basophils (%) (Auto) 0.9, Sodium Level 139, Potassium Level 4.1, Chloride Level 110H, Carbon Dioxide Level 19L, Anion Gap 10, Blood Urea Nitrogen 16, Creatinine 1.8H, Estimat Glomerular Filtration Rate 37.6, Glucose Level 167H, Calcium Level 7.2L, Random Vancomycin Level 8.3 Current Medications Medications (Trade) Dose Ordered Sig/Trey Route PRN Reason Start Time Stop Time Status Last Admin Dose Admin Acetaminophen (Tylenol) 650 mg Q4H PRN ORAL Mild Pain/Temp > 100.5 05/03/19 11:05 06/02/19 11:04 Acetaminophen/ Hydrocodone Bitart ([place] 10/325) 1 tab Q4H PRN ORAL Moderate Pain (Pain Scale 4-6) 05/03/19 11:06 05/10/19 11:05 05/04/19 12:07 Amlodipine Besylate (Norvasc) 10 mg DAILY ORAL 05/08/19 09:00 06/07/19 08:59 Ammonium Lactate (Lac Hydrin) 1 applic TWICE A DAY TOPIC 05/03/19 18:00 06/01/19 11:29 05/08/19 08:28 Clonidine HCl (Catapres TTS-2) 1 patch QWEEK TDERMAL 05/08/19 13:00 06/07/19 12:59 Clonidine HCl (Catapres Tab) 0.1 mg Q4H PRN ORAL For High BP 160 syst 05/08/19 11:41 06/07/19 11:40 Dextrose (Dextrose 50%) 25 ml Q30M PRN IV Hypoglycemia 05/07/19 06:45 06/06/19 06:44 Dextrose (Dextrose 50%) 50 ml Q30M PRN IV Hypoglycemia 05/07/19 06:45 06/06/19 06:44 Dextrose/ Electrolytes 1,000 ml @ 50 mls/hr Q20H IV 05/08/19 12:00 06/07/19 11:59 Diphenhydramine HCl (Benadryl) 25 mg Q6H PRN IVP Itching 05/03/19 11:05 06/02/19 11:04 05/08/19 03:25 Epoetin Matt (Epoetin Matt-EPBX(NON ESRD)) 4,000 unit SUN-SUN-SUN SUBQ 05/05/19 21:00 06/01/19 20:59 05/07/19 21:20 Hydromorphone HCl (Dilaudid) 0.5 mg Q2H PRN IVP Severe Breakthru Pain (>7) 05/03/19 11:06 05/10/19 11:05 05/08/19 08:06 Hydromorphone HCl (Dilaudid) 1 mg Q4H PRN IVP For Pain 05/08/19 11:41 05/15/19 11:40 Insulin Aspart (NovoLOG) BEFORE MEALS AND HS SUBQ 05/07/19 11:30 06/06/19 11:29 05/08/19 05:59 Insulin Detemir (Levemir) 5 units DAILY SUBQ 05/08/19 09:00 06/06/19 08:59 05/08/19 08:32 Metoclopramide HCl (Reglan) 10 mg Q6HR IVP 05/08/19 12:00 06/07/19 11:59 Ondansetron HCl (Zofran) 4 mg Q6H PRN IVP Nausea & Vomiting 05/03/19 12:00 05/31/19 17:59 05/08/19 08:22 Pantoprazole (Protonix) 40 mg DAILY IVP 05/08/19 11:41 06/07/19 11:40 Piperacillin Sod/ Tazobactam Sod 3.375 gm/Sodium Chloride 110 ml @ 27.5 mls/hr EVERY 8 HOURS IVPB 05/03/19 14:00 05/08/19 19:59 05/08/19 05:04 Zolpidem Tartrate (Ambien) 5 mg HSPRN PRN ORAL Insomnia 05/03/19 21:00 05/08/19 20:59 05/08/19 01:36 Serena Gordon MD May 08, 2019 11:53
[2019-05-08] MEDS: Pantoprazole Inj IVP SCH (12:19)
[2019-05-08] MEDS: Metoclopramide 10mg/2ml Inj IVP SCH ×3 (12:19→23:43)
[2019-05-08] MEDS: D5 1/2NS w/KCL 10meq 1,000 ML IV SCH (12:23)
--- NOTE | 2019-05-08 14:24 | General Progress Note ---
Progress Note Progress Note leukocytosis nausea emesis. bka stump evaluated and c/d/i. flap taking and healing minimal edema exam stable unlikely etiology from surgery pending Tian Pino May 08, 2019 14:24
--- NOTE | 2019-05-08 14:44 | Hematology/Onc Progress Note ---
Assessment/Plan Assessment/Plan Assessment and Recs: # Sickle cell disease - hgb baseline 5-6 range, per patient she does not want blood transfusions --> refusing blood transfusions, per her the baseline is 5-6 range --> trend hgb 5.85-->4.8->8.9-->8.9-->9.5->9->8.6->8.9 --> anemia panel reviewed and c/w these labs values, ferritin is high --> not in hemolysis at this time --> electrophoresis as needed, not during stay at this time --> epo has been ordered 3 x a week --> iron stores are sufficient --> recommended transfusion can be life saving but patient declined # Leukocytosis/elevated white blood cell count, unspecified likely related to underlying stress reaction, smoking v from crisis, doing better s/o bka r --> have reviewed peripheral smear and bandemia/neutrophilia noted --> continue antibiotics if they have been started by ID team --> monitor for resolution --> trend wbc 25k-->23k->12k-->14.8 --> may need surg, refusing # HAYDEE can be dm related --> trend and establish baseline --> may be dehydrated --> cr 2-->1.5-->1.8->1.8 # Electrolyte abnml --> as per renal, Na+ trend and volume expansion # DM2 --> a1c goal <8 goal --> accuchecks qac and qhs # HTN, persistent --> bp goal <150, on clonidine and hydra prn The timing of this note does not necessarily reflect the time of the patient was seen. GREATLY APPRECIATE CONSULTATION. Subjective Cardiovascular: Denies: no symptoms, chest pain, edema, irregular heart rate, lightheadedness, palpitations, syncope, other Respiratory: Denies: no symptoms, cough, shortness of breath, SOB with excertion, SOB at rest, sputum, wheezing, other Gastrointestinal/Abdominal: Denies: no symptoms, abdomen distended, abdominal pain, black stools, tarry stools, blood in stool, constipated, diarrhea, difficulty swallowing, nausea, poor appetite, poor fluid intake, rectal bleeding , vomiting, other Genitourinary: Denies: no symptoms, burning, discharge, frequency, flank pain, hematuria, incontinence, pain, urgency, other Neurologic/Psychiatric: Denies: no symptoms, anxiety, depressed, emotional problems, headache, numbness, paresthesia, pre-existing deficit, seizure, tingling, tremors, weakness, other Endocrine: Denies: no symptoms, excessive sweating, flushing, intolerance to cold, intolerance to heat, increased hunger, increased thirst, increased urine, unexplained weight gain, unexplained weight loss, other Allergies: Coded Allergies: No Known Allergies (Unverified , 05/01/19) Subjective 05/02: on epogen, hgb lower 4.8, initially refused transfusion, now accepting, shiva rn, refusing sx 05/04: is pod 2 and doing better, still in pain this am 05/05: no bleeding noted, no chills, no night sweats, no f/c 05/06: no bleeding, no chills, appears to be in pain on subj, but when not interviewed asymptomatic 05/07: still with some foot pain, remains on abx, no f/c 05/08: no events noted, no bleeding, hgb 8.9, seen by consultants, with n/v today Objective Objective Current Medications Medications (Trade) Dose Ordered Sig/Trey Route PRN Reason Start Time Stop Time Status Last Admin Dose Admin Acetaminophen (Tylenol) 650 mg Q4H PRN ORAL Mild Pain/Temp > 100.5 05/03/19 11:05 06/02/19 11:04 Acetaminophen/ Hydrocodone Bitart ([place] 10/325) 1 tab Q4H PRN ORAL Moderate Pain (Pain Scale 4-6) 05/03/19 11:06 05/10/19 11:05 05/04/19 12:07 Amlodipine Besylate (Norvasc) 10 mg DAILY ORAL 05/08/19 09:00 06/07/19 08:59 Ammonium Lactate (Lac Hydrin) 1 applic TWICE A DAY TOPIC 05/03/19 18:00 06/01/19 11:29 05/08/19 08:28 Clonidine HCl (Catapres TTS-2) 1 patch QWEEK TDERMAL 05/08/19 13:00 06/07/19 12:59 05/08/19 13:13 Clonidine HCl (Catapres Tab) 0.1 mg Q4H PRN ORAL For High BP 160 syst 05/08/19 11:41 06/07/19 11:40 Dextrose (Dextrose 50%) 25 ml Q30M PRN IV Hypoglycemia 05/07/19 06:45 06/06/19 06:44 Dextrose (Dextrose 50%) 50 ml Q30M PRN IV Hypoglycemia 05/07/19 06:45 06/06/19 06:44 Dextrose/ Electrolytes 1,000 ml @ 50 mls/hr Q20H IV 05/08/19 12:00 06/07/19 11:59 05/08/19 12:23 Diphenhydramine HCl (Benadryl) 25 mg Q6H PRN IVP Itching 05/03/19 11:05 06/02/19 11:04 05/08/19 12:19 Epoetin Matt (Epoetin Matt-EPBX(NON ESRD)) 4,000 unit SUN-SUN-SUN SUBQ 05/05/19 21:00 06/01/19 20:59 05/07/19 21:20 Hydromorphone HCl (Dilaudid) 0.5 mg Q2H PRN IVP Severe Breakthru Pain (>7) 05/03/19 11:06 05/10/19 11:05 05/08/19 08:06 Hydromorphone HCl (Dilaudid) 1 mg Q4H PRN IVP For Pain 05/08/19 11:41 05/15/19 11:40 Insulin Aspart (NovoLOG) BEFORE MEALS AND HS SUBQ 05/07/19 11:30 06/06/19 11:29 05/08/19 12:20 Insulin Detemir (Levemir) 5 units DAILY SUBQ 05/08/19 09:00 06/06/19 08:59 05/08/19 08:32 Metoclopramide HCl (Reglan) 10 mg Q6HR IVP 05/08/19 12:00 06/07/19 11:59 05/08/19 12:19 Ondansetron HCl (Zofran) 4 mg Q6H PRN IVP Nausea & Vomiting 05/03/19 12:00 05/31/19 17:59 05/08/19 08:22 Pantoprazole (Protonix) 40 mg DAILY IVP 05/08/19 11:41 06/07/19 11:40 05/08/19 12:19 Piperacillin Sod/ Tazobactam Sod 3.375 gm/Sodium Chloride 110 ml @ 27.5 mls/hr EVERY 8 HOURS IVPB 05/03/19 14:00 05/08/19 19:59 05/08/19 13:35 Zolpidem Tartrate (Ambien) 5 mg HSPRN PRN ORAL Insomnia 05/03/19 21:00 05/08/19 20:59 05/08/19 01:36 Last 24 Hour Vital Signs Date Time Temp Pulse Resp B/P (MAP) Pulse Ox O2 Delivery O2 Flow Rate FiO2 05/08/19 13:13 153/81 05/08/19 12:00 98.7 80 16 153/81 (105) 98 05/08/19 10:58 97.1 05/08/19 09:00 88 171/93 05/08/19 09:00 Room Air 05/08/19 08:36 97.1 05/08/19 08:00 99.2 88 15 171/93 (119) 98 05/08/19 05:06 166/88 05/08/19 04:00 97.1 78 18 166/88 (114) 98 05/08/19 00:15 171/80 05/08/19 00:00 97.5 73 18 161/80 (107) 98 05/07/19 22:49 Room Air 05/07/19 20:00 98.2 69 18 157/84 (108) 97 05/07/19 16:00 98.2 69 18 144/75 (98) 97 05/07/19 12:15 166/79 05/07/19 12:00 98.4 63 21 166/79 (108) 99 05/07/19 09:00 Room Air 05/07/19 08:00 97.9 66 18 171/79 (109) 99 05/07/19 04:00 98.0 66 18 165/75 (105) 100 05/07/19 00:00 98.2 62 18 144/78 (100) 98 05/06/19 21:00 Room Air 05/06/19 20:00 97.9 66 17 157/75 (102) 99 05/06/19 16:00 98.1 65 20 166/80 (108) 100 Intake and Output 05/07/19 05/08/19 19:00 07:00 Intake Total 960 ml 150 ml Balance 960 ml 150 ml Intake Oral 960 ml 150 ml # Voids 1 2 Labs Test 05/06/19 05:25 05/07/19 05:20 05/08/19 05:30 White Blood Count 12.5 K/UL (4.8-10.8) 14.2 K/UL (4.8-10.8) 14.8 K/UL (4.8-10.8) Red Blood Count 3.28 M/UL (4.20-5.40) 3.13 M/UL (4.20-5.40) 3.23 M/UL (4.20-5.40) Hemoglobin 9.0 G/DL (12.0-16.0) 8.6 G/DL (12.0-16.0) 8.9 G/DL (12.0-16.0) Hematocrit 28.9 % (37.0-47.0) 27.6 % (37.0-47.0) 28.3 % (37.0-47.0) Mean Corpuscular Volume 88 FL (80-99) 88 FL (80-99) 88 FL (80-99) Mean Corpuscular Hemoglobin 27.5 PG (27.0-31.0) 27.4 PG (27.0-31.0) 27.5 PG (27.0-31.0) Mean Corpuscular Hemoglobin Concent 31.2 G/DL (32.0-36.0) 31.2 G/DL (32.0-36.0) 31.4 G/DL (32.0-36.0) Red Cell Distribution Width 17.9 % (11.6-14.8) 17.7 % (11.6-14.8) 18.0 % (11.6-14.8) Platelet Count 322 K/UL (150-450) 292 K/UL (150-450) 330 K/UL (150-450) Mean Platelet Volume 7.5 FL (6.5-10.1) 7.6 FL (6.5-10.1) 7.7 FL (6.5-10.1) Neutrophils (%) (Auto) 53.0 % (45.0-75.0) 54.2 % (45.0-75.0) 56.9 % (45.0-75.0) Lymphocytes (%) (Auto) 36.5 % (20.0-45.0) 35.1 % (20.0-45.0) 33.8 % (20.0-45.0) Monocytes (%) (Auto) 6.5 % (1.0-10.0) 6.1 % (1.0-10.0) 5.5 % (1.0-10.0) Eosinophils (%) (Auto) 3.2 % (0.0-3.0) 3.5 % (0.0-3.0) 3.0 % (0.0-3.0) Basophils (%) (Auto) 0.7 % (0.0-2.0) 1.1 % (0.0-2.0) 0.9 % (0.0-2.0) Sodium Level 140 MMOL/L (136-145) 139 MMOL/L (136-145) 139 MMOL/L (136-145) Potassium Level 3.9 MMOL/L (3.5-5.1) 3.9 MMOL/L (3.5-5.1) 4.1 MMOL/L (3.5-5.1) Chloride Level 111 MMOL/L (98-107) 111 MMOL/L (98-107) 110 MMOL/L (98-107) Carbon Dioxide Level 19 MMOL/L (21-32) 18 MMOL/L (21-32) 19 MMOL/L (21-32) Anion Gap 10 mmol/L (5-15) 10 mmol/L (5-15) 10 mmol/L (5-15) Blood Urea Nitrogen 12 mg/dL (7-18) 12 mg/dL (7-18) 16 mg/dL (7-18) Creatinine 1.8 MG/DL (0.55-1.30) 1.8 MG/DL (0.55-1.30) 1.8 MG/DL (0.55-1.30) Estimat Glomerular Filtration Rate 37.6 mL/min (>60) 37.6 mL/min (>60) 37.6 mL/min (>60) Glucose Level 80 MG/DL (74-106) 116 MG/DL (74-106) 167 MG/DL (74-106) Calcium Level 7.0 MG/DL (8.5-10.1) 6.9 MG/DL (8.5-10.1) 7.2 MG/DL (8.5-10.1) Random Vancomycin Level 17.3 ug/mL 8.3 ug/mL Uric Acid 3.8 MG/DL (2.6-7.2) Phosphorus Level 3.0 MG/DL (2.5-4.9) Magnesium Level 1.7 MG/DL (1.8-2.4) Total Bilirubin 0.4 MG/DL (0.2-1.0) Aspartate Amino Transf (AST/SGOT) 57 U/L (15-37) Alanine Aminotransferase (ALT/SGPT) 34 U/L (12-78) Alkaline Phosphatase 324 U/L (46-116) C-Reactive Protein, Quantitative 0.8 mg/dL (0.00-0.90) Pro-B-Type Natriuretic Peptide 2955 pg/mL (0-125) Total Protein 6.5 G/DL (6.4-8.2) Albumin 1.8 G/DL (3.4-5.0) Globulin 4.7 g/dL Albumin/Globulin Ratio 0.4 (1.0-2.7) Height (Feet): 4 Height (Inches): 9.00 Weight (Pounds): 117 Objective Vitals: reviewed General Appearance: NAD HEENT: normocephalic, atraumatic Neck: non-tender, normal alignment Respiratory/Chest: normal breath sounds bilaterally Cardiovascular/Chest: normal peripheral pulses, normal rate Abdomen: normal bowel sounds, soft, nontender Extremities: normal range of motion, is now s/p R BKA (05/02) Raphael Shrestha MD May 08, 2019 14:44
--- NOTE | 2019-05-08 16:54 | Diagnostic Imaging Report ---
Indication: Vomiting and pain Technique: Supine view of the abdomen Comparison: none Findings: Prominent gas is seen in nondilated colon and perhaps a few slightly prominent but not frankly dilated small bowel loops. Upper abdominal midline calcifications may indicate chronic calcifying pancreatitis. There is a right hip prosthesis. Impression: No definite acute process. Findings as noted
[2019-05-08] MEDS: HYDROmorphone 1mg/ml Carpuject IVP PRN (17:58)
--- NOTE | 2019-05-08 22:31 | General Progress Note ---
Assessment/Plan Problem List: (1) Right foot ulcer ICD Codes: L97.519 - Non-pressure chronic ulcer of other part of right foot with unspecified severity SNOMED: 60771090 (2) Renal failure (ARF), acute on chronic ICD Codes: N17.9 - Acute kidney failure, unspecified; N18.9 - Chronic kidney disease, unspecified SNOMED: 333469824 (3) Diabetic nephropathy ICD Codes: E11.21 - Type 2 diabetes mellitus with diabetic nephropathy SNOMED: 928151284 (4) Renal insufficiency ICD Codes: N28.9 - Disorder of kidney and ureter, unspecified SNOMED: 537861418, 294104168 (5) Anemia ICD Codes: D64.9 - Anemia, unspecified SNOMED: 538259251 (6) Diabetes ICD Codes: E11.9 - Type 2 diabetes mellitus without complications SNOMED: 00174514 (7) Infection of right foot ICD Codes: L08.9 - Local infection of the skin and subcutaneous tissue, unspecified SNOMED: 271218620 Status: stable, progressing Assessment/Plan: afebrile nac dm ischemia nephropathy reviewd chart and labs Subjective ROS Limited/Unobtainable: Yes HEENT: Reports: tearing Allergies: Coded Allergies: No Known Allergies (Unverified , 05/01/19) Objective Last 24 Hour Vital Signs Date Time Temp Pulse Resp B/P (MAP) Pulse Ox O2 Delivery O2 Flow Rate FiO2 05/08/19 21:35 98.1 05/08/19 21:00 Room Air 05/08/19 20:00 98.5 81 19 160/89 (112) 100 05/08/19 18:28 98.1 05/08/19 15:45 98.1 76 15 152/84 (106) 98 05/08/19 13:13 153/81 05/08/19 12:00 98.7 80 16 153/81 (105) 98 05/08/19 10:58 97.1 05/08/19 09:00 88 171/93 05/08/19 09:00 Room Air 05/08/19 08:00 99.2 88 15 171/93 (119) 98 05/08/19 05:06 166/88 05/08/19 04:00 97.1 78 18 166/88 (114) 98 8/15/19 00:15 171/80 05/08/19 00:00 97.5 73 18 161/80 (107) 98 05/07/19 22:49 Room Air Intake and Output 05/07/19 05/08/19 19:00 07:00 Intake Total 960 ml 177.5 ml Balance 960 ml 177.5 ml Intake Oral 960 ml 150 ml IV Total 27.5 ml # Voids 1 2 Laboratory Tests 05/08/19 05:30: White Blood Count 14.8H, Red Blood Count 3.23L, Hemoglobin 8.9L, Hematocrit 28.3L, Mean Corpuscular Volume 88, Mean Corpuscular Hemoglobin 27.5, Mean Corpuscular Hemoglobin Concent 31.4L, Red Cell Distribution Width 18.0H, Platelet Count 330, Mean Platelet Volume 7.7, Neutrophils (%) (Auto) 56.9, Lymphocytes (%) (Auto) 33.8, Monocytes (%) (Auto) 5.5, Eosinophils (%) (Auto) 3.0, Basophils (%) (Auto) 0.9, Sodium Level 139, Potassium Level 4.1, Chloride Level 110H, Carbon Dioxide Level 19L, Anion Gap 10, Blood Urea Nitrogen 16, Creatinine 1.8H, Estimat Glomerular Filtration Rate 37.6, Glucose Level 167H, Calcium Level 7.2L, Random Vancomycin Level 8.3 Height (Feet): 4 Height (Inches): 9.00 Weight (Pounds): 117 Neck: supple Cardiovascular: normal rate Respiratory/Chest: lungs clear Abdomen: soft Hiram Adams MD May 08, 2019 22:31
[2019-05-09] MEDS: DiphenhydrAMINE 50mg/ml Inj IVP PRN ×4 (00:01→21:56)
[2019-05-09] MEDS: HYDROmorphone 1mg/ml Carpuject IVP PRN ×5 (00:03→21:30)
[2019-05-09 04:00] VITALS: BP 137/67
[2019-05-09] MEDS: Piperacillin/Tazobactam 3.375 GM in NS 110 ML IVPB SCH ×3 (06:06→21:29)
[2019-05-09] MEDS: Metoclopramide 10mg/2ml Inj IVP SCH ×2 (06:06→12:49)
[2019-05-09] MEDS: NovoLOG Insulin Flexpen SUBQ SCH ×5 (06:13→21:32)
[2019-05-09 07:05] LABS: ALANINE AMINOTRANSFERASE 28 U/L (12-78); ALBUMIN 1.8 G/DL (3.4-5.0); ALBUMIN/GLOBULIN RATIO 0.4 (1.0-2.7); ALKALINE PHOSPHATASE 242 U/L (46-116); ANION GAP 8 mmol/L (5-15); ASPARTATE AMINO TRANSFERASE 45 U/L (15-37); BILIRUBIN,TOTAL 0.5 MG/DL (0.2-1.0); BLOOD UREA NITROGEN 15 mg/dL (7-18); CALCIUM 7.5 MG/DL (8.5-10.1); CARBON DIOXIDE 21 MMOL/L (21-32); CHLORIDE 111 MMOL/L (98-107); CREATININE 1.6 MG/DL (0.55-1.30); POTASSIUM 3.6 MMOL/L (3.5-5.1); SODIUM 140 MMOL/L (136-145)
[2019-05-09 07:13] LABS: HEMATOCRIT 23.3 % (37.0-47.0); HEMOGLOBIN 7.4 G/DL (12.0-16.0); MEAN CORPUSCULAR VOLUME 87 FL (80-99); PLATELET COUNT 279 K/UL (150-450); RED BLOOD COUNT 2.68 M/UL (4.20-5.40); RED CELL DISTRIBUTION WIDTH 17.7 % (11.6-14.8); WHITE BLOOD COUNT 12.3 K/UL (4.8-10.8)
[2019-05-09 07:26] LABS: PHOSPHORUS 2.9 MG/DL (2.5-4.9)
[2019-05-09 08:00] VITALS: BP 163/82
[2019-05-09] MEDS: D5 1/2NS w/KCL 10meq 1,000 ML IV SCH (09:46)
[2019-05-09] MEDS: Pantoprazole Inj IVP SCH (09:46)
--- NOTE | 2019-05-09 09:47 | General Progress Note ---
Assessment/Plan Assessment/Plan: (1) Right foot pain (2) Right foot ulcer (3) S/p Right LE BKA Patient will be continued on [place] and Dilaudid increased to 1mg IV Q4H PRN We will discontinue the Morphine. D/w Dr. Marsh and he concurred. Subjective Date patient seen: May 09, 2019 Time patient seen: 08:15 - am Allergies: Coded Allergies: No Known Allergies (Unverified , 05/01/19) Subjective Constitutional: Reports: no symptoms HEENT: Reports: no symptoms Cardiovascular: Reports: no symptoms Respiratory: Reports: no symptoms Gastrointestinal/Abdominal: Reports: nausea Genitourinary: Reports: no symptoms Neurologic/Psychiatric: Reports: no symptoms Endocrine: Reports: no symptoms Hematologic/Lymphatic: Reports: no symptoms Subjective Patient continues to c/o pain and is having minimal relief with the Morphine and Dilaudid at 0.5mg IV and is not taking the [place] due to Nausea. Objective Last 24 Hour Vital Signs Date Time Temp Pulse Resp B/P (MAP) Pulse Ox O2 Delivery O2 Flow Rate FiO2 05/09/19 08:00 97.7 75 16 163/82 (109) 96 05/09/19 04:26 98.2 05/09/19 04:00 98.4 65 18 137/67 (90) 100 05/08/19 23:47 98.2 66 18 165/78 (107) 100 05/08/19 23:43 165/78 05/08/19 21:35 98.1 05/08/19 21:00 Room Air 05/08/19 20:00 98.5 81 19 160/89 (112) 100 05/08/19 15:45 98.1 76 15 152/84 (106) 98 05/08/19 13:13 153/81 05/08/19 12:00 98.7 80 16 153/81 (105) 98 05/08/19 10:58 97.1 Intake and Output 05/08/19 05/09/19 18:59 06:59 Intake Total 492.5 ml 700.0 ml Balance 492.5 ml 700.0 ml IV Total 492.5 ml 700.0 ml # Voids 4 # Bowel Movements 3 Laboratory Tests 05/09/19 04:50: White Blood Count 12.3H, Red Blood Count 2.68L, Hemoglobin 7.4L, Hematocrit 23.3L, Mean Corpuscular Volume 87, Mean Corpuscular Hemoglobin 27.5, Mean Corpuscular Hemoglobin Concent 31.6L, Red Cell Distribution Width 17.7H, Platelet Count 279, Mean Platelet Volume 8.2, Neutrophils (%) (Auto) , Lymphocytes (%) (Auto) , Monocytes (%) (Auto) , Eosinophils (%) (Auto) , Basophils (%) (Auto) , Differential Total Cells Counted 100, Neutrophils % ( Manual) 64, Lymphocytes % (Manual) 28, Monocytes % (Manual) 4, Eosinophils % ( Manual) 4H, Basophils % (Manual) 0, Band Neutrophils 0, Platelet Estimate Adequate, Platelet Morphology Normal, Hypochromasia 2+, Anisocytosis 2+, Target Cells Occasional, Schistocytes Rare, Sodium Level 140, Potassium Level 3.6, Chloride Level 111H, Carbon Dioxide Level 21, Anion Gap 8, Blood Urea Nitrogen 15, Creatinine 1.6H, Estimat Glomerular Filtration Rate 43.0, Glucose Level 99, Uric Acid 3.5, Calcium Level 7.5L, Phosphorus Level 2.9, Magnesium Level 1.8, Total Bilirubin 0.5, Aspartate Amino Transf (AST/SGOT) 45H, Alanine Aminotransferase (ALT/SGPT) 28, Alkaline Phosphatase 242H, C-Reactive Protein, Quantitative 0.5, Pro-B-Type Natriuretic Peptide 4426H, Total Protein 6.5, Albumin 1.8L, Globulin 4.7, Albumin/Globulin Ratio 0.4L Height (Feet): 4 Height (Inches): 9.00 Weight (Pounds): 116 Objective General Appearance: no apparent distress, alert EENT: PERRL/EOMI, normal ENT inspection Neck: non-tender, normal alignment Cardiovascular: normal rate, regular rhythm Abdomen: non tender, soft Extremities: other - BKA noted Neurologic: abnormal gait, oriented x 3 Skin: normal pigmentation Navi Menchaca May 09, 2019 09:47
--- NOTE | 2019-05-09 09:48 | CDS Physician Query ---
Clarification is required for compliance, coding accuracy, and to reflect severity of illness for this patient Dear Dr. Enriquez Date: 05-09-19 CDS: Jess hWatley This patient presented with the following conditions: Diabetes-Throughout the chart diabetes type1 and diabetes type 2 are documented. Please specify type as: [] Type I or Juvenile [] Type II [] Poorly controlled [] Inadequately controlled [] Out of control Present on Admission: [ ] Yes [ ] No [] Clinically Undetermined Physician signature Date Please also document in your Progress Notes and/or Discharge Summary and indicate if the condition was present on admission. TODD
[2019-05-09] MEDS: Levemir Flexpen SUBQ SCH (09:53)
[2019-05-09 10:04] LABS: APPEARANCE,URINE CLEAR; BILIRUBIN, URINE NEGATIVE (NEGATIVE); COLOR,URINE PALE YELLOW; GLUCOSE, URINE (UA) NEGATIVE (NEGATIVE); KETONES,URINE NEGATIVE (NEGATIVE); LEUKOCYTE ESTERASE ,URINE 2+ (NEGATIVE); NITRITE,URINE NEGATIVE (NEGATIVE); PH,URINE 6 (4.5-8.0); PROTEIN,URINE 2+ (NEGATIVE); UROBILINOGEN,URINE NORMAL MG/DL (0.0-1.0)
[2019-05-09] MEDS: Lac Hydrin 12% Lotion 8oz TOPIC SCH ×2 (10:17→17:55)
[2019-05-09 12:00] VITALS: BP 138/68
--- NOTE | 2019-05-09 12:47 | Cardiology Progress Note ---
Assessment/Plan Status: stable Assessment/Plan Assessment/Plan Status: stable Assessment/Plan: Assessment/Plan Problem List: Assessment: (1) Diabetes (2) Renal insufficiency (3) Anemia (4) Infection of right foot (5) Right foot ulcer (6) Ischemia of right lower extremity (7) Hypertension Recommendations/Plan: Echocardiogram re: elevated BNP Start norvasc 10 mg daily Continue to monitor Outpatient stress test when stable Subjective Cardiovascular: Reports: no symptoms Respiratory: Reports: no symptoms Gastrointestinal/Abdominal: Reports: no symptoms Genitourinary: Reports: no symptoms Subjective Coverage for Jaci Refused AM meds, had N/V, no distress, vitals stable Objective Last 24 Hour Vital Signs Date Time Temp Pulse Resp B/P (MAP) Pulse Ox O2 Delivery O2 Flow Rate FiO2 05/09/19 09:47 75 163/82 05/09/19 08:00 97.7 75 16 163/82 (109) 96 05/09/19 04:26 98.2 05/09/19 04:00 98.4 65 18 137/67 (90) 100 05/08/19 23:47 98.2 66 18 165/78 (107) 100 05/08/19 23:43 165/78 05/08/19 21:35 98.1 05/08/19 21:00 Room Air 05/08/19 20:00 98.5 81 19 160/89 (112) 100 05/08/19 15:45 98.1 76 15 152/84 (106) 98 05/08/19 13:13 153/81 General Appearance: no apparent distress, alert EENT: PERRL/EOMI, normal ENT inspection, TMs normal, pharynx normal Neck: non-tender, normal alignment, supple, normal inspection Rhythm: NSR Cardiovascular: normal peripheral pulses, normal rate, regular rhythm Respiratory/Chest: chest wall non-tender, lungs clear, normal breath sounds, no respiratory distress Abdomen: normal bowel sounds, non tender, soft, no organomegaly, no mass Extremities: normal range of motion, non-tender, normal inspection, no calf tenderness, no swelling 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, no motor/sensory deficits Intake and Output 05/08/19 05/09/19 19:00 07:00 Intake Total 492.5 ml 700.0 ml Balance 492.5 ml 700.0 ml IV Total 492.5 ml 700.0 ml # Voids 4 # Bowel Movements 3 Laboratory Tests Test 05/09/19 04:50 White Blood Count 12.3 K/UL (4.8-10.8) H Red Blood Count 2.68 M/UL (4.20-5.40) L Hemoglobin 7.4 G/DL (12.0-16.0) L Hematocrit 23.3 % (37.0-47.0) L Mean Corpuscular Volume 87 FL (80-99) Mean Corpuscular Hemoglobin 27.5 PG (27.0-31.0) Mean Corpuscular Hemoglobin Concent 31.6 G/DL (32.0-36.0) L Red Cell Distribution Width 17.7 % (11.6-14.8) H Platelet Count 279 K/UL (150-450) Mean Platelet Volume 8.2 FL (6.5-10.1) Neutrophils (%) (Auto) % (45.0-75.0) Lymphocytes (%) (Auto) % (20.0-45.0) Monocytes (%) (Auto) % (1.0-10.0) Eosinophils (%) (Auto) % (0.0-3.0) Basophils (%) (Auto) % (0.0-2.0) Differential Total Cells Counted 100 Neutrophils % (Manual) 64 % (45-75) Lymphocytes % (Manual) 28 % (20-45) Monocytes % (Manual) 4 % (1-10) Eosinophils % (Manual) 4 % (0-3) H Basophils % (Manual) 0 % (0-2) Band Neutrophils 0 % (0-8) Platelet Estimate Adequate Platelet Morphology Normal Hypochromasia 2+ Anisocytosis 2+ Target Cells Occasional Schistocytes Rare Sodium Level 140 MMOL/L (136-145) Potassium Level 3.6 MMOL/L (3.5-5.1) Chloride Level 111 MMOL/L (98-107) H Carbon Dioxide Level 21 MMOL/L (21-32) Anion Gap 8 mmol/L (5-15) Blood Urea Nitrogen 15 mg/dL (7-18) Creatinine 1.6 MG/DL (0.55-1.30) H Estimat Glomerular Filtration Rate 43.0 mL/min (>60) Glucose Level 99 MG/DL (74-106) Uric Acid 3.5 MG/DL (2.6-7.2) Calcium Level 7.5 MG/DL (8.5-10.1) L Phosphorus Level 2.9 MG/DL (2.5-4.9) Magnesium Level 1.8 MG/DL (1.8-2.4) Total Bilirubin 0.5 MG/DL (0.2-1.0) Aspartate Amino Transf (AST/SGOT) 45 U/L (15-37) H Alanine Aminotransferase (ALT/SGPT) 28 U/L (12-78) Alkaline Phosphatase 242 U/L (46-116) H C-Reactive Protein, Quantitative 0.5 mg/dL (0.00-0.90) Pro-B-Type Natriuretic Peptide 4426 pg/mL (0-125) H Total Protein 6.5 G/DL (6.4-8.2) Albumin 1.8 G/DL (3.4-5.0) L Globulin 4.7 g/dL Albumin/Globulin Ratio 0.4 (1.0-2.7) L Christopher Cole MD May 09, 2019 12:47
[2019-05-09] MEDS: HYDROcodone/Acetamin 10/325 tab ORAL PRN (12:58)
[2019-05-09 13:20] VITALS: BP 119/63
--- NOTE | 2019-05-09 13:37 | Nephrology Progress Note ---
Assessment/Plan Problem List: (1) Diabetic nephropathy (2) Renal failure (ARF), acute on chronic (3) Anemia (4) Ischemia of right lower extremity (5) Right foot ulcer (6) Infection of right foot Assessment Renal Failure , likely diabetic nephropathy IDDM Anemia, h/o SS disease right foot appears gangerenous Plan change reglan to PO tolerating PO adjust BP meds Anemia management BS check gastric support per consultants post amputation care ( 05/02/19 amputation) Subjective ROS Limited/Unobtainable: No Constitutional: Reports: other - feels better- Subjective no more Nausea Objective Objective Last 24 Hour Vital Signs Date Time Temp Pulse Resp B/P (MAP) Pulse Ox O2 Delivery O2 Flow Rate FiO2 05/09/19 09:47 75 163/82 05/09/19 08:00 97.7 75 16 163/82 (109) 96 05/09/19 04:26 98.2 05/09/19 04:00 98.4 65 18 137/67 (90) 100 05/08/19 23:47 98.2 66 18 165/78 (107) 100 05/08/19 23:43 165/78 05/08/19 21:35 98.1 05/08/19 21:00 Room Air 05/08/19 20:00 98.5 81 19 160/89 (112) 100 05/08/19 15:45 98.1 76 15 152/84 (106) 98 Intake and Output 05/08/19 05/09/19 19:00 07:00 Intake Total 492.5 ml 700.0 ml Balance 492.5 ml 700.0 ml IV Total 492.5 ml 700.0 ml # Voids 4 # Bowel Movements 3 Laboratory Tests 05/09/19 04:50: White Blood Count 12.3H, Red Blood Count 2.68L, Hemoglobin 7.4L, Hematocrit 23.3L, Mean Corpuscular Volume 87, Mean Corpuscular Hemoglobin 27.5, Mean Corpuscular Hemoglobin Concent 31.6L, Red Cell Distribution Width 17.7H, Platelet Count 279, Mean Platelet Volume 8.2, Neutrophils (%) (Auto) , Lymphocytes (%) (Auto) , Monocytes (%) (Auto) , Eosinophils (%) (Auto) , Basophils (%) (Auto) , Differential Total Cells Counted 100, Neutrophils % ( Manual) 64, Lymphocytes % (Manual) 28, Monocytes % (Manual) 4, Eosinophils % ( Manual) 4H, Basophils % (Manual) 0, Band Neutrophils 0, Platelet Estimate Adequate, Platelet Morphology Normal, Hypochromasia 2+, Anisocytosis 2+, Target Cells Occasional, Schistocytes Rare, Sodium Level 140, Potassium Level 3.6, Chloride Level 111H, Carbon Dioxide Level 21, Anion Gap 8, Blood Urea Nitrogen 15, Creatinine 1.6H, Estimat Glomerular Filtration Rate 43.0, Glucose Level 99, Uric Acid 3.5, Calcium Level 7.5L, Phosphorus Level 2.9, Magnesium Level 1.8, Total Bilirubin 0.5, Aspartate Amino Transf (AST/SGOT) 45H, Alanine Aminotransferase (ALT/SGPT) 28, Alkaline Phosphatase 242H, C-Reactive Protein, Quantitative 0.5, Pro-B-Type Natriuretic Peptide 4426H, Total Protein 6.5, Albumin 1.8L, Globulin 4.7, Albumin/Globulin Ratio 0.4L Height (Feet): 4 Height (Inches): 9.00 Weight (Pounds): 116 Objective no change Elfego Vázquez MD May 09, 2019 13:37
--- NOTE | 2019-05-09 13:49 | General Progress Note ---
Progress Note Progress Note leukocytosis improved today tolerating diet sitting in chair bka stump evaluated and c/d/i. flap taking and healing minimal edema exam stable KUB nml d/c planning from surgical standpoint 4/u in 4-6 weeks for staple removal thank you Tian Avalos May 09, 2019 13:49
[2019-05-09] MEDS: HydrALAZINE 25mg tab ORAL SCH ×2 (14:32→21:29)
--- NOTE | 2019-05-09 15:08 | Infectious Diseases Prog Note ---
Assessment/Plan Assessment/Plan Assessment: R LE wound- severe necrotizing infection, gangrene, OM -05/02 SP emergency right lower extremity amputation bka --OR findings: Acutely infected necrotic gangrenous with subcutaneous gas and soft tissues of the right lower extremity --cx: ?done -Tibia/fibula MRI: Large ulcer with large amount of subcutaneous gas in the soft tissues of the posterior distal leg. Chronic deformity of the calcaneus with abnormal bone marrow signal suggesting osteomyelitis. Markedly abnormal bone marrow signal of the distal tibia including the tibial diaphysis spanning up at least 10 cm cranial to the ankle joint highly concerning for infection/ osteomyelitis. This is on a background of diffuse marrow signal heterogeneity which may be related to patient's known history of sickle cell disease. -Xray tibia/fibula: Soft tissue gas and edema in the foot and ankle are concerning for infection. No definite acute osseous abnormality. Osteopenia. -R foot/ankle xray: Soft tissue gas and edema in the foot and ankle are concerning for infection. Extensive soft tissue gas limits evaluation of fine bony detail. Deformity of the calcaneus is nonspecific and may be related to osteomyelitis or trauma. MRI with and without intravenous contrast may be considered for further characterization. -ESR 95, CRP 7.1 Afebrile Leukocytosis; increased, now improving- r/o Cdiff -05/08 u./a no pyuria, nit neg, leuk +2 -05/07 CXR: No acute findings Dm1 HTN sickle cell anemia R hip replacement Plan: -Continue empric ZOsyn #8/7-10 -05/08 SP IV Vancomcyin #7 -f/u cx -Monitor CBC/CMP, temperatures -Sx f/u -wound care per surgical team -aspiration precautions -f/u Cdiff Thank you for this consultation. Will continue to follow along with you. Discussed with RN. Subjective Allergies: Coded Allergies: No Known Allergies (Unverified , 05/01/19) Subjective afebrile wbc improving Objective Vital Signs Last 24 Hour Vital Signs Date Time Temp Pulse Resp B/P (MAP) Pulse Ox O2 Delivery O2 Flow Rate FiO2 05/09/19 14:32 119/63 05/09/19 09:47 75 163/82 05/09/19 08:00 97.7 75 16 163/82 (109) 96 05/09/19 04:26 98.2 05/09/19 04:00 98.4 65 18 137/67 (90) 100 05/08/19 23:47 98.2 66 18 165/78 (107) 100 05/08/19 23:43 165/78 05/08/19 21:35 98.1 05/08/19 21:00 Room Air 05/08/19 20:00 98.5 81 19 160/89 (112) 100 05/08/19 15:45 98.1 76 15 152/84 (106) 98 Height (Feet): 4 Height (Inches): 9.00 Weight (Pounds): 116 Objective General appearance: alert, cooperative, no distress, appears stated age Head: Normocephalic, without obvious abnormality, atraumatic Eyes: conjunctivae/corneas clear. PERRL, EOM's intact. Fundi benign Throat: Lips, mucosa, and tongue normal. Teeth and gums normal Neck: supple, symmetrical, trachea midline, no adenopathy, thyroid: not enlarged, symmetric, no tenderness/mass/nodules, no carotid bruit and no JVD Lungs: clear to auscultation bilaterally Heart: regular rate and rhythm, S1, S2 normal, no murmur, click, rub or gallop Abdomen: soft, non-tender. Bowel sounds normal. No masses, no organomegaly Extremities: s/p R BKA, dressings in place Pulses: 2+ and symmetric Skin: Skin color, texture, turgor normal. No rashes or lesions Neurologic: Grossly normal Laboratory Tests Test 05/09/19 04:50 White Blood Count 12.3 K/UL (4.8-10.8) H Red Blood Count 2.68 M/UL (4.20-5.40) L Hemoglobin 7.4 G/DL (12.0-16.0) L Hematocrit 23.3 % (37.0-47.0) L Mean Corpuscular Volume 87 FL (80-99) Mean Corpuscular Hemoglobin 27.5 PG (27.0-31.0) Mean Corpuscular Hemoglobin Concent 31.6 G/DL (32.0-36.0) L Red Cell Distribution Width 17.7 % (11.6-14.8) H Platelet Count 279 K/UL (150-450) Mean Platelet Volume 8.2 FL (6.5-10.1) Neutrophils (%) (Auto) % (45.0-75.0) Lymphocytes (%) (Auto) % (20.0-45.0) Monocytes (%) (Auto) % (1.0-10.0) Eosinophils (%) (Auto) % (0.0-3.0) Basophils (%) (Auto) % (0.0-2.0) Differential Total Cells Counted 100 Neutrophils % (Manual) 64 % (45-75) Lymphocytes % (Manual) 28 % (20-45) Monocytes % (Manual) 4 % (1-10) Eosinophils % (Manual) 4 % (0-3) H Basophils % (Manual) 0 % (0-2) Band Neutrophils 0 % (0-8) Platelet Estimate Adequate Platelet Morphology Normal Hypochromasia 2+ Anisocytosis 2+ Target Cells Occasional Schistocytes Rare Sodium Level 140 MMOL/L (136-145) Potassium Level 3.6 MMOL/L (3.5-5.1) Chloride Level 111 MMOL/L (98-107) H Carbon Dioxide Level 21 MMOL/L (21-32) Anion Gap 8 mmol/L (5-15) Blood Urea Nitrogen 15 mg/dL (7-18) Creatinine 1.6 MG/DL (0.55-1.30) H Estimat Glomerular Filtration Rate 43.0 mL/min (>60) Glucose Level 99 MG/DL (74-106) Uric Acid 3.5 MG/DL (2.6-7.2) Calcium Level 7.5 MG/DL (8.5-10.1) L Phosphorus Level 2.9 MG/DL (2.5-4.9) Magnesium Level 1.8 MG/DL (1.8-2.4) Total Bilirubin 0.5 MG/DL (0.2-1.0) Aspartate Amino Transf (AST/SGOT) 45 U/L (15-37) H Alanine Aminotransferase (ALT/SGPT) 28 U/L (12-78) Alkaline Phosphatase 242 U/L (46-116) H C-Reactive Protein, Quantitative 0.5 mg/dL (0.00-0.90) Pro-B-Type Natriuretic Peptide 4426 pg/mL (0-125) H Total Protein 6.5 G/DL (6.4-8.2) Albumin 1.8 G/DL (3.4-5.0) L Globulin 4.7 g/dL Albumin/Globulin Ratio 0.4 (1.0-2.7) L Current Medications Medications (Trade) Dose Ordered Sig/Trey Route PRN Reason Start Time Stop Time Status Last Admin Dose Admin Acetaminophen (Tylenol) 650 mg Q4H PRN ORAL Mild Pain/Temp > 100.5 05/03/19 11:05 06/02/19 11:04 Acetaminophen/ Hydrocodone Bitart ([place] 10/325) 1 tab Q6H PRN ORAL moderate pain 05/09/19 09:45 05/16/19 09:44 05/09/19 12:58 Amlodipine Besylate (Norvasc) 10 mg DAILY ORAL 05/08/19 09:00 06/07/19 08:59 05/09/19 09:47 Ammonium Lactate (Lac Hydrin) 1 applic TWICE A DAY TOPIC 05/03/19 18:00 06/01/19 11:29 05/09/19 10:17 Clonidine HCl (Catapres TTS-2) 1 patch QWEEK TDERMAL 05/08/19 13:00 06/07/19 12:59 05/08/19 13:13 Clonidine HCl (Catapres Tab) 0.1 mg Q4H PRN ORAL For High BP 160 syst 05/08/19 11:41 06/07/19 11:40 05/08/19 23:43 Dextrose (Dextrose 50%) 25 ml Q30M PRN IV Hypoglycemia 05/07/19 06:45 06/06/19 06:44 Dextrose (Dextrose 50%) 50 ml Q30M PRN IV Hypoglycemia 05/07/19 06:45 06/06/19 06:44 Diphenhydramine HCl (Benadryl) 25 mg Q6H PRN IVP Itching 05/03/19 11:05 06/02/19 11:04 05/09/19 13:02 Epoetin Matt (Epoetin Matt-EPBX(NON ESRD)) 4,000 unit SUN-SUN-SUN SUBQ 05/05/19 21:00 06/01/19 20:59 05/07/19 21:20 Hydralazine HCl (Apresoline) 25 mg Q8HR ORAL 05/09/19 14:00 06/08/19 13:59 05/09/19 14:32 Hydromorphone HCl (Dilaudid) 1 mg Q4H PRN IVP severe pain 05/09/19 09:45 05/16/19 09:44 05/09/19 10:11 Insulin Aspart (NovoLOG) BEFORE MEALS AND HS SUBQ 05/07/19 11:30 06/06/19 11:29 05/09/19 12:48 Insulin Detemir (Levemir) 5 units DAILY SUBQ 05/08/19 09:00 06/06/19 08:59 05/09/19 09:53 Metoclopramide HCl (Reglan) 10 mg THREE TIMES A DAY ORAL 05/09/19 18:00 06/08/19 17:59 Ondansetron HCl (Zofran) 4 mg Q6H PRN IVP Nausea & Vomiting 05/03/19 12:00 05/31/19 17:59 05/08/19 08:22 Pantoprazole (Protonix) 40 mg EVERY 12 HOURS ORAL 05/09/19 21:00 06/08/19 20:59 Piperacillin Sod/ Tazobactam Sod 3.375 gm/Sodium Chloride 110 ml @ 27.5 mls/hr EVERY 8 HOURS IVPB 05/03/19 14:00 05/11/19 23:59 05/09/19 14:31 Radha Gill M.D. May 09, 2019 15:08
[2019-05-09 16:00] VITALS: BP 118/62
--- NOTE | 2019-05-09 16:59 | General Progress Note ---
Assessment/Plan Problem List: (1) Gas gangrene ICD Codes: A48.0 - Gas gangrene SNOMED: 60562380 (2) Diabetes ICD Codes: E11.9 - Type 2 diabetes mellitus without complications SNOMED: 10240039 (3) Infection of right foot ICD Codes: L08.9 - Local infection of the skin and subcutaneous tissue, unspecified SNOMED: 364900259 (4) Diabetic nephropathy ICD Codes: E11.21 - Type 2 diabetes mellitus with diabetic nephropathy SNOMED: 994330723 Status: stable Assessment/Plan: increase Levemir to 8 units daily add Novolog 2 units ac tid continue Novolog insulin sliding scale ac / hs Subjective Allergies: Coded Allergies: No Known Allergies (Unverified , 05/01/19) All Systems: reviewed and negative except above Subjective events noted glucose is running on higher side appetite has improved Item Value Date Time Bedside Blood Glucose 421 mg/dl H 05/09/19 1650 Bedside Blood Glucose 168 mg/dl H 05/09/19 0953 Bedside Blood Glucose 264 mg/dl H 05/09/19 1248 Bedside Blood Glucose 124 mg/dl H 05/09/19 0613 Bedside Blood Glucose 90 mg/dl 05/08/19 2100 Bedside Blood Glucose 113 mg/dl 05/08/19 1630 Objective Last 24 Hour Vital Signs Date Time Temp Pulse Resp B/P (MAP) Pulse Ox O2 Delivery O2 Flow Rate FiO2 05/09/19 16:00 97.8 69 16 118/62 (80) 100 05/09/19 14:32 119/63 05/09/19 13:20 79 119/63 (81) 05/09/19 12:00 98.4 73 15 138/68 (91) 100 05/09/19 09:47 75 163/82 05/09/19 09:00 Room Air 05/09/19 08:00 97.7 75 16 163/82 (109) 96 05/09/19 04:26 98.2 05/09/19 04:00 98.4 65 18 137/67 (90) 100 05/08/19 23:47 98.2 66 18 165/78 (107) 100 05/08/19 23:43 165/78 05/08/19 21:35 98.1 05/08/19 21:00 Room Air 05/08/19 20:00 98.5 81 19 160/89 (112) 100 Intake and Output 05/08/19 05/09/19 19:00 07:00 Intake Total 492.5 ml 700.0 ml Balance 492.5 ml 700.0 ml IV Total 492.5 ml 700.0 ml # Voids 4 # Bowel Movements 3 Laboratory Tests 05/09/19 04:50: White Blood Count 12.3H, Red Blood Count 2.68L, Hemoglobin 7.4L, Hematocrit 23.3L, Mean Corpuscular Volume 87, Mean Corpuscular Hemoglobin 27.5, Mean Corpuscular Hemoglobin Concent 31.6L, Red Cell Distribution Width 17.7H, Platelet Count 279, Mean Platelet Volume 8.2, Neutrophils (%) (Auto) , Lymphocytes (%) (Auto) , Monocytes (%) (Auto) , Eosinophils (%) (Auto) , Basophils (%) (Auto) , Differential Total Cells Counted 100, Neutrophils % ( Manual) 64, Lymphocytes % (Manual) 28, Monocytes % (Manual) 4, Eosinophils % ( Manual) 4H, Basophils % (Manual) 0, Band Neutrophils 0, Platelet Estimate Adequate, Platelet Morphology Normal, Hypochromasia 2+, Anisocytosis 2+, Target Cells Occasional, Schistocytes Rare, Sodium Level 140, Potassium Level 3.6, Chloride Level 111H, Carbon Dioxide Level 21, Anion Gap 8, Blood Urea Nitrogen 15, Creatinine 1.6H, Estimat Glomerular Filtration Rate 43.0, Glucose Level 99, Uric Acid 3.5, Calcium Level 7.5L, Phosphorus Level 2.9, Magnesium Level 1.8, Total Bilirubin 0.5, Aspartate Amino Transf (AST/SGOT) 45H, Alanine Aminotransferase (ALT/SGPT) 28, Alkaline Phosphatase 242H, C-Reactive Protein, Quantitative 0.5, Pro-B-Type Natriuretic Peptide 4426H, Total Protein 6.5, Albumin 1.8L, Globulin 4.7, Albumin/Globulin Ratio 0.4L Height (Feet): 4 Height (Inches): 9.00 Weight (Pounds): 116 General Appearance: no apparent distress Neck: normal alignment Cardiovascular: normal rate Respiratory/Chest: lungs clear Abdomen: normal bowel sounds Objective Current Medications Medications (Trade) Dose Ordered Sig/Trey Route PRN Reason Start Time Stop Time Status Last Admin Dose Admin Acetaminophen (Tylenol) 650 mg Q4H PRN ORAL Mild Pain/Temp > 100.5 05/03/19 11:05 06/02/19 11:04 Acetaminophen/ Hydrocodone Bitart ([place] 10) 1 tab Q6H PRN ORAL moderate pain 05/09/19 09:45 05/16/19 09:44 05/09/19 12:58 Amlodipine Besylate (Norvasc) 10 mg DAILY ORAL 05/08/19 09:00 06/07/19 08:59 05/09/19 09:47 Ammonium Lactate (Lac Hydrin) 1 applic TWICE A DAY TOPIC 05/03/19 18:00 06/01/19 11:29 05/09/19 10:17 Clonidine HCl (Catapres TTS-2) 1 patch QWEEK TDERMAL 05/08/19 13:00 06/07/19 12:59 05/08/19 13:13 Clonidine HCl (Catapres Tab) 0.1 mg Q4H PRN ORAL For High BP 160 syst 05/08/19 11:41 06/07/19 11:40 05/08/19 23:43 Dextrose (Dextrose 50%) 25 ml Q30M PRN IV Hypoglycemia 05/07/19 06:45 06/06/19 06:44 Dextrose (Dextrose 50%) 50 ml Q30M PRN IV Hypoglycemia 05/07/19 06:45 06/06/19 06:44 Diphenhydramine HCl (Benadryl) 25 mg Q6H PRN IVP Itching 05/03/19 11:05 06/02/19 11:04 05/09/19 13:02 Epoetin Matt (Epoetin Matt-EPBX(NON ESRD)) 4,000 unit SUN-SUN-SUN SUBQ 05/05/19 21:00 06/01/19 20:59 05/07/19 21:20 Hydralazine HCl (Apresoline) 25 mg Q8HR ORAL 05/09/19 14:00 06/08/19 13:59 05/09/19 14:32 Hydromorphone HCl (Dilaudid) 1 mg Q4H PRN IVP severe pain 05/09/19 09:45 05/16/19 09:44 05/09/19 16:47 Insulin Aspart (NovoLOG) BEFORE MEALS AND HS SUBQ 05/07/19 11:30 06/06/19 11:29 05/09/19 16:50 Insulin Detemir (Levemir) 5 units DAILY SUBQ 05/08/19 09:00 06/06/19 08:59 05/09/19 09:53 Metoclopramide HCl (Reglan) 10 mg THREE TIMES A DAY ORAL 05/09/19 18:00 06/08/19 17:59 Ondansetron HCl (Zofran) 4 mg Q6H PRN IVP Nausea & Vomiting 05/03/19 12:00 05/31/19 17:59 05/08/19 08:22 Pantoprazole (Protonix) 40 mg EVERY 12 HOURS ORAL 05/09/19 21:00 06/08/19 20:59 Piperacillin Sod/ Tazobactam Sod 3.375 gm/Sodium Chloride 110 ml @ 27.5 mls/hr EVERY 8 HOURS IVPB 05/03/19 14:00 05/11/19 23:59 05/09/19 14:31 Isaac Velázquez MD May 09, 2019 16:59
--- NOTE | 2019-05-09 17:57 | Hematology/Onc Progress Note ---
Assessment/Plan Assessment/Plan Assessment and Recs: # Sickle cell disease - hgb baseline 5-6 range, per patient she does not want blood transfusions --> refusing blood transfusions, per her the baseline is 5-6 range --> trend hgb 5.85-->4.8->8.9-->8.9-->9.5->9->8.6->8.9-->7.4 --> anemia panel reviewed and c/w these labs values, ferritin is high --> not in hemolysis at this time --> electrophoresis as needed, not during stay at this time --> epo has been ordered 3 x a week --> iron stores are sufficient --> recommended transfusion can be life saving but patient declined # Leukocytosis/elevated white blood cell count, unspecified likely related to underlying stress reaction, smoking v from crisis, doing better s/o bka r --> have reviewed peripheral smear and bandemia/neutrophilia noted --> continue antibiotics if they have been started by ID team --> monitor for resolution --> trend wbc 25k-->23k->12k-->14.8->12 --> may need surg, refusing # HAYDEE can be dm related --> trend and establish baseline --> may be dehydrated --> cr 2-->1.5-->1.8->1.8 # Electrolyte abnml --> as per renal, Na+ trend and volume expansion # DM2 --> a1c goal <8 goal --> accuchecks qac and qhs # HTN, persistent --> bp goal <150, on clonidine and hydra prn The timing of this note does not necessarily reflect the time of the patient was seen. GREATLY APPRECIATE CONSULTATION. Subjective Gastrointestinal/Abdominal: Denies: no symptoms, abdomen distended, abdominal pain, black stools, tarry stools, blood in stool, constipated, diarrhea, difficulty swallowing, nausea, poor appetite, poor fluid intake, rectal bleeding , vomiting, other Neurologic/Psychiatric: Denies: no symptoms, anxiety, depressed, emotional problems, headache, numbness, paresthesia, pre-existing deficit, seizure, tingling, tremors, weakness, other Endocrine: Denies: no symptoms, excessive sweating, flushing, intolerance to cold, intolerance to heat, increased hunger, increased thirst, increased urine, unexplained weight gain, unexplained weight loss, other Allergies: Coded Allergies: No Known Allergies (Unverified , 05/01/19) Subjective 05/02: on epogen, hgb lower 4.8, initially refused transfusion, now accepting, shiva rn, refusing sx 05/04: is pod 2 and doing better, still in pain this am 05/05: no bleeding noted, no chills, no night sweats, no f/c 05/06: no bleeding, no chills, appears to be in pain on subj, but when not interviewed asymptomatic 05/07: still with some foot pain, remains on abx, no f/c 05/08: no events noted, no bleeding, hgb 8.9, seen by consultants, with n/v today 05/09: continying on epo, novolog was added today, less pain Objective Objective Current Medications Medications (Trade) Dose Ordered Sig/Trey Route PRN Reason Start Time Stop Time Status Last Admin Dose Admin Acetaminophen (Tylenol) 650 mg Q4H PRN ORAL Mild Pain/Temp > 100.5 05/03/19 11:05 06/02/19 11:04 Acetaminophen/ Hydrocodone Bitart ([place] 10/325) 1 tab Q6H PRN ORAL moderate pain 05/09/19 09:45 05/16/19 09:44 05/09/19 12:58 Amlodipine Besylate (Norvasc) 10 mg DAILY ORAL 05/08/19 09:00 06/07/19 08:59 05/09/19 09:47 Ammonium Lactate (Lac Hydrin) 1 applic TWICE A DAY TOPIC 05/03/19 18:00 06/01/19 11:29 05/09/19 10:17 Clonidine HCl (Catapres TTS-2) 1 patch QWEEK TDERMAL 05/08/19 13:00 06/07/19 12:59 05/08/19 13:13 Clonidine HCl (Catapres Tab) 0.1 mg Q4H PRN ORAL For High BP 160 syst 05/08/19 11:41 06/07/19 11:40 05/08/19 23:43 Dextrose (Dextrose 50%) 25 ml Q30M PRN IV Hypoglycemia 05/09/19 17:00 06/08/19 16:59 Dextrose (Dextrose 50%) 50 ml Q30M PRN IV Hypoglycemia 05/09/19 17:00 06/08/19 16:59 Diphenhydramine HCl (Benadryl) 25 mg Q6H PRN IVP Itching 05/03/19 11:05 06/02/19 11:04 05/09/19 13:02 Epoetin Matt (Epoetin Matt-EPBX(NON ESRD)) 4,000 unit SUN-SUN-SUN SUBQ 05/05/19 21:00 06/01/19 20:59 05/07/19 21:20 Hydralazine HCl (Apresoline) 25 mg Q8HR ORAL 05/09/19 14:00 06/08/19 13:59 05/09/19 14:32 Hydromorphone HCl (Dilaudid) 1 mg Q4H PRN IVP severe pain 05/09/19 09:45 05/16/19 09:44 05/09/19 16:47 Insulin Aspart (NovoLOG) BEFORE MEALS AND HS SUBQ 05/07/19 11:30 06/06/19 11:29 05/09/19 16:50 Insulin Aspart (NovoLOG) 2 units NOVOTIAC SUBQ 05/09/19 17:00 06/08/19 16:59 05/09/19 17:52 Insulin Detemir (Levemir) 8 units DAILY SUBQ 05/10/19 09:00 06/06/19 08:59 Metoclopramide HCl (Reglan) 10 mg THREE TIMES A DAY ORAL 05/09/19 18:00 06/08/19 17:59 05/09/19 17:54 Ondansetron HCl (Zofran) 4 mg Q6H PRN IVP Nausea & Vomiting 05/03/19 12:00 05/31/19 17:59 05/08/19 08:22 Pantoprazole (Protonix) 40 mg EVERY 12 HOURS ORAL 05/09/19 21:00 06/08/19 20:59 Piperacillin Sod/ Tazobactam Sod 3.375 gm/Sodium Chloride 110 ml @ 27.5 mls/hr EVERY 8 HOURS IVPB 05/03/19 14:00 05/11/19 23:59 05/09/19 14:31 Last 24 Hour Vital Signs Date Time Temp Pulse Resp B/P (MAP) Pulse Ox O2 Delivery O2 Flow Rate FiO2 05/09/19 16:00 97.8 69 16 118/62 (80) 100 05/09/19 14:32 119/63 05/09/19 13:20 79 119/63 (81) 05/09/19 12:00 98.4 73 15 138/68 (91) 100 05/09/19 09:47 75 163/82 05/09/19 09:00 Room Air 05/09/19 08:00 97.7 75 16 163/82 (109) 96 05/09/19 04:26 98.2 05/09/19 04:00 98.4 65 18 137/67 (90) 100 05/08/19 23:47 98.2 66 18 165/78 (107) 100 05/08/19 23:43 165/78 05/08/19 21:35 98.1 05/08/19 21:00 Room Air 05/08/19 20:00 98.5 81 19 160/89 (112) 100 05/08/19 15:45 98.1 76 15 152/84 (106) 98 05/08/19 13:13 153/81 05/08/19 12:00 98.7 80 16 153/81 (105) 98 05/08/19 10:58 97.1 05/08/19 09:00 88 171/93 05/08/19 09:00 Room Air 05/08/19 08:00 99.2 88 15 171/93 (119) 98 05/08/19 05:06 166/88 05/08/19 04:00 97.1 78 18 166/88 (114) 98 05/08/19 00:15 171/80 05/08/19 00:00 97.5 73 18 161/80 (107) 98 05/07/19 22:49 Room Air 05/07/19 20:00 98.2 69 18 157/84 (108) 97 Intake and Output 05/08/19 05/09/19 19:00 07:00 Intake Total 492.5 ml 700.0 ml Balance 492.5 ml 700.0 ml IV Total 492.5 ml 700.0 ml # Voids 4 # Bowel Movements 3 Labs Test 05/07/19 05:20 05/08/19 05:30 05/08/19 09:30 05/09/19 04:50 White Blood Count 14.2 K/UL (4.8-10.8) 14.8 K/UL (4.8-10.8) 12.3 K/UL (4.8-10.8) Red Blood Count 3.13 M/UL (4.20-5.40) 3.23 M/UL (4.20-5.40) 2.68 M/UL (4.20-5.40) Hemoglobin 8.6 G/DL (12.0-16.0) 8.9 G/DL (12.0-16.0) 7.4 G/DL (12.0-16.0) Hematocrit 27.6 % (37.0-47.0) 28.3 % (37.0-47.0) 23.3 % (37.0-47.0) Mean Corpuscular Volume 88 FL (80-99) 88 FL (80-99) 87 FL (80-99) Mean Corpuscular Hemoglobin 27.4 PG (27.0-31.0) 27.5 PG (27.0-31.0) 27.5 PG (27.0-31.0) Mean Corpuscular Hemoglobin Concent 31.2 G/DL (32.0-36.0) 31.4 G/DL (32.0-36.0) 31.6 G/DL (32.0-36.0) Red Cell Distribution Width 17.7 % (11.6-14.8) 18.0 % (11.6-14.8) 17.7 % (11.6-14.8) Platelet Count 292 K/UL (150-450) 330 K/UL (150-450) 279 K/UL (150-450) Mean Platelet Volume 7.6 FL (6.5-10.1) 7.7 FL (6.5-10.1) 8.2 FL (6.5-10.1) Neutrophils (%) (Auto) 54.2 % (45.0-75.0) 56.9 % (45.0-75.0) % (45.0-75.0) Lymphocytes (%) (Auto) 35.1 % (20.0-45.0) 33.8 % (20.0-45.0) % (20.0-45.0) Monocytes (%) (Auto) 6.1 % (1.0-10.0) 5.5 % (1.0-10.0) % (1.0-10.0) Eosinophils (%) (Auto) 3.5 % (0.0-3.0) 3.0 % (0.0-3.0) % (0.0-3.0) Basophils (%) (Auto) 1.1 % (0.0-2.0) 0.9 % (0.0-2.0) % (0.0-2.0) Sodium Level 139 MMOL/L (136-145) 139 MMOL/L (136-145) 140 MMOL/L (136-145) Potassium Level 3.9 MMOL/L (3.5-5.1) 4.1 MMOL/L (3.5-5.1) 3.6 MMOL/L (3.5-5.1) Chloride Level 111 MMOL/L (98-107) 110 MMOL/L (98-107) 111 MMOL/L (98-107) Carbon Dioxide Level 18 MMOL/L (21-32) 19 MMOL/L (21-32) 21 MMOL/L (21-32) Anion Gap 10 mmol/L (5-15) 10 mmol/L (5-15) 8 mmol/L (5-15) Blood Urea Nitrogen 12 mg/dL (7-18) 16 mg/dL (7-18) 15 mg/dL (7-18) Creatinine 1.8 MG/DL (0.55-1.30) 1.8 MG/DL (0.55-1.30) 1.6 MG/DL (0.55-1.30) Estimat Glomerular Filtration Rate 37.6 mL/min (>60) 37.6 mL/min (>60) 43.0 mL/min (>60) Glucose Level 116 MG/DL (74-106) 167 MG/DL (74-106) 99 MG/DL (74-106) Uric Acid 3.8 MG/DL (2.6-7.2) 3.5 MG/DL (2.6-7.2) Calcium Level 6.9 MG/DL (8.5-10.1) 7.2 MG/DL (8.5-10.1) 7.5 MG/DL (8.5-10.1) Phosphorus Level 3.0 MG/DL (2.5-4.9) 2.9 MG/DL (2.5-4.9) Magnesium Level 1.7 MG/DL (1.8-2.4) 1.8 MG/DL (1.8-2.4) Total Bilirubin 0.4 MG/DL (0.2-1.0) 0.5 MG/DL (0.2-1.0) Aspartate Amino Transf (AST/SGOT) 57 U/L (15-37) 45 U/L (15-37) Alanine Aminotransferase (ALT/SGPT) 34 U/L (12-78) 28 U/L (12-78) Alkaline Phosphatase 324 U/L (46-116) 242 U/L (46-116) C-Reactive Protein, Quantitative 0.8 mg/dL (0.00-0.90) 0.5 mg/dL (0.00-0.90) Pro-B-Type Natriuretic Peptide 2955 pg/mL (0-125) 4426 pg/mL (0-125) Total Protein 6.5 G/DL (6.4-8.2) 6.5 G/DL (6.4-8.2) Albumin 1.8 G/DL (3.4-5.0) 1.8 G/DL (3.4-5.0) Globulin 4.7 g/dL 4.7 g/dL Albumin/Globulin Ratio 0.4 (1.0-2.7) 0.4 (1.0-2.7) Random Vancomycin Level 8.3 ug/mL Urine Color Pale yellow Urine Appearance Clear Urine pH 6 (4.5-8.0) Urine Specific [place] 1.010 (1.005-1.035) Urine Protein 2+ (NEGATIVE) Urine Glucose (UA) Negative (NEGATIVE) Urine Ketones Negative (NEGATIVE) Urine Blood 1+ (NEGATIVE) Urine Nitrite Negative (NEGATIVE) Urine Bilirubin Negative (NEGATIVE) Urine Urobilinogen Normal MG/DL (0.0-1.0) Urine Leukocyte Esterase 2+ (NEGATIVE) Urine RBC 2-4 /HPF (0 - 2) Urine WBC 2-4 /HPF (0 - 2) Urine Squamous Epithelial Cells Few /LPF (NONE/OCC) Urine Bacteria Few /HPF (NONE) Differential Total Cells Counted 100 Neutrophils % (Manual) 64 % (45-75) Lymphocytes % (Manual) 28 % (20-45) Monocytes % (Manual) 4 % (1-10) Eosinophils % (Manual) 4 % (0-3) Basophils % (Manual) 0 % (0-2) Band Neutrophils 0 % (0-8) Platelet Estimate Adequate Platelet Morphology Normal Hypochromasia 2+ Anisocytosis 2+ Target Cells Occasional Schistocytes Rare Height (Feet): 4 Height (Inches): 9.00 Weight (Pounds): 116 Objective Vitals: reviewed General Appearance: NAD HEENT: normocephalic, atraumatic Neck: non-tender, normal alignment Respiratory/Chest: normal breath sounds bilaterally Cardiovascular/Chest: normal peripheral pulses, normal rate Abdomen: normal bowel sounds, soft, nontender Extremities: normal range of motion, is now s/p R BKA (05/02) Raphael Shrestha MD May 09, 2019 17:57
[2019-05-09] MEDS ORDERED: NovoLOG Insulin Flexpen SUBQ SCH (19:15)
[2019-05-09 20:00] VITALS: BP 113/67
--- NOTE | 2019-05-09 20:48 | General Progress Note ---
Assessment/Plan Problem List: (1) Right foot ulcer ICD Codes: L97.519 - Non-pressure chronic ulcer of other part of right foot with unspecified severity SNOMED: 28297968 (2) Renal failure (ARF), acute on chronic ICD Codes: N17.9 - Acute kidney failure, unspecified; N18.9 - Chronic kidney disease, unspecified SNOMED: 103730796 (3) Diabetic nephropathy ICD Codes: E11.21 - Type 2 diabetes mellitus with diabetic nephropathy SNOMED: 645264764 (4) Renal insufficiency ICD Codes: N28.9 - Disorder of kidney and ureter, unspecified SNOMED: 652938734, 177237491 (5) Anemia ICD Codes: D64.9 - Anemia, unspecified SNOMED: 057369582 (6) Diabetes ICD Codes: E11.9 - Type 2 diabetes mellitus without complications SNOMED: 41868973 (7) Infection of right foot ICD Codes: L08.9 - Local infection of the skin and subcutaneous tissue, unspecified SNOMED: 392875361 Status: stable Assessment/Plan: htn no acute events dm foot infection nephropathy check sugar afebrile Subjective ROS Limited/Unobtainable: Yes Allergies: Coded Allergies: No Known Allergies (Unverified , 05/01/19) Objective Last 24 Hour Vital Signs Date Time Temp Pulse Resp B/P (MAP) Pulse Ox O2 Delivery O2 Flow Rate FiO2 05/09/19 16:00 97.8 69 16 118/62 (80) 100 05/09/19 14:32 119/63 05/09/19 13:20 79 119/63 (81) 05/09/19 12:00 98.4 73 15 138/68 (91) 100 05/09/19 09:47 75 163/82 05/09/19 09:00 Room Air 05/09/19 08:00 97.7 75 16 163/82 (109) 96 05/09/19 04:26 98.2 05/09/19 04:00 98.4 65 18 137/67 (90) 100 05/08/19 23:47 98.2 66 18 165/78 (107) 100 05/08/19 23:43 165/78 05/08/19 21:35 98.1 05/08/19 21:00 Room Air Intake and Output 05/08/19 05/09/19 19:00 07:00 Intake Total 492.5 ml 700.0 ml Balance 492.5 ml 700.0 ml IV Total 492.5 ml 700.0 ml # Voids 4 # Bowel Movements 3 Laboratory Tests 05/09/19 04:50: White Blood Count 12.3H, Red Blood Count 2.68L, Hemoglobin 7.4L, Hematocrit 23.3L, Mean Corpuscular Volume 87, Mean Corpuscular Hemoglobin 27.5, Mean Corpuscular Hemoglobin Concent 31.6L, Red Cell Distribution Width 17.7H, Platelet Count 279, Mean Platelet Volume 8.2, Neutrophils (%) (Auto) , Lymphocytes (%) (Auto) , Monocytes (%) (Auto) , Eosinophils (%) (Auto) , Basophils (%) (Auto) , Differential Total Cells Counted 100, Neutrophils % ( Manual) 64, Lymphocytes % (Manual) 28, Monocytes % (Manual) 4, Eosinophils % ( Manual) 4H, Basophils % (Manual) 0, Band Neutrophils 0, Platelet Estimate Adequate, Platelet Morphology Normal, Hypochromasia 2+, Anisocytosis 2+, Target Cells Occasional, Schistocytes Rare, Sodium Level 140, Potassium Level 3.6, Chloride Level 111H, Carbon Dioxide Level 21, Anion Gap 8, Blood Urea Nitrogen 15, Creatinine 1.6H, Estimat Glomerular Filtration Rate 43.0, Glucose Level 99, Uric Acid 3.5, Calcium Level 7.5L, Phosphorus Level 2.9, Magnesium Level 1.8, Total Bilirubin 0.5, Aspartate Amino Transf (AST/SGOT) 45H, Alanine Aminotransferase (ALT/SGPT) 28, Alkaline Phosphatase 242H, C-Reactive Protein, Quantitative 0.5, Pro-B-Type Natriuretic Peptide 4426H, Total Protein 6.5, Albumin 1.8L, Globulin 4.7, Albumin/Globulin Ratio 0.4L Height (Feet): 4 Height (Inches): 9.00 Weight (Pounds): 116 Cardiovascular: normal rate Respiratory/Chest: lungs clear Abdomen: soft Hiram Adams MD May 09, 2019 20:48
[2019-05-09] MEDS: Epoetin Alfa-EPBX (NON ESRD)4000 units/ml vial SUBQ SCH (21:29)
[2019-05-10] VITALS (7 sets, daily range): BP systolic 107–137; BP diastolic 49–70
[2019-05-10] MEDS: HYDROmorphone 1mg/ml Carpuject IVP PRN ×4 (03:46→19:34)
[2019-05-10] MEDS: DiphenhydrAMINE 50mg/ml Inj IVP PRN ×4 (04:13→23:25)
[2019-05-10] MEDS: HydrALAZINE 25mg tab ORAL SCH ×3 (06:05→21:12)
[2019-05-10] MEDS: Piperacillin/Tazobactam 3.375 GM in NS 110 ML IVPB SCH ×3 (06:06→21:12)
[2019-05-10] MEDS: NovoLOG Insulin Flexpen SUBQ SCH ×7 (06:07→21:00)
[2019-05-10] MEDS: Lac Hydrin 12% Lotion 8oz TOPIC SCH ×2 (09:00→18:00)
--- NOTE | 2019-05-10 09:23 | General Progress Note ---
Assessment/Plan Problem List: (1) Gas gangrene ICD Codes: A48.0 - Gas gangrene SNOMED: 48645946 (2) Diabetes ICD Codes: E11.9 - Type 2 diabetes mellitus without complications SNOMED: 25764264 (3) Infection of right foot ICD Codes: L08.9 - Local infection of the skin and subcutaneous tissue, unspecified SNOMED: 731621720 (4) Diabetic nephropathy ICD Codes: E11.21 - Type 2 diabetes mellitus with diabetic nephropathy SNOMED: 469260126 Status: stable Assessment/Plan: continue Levemir 8 units daily continue Novolog 2 units ac tid continue Novolog insulin sliding scale ac / hs she is currently stable from diabetes stand point in order to be transferred to SNF Subjective Allergies: Coded Allergies: No Known Allergies (Unverified , 05/01/19) All Systems: reviewed and negative except above Subjective events noted glucose was elevated last night - I was notified by RN and insulin dose adjusted I requested the discharge to be held due to high glucose glucose improved this morning Item Value Date Time Bedside Blood Glucose 141 mg/dl H 05/10/19 0630 Bedside Blood Glucose 498 mg/dl H 05/09/19 2132 Bedside Blood Glucose 422 mg/dl H 05/09/19 1752 Bedside Blood Glucose 264 mg/dl H 05/09/19 1248 Bedside Blood Glucose 168 mg/dl H 05/09/19 0953 Bedside Blood Glucose 124 mg/dl H 05/09/19 0613 Objective Last 24 Hour Vital Signs Date Time Temp Pulse Resp B/P (MAP) Pulse Ox O2 Delivery O2 Flow Rate FiO2 05/10/19 08:00 98.3 77 16 124/60 (81) 98 05/10/19 06:05 127/64 05/10/19 04:00 98.8 74 16 127/64 (85) 98 05/10/19 00:00 98.4 89 20 113/56 (75) 100 05/09/19 21:29 113/67 05/09/19 21:00 Room Air 05/09/19 20:00 98.0 81 16 113/67 (82) 98 05/09/19 16:00 97.8 69 16 118/62 (80) 100 05/09/19 14:32 119/63 05/09/19 13:20 79 119/63 (81) 05/09/19 12:00 98.4 73 15 138/68 (91) 100 05/09/19 09:47 75 163/82 Intake and Output 05/09/19 05/10/19 19:00 07:00 Intake Total 1327.5 ml 110.0 ml Balance 1327.5 ml 110.0 ml Intake Oral 900 ml IV Total 427.5 ml 110.0 ml # Voids 1 1 # Bowel Movements 3 Height (Feet): 4 Height (Inches): 9.00 Weight (Pounds): 118 General Appearance: no apparent distress Neck: normal alignment Cardiovascular: normal rate Respiratory/Chest: lungs clear Abdomen: normal bowel sounds Pelvis: normal external exam Extremities: other - BKA Objective Current Medications Medications (Trade) Dose Ordered Sig/Trey Route PRN Reason Start Time Stop Time Status Last Admin Dose Admin Acetaminophen (Tylenol) 650 mg Q4H PRN ORAL Mild Pain/Temp > 100.5 05/03/19 11:05 06/02/19 11:04 Acetaminophen/ Hydrocodone Bitart ([place] 10/325) 1 tab Q6H PRN ORAL moderate pain 05/09/19 09:45 05/16/19 09:44 05/09/19 12:58 Amlodipine Besylate (Norvasc) 10 mg DAILY ORAL 05/08/19 09:00 06/07/19 08:59 05/09/19 09:47 Ammonium Lactate (Lac Hydrin) 1 applic TWICE A DAY TOPIC 05/03/19 18:00 06/01/19 11:29 05/09/19 10:17 Clonidine HCl (Catapres TTS-2) 1 patch QWEEK TDERMAL 05/08/19 13:00 06/07/19 12:59 05/08/19 13:13 Clonidine HCl (Catapres Tab) 0.1 mg Q4H PRN ORAL For High BP 160 syst 05/08/19 11:41 06/07/19 11:40 05/08/19 23:43 Dextrose (Dextrose 50%) 25 ml Q30M PRN IV Hypoglycemia 05/09/19 17:00 06/08/19 16:59 Dextrose (Dextrose 50%) 50 ml Q30M PRN IV Hypoglycemia 05/09/19 17:00 06/08/19 16:59 Diphenhydramine HCl (Benadryl) 25 mg Q6H PRN IVP Itching 05/03/19 11:05 06/02/19 11:04 05/10/19 04:13 Epoetin Matt (Epoetin Matt-EPBX(NON ESRD)) 4,000 unit SUN-SUN-SUN SUBQ 05/05/19 21:00 06/01/19 20:59 05/09/19 21:29 Hydralazine HCl (Apresoline) 25 mg Q8HR ORAL 05/09/19 14:00 06/08/19 13:59 05/10/19 06:05 Hydromorphone HCl (Dilaudid) 1 mg Q4H PRN IVP severe pain 05/09/19 09:45 05/16/19 09:44 05/10/19 03:46 Insulin Aspart (NovoLOG) BEFORE MEALS AND HS SUBQ 05/07/19 11:30 06/06/19 11:29 05/10/19 06:07 Insulin Aspart (NovoLOG) 2 units NOVOTIAC SUBQ 05/09/19 17:00 06/08/19 16:59 05/09/19 17:52 Insulin Detemir (Levemir) 8 units DAILY SUBQ 05/10/19 09:00 06/06/19 08:59 Metoclopramide HCl (Reglan) 10 mg THREE TIMES A DAY ORAL 05/09/19 18:00 06/08/19 17:59 05/09/19 17:54 Ondansetron HCl (Zofran) 4 mg Q6H PRN IVP Nausea & Vomiting 05/03/19 12:00 05/31/19 17:59 05/08/19 08:22 Pantoprazole (Protonix) 40 mg EVERY 12 HOURS ORAL 05/09/19 21:00 06/08/19 20:59 Piperacillin Sod/ Tazobactam Sod 3.375 gm/Sodium Chloride 110 ml @ 27.5 mls/hr EVERY 8 HOURS IVPB 05/03/19 14:00 05/11/19 23:59 05/10/19 06:06 Isaac Velázquez MD May 10, 2019 09:23
[2019-05-10] MEDS: Levemir Flexpen SUBQ SCH (09:30)
--- NOTE | 2019-05-10 09:58 | Cardiology Progress Note ---
Assessment/Plan Status: stable Assessment/Plan Assessment/Plan Status: stable Assessment/Plan: Assessment/Plan Problem List: Assessment: (1) Diabetes (2) Renal insufficiency (3) Anemia (4) Infection of right foot (5) Right foot ulcer (6) Ischemia of right lower extremity (7) Hypertension Recommendations/Plan: Echocardiogram re: elevated BNP Start norvasc 10 mg daily Continue to monitor Outpatient stress test when stable Subjective Cardiovascular: Reports: no symptoms Respiratory: Reports: no symptoms Gastrointestinal/Abdominal: Reports: no symptoms Genitourinary: Reports: no symptoms Subjective Coverage for Jaci Refused AM meds, had N/V, no distress, vitals stable Sugars stable Ready for transfer to SNF Objective Last 24 Hour Vital Signs Date Time Temp Pulse Resp B/P (MAP) Pulse Ox O2 Delivery O2 Flow Rate FiO2 05/10/19 08:00 98.3 77 16 124/60 (81) 98 05/10/19 06:05 127/64 05/10/19 04:00 98.8 74 16 127/64 (85) 98 05/10/19 00:00 98.4 89 20 113/56 (75) 100 05/09/19 21:29 113/67 05/09/19 21:00 Room Air 05/09/19 20:00 98.0 81 16 113/67 (82) 98 05/09/19 16:00 97.8 69 16 118/62 (80) 100 05/09/19 14:32 119/63 05/09/19 13:20 79 119/63 (81) 05/09/19 12:00 98.4 73 15 138/68 (91) 100 General Appearance: no apparent distress, alert EENT: PERRL/EOMI, normal ENT inspection, TMs normal, pharynx normal Neck: non-tender, normal alignment, supple, normal inspection, no JVD Rhythm: NSR Cardiovascular: normal peripheral pulses, normal rate, regular rhythm Respiratory/Chest: chest wall non-tender, lungs clear Abdomen: normal bowel sounds, non tender, soft, no organomegaly, no mass Extremities: normal range of motion, non-tender, normal inspection, no calf tenderness, no swelling 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
--- NOTE | 2019-05-10 10:25 | Nephrology Progress Note ---
Assessment/Plan Problem List: (1) Diabetic nephropathy (2) Renal failure (ARF), acute on chronic (3) Anemia (4) Ischemia of right lower extremity (5) Right foot ulcer (6) Infection of right foot Assessment Renal Failure , likely diabetic nephropathy IDDM Anemia, h/o SS disease right foot appears gangerenous Plan no labs today- One dose Lasix Po for swelling change reglan to PO tolerating PO adjust BP meds Anemia management BS check gastric support per consultants post amputation care ( 05/02/19 amputation) Subjective ROS Limited/Unobtainable: No Constitutional: Reports: other - no nausea- hand swollen Subjective no more Nausea Objective Objective Last 24 Hour Vital Signs Date Time Temp Pulse Resp B/P (MAP) Pulse Ox O2 Delivery O2 Flow Rate FiO2 05/10/19 08:00 98.3 77 16 124/60 (81) 98 05/10/19 06:05 127/64 05/10/19 04:00 98.8 74 16 127/64 (85) 98 05/10/19 00:00 98.4 89 20 113/56 (75) 100 05/09/19 21:29 113/67 05/09/19 21:00 Room Air 05/09/19 20:00 98.0 81 16 113/67 (82) 98 05/09/19 16:00 97.8 69 16 118/62 (80) 100 05/09/19 14:32 119/63 05/09/19 13:20 79 119/63 (81) 05/09/19 12:00 98.4 73 15 138/68 (91) 100 Intake and Output 05/09/19 05/10/19 19:00 07:00 Intake Total 1327.5 ml 110.0 ml Balance 1327.5 ml 110.0 ml Intake Oral 900 ml IV Total 427.5 ml 110.0 ml # Voids 1 1 # Bowel Movements 3 Height (Feet): 4 Height (Inches): 9.00 Weight (Pounds): 118 General Appearance: no apparent distress Cardiovascular: normal rate Respiratory/Chest: decreased breath sounds Abdomen: distended Objective no change Elfego Vázquez MD May 10, 2019 10:25
[2019-05-10] MEDS ORDERED: Furosemide 40mg tab ORAL SCH (11:30)
--- NOTE | 2019-05-10 11:51 | Infectious Diseases Prog Note ---
Assessment/Plan Assessment/Plan R LE wound- severe necrotizing infection, gangrene, OM -05/02 SP emergency right lower extremity amputation bka --OR findings: Acutely infected necrotic gangrenous with subcutaneous gas and soft tissues of the right lower extremity --cx: ?done -Tibia/fibula MRI: Large ulcer with large amount of subcutaneous gas in the soft tissues of the posterior distal leg. Chronic deformity of the calcaneus with abnormal bone marrow signal suggesting osteomyelitis. Markedly abnormal bone marrow signal of the distal tibia including the tibial diaphysis spanning up at least 10 cm cranial to the ankle joint highly concerning for infection/ osteomyelitis. This is on a background of diffuse marrow signal heterogeneity which may be related to patient's known history of sickle cell disease. -Xray tibia/fibula: Soft tissue gas and edema in the foot and ankle are concerning for infection. No definite acute osseous abnormality. Osteopenia. -R foot/ankle xray: Soft tissue gas and edema in the foot and ankle are concerning for infection. Extensive soft tissue gas limits evaluation of fine bony detail. Deformity of the calcaneus is nonspecific and may be related to osteomyelitis or trauma. MRI with and without intravenous contrast may be considered for further characterization. -ESR 95, CRP 7.1 Afebrile Leukocytosis; increased, now improving- r/o Cdiff -05/08 u./a no pyuria, nit neg, leuk +2 -05/07 CXR: No acute findings Dm1 HTN sickle cell anemia R hip replacement Plan: -Continue empiric ZOsyn #9/10 -05/08 SP IV Vancomcyin #7 -f/u cx -Monitor CBC/CMP, temperatures -Sx f/u -wound care per surgical team -aspiration precautions -f/u Cdiff Thank you for this consultation. Will continue to follow along with you. Subjective Allergies: Coded Allergies: No Known Allergies (Unverified , 05/01/19) Subjective Afebrile ANDRES Leukocytosis improved today Objective Vital Signs Last 24 Hour Vital Signs Date Time Temp Pulse Resp B/P (MAP) Pulse Ox O2 Delivery O2 Flow Rate FiO2 05/10/19 10:52 71 118/58 05/10/19 10:46 71 118/58 (78) 05/10/19 08:00 98.3 77 16 124/60 (81) 98 05/10/19 06:05 127/64 05/10/19 04:00 98.8 74 16 127/64 (85) 98 05/10/19 00:00 98.4 89 20 113/56 (75) 100 05/09/19 21:29 113/67 05/09/19 21:00 Room Air 05/09/19 20:00 98.0 81 16 113/67 (82) 98 05/09/19 16:00 97.8 69 16 118/62 (80) 100 05/09/19 14:32 119/63 05/09/19 13:20 79 119/63 (81) 05/09/19 12:00 98.4 73 15 138/68 (91) 100 Height (Feet): 4 Height (Inches): 9.00 Weight (Pounds): 118 Objective General appearance: NAD Head: NCAT, MMM, EOMI Lungs: clear to auscultation bilaterally, No W Heart: regular rate and rhythm, S1, S2 Abdomen: soft, non-tender. Bowel sounds normal. No masses, no organomegaly Extremities: s/p R BKA, dressings in place Current Medications Medications (Trade) Dose Ordered Sig/Trey Route PRN Reason Start Time Stop Time Status Last Admin Dose Admin Acetaminophen (Tylenol) 650 mg Q4H PRN ORAL Mild Pain/Temp > 100.5 05/03/19 11:05 06/02/19 11:04 Acetaminophen/ Hydrocodone Bitart ([place] 10/325) 1 tab Q6H PRN ORAL moderate pain 05/09/19 09:45 05/16/19 09:44 05/09/19 12:58 Amlodipine Besylate (Norvasc) 10 mg DAILY ORAL 05/08/19 09:00 06/07/19 08:59 05/10/19 10:52 Ammonium Lactate (Lac Hydrin) 1 applic TWICE A DAY TOPIC 05/03/19 18:00 06/01/19 11:29 05/09/19 10:17 Clonidine HCl (Catapres TTS-2) 1 patch QWEEK TDERMAL 05/08/19 13:00 06/07/19 12:59 05/08/19 13:13 Clonidine HCl (Catapres Tab) 0.1 mg Q4H PRN ORAL For High BP 160 syst 05/08/19 11:41 06/07/19 11:40 05/08/19 23:43 Dextrose (Dextrose 50%) 25 ml Q30M PRN IV Hypoglycemia 05/09/19 17:00 06/08/19 16:59 Dextrose (Dextrose 50%) 50 ml Q30M PRN IV Hypoglycemia 05/09/19 17:00 06/08/19 16:59 Diphenhydramine HCl (Benadryl) 25 mg Q6H PRN IVP Itching 05/03/19 11:05 06/02/19 11:04 05/10/19 10:51 Epoetin Matt (Epoetin Matt-EPBX(NON ESRD)) 4,000 unit SUN-SUN-SUN SUBQ 05/05/19 21:00 06/01/19 20:59 05/09/19 21:29 Furosemide (Lasix) 40 mg ONCE ORAL 05/10/19 11:30 05/10/19 12:30 05/10/19 10:52 Hydralazine HCl (Apresoline) 25 mg Q8HR ORAL 05/09/19 14:00 06/08/19 13:59 05/10/19 06:05 Hydromorphone HCl (Dilaudid) 1 mg Q4H PRN IVP severe pain 05/09/19 09:45 05/16/19 09:44 05/10/19 09:23 Insulin Aspart (NovoLOG) BEFORE MEALS AND HS SUBQ 05/07/19 11:30 06/06/19 11:29 05/10/19 06:07 Insulin Aspart (NovoLOG) 2 units NOVOTIAC SUBQ 05/09/19 17:00 06/08/19 16:59 05/09/19 17:52 Insulin Detemir (Levemir) 8 units DAILY SUBQ 05/10/19 09:00 06/06/19 08:59 05/10/19 09:30 Metoclopramide HCl (Reglan) 10 mg THREE TIMES A DAY ORAL 05/09/19 18:00 06/08/19 17:59 05/09/19 17:54 Ondansetron HCl (Zofran) 4 mg Q6H PRN IVP Nausea & Vomiting 05/03/19 12:00 05/31/19 17:59 05/08/19 08:22 Pantoprazole (Protonix) 40 mg EVERY 12 HOURS ORAL 05/09/19 21:00 06/08/19 20:59 Piperacillin Sod/ Tazobactam Sod 3.375 gm/Sodium Chloride 110 ml @ 27.5 mls/hr EVERY 8 HOURS IVPB 05/03/19 14:00 05/11/19 23:59 05/10/19 06:06 Christopher Wu MD May 10, 2019 11:51
--- NOTE | 2019-05-10 19:24 | General Progress Note ---
Assessment/Plan Problem List: (1) Right foot ulcer ICD Codes: L97.519 - Non-pressure chronic ulcer of other part of right foot with unspecified severity SNOMED: 66681242 (2) Renal failure (ARF), acute on chronic ICD Codes: N17.9 - Acute kidney failure, unspecified; N18.9 - Chronic kidney disease, unspecified SNOMED: 992987866 (3) Diabetic nephropathy ICD Codes: E11.21 - Type 2 diabetes mellitus with diabetic nephropathy SNOMED: 832320093 (4) Renal insufficiency ICD Codes: N28.9 - Disorder of kidney and ureter, unspecified SNOMED: 187680798, 518101416 (5) Anemia ICD Codes: D64.9 - Anemia, unspecified SNOMED: 104152489 (6) Diabetes ICD Codes: E11.9 - Type 2 diabetes mellitus without complications SNOMED: 42199315 (7) Infection of right foot ICD Codes: L08.9 - Local infection of the skin and subcutaneous tissue, unspecified SNOMED: 568766390 Status: stable, progressing Assessment/Plan: dm.check sugar reviewed chart and labs foot infection nephropathy check sugar afebrile Subjective ROS Limited/Unobtainable: Yes Allergies: Coded Allergies: No Known Allergies (Unverified , 05/01/19) Objective Last 24 Hour Vital Signs Date Time Temp Pulse Resp B/P (MAP) Pulse Ox O2 Delivery O2 Flow Rate FiO2 05/10/19 16:00 98.1 70 16 116/66 (83) 97 05/10/19 13:35 137/70 05/10/19 12:00 98.3 69 15 137/70 (92) 99 05/10/19 10:52 71 118/58 05/10/19 10:46 71 118/58 (78) 05/10/19 09:00 Room Air 05/10/19 08:00 98.3 77 16 124/60 (81) 98 05/10/19 06:05 127/64 05/10/19 04:00 98.8 74 16 127/64 (85) 98 05/10/19 00:00 98.4 89 20 113/56 (75) 100 05/09/19 21:29 113/67 05/09/19 21:00 Room Air 05/09/19 20:00 98.0 81 16 113/67 (82) 98 Intake and Output 8/16/19 8/17/19 18:59 06:59 Intake Total 1327.5 ml 110.0 ml Balance 1327.5 ml 110.0 ml Intake Oral 900 ml IV Total 427.5 ml 110.0 ml # Voids 1 1 # Bowel Movements 3 Height (Feet): 4 Height (Inches): 9.00 Weight (Pounds): 118 Neck: supple Cardiovascular: normal rate Respiratory/Chest: lungs clear Abdomen: soft Hiram Adams MD May 10, 2019 19:24
[2019-05-11] MEDS: HYDROmorphone 1mg/ml Carpuject IVP PRN ×3 (01:26→09:51)
[2019-05-11] MEDS: Piperacillin/Tazobactam 3.375 GM in NS 110 ML IVPB SCH ×3 (03:56→22:01)
[2019-05-11 04:00] VITALS: BP 119/62
[2019-05-11] MEDS: HydrALAZINE 25mg tab ORAL SCH ×3 (05:32→22:00)
[2019-05-11] MEDS: NovoLOG Insulin Flexpen SUBQ SCH ×7 (05:51→21:38)
[2019-05-11 06:37] LABS: HEMATOCRIT 23.5 % (37.0-47.0); HEMOGLOBIN 7.3 G/DL (12.0-16.0); MEAN CORPUSCULAR VOLUME 87 FL (80-99); PLATELET COUNT 308 K/UL (150-450); RED BLOOD COUNT 2.69 M/UL (4.20-5.40); RED CELL DISTRIBUTION WIDTH 17.3 % (11.6-14.8); WHITE BLOOD COUNT 11.9 K/UL (4.8-10.8)
[2019-05-11 07:02] LABS: ALANINE AMINOTRANSFERASE 25 U/L (12-78); ALBUMIN 1.8 G/DL (3.4-5.0); ALBUMIN/GLOBULIN RATIO 0.4 (1.0-2.7); ALKALINE PHOSPHATASE 200 U/L (46-116); ANION GAP 10 mmol/L (5-15); ASPARTATE AMINO TRANSFERASE 27 U/L (15-37); BILIRUBIN,TOTAL 0.5 MG/DL (0.2-1.0); BLOOD UREA NITROGEN 15 mg/dL (7-18); CALCIUM 7.4 MG/DL (8.5-10.1); CARBON DIOXIDE 20 MMOL/L (21-32); CHLORIDE 113 MMOL/L (98-107); CREATININE 1.9 MG/DL (0.55-1.30); PHOSPHORUS 3.8 MG/DL (2.5-4.9); POTASSIUM 3.3 MMOL/L (3.5-5.1); SODIUM 143 MMOL/L (136-145)
--- NOTE | 2019-05-11 07:24 | General Progress Note ---
Assessment/Plan Problem List: (1) Gas gangrene ICD Codes: A48.0 - Gas gangrene SNOMED: 86592188 (2) Diabetes ICD Codes: E11.9 - Type 2 diabetes mellitus without complications SNOMED: 32408647 (3) Infection of right foot ICD Codes: L08.9 - Local infection of the skin and subcutaneous tissue, unspecified SNOMED: 795153825 (4) Diabetic nephropathy ICD Codes: E11.21 - Type 2 diabetes mellitus with diabetic nephropathy SNOMED: 548344345 Status: stable, progressing Assessment/Plan: continue Levemir 8 units daily continue Novolog 2 units ac tid - hold if not eating continue Novolog insulin sliding scale ac / hs she is currently stable from diabetes stand point in order to be transferred to SNF Subjective Allergies: Coded Allergies: No Known Allergies (Unverified , 05/01/19) All Systems: reviewed and negative except above Subjective events noted glucose values improved Item Value Date Time Glucose Level 162 MG/DL H 05/11/19 0500 Bedside Blood Glucose 99 mg/dl 05/10/19 2100 Bedside Blood Glucose 71 mg/dl 05/10/19 1650 Bedside Blood Glucose 71 mg/dl 05/10/19 1315 Bedside Blood Glucose 84 mg/dl 05/10/19 0930 Bedside Blood Glucose 141 mg/dl H 05/10/19 0630 Objective Last 24 Hour Vital Signs Date Time Temp Pulse Resp B/P (MAP) Pulse Ox O2 Delivery O2 Flow Rate FiO2 05/11/19 06:01 98.0 05/11/19 05:32 119/62 05/11/19 04:00 98.0 69 18 119/62 (81) 100 05/10/19 21:12 107/49 05/10/19 20:15 Room Air 05/10/19 20:11 98.2 73 18 107/49 (68) 96 05/10/19 16:00 98.1 70 16 116/66 (83) 97 05/10/19 13:35 137/70 05/10/19 12:00 98.3 69 15 137/70 (92) 99 05/10/19 10:52 71 118/58 05/10/19 10:46 71 118/58 (78) 05/10/19 09:00 Room Air 05/10/19 08:00 98.3 77 16 124/60 (81) 98 Intake and Output 05/10/19 05/11/19 19:00 07:00 Intake Total 405.0 ml Balance 405.0 ml Intake Oral 240 ml IV Total 165.0 ml # Voids 1 2 # Bowel Movements 1 Laboratory Tests 05/11/19 05:00: White Blood Count 11.9H, Red Blood Count 2.69L, Hemoglobin 7.3L, Hematocrit 23.5L, Mean Corpuscular Volume 87, Mean Corpuscular Hemoglobin 27.1, Mean Corpuscular Hemoglobin Concent 31.0L, Red Cell Distribution Width 17.3H, Platelet Count 308, Mean Platelet Volume 8.0, Neutrophils (%) (Auto) , Lymphocytes (%) (Auto) , Monocytes (%) (Auto) , Eosinophils (%) (Auto) , Basophils (%) (Auto) , Neutrophils % (Manual) [Pending], Lymphocytes % (Manual) [Pending], Platelet Estimate [Pending], Platelet Morphology [Pending], Sodium Level 143, Potassium Level 3.3L, Chloride Level 113H, Carbon Dioxide Level 20L, Anion Gap 10, Blood Urea Nitrogen 15, Creatinine 1.9H, Estimat Glomerular Filtration Rate 35.4, Glucose Level 162H, Calcium Level 7.4L, Phosphorus Level 3.8, Magnesium Level 1.7L, Total Bilirubin 0.5, Aspartate Amino Transf (AST/SGOT ) 27, Alanine Aminotransferase (ALT/SGPT) 25, Alkaline Phosphatase 200H, C- Reactive Protein, Quantitative 0.5, Pro-B-Type Natriuretic Peptide 1825H, Total Protein 6.5, Albumin 1.8L, Globulin 4.7, Albumin/Globulin Ratio 0.4L Height (Feet): 4 Height (Inches): 9.00 Weight (Pounds): 129 General Appearance: no apparent distress Neck: normal alignment Cardiovascular: normal rate Respiratory/Chest: lungs clear Abdomen: normal bowel sounds Pelvis: normal external exam Extremities: other - BKA Objective Current Medications Medications (Trade) Dose Ordered Sig/Trey Route PRN Reason Start Time Stop Time Status Last Admin Dose Admin Acetaminophen (Tylenol) 650 mg Q4H PRN ORAL Mild Pain/Temp > 100.5 05/03/19 11:05 06/02/19 11:04 Acetaminophen/ Hydrocodone Bitart ([place] 10/325) 1 tab Q6H PRN ORAL moderate pain 05/09/19 09:45 05/16/19 09:44 05/09/19 12:58 Amlodipine Besylate (Norvasc) 10 mg DAILY ORAL 05/08/19 09:00 06/07/19 08:59 05/10/19 10:52 Ammonium Lactate (Lac Hydrin) 1 applic TWICE A DAY TOPIC 05/03/19 18:00 06/01/19 11:29 05/09/19 10:17 Clonidine HCl (Catapres TTS-2) 1 patch QWEEK TDERMAL 05/08/19 13:00 06/07/19 12:59 05/08/19 13:13 Clonidine HCl (Catapres Tab) 0.1 mg Q4H PRN ORAL For High BP 160 syst 05/08/19 11:41 06/07/19 11:40 05/08/19 23:43 Dextrose (Dextrose 50%) 25 ml Q30M PRN IV Hypoglycemia 05/09/19 17:00 06/08/19 16:59 Dextrose (Dextrose 50%) 50 ml Q30M PRN IV Hypoglycemia 05/09/19 17:00 06/08/19 16:59 Diphenhydramine HCl (Benadryl) 25 mg Q6H PRN IVP Itching 05/03/19 11:05 06/02/19 11:04 05/10/19 23:25 Epoetin Matt (Epoetin Matt-EPBX(NON ESRD)) 4,000 unit SUN-SUN-SUN SUBQ 05/05/19 21:00 06/01/19 20:59 05/09/19 21:29 Hydralazine HCl (Apresoline) 25 mg Q8HR ORAL 05/09/19 14:00 06/08/19 13:59 05/10/19 13:35 Hydromorphone HCl (Dilaudid) 1 mg Q4H PRN IVP severe pain 05/09/19 09:45 05/16/19 09:44 05/11/19 05:31 Insulin Aspart (NovoLOG) BEFORE MEALS AND HS SUBQ 05/07/19 11:30 06/06/19 11:29 05/11/19 05:51 Insulin Aspart (NovoLOG) 2 units NOVOTIAC SUBQ 05/09/19 17:00 06/08/19 16:59 05/11/19 05:52 Insulin Detemir (Levemir) 8 units DAILY SUBQ 05/10/19 09:00 06/06/19 08:59 05/10/19 09:30 Metoclopramide HCl (Reglan) 10 mg THREE TIMES A DAY ORAL 05/09/19 18:00 06/08/19 17:59 05/09/19 17:54 Ondansetron HCl (Zofran) 4 mg Q6H PRN IVP Nausea & Vomiting 05/03/19 12:00 05/31/19 17:59 05/08/19 08:22 Pantoprazole (Protonix) 40 mg EVERY 12 HOURS ORAL 05/09/19 21:00 06/08/19 20:59 Piperacillin Sod/ Tazobactam Sod 3.375 gm/Sodium Chloride 110 ml @ 27.5 mls/hr EVERY 8 HOURS IVPB 05/03/19 14:00 05/11/19 23:59 05/11/19 03:56 Isaac Velázquez MD May 11, 2019 07:24
[2019-05-11 08:00] VITALS: BP 136/70
[2019-05-11] MEDS: Lac Hydrin 12% Lotion 8oz TOPIC SCH ×2 (09:00→18:00)
[2019-05-11] MEDS: Levemir Flexpen SUBQ SCH (09:47)
[2019-05-11] MEDS: DiphenhydrAMINE 50mg/ml Inj IVP PRN ×3 (09:50→22:02)
--- NOTE | 2019-05-11 09:56 | Cardiology Progress Note ---
Assessment/Plan Status: stable Assessment/Plan Assessment/Plan Status: stable Assessment/Plan: Assessment/Plan Problem List: Assessment: (1) Diabetes (2) Renal insufficiency (3) Anemia (4) Infection of right foot (5) Right foot ulcer (6) Ischemia of right lower extremity (7) Hypertension Recommendations/Plan: Continue norvasc 10 mg daily Continue to monitor Outpatient stress test when stable Ok to transfer to SNF Subjective Cardiovascular: Reports: no symptoms Respiratory: Reports: no symptoms Gastrointestinal/Abdominal: Reports: no symptoms Genitourinary: Reports: no symptoms Subjective Coverage for Jaci Refused AM meds, had N/V, no distress, vitals stable Sugars stable Ready for transfer to SNF Objective Last 24 Hour Vital Signs Date Time Temp Pulse Resp B/P (MAP) Pulse Ox O2 Delivery O2 Flow Rate FiO2 05/11/19 09:50 80 136/70 05/11/19 08:00 97.1 80 19 136/70 (92) 97 05/11/19 06:01 98.0 05/11/19 05:32 119/62 05/11/19 04:00 98.0 69 18 119/62 (81) 100 05/10/19 21:12 107/49 05/10/19 20:15 Room Air 05/10/19 20:11 98.2 73 18 107/49 (68) 96 05/10/19 16:00 98.1 70 16 116/66 (83) 97 05/10/19 13:35 137/70 05/10/19 12:00 98.3 69 15 137/70 (92) 99 05/10/19 10:52 71 118/58 05/10/19 10:46 71 118/58 (78) General Appearance: no apparent distress, alert EENT: PERRL/EOMI, normal ENT inspection, TMs normal, pharynx normal Neck: non-tender, normal alignment, supple, normal inspection, no JVD Rhythm: NSR Cardiovascular: normal peripheral pulses, normal rate, regular rhythm Respiratory/Chest: chest wall non-tender, lungs clear, normal breath sounds, no respiratory distress, no accessory muscle use Abdomen: normal bowel sounds, non tender, soft, no organomegaly, no mass Extremities: normal range of motion, non-tender, normal inspection 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, no motor/sensory deficits Intake and Output 05/10/19 05/11/19 19:00 07:00 Intake Total 432.5 ml Balance 432.5 ml Intake Oral 240 ml IV Total 192.5 ml # Voids 1 2 # Bowel Movements 1 Laboratory Tests Test 05/11/19 05:00 White Blood Count 11.9 K/UL (4.8-10.8) H Red Blood Count 2.69 M/UL (4.20-5.40) L Hemoglobin 7.3 G/DL (12.0-16.0) L Hematocrit 23.5 % (37.0-47.0) L Mean Corpuscular Volume 87 FL (80-99) Mean Corpuscular Hemoglobin 27.1 PG (27.0-31.0) Mean Corpuscular Hemoglobin Concent 31.0 G/DL (32.0-36.0) L Red Cell Distribution Width 17.3 % (11.6-14.8) H Platelet Count 308 K/UL (150-450) Mean Platelet Volume 8.0 FL (6.5-10.1) Neutrophils (%) (Auto) % (45.0-75.0) Lymphocytes (%) (Auto) % (20.0-45.0) Monocytes (%) (Auto) % (1.0-10.0) Eosinophils (%) (Auto) % (0.0-3.0) Basophils (%) (Auto) % (0.0-2.0) Differential Total Cells Counted 100 Neutrophils % (Manual) 66 % (45-75) Lymphocytes % (Manual) 23 % (20-45) Monocytes % (Manual) 7 % (1-10) Eosinophils % (Manual) 4 % (0-3) H Basophils % (Manual) 0 % (0-2) Band Neutrophils 0 % (0-8) Nucleated Red Blood Cells 1 /100 WBC Platelet Estimate Adequate Platelet Morphology Giant Platelets Occasional Polychromasia 1+ Hypochromasia 2+ Anisocytosis 2+ Target Cells Occasional Sodium Level 143 MMOL/L (136-145) Potassium Level 3.3 MMOL/L (3.5-5.1) L Chloride Level 113 MMOL/L (98-107) H Carbon Dioxide Level 20 MMOL/L (21-32) L Anion Gap 10 mmol/L (5-15) Blood Urea Nitrogen 15 mg/dL (7-18) Creatinine 1.9 MG/DL (0.55-1.30) H Estimat Glomerular Filtration Rate 35.4 mL/min (>60) Glucose Level 162 MG/DL (74-106) H Calcium Level 7.4 MG/DL (8.5-10.1) L Phosphorus Level 3.8 MG/DL (2.5-4.9) Magnesium Level 1.7 MG/DL (1.8-2.4) L Total Bilirubin 0.5 MG/DL (0.2-1.0) Aspartate Amino Transf (AST/SGOT) 27 U/L (15-37) Alanine Aminotransferase (ALT/SGPT) 25 U/L (12-78) Alkaline Phosphatase 200 U/L (46-116) H C-Reactive Protein, Quantitative 0.5 mg/dL (0.00-0.90) Pro-B-Type Natriuretic Peptide 1825 pg/mL (0-125) H Total Protein 6.5 G/DL (6.4-8.2) Albumin 1.8 G/DL (3.4-5.0) L Globulin 4.7 g/dL Albumin/Globulin Ratio 0.4 (1.0-2.7) L Christopher Cole MD May 11, 2019 09:56
[2019-05-11 12:00] VITALS: BP 126/68
[2019-05-11] MEDS ORDERED: Epoetin Alfa-EPBX (NON ESRD)4000 units/ml vial SUBQ SCH (12:00)
--- NOTE | 2019-05-11 13:12 | Nephrology Progress Note ---
Assessment/Plan Problem List: (1) Diabetic nephropathy (2) Renal failure (ARF), acute on chronic (3) Anemia (4) Ischemia of right lower extremity (5) Right foot ulcer (6) Infection of right foot Assessment Renal Failure , likely diabetic nephropathy IDDM Anemia, h/o SS disease right foot appears gangerenous Plan K supplement as needed One dose Lasix Po for swelling change reglan to PO tolerating PO adjust BP meds Anemia management BS check gastric support per consultants post amputation care ( 05/02/19 amputation) Subjective ROS Limited/Unobtainable: No Constitutional: Reports: malaise Subjective no more Nausea Objective Objective Last 24 Hour Vital Signs Date Time Temp Pulse Resp B/P (MAP) Pulse Ox O2 Delivery O2 Flow Rate FiO2 05/11/19 09:50 80 136/70 05/11/19 08:00 97.1 80 19 136/70 (92) 97 05/11/19 06:01 98.0 05/11/19 05:32 119/62 05/11/19 04:00 98.0 69 18 119/62 (81) 100 05/10/19 21:12 107/49 05/10/19 20:15 Room Air 05/10/19 20:11 98.2 73 18 107/49 (68) 96 05/10/19 16:00 98.1 70 16 116/66 (83) 97 05/10/19 13:35 137/70 Intake and Output 05/10/19 05/11/19 19:00 07:00 Intake Total 432.5 ml Balance 432.5 ml Intake Oral 240 ml IV Total 192.5 ml # Voids 1 2 # Bowel Movements 1 Laboratory Tests 05/11/19 05:00: White Blood Count 11.9H, Red Blood Count 2.69L, Hemoglobin 7.3L, Hematocrit 23.5L, Mean Corpuscular Volume 87, Mean Corpuscular Hemoglobin 27.1, Mean Corpuscular Hemoglobin Concent 31.0L, Red Cell Distribution Width 17.3H, Platelet Count 308, Mean Platelet Volume 8.0, Neutrophils (%) (Auto) , Lymphocytes (%) (Auto) , Monocytes (%) (Auto) , Eosinophils (%) (Auto) , Basophils (%) (Auto) , Differential Total Cells Counted 100, Neutrophils % ( Manual) 66, Lymphocytes % (Manual) 23, Monocytes % (Manual) 7, Eosinophils % ( Manual) 4H, Basophils % (Manual) 0, Band Neutrophils 0, Nucleated Red Blood Cells 1, Platelet Estimate Adequate, Platelet Morphology , Giant Platelets Occasional, Polychromasia 1+, Hypochromasia 2+, Anisocytosis 2+, Target Cells Occasional, Sodium Level 143, Potassium Level 3.3L, Chloride Level 113H, Carbon Dioxide Level 20L, Anion Gap 10, Blood Urea Nitrogen 15, Creatinine 1.9H, Estimat Glomerular Filtration Rate 35.4, Glucose Level 162H, Calcium Level 7.4L , Phosphorus Level 3.8, Magnesium Level 1.7L, Total Bilirubin 0.5, Aspartate Amino Transf (AST/SGOT) 27, Alanine Aminotransferase (ALT/SGPT) 25, Alkaline Phosphatase 200H, C-Reactive Protein, Quantitative 0.5, Pro-B-Type Natriuretic Peptide 1825H, Total Protein 6.5, Albumin 1.8L, Globulin 4.7, Albumin/Globulin Ratio 0.4L Height (Feet): 4 Height (Inches): 9.00 Weight (Pounds): 129 General Appearance: no apparent distress Objective no change Elfego Vázquez MD May 11, 2019 13:12
--- NOTE | 2019-05-11 13:50 | General Progress Note ---
Assessment/Plan Assessment/Plan: (1) Right foot pain (2) Right foot ulcer (3) S/p Right LE BKA Patient will be continued on [place] and Dilaudid will be changed to 4mg PO 1 tab Q4H PRN severe pain. D/w Dr. Marsh and he concurred. Subjective Date patient seen: May 11, 2019 Time patient seen: 01:30 - pm Allergies: Coded Allergies: No Known Allergies (Unverified , 05/01/19) Subjective Constitutional: Reports: no symptoms HEENT: Reports: no symptoms Cardiovascular: Reports: no symptoms Respiratory: Reports: no symptoms Gastrointestinal/Abdominal: Reports: no symptoms Genitourinary: Reports: no symptoms Neurologic/Psychiatric: Reports: no symptoms Endocrine: Reports: no symptoms Hematologic/Lymphatic: Reports: no symptoms Subjective Patient showing no signs of pain or distress at this time. I d/w her about changing the Dilaudid IV to tabs and she seems to understand. Objective Last 24 Hour Vital Signs Date Time Temp Pulse Resp B/P (MAP) Pulse Ox O2 Delivery O2 Flow Rate FiO2 05/11/19 09:50 80 136/70 05/11/19 08:00 97.1 80 19 136/70 (92) 97 05/11/19 06:01 98.0 05/11/19 05:32 119/62 05/11/19 04:00 98.0 69 18 119/62 (81) 100 05/10/19 21:12 107/49 05/10/19 20:15 Room Air 05/10/19 20:11 98.2 73 18 107/49 (68) 96 05/10/19 16:00 98.1 70 16 116/66 (83) 97 Intake and Output 05/10/19 05/11/19 19:00 07:00 Intake Total 432.5 ml Balance 432.5 ml Intake Oral 240 ml IV Total 192.5 ml # Voids 1 2 # Bowel Movements 1 Laboratory Tests 05/11/19 05:00: White Blood Count 11.9H, Red Blood Count 2.69L, Hemoglobin 7.3L, Hematocrit 23.5L, Mean Corpuscular Volume 87, Mean Corpuscular Hemoglobin 27.1, Mean Corpuscular Hemoglobin Concent 31.0L, Red Cell Distribution Width 17.3H, Platelet Count 308, Mean Platelet Volume 8.0, Neutrophils (%) (Auto) , Lymphocytes (%) (Auto) , Monocytes (%) (Auto) , Eosinophils (%) (Auto) , Basophils (%) (Auto) , Differential Total Cells Counted 100, Neutrophils % ( Manual) 66, Lymphocytes % (Manual) 23, Monocytes % (Manual) 7, Eosinophils % ( Manual) 4H, Basophils % (Manual) 0, Band Neutrophils 0, Nucleated Red Blood Cells 1, Platelet Estimate Adequate, Platelet Morphology , Giant Platelets Occasional, Polychromasia 1+, Hypochromasia 2+, Anisocytosis 2+, Target Cells Occasional, Sodium Level 143, Potassium Level 3.3L, Chloride Level 113H, Carbon Dioxide Level 20L, Anion Gap 10, Blood Urea Nitrogen 15, Creatinine 1.9H, Estimat Glomerular Filtration Rate 35.4, Glucose Level 162H, Calcium Level 7.4L , Phosphorus Level 3.8, Magnesium Level 1.7L, Total Bilirubin 0.5, Aspartate Amino Transf (AST/SGOT) 27, Alanine Aminotransferase (ALT/SGPT) 25, Alkaline Phosphatase 200H, C-Reactive Protein, Quantitative 0.5, Pro-B-Type Natriuretic Peptide 1825H, Total Protein 6.5, Albumin 1.8L, Globulin 4.7, Albumin/Globulin Ratio 0.4L Height (Feet): 4 Height (Inches): 9.00 Weight (Pounds): 129 Objective General Appearance: no apparent distress, alert EENT: PERRL/EOMI, normal ENT inspection Neck: non-tender, normal alignment Cardiovascular: normal rate, regular rhythm Abdomen: non tender, soft Extremities: other - BKA noted Neurologic: abnormal gait, oriented x 3 Skin: normal pigmentation Navi Menchaca May 11, 2019 13:50
[2019-05-11 14:12] VITALS: BP 119/62
[2019-05-11] MEDS: HYDROmorphone 4mg tab ORAL PRN ×2 (14:53→20:26)
[2019-05-11 16:00] VITALS: BP 117/84
[2019-05-11 20:00] VITALS: BP 122/59
--- NOTE | 2019-05-11 21:52 | General Progress Note ---
Assessment/Plan Problem List: (1) Right foot ulcer ICD Codes: L97.519 - Non-pressure chronic ulcer of other part of right foot with unspecified severity SNOMED: 87304623 (2) Renal failure (ARF), acute on chronic ICD Codes: N17.9 - Acute kidney failure, unspecified; N18.9 - Chronic kidney disease, unspecified SNOMED: 778964831 (3) Diabetic nephropathy ICD Codes: E11.21 - Type 2 diabetes mellitus with diabetic nephropathy SNOMED: 822488122 (4) Renal insufficiency ICD Codes: N28.9 - Disorder of kidney and ureter, unspecified SNOMED: 807261495, 315211658 (5) Anemia ICD Codes: D64.9 - Anemia, unspecified SNOMED: 628924455 (6) Diabetes ICD Codes: E11.9 - Type 2 diabetes mellitus without complications SNOMED: 18127974 (7) Infection of right foot ICD Codes: L08.9 - Local infection of the skin and subcutaneous tissue, unspecified SNOMED: 022628089 Status: progressing Assessment/Plan: ulcer check labs and lytes foot infection nephropathy afebrile Subjective ROS Limited/Unobtainable: Yes Allergies: Coded Allergies: No Known Allergies (Unverified , 05/01/19) Objective Last 24 Hour Vital Signs Date Time Temp Pulse Resp B/P (MAP) Pulse Ox O2 Delivery O2 Flow Rate FiO2 05/11/19 21:00 Room Air 05/11/19 20:00 98.3 77 18 122/59 (80) 99 05/11/19 16:30 Room Air 05/11/19 16:00 97.2 77 117/84 (95) 05/11/19 14:13 119/62 05/11/19 14:12 80 119/62 (81) 05/11/19 12:00 99.0 73 19 126/68 (87) 97 05/11/19 09:50 80 136/70 05/11/19 09:00 Room Air 05/11/19 08:00 97.1 80 19 136/70 (92) 97 05/11/19 06:01 98.0 05/11/19 05:32 119/62 05/11/19 04:00 98.0 69 18 119/62 (81) 100 Intake and Output 8/17/19 8/18/19 18:59 06:59 Intake Total 405.0 ml Balance 405.0 ml Intake Oral 240 ml IV Total 165.0 ml # Voids 1 2 # Bowel Movements 1 Laboratory Tests 05/11/19 05:00: White Blood Count 11.9H, Red Blood Count 2.69L, Hemoglobin 7.3L, Hematocrit 23.5L, Mean Corpuscular Volume 87, Mean Corpuscular Hemoglobin 27.1, Mean Corpuscular Hemoglobin Concent 31.0L, Red Cell Distribution Width 17.3H, Platelet Count 308, Mean Platelet Volume 8.0, Neutrophils (%) (Auto) , Lymphocytes (%) (Auto) , Monocytes (%) (Auto) , Eosinophils (%) (Auto) , Basophils (%) (Auto) , Differential Total Cells Counted 100, Neutrophils % ( Manual) 66, Lymphocytes % (Manual) 23, Monocytes % (Manual) 7, Eosinophils % ( Manual) 4H, Basophils % (Manual) 0, Band Neutrophils 0, Nucleated Red Blood Cells 1, Platelet Estimate Adequate, Platelet Morphology , Giant Platelets Occasional, Polychromasia 1+, Hypochromasia 2+, Anisocytosis 2+, Target Cells Occasional, Sodium Level 143, Potassium Level 3.3L, Chloride Level 113H, Carbon Dioxide Level 20L, Anion Gap 10, Blood Urea Nitrogen 15, Creatinine 1.9H, Estimat Glomerular Filtration Rate 35.4, Glucose Level 162H, Calcium Level 7.4L , Phosphorus Level 3.8, Magnesium Level 1.7L, Total Bilirubin 0.5, Aspartate Amino Transf (AST/SGOT) 27, Alanine Aminotransferase (ALT/SGPT) 25, Alkaline Phosphatase 200H, C-Reactive Protein, Quantitative 0.5, Pro-B-Type Natriuretic Peptide 1825H, Total Protein 6.5, Albumin 1.8L, Globulin 4.7, Albumin/Globulin Ratio 0.4L Height (Feet): 4 Height (Inches): 9.00 Weight (Pounds): 129 Neck: supple Cardiovascular: normal rate Respiratory/Chest: lungs clear Hiram Adams MD May 11, 2019 21:52
[2019-05-12] VITALS: BP 114/58
[2019-05-12] MEDS: HYDROmorphone 4mg tab ORAL PRN ×5 (00:40→20:18)
[2019-05-12 04:00] VITALS: BP 122/68
[2019-05-12] MEDS: DiphenhydrAMINE 50mg/ml Inj IVP PRN ×3 (04:05→18:19)
[2019-05-12] MEDS: HydrALAZINE 25mg tab ORAL SCH ×3 (06:00→21:02)
[2019-05-12] MEDS: NovoLOG Insulin Flexpen SUBQ SCH ×7 (06:26→20:09)
--- NOTE | 2019-05-12 07:00 | General Progress Note ---
Assessment/Plan Problem List: (1) Gas gangrene ICD Codes: A48.0 - Gas gangrene SNOMED: 37244806 (2) Diabetes ICD Codes: E11.9 - Type 2 diabetes mellitus without complications SNOMED: 99897953 (3) Infection of right foot ICD Codes: L08.9 - Local infection of the skin and subcutaneous tissue, unspecified SNOMED: 007215867 (4) Diabetic nephropathy ICD Codes: E11.21 - Type 2 diabetes mellitus with diabetic nephropathy SNOMED: 365276070 Status: progressing Assessment/Plan: increase Levemir to 10 units daily increase Novolog to 3 units ac tid - hold if not eating continue Novolog insulin sliding scale ac / hs she is currently stable from diabetes stand point in order to be transferred to SNF Subjective Allergies: Coded Allergies: No Known Allergies (Unverified , 05/01/19) All Systems: reviewed and negative except above Subjective events noted glucose values elevated she had "restaurant food" Item Value Date Time Bedside Blood Glucose 342 mg/dl H 05/12/19 0626 Bedside Blood Glucose 388 mg/dl H 05/11/19 2138 Bedside Blood Glucose 475 mg/dl H 05/11/19 1645 Bedside Blood Glucose 334 mg/dl H 05/11/19 1406 Bedside Blood Glucose 309 mg/dl H 05/11/19 0947 Glucose Level 162 MG/DL H 05/11/19 0500 Objective Last 24 Hour Vital Signs Date Time Temp Pulse Resp B/P (MAP) Pulse Ox O2 Delivery O2 Flow Rate FiO2 05/12/19 06:00 122/70 05/12/19 04:00 98.2 71 18 122/68 (86) 98 05/12/19 00:00 98.8 71 18 114/58 (76) 99 05/11/19 22:00 122/59 05/11/19 21:00 Room Air 05/11/19 20:00 98.3 77 18 122/59 (80) 99 05/11/19 16:30 Room Air 05/11/19 16:00 97.2 77 117/84 (95) 05/11/19 14:13 119/62 05/11/19 14:12 80 119/62 (81) 05/11/19 12:00 99.0 73 19 126/68 (87) 97 05/11/19 09:50 80 136/70 05/11/19 09:00 Room Air 05/11/19 08:00 97.1 80 19 136/70 (92) 97 Intake and Output 05/11/19 05/12/19 19:00 07:00 Intake Total 480 ml Balance 480 ml Intake Oral 480 ml # Voids 2 # Bowel Movements 1 1 Height (Feet): 4 Height (Inches): 9.00 Weight (Pounds): 129 General Appearance: no apparent distress Neck: normal alignment Cardiovascular: normal rate Respiratory/Chest: lungs clear Abdomen: normal bowel sounds Extremities: other - BKA Objective Current Medications Medications (Trade) Dose Ordered Sig/Trey Route PRN Reason Start Time Stop Time Status Last Admin Dose Admin Acetaminophen (Tylenol) 650 mg Q4H PRN ORAL Mild Pain/Temp > 100.5 05/03/19 11:05 06/02/19 11:04 Acetaminophen/ Hydrocodone Bitart ([place] 10/325) 1 tab Q6H PRN ORAL moderate pain 05/09/19 09:45 05/16/19 09:44 05/09/19 12:58 Amlodipine Besylate (Norvasc) 10 mg DAILY ORAL 05/08/19 09:00 06/07/19 08:59 05/11/19 09:50 Ammonium Lactate (Lac Hydrin) 1 applic TWICE A DAY TOPIC 05/03/19 18:00 06/01/19 11:29 05/09/19 10:17 Clonidine HCl (Catapres TTS-2) 1 patch QWEEK TDERMAL 05/08/19 13:00 06/07/19 12:59 05/08/19 13:13 Clonidine HCl (Catapres Tab) 0.1 mg Q4H PRN ORAL For High BP 160 syst 05/08/19 11:41 06/07/19 11:40 05/08/19 23:43 Dextrose (Dextrose 50%) 25 ml Q30M PRN IV Hypoglycemia 05/09/19 17:00 06/08/19 16:59 Dextrose (Dextrose 50%) 50 ml Q30M PRN IV Hypoglycemia 05/09/19 17:00 06/08/19 16:59 Diphenhydramine HCl (Benadryl) 25 mg Q6H PRN IVP Itching 05/03/19 11:05 06/02/19 11:04 05/12/19 04:05 Epoetin Matt (Epoetin Matt-EPBX(NON ESRD)) 4,000 unit SUN-SUN-SUN SUBQ 05/05/19 21:00 06/01/19 20:59 05/09/19 21:29 Hydralazine HCl (Apresoline) 25 mg Q8HR ORAL 05/09/19 14:00 06/08/19 13:59 05/11/19 14:13 Hydromorphone HCl (Dilaudid) 4 mg Q4H PRN ORAL Severe Pain (Pain Scale 7-10) 05/11/19 11:15 05/18/19 11:14 05/12/19 05:07 Insulin Aspart (NovoLOG) BEFORE MEALS AND HS SUBQ 05/07/19 11:30 06/06/19 11:29 05/12/19 06:26 Insulin Aspart (NovoLOG) 2 units NOVOTIAC SUBQ 05/09/19 17:00 06/08/19 16:59 05/11/19 19:00 Insulin Detemir (Levemir) 8 units DAILY SUBQ 05/10/19 09:00 06/06/19 08:59 05/11/19 09:47 Metoclopramide HCl (Reglan) 10 mg THREE TIMES A DAY ORAL 05/09/19 18:00 06/08/19 17:59 05/09/19 17:54 Ondansetron HCl (Zofran) 4 mg Q6H PRN IVP Nausea & Vomiting 05/03/19 12:00 05/31/19 17:59 05/08/19 08:22 Pantoprazole (Protonix) 40 mg EVERY 12 HOURS ORAL 05/09/19 21:00 06/08/19 20:59 Isaac Velázquez MD May 12, 2019 07:00
[2019-05-12 08:00] VITALS: BP 139/74
[2019-05-12] MEDS: Levemir Flexpen SUBQ SCH (08:21)
--- NOTE | 2019-05-12 08:50 | Nephrology Progress Note ---
Assessment/Plan Problem List: (1) Diabetic nephropathy (2) Renal failure (ARF), acute on chronic (3) Anemia (4) Ischemia of right lower extremity (5) Right foot ulcer (6) Infection of right foot Assessment Renal Failure , likely diabetic nephropathy IDDM Anemia, h/o SS disease right foot appears gangerenous Plan K supplement as needed One dose Lasix Po for swelling change reglan to PO tolerating PO adjust BP meds Anemia management BS check gastric support per consultants post amputation care ( 05/02/19 amputation) Subjective ROS Limited/Unobtainable: No Subjective no more Nausea Objective Objective Last 24 Hour Vital Signs Date Time Temp Pulse Resp B/P (MAP) Pulse Ox O2 Delivery O2 Flow Rate FiO2 05/12/19 06:00 122/70 05/12/19 04:00 98.2 71 18 122/68 (86) 98 05/12/19 00:00 98.8 71 18 114/58 (76) 99 05/11/19 22:00 122/59 05/11/19 21:00 Room Air 05/11/19 20:00 98.3 77 18 122/59 (80) 99 05/11/19 16:30 Room Air 05/11/19 16:00 97.2 77 117/84 (95) 05/11/19 14:13 119/62 05/11/19 14:12 80 119/62 (81) 05/11/19 12:00 99.0 73 19 126/68 (87) 97 05/11/19 09:50 80 136/70 05/11/19 09:00 Room Air Intake and Output 05/11/19 05/12/19 19:00 07:00 Intake Total 480 ml 240 ml Balance 480 ml 240 ml Intake Oral 480 ml 240 ml # Voids 2 2 # Bowel Movements 1 2 Height (Feet): 4 Height (Inches): 9.00 Weight (Pounds): 114 General Appearance: no apparent distress Objective no change Elfego Vázquez MD May 12, 2019 08:50
[2019-05-12] MEDS: Lac Hydrin 12% Lotion 8oz TOPIC SCH ×2 (08:54→18:00)
--- NOTE | 2019-05-12 08:57 | General Progress Note ---
Assessment/Plan Assessment/Plan: (1) Right foot pain (2) Right foot ulcer (3) S/p Right LE BKA Patient will be continued on [place] and Dilaudid D/w Dr. Marsh and he concurred. Subjective Date patient seen: May 12, 2019 Time patient seen: 08:00 - am Allergies: Coded Allergies: No Known Allergies (Unverified , 05/01/19) Subjective Constitutional: Reports: no symptoms HEENT: Reports: no symptoms Cardiovascular: Reports: no symptoms Respiratory: Reports: no symptoms Gastrointestinal/Abdominal: Reports: no symptoms Genitourinary: Reports: no symptoms Neurologic/Psychiatric: Reports: no symptoms Endocrine: Reports: no symptoms Hematologic/Lymphatic: Reports: no symptoms Subjective Patient is in bed and reports that the Dilaudid has been effective in reduction of her pain. Using the [place] for breakthrough pain. No new complaints at this time. Objective Last 24 Hour Vital Signs Date Time Temp Pulse Resp B/P (MAP) Pulse Ox O2 Delivery O2 Flow Rate FiO2 05/12/19 08:50 79 139/74 05/12/19 06:00 122/70 05/12/19 04:00 98.2 71 18 122/68 (86) 98 05/12/19 00:00 98.8 71 18 114/58 (76) 99 05/11/19 22:00 122/59 05/11/19 21:00 Room Air 05/11/19 20:00 98.3 77 18 122/59 (80) 99 05/11/19 16:30 Room Air 05/11/19 16:00 97.2 77 117/84 (95) 05/11/19 14:13 119/62 05/11/19 14:12 80 119/62 (81) 05/11/19 12:00 99.0 73 19 126/68 (87) 97 05/11/19 09:50 80 136/70 05/11/19 09:00 Room Air Intake and Output 05/11/19 05/12/19 19:00 07:00 Intake Total 480 ml 240 ml Balance 480 ml 240 ml Intake Oral 480 ml 240 ml # Voids 2 2 # Bowel Movements 1 2 Height (Feet): 4 Height (Inches): 9.00 Weight (Pounds): 114 Objective General Appearance: no apparent distress, alert EENT: PERRL/EOMI, normal ENT inspection Neck: non-tender, normal alignment Cardiovascular: normal rate, regular rhythm Abdomen: non tender, soft Extremities: other - BKA noted Neurologic: abnormal gait, oriented x 3 Skin: normal pigmentation Navi Menchaca May 12, 2019 08:57
--- NOTE | 2019-05-12 10:54 | General Progress Note ---
Progress Note Progress Note leukocytosis improved tolerating diet wants ice pack for her leg bka stump evaluated and c/d/i. flap taking and healing exam stable okay for ice pack if desired d/c planning from surgical standpoint 4/u in 4-6 weeks for staple removal thank you Tian Avalos May 12, 2019 10:54
--- NOTE | 2019-05-12 11:24 | Pulmonology Progress Note ---
Assessment/Plan Problems: (1) Gas gangrene (2) Diabetic nephropathy (3) Renal insufficiency (4) Diabetes (5) Ischemia of right lower extremity Assessment/Plan doing better sliding scale diabetic diet needs placement pt./ot pending dc planning Subjective ROS Limited/Unobtainable: No Constitutional: Reports: no symptoms HEENT: Repors: no symptoms Allergies: Coded Allergies: No Known Allergies (Unverified , 05/01/19) Objective Last 24 Hour Vital Signs Date Time Temp Pulse Resp B/P (MAP) Pulse Ox O2 Delivery O2 Flow Rate FiO2 05/12/19 09:00 Room Air 05/12/19 08:50 79 139/74 05/12/19 08:00 97.5 79 18 139/74 (95) 99 05/12/19 06:00 122/70 05/12/19 04:00 98.2 71 18 122/68 (86) 98 05/12/19 00:00 98.8 71 18 114/58 (76) 99 05/11/19 22:00 122/59 05/11/19 21:00 Room Air 05/11/19 20:00 98.3 77 18 122/59 (80) 99 05/11/19 16:30 Room Air 05/11/19 16:00 97.2 77 117/84 (95) 05/11/19 14:13 119/62 05/11/19 14:12 80 119/62 (81) 05/11/19 12:00 99.0 73 19 126/68 (87) 97 Intake and Output 05/11/19 05/12/19 19:00 07:00 Intake Total 480 ml 240 ml Balance 480 ml 240 ml Intake Oral 480 ml 240 ml # Voids 2 2 # Bowel Movements 1 2 General Appearance: WD/WN HEENT: normocephalic Respiratory/Chest: lungs clear, normal breath sounds Breasts: no masses Cardiovascular: normal peripheral pulses, normal rate Abdomen: normal bowel sounds, no organomegaly Extremities: no cyanosis Current Medications Medications (Trade) Dose Ordered Sig/Trey Route PRN Reason Start Time Stop Time Status Last Admin Dose Admin Acetaminophen (Tylenol) 650 mg Q4H PRN ORAL Mild Pain/Temp > 100.5 05/03/19 11:05 06/02/19 11:04 Acetaminophen/ Hydrocodone Bitart ([place] 10/325) 1 tab Q6H PRN ORAL moderate pain 05/09/19 09:45 05/16/19 09:44 05/09/19 12:58 Amlodipine Besylate (Norvasc) 10 mg DAILY ORAL 05/08/19 09:00 06/07/19 08:59 05/12/19 08:50 Ammonium Lactate (Lac Hydrin) 1 applic TWICE A DAY TOPIC 05/03/19 18:00 06/01/19 11:29 05/09/19 10:17 Clonidine HCl (Catapres TTS-2) 1 patch QWEEK TDERMAL 05/08/19 13:00 06/07/19 12:59 05/08/19 13:13 Clonidine HCl (Catapres Tab) 0.1 mg Q4H PRN ORAL For High BP 160 syst 05/08/19 11:41 06/07/19 11:40 05/08/19 23:43 Dextrose (Dextrose 50%) 25 ml Q30M PRN IV Hypoglycemia 05/09/19 17:00 06/08/19 16:59 Dextrose (Dextrose 50%) 50 ml Q30M PRN IV Hypoglycemia 05/09/19 17:00 06/08/19 16:59 Diphenhydramine HCl (Benadryl) 25 mg Q6H PRN IVP Itching 05/03/19 11:05 06/02/19 11:04 05/12/19 10:21 Epoetin Matt (Epoetin Matt-EPBX(NON ESRD)) 4,000 unit SUN-SUN-SUN SUBQ 05/05/19 21:00 06/01/19 20:59 05/09/19 21:29 Hydralazine HCl (Apresoline) 25 mg Q8HR ORAL 05/09/19 14:00 06/08/19 13:59 05/11/19 14:13 Hydromorphone HCl (Dilaudid) 4 mg Q4H PRN ORAL Severe Pain (Pain Scale 7-10) 05/11/19 11:15 05/18/19 11:14 05/12/19 10:21 Insulin Aspart (NovoLOG) BEFORE MEALS AND HS SUBQ 05/07/19 11:30 06/06/19 11:29 05/12/19 06:26 Insulin Aspart (NovoLOG) 3 units NOVOTIAC SUBQ 05/12/19 07:00 06/08/19 16:59 05/12/19 08:20 Insulin Detemir (Levemir) 10 units DAILY SUBQ 05/12/19 09:00 06/06/19 08:59 05/12/19 08:21 Metoclopramide HCl (Reglan) 10 mg THREE TIMES A DAY ORAL 05/09/19 18:00 06/08/19 17:59 05/12/19 08:50 Ondansetron HCl (Zofran) 4 mg Q6H PRN IVP Nausea & Vomiting 05/03/19 12:00 05/31/19 17:59 05/08/19 08:22 Pantoprazole (Protonix) 40 mg EVERY 12 HOURS ORAL 05/09/19 21:00 06/08/19 20:59 Serena Gordon MD May 12, 2019 11:24
[2019-05-12 12:00] VITALS: BP 131/60
--- NOTE | 2019-05-12 12:27 | General Progress Note ---
Assessment/Plan Problem List: (1) Right foot ulcer ICD Codes: L97.519 - Non-pressure chronic ulcer of other part of right foot with unspecified severity SNOMED: 82984298 (2) Renal failure (ARF), acute on chronic ICD Codes: N17.9 - Acute kidney failure, unspecified; N18.9 - Chronic kidney disease, unspecified SNOMED: 547125882 (3) Diabetic nephropathy ICD Codes: E11.21 - Type 2 diabetes mellitus with diabetic nephropathy SNOMED: 234711843 (4) Renal insufficiency ICD Codes: N28.9 - Disorder of kidney and ureter, unspecified SNOMED: 291716831, 417508034 (5) Anemia ICD Codes: D64.9 - Anemia, unspecified SNOMED: 631752981 (6) Diabetes ICD Codes: E11.9 - Type 2 diabetes mellitus without complications SNOMED: 74126398 (7) Infection of right foot ICD Codes: L08.9 - Local infection of the skin and subcutaneous tissue, unspecified SNOMED: 970764592 Status: progressing Assessment/Plan: niddm azotemai abx per id afebrile reviewed chart foot infection nephropathy Subjective ROS Limited/Unobtainable: Yes Allergies: Coded Allergies: No Known Allergies (Unverified , 05/01/19) Objective Last 24 Hour Vital Signs Date Time Temp Pulse Resp B/P (MAP) Pulse Ox O2 Delivery O2 Flow Rate FiO2 05/12/19 09:00 Room Air 05/12/19 08:50 79 139/74 05/12/19 08:00 97.5 79 18 139/74 (95) 99 05/12/19 06:00 122/70 05/12/19 04:00 98.2 71 18 122/68 (86) 98 05/12/19 00:00 98.8 71 18 114/58 (76) 99 05/11/19 22:00 122/59 05/11/19 21:00 Room Air 05/11/19 20:00 98.3 77 18 122/59 (80) 99 05/11/19 16:30 Room Air 05/11/19 16:00 97.2 77 117/84 (95) 05/11/19 14:13 119/62 05/11/19 14:12 80 119/62 (81) Intake and Output 05/11/19 05/12/19 19:00 07:00 Intake Total 480 ml 240 ml Balance 480 ml 240 ml Intake Oral 480 ml 240 ml # Voids 2 2 # Bowel Movements 1 2 Height (Feet): 4 Height (Inches): 9.00 Weight (Pounds): 114 Respiratory/Chest: lungs clear Abdomen: soft Hiram Adams MD May 12, 2019 12:27
--- NOTE | 2019-05-12 12:44 | Hematology/Onc Progress Note ---
Assessment/Plan Assessment/Plan Assessment and Recs: # Sickle cell disease - hgb baseline 5-6 range, per patient she does not want blood transfusions --> refusing blood transfusions, per her the baseline is 5-6 range --> trend hgb 5.85-->4.8-->8.9-->8.9-->9.5-->9-->8.6-->8.9-->7.4-->7.3 --> anemia panel reviewed and c/w these labs values, ferritin is high --> not in hemolysis at this time --> electrophoresis as needed, not during stay at this time --> epo has been ordered 3 x a week --> iron stores are sufficient --> recommended transfusion can be life saving but patient declined # Leukocytosis/elevated white blood cell count, unspecified likely related to underlying stress reaction, smoking v from crisis, doing better s/o bka r --> have reviewed peripheral smear and bandemia/neutrophilia noted --> continue antibiotics if they have been started by ID team --> monitor for resolution --> trend wbc 25k-->23k-->12k-->14.8-->12-->11.9 --> may need surg, refusing # HAYDEE can be dm related --> trend and establish baseline --> may be dehydrated --> cr 2-->1.5-->1.8-->1.8 # Electrolyte abnml --> as per renal, Na+ trend and volume expansion # DM2 --> a1c goal <8 goal --> accuchecks qac and qhs # HTN, persistent --> bp goal <150, on clonidine and hydra prn The timing of this note does not necessarily reflect the time of the patient was seen. GREATLY APPRECIATE CONSULTATION. Subjective Allergies: Coded Allergies: No Known Allergies (Unverified , 05/01/19) Subjective 05/02: on epogen, hgb lower 4.8, initially refused transfusion, now accepting, shiva rn, refusing sx 05/04: is pod 2 and doing better, still in pain this am 05/05: no bleeding noted, no chills, no night sweats, no f/c 05/06: no bleeding, no chills, appears to be in pain on subj, but when not interviewed asymptomatic 05/07: still with some foot pain, remains on abx, no f/c 05/08: no events noted, no bleeding, hgb 8.9, seen by consultants, with n/v today 05/09: continying on epo, novolog was added today, less pain 05/12: awake and alert, no overnight events, pending placement Objective Objective Current Medications Medications (Trade) Dose Ordered Sig/Trey Route PRN Reason Start Time Stop Time Status Last Admin Dose Admin Acetaminophen (Tylenol) 650 mg Q4H PRN ORAL Mild Pain/Temp > 100.5 05/03/19 11:05 06/02/19 11:04 Acetaminophen/ Hydrocodone Bitart ([place] 10) 1 tab Q6H PRN ORAL moderate pain 05/09/19 09:45 05/16/19 09:44 05/09/19 12:58 Amlodipine Besylate (Norvasc) 10 mg DAILY ORAL 05/08/19 09:00 06/07/19 08:59 05/12/19 08:50 Ammonium Lactate (Lac Hydrin) 1 applic TWICE A DAY TOPIC 05/03/19 18:00 06/01/19 11:29 05/09/19 10:17 Clonidine HCl (Catapres TTS-2) 1 patch QWEEK TDERMAL 05/08/19 13:00 06/07/19 12:59 05/08/19 13:13 Clonidine HCl (Catapres Tab) 0.1 mg Q4H PRN ORAL For High BP 160 syst 05/08/19 11:41 06/07/19 11:40 05/08/19 23:43 Dextrose (Dextrose 50%) 25 ml Q30M PRN IV Hypoglycemia 05/09/19 17:00 06/08/19 16:59 Dextrose (Dextrose 50%) 50 ml Q30M PRN IV Hypoglycemia 05/09/19 17:00 06/08/19 16:59 Diphenhydramine HCl (Benadryl) 25 mg Q6H PRN IVP Itching 05/03/19 11:05 06/02/19 11:04 05/12/19 10:21 Epoetin Matt (Epoetin Matt-EPBX(NON ESRD)) 4,000 unit MON-WED-SUN SUBQ 05/05/19 21:00 06/01/19 20:59 05/09/19 21:29 Hydralazine HCl (Apresoline) 25 mg Q8HR ORAL 05/09/19 14:00 06/08/19 13:59 05/11/19 14:13 Hydromorphone HCl (Dilaudid) 4 mg Q4H PRN ORAL Severe Pain (Pain Scale 7-10) 05/11/19 11:15 05/18/19 11:14 05/12/19 10:21 Insulin Aspart (NovoLOG) BEFORE MEALS AND HS SUBQ 05/07/19 11:30 06/06/19 11:29 05/12/19 12:15 Insulin Aspart (NovoLOG) 3 units NOVOTIAC SUBQ 05/12/19 07:00 06/08/19 16:59 05/12/19 12:15 Insulin Detemir (Levemir) 10 units DAILY SUBQ 05/12/19 09:00 06/06/19 08:59 05/12/19 08:21 Metoclopramide HCl (Reglan) 10 mg THREE TIMES A DAY ORAL 05/09/19 18:00 06/08/19 17:59 05/12/19 08:50 Ondansetron HCl (Zofran) 4 mg Q6H PRN IVP Nausea & Vomiting 05/03/19 12:00 05/31/19 17:59 05/08/19 08:22 Pantoprazole (Protonix) 40 mg EVERY 12 HOURS ORAL 05/09/19 21:00 06/08/19 20:59 Last 24 Hour Vital Signs Date Time Temp Pulse Resp B/P (MAP) Pulse Ox O2 Delivery O2 Flow Rate FiO2 05/12/19 09:00 Room Air 05/12/19 08:50 79 139/74 05/12/19 08:00 97.5 79 18 139/74 (95) 99 05/12/19 06:00 122/70 05/12/19 04:00 98.2 71 18 122/68 (86) 98 05/12/19 00:00 98.8 71 18 114/58 (76) 99 05/11/19 22:00 122/59 05/11/19 21:00 Room Air 05/11/19 20:00 98.3 77 18 122/59 (80) 99 05/11/19 16:30 Room Air 05/11/19 16:00 97.2 77 117/84 (95) 05/11/19 14:13 119/62 05/11/19 14:12 80 119/62 (81) 05/11/19 12:00 99.0 73 19 126/68 (87) 97 05/11/19 09:50 80 136/70 05/11/19 09:00 Room Air 05/11/19 08:00 97.1 80 19 136/70 (92) 97 05/11/19 06:01 98.0 05/11/19 05:32 119/62 05/11/19 04:00 98.0 69 18 119/62 (81) 100 05/10/19 21:12 107/49 05/10/19 20:15 Room Air 05/10/19 20:11 98.2 73 18 107/49 (68) 96 05/10/19 16:00 98.1 70 16 116/66 (83) 97 05/10/19 13:35 137/70 Intake and Output 05/11/19 05/12/19 19:00 07:00 Intake Total 480 ml 240 ml Balance 480 ml 240 ml Intake Oral 480 ml 240 ml # Voids 2 2 # Bowel Movements 1 2 Labs Test 05/11/19 05:00 White Blood Count 11.9 K/UL (4.8-10.8) Red Blood Count 2.69 M/UL (4.20-5.40) Hemoglobin 7.3 G/DL (12.0-16.0) Hematocrit 23.5 % (37.0-47.0) Mean Corpuscular Volume 87 FL (80-99) Mean Corpuscular Hemoglobin 27.1 PG (27.0-31.0) Mean Corpuscular Hemoglobin Concent 31.0 G/DL (32.0-36.0) Red Cell Distribution Width 17.3 % (11.6-14.8) Platelet Count 308 K/UL (150-450) Mean Platelet Volume 8.0 FL (6.5-10.1) Neutrophils (%) (Auto) % (45.0-75.0) Lymphocytes (%) (Auto) % (20.0-45.0) Monocytes (%) (Auto) % (1.0-10.0) Eosinophils (%) (Auto) % (0.0-3.0) Basophils (%) (Auto) % (0.0-2.0) Differential Total Cells Counted 100 Neutrophils % (Manual) 66 % (45-75) Lymphocytes % (Manual) 23 % (20-45) Monocytes % (Manual) 7 % (1-10) Eosinophils % (Manual) 4 % (0-3) Basophils % (Manual) 0 % (0-2) Band Neutrophils 0 % (0-8) Nucleated Red Blood Cells 1 /100 WBC Platelet Estimate Adequate Platelet Morphology Giant Platelets Occasional Polychromasia 1+ Hypochromasia 2+ Anisocytosis 2+ Target Cells Occasional Sodium Level 143 MMOL/L (136-145) Potassium Level 3.3 MMOL/L (3.5-5.1) Chloride Level 113 MMOL/L (98-107) Carbon Dioxide Level 20 MMOL/L (21-32) Anion Gap 10 mmol/L (5-15) Blood Urea Nitrogen 15 mg/dL (7-18) Creatinine 1.9 MG/DL (0.55-1.30) Estimat Glomerular Filtration Rate 35.4 mL/min (>60) Glucose Level 162 MG/DL (74-106) Calcium Level 7.4 MG/DL (8.5-10.1) Phosphorus Level 3.8 MG/DL (2.5-4.9) Magnesium Level 1.7 MG/DL (1.8-2.4) Total Bilirubin 0.5 MG/DL (0.2-1.0) Aspartate Amino Transf (AST/SGOT) 27 U/L (15-37) Alanine Aminotransferase (ALT/SGPT) 25 U/L (12-78) Alkaline Phosphatase 200 U/L (46-116) C-Reactive Protein, Quantitative 0.5 mg/dL (0.00-0.90) Pro-B-Type Natriuretic Peptide 1825 pg/mL (0-125) Total Protein 6.5 G/DL (6.4-8.2) Albumin 1.8 G/DL (3.4-5.0) Globulin 4.7 g/dL Albumin/Globulin Ratio 0.4 (1.0-2.7) Height (Feet): 4 Height (Inches): 9.00 Weight (Pounds): 114 Objective Vitals: reviewed General Appearance: NAD HEENT: normocephalic, atraumatic Neck: non-tender, normal alignment Respiratory/Chest: normal breath sounds bilaterally Cardiovascular/Chest: normal peripheral pulses, normal rate Abdomen: normal bowel sounds, soft, nontender Extremities: normal range of motion, 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
--- NOTE | 2019-05-12 14:25 | Infectious Diseases Prog Note ---
Assessment/Plan Assessment/Plan R LE wound- severe necrotizing infection, gangrene, OM -05/02 SP emergency right lower extremity amputation bka --OR findings: Acutely infected necrotic gangrenous with subcutaneous gas and soft tissues of the right lower extremity --cx: ?done -Tibia/fibula MRI: Large ulcer with large amount of subcutaneous gas in the soft tissues of the posterior distal leg. Chronic deformity of the calcaneus with abnormal bone marrow signal suggesting osteomyelitis. Markedly abnormal bone marrow signal of the distal tibia including the tibial diaphysis spanning up at least 10 cm cranial to the ankle joint highly concerning for infection/ osteomyelitis. This is on a background of diffuse marrow signal heterogeneity which may be related to patient's known history of sickle cell disease. -Xray tibia/fibula: Soft tissue gas and edema in the foot and ankle are concerning for infection. No definite acute osseous abnormality. Osteopenia. -R foot/ankle xray: Soft tissue gas and edema in the foot and ankle are concerning for infection. Extensive soft tissue gas limits evaluation of fine bony detail. Deformity of the calcaneus is nonspecific and may be related to osteomyelitis or trauma. MRI with and without intravenous contrast may be considered for further characterization. -ESR 95, CRP 7.1 Afebrile Leukocytosis; increased, now improving- r/o Cdiff -05/08 u./a no pyuria, nit neg, leuk +2 -05/07 CXR: No acute findings Dm1 HTN sickle cell anemia R hip replacement Plan: -Continue to monitor off abx -05/11 SP ZOsyn #10 -05/08 SP IV Vancomcyin #7 -f/u cx -Monitor CBC/CMP, temperatures -Sx f/u -wound care per surgical team -aspiration precautions -f/u Cdiff Thank you for this consultation. Will continue to follow along with you. Subjective Allergies: Coded Allergies: No Known Allergies (Unverified , 05/01/19) Subjective afebrile wbc improving Objective Vital Signs Last 24 Hour Vital Signs Date Time Temp Pulse Resp B/P (MAP) Pulse Ox O2 Delivery O2 Flow Rate FiO2 05/12/19 12:00 98.2 71 20 131/60 (83) 99 05/12/19 09:00 Room Air 05/12/19 08:50 79 139/74 05/12/19 08:00 97.5 79 18 139/74 (95) 99 05/12/19 06:00 122/70 05/12/19 04:00 98.2 71 18 122/68 (86) 98 05/12/19 00:00 98.8 71 18 114/58 (76) 99 05/11/19 22:00 122/59 05/11/19 21:00 Room Air 05/11/19 20:00 98.3 77 18 122/59 (80) 99 05/11/19 16:30 Room Air 05/11/19 16:00 97.2 77 117/84 (95) Height (Feet): 4 Height (Inches): 9.00 Weight (Pounds): 114 Objective General appearance: alert, cooperative, no distress, appears stated age Head: Normocephalic, without obvious abnormality, atraumatic Eyes: conjunctivae/corneas clear. PERRL, EOM's intact. Fundi benign Throat: Lips, mucosa, and tongue normal. Teeth and gums normal Neck: supple, symmetrical, trachea midline, no adenopathy, thyroid: not enlarged, symmetric, no tenderness/mass/nodules, no carotid bruit and no JVD Lungs: clear to auscultation bilaterally Heart: regular rate and rhythm, S1, S2 normal, no murmur, click, rub or gallop Abdomen: soft, non-tender. Bowel sounds normal. No masses, no organomegaly Extremities: s/p R BKA, dressings in place Pulses: 2+ and symmetric Skin: Skin color, texture, turgor normal. No rashes or lesions Neurologic: Grossly normal Current Medications Medications (Trade) Dose Ordered Sig/Trey Route PRN Reason Start Time Stop Time Status Last Admin Dose Admin Acetaminophen (Tylenol) 650 mg Q4H PRN ORAL Mild Pain/Temp > 100.5 05/03/19 11:05 06/02/19 11:04 Acetaminophen/ Hydrocodone Bitart ([place] 10/325) 1 tab Q6H PRN ORAL moderate pain 05/09/19 09:45 05/16/19 09:44 05/09/19 12:58 Amlodipine Besylate (Norvasc) 10 mg DAILY ORAL 05/08/19 09:00 06/07/19 08:59 05/12/19 08:50 Ammonium Lactate (Lac Hydrin) 1 applic TWICE A DAY TOPIC 05/03/19 18:00 9/8/19 11:29 05/09/19 10:17 Clonidine HCl (Catapres TTS-2) 1 patch QWEEK TDERMAL 05/08/19 13:00 06/07/19 12:59 05/08/19 13:13 Clonidine HCl (Catapres Tab) 0.1 mg Q4H PRN ORAL For High BP 160 syst 05/08/19 11:41 06/07/19 11:40 05/08/19 23:43 Dextrose (Dextrose 50%) 25 ml Q30M PRN IV Hypoglycemia 05/09/19 17:00 06/08/19 16:59 Dextrose (Dextrose 50%) 50 ml Q30M PRN IV Hypoglycemia 05/09/19 17:00 06/08/19 16:59 Diphenhydramine HCl (Benadryl) 25 mg Q6H PRN IVP Itching 05/03/19 11:05 06/02/19 11:04 05/12/19 10:21 Epoetin Matt (Epoetin Matt-EPBX(NON ESRD)) 4,000 unit SUN-SUN-SUN SUBQ 05/05/19 21:00 06/01/19 20:59 05/09/19 21:29 Hydralazine HCl (Apresoline) 25 mg Q8HR ORAL 05/09/19 14:00 06/08/19 13:59 05/11/19 14:13 Hydromorphone HCl (Dilaudid) 4 mg Q4H PRN ORAL Severe Pain (Pain Scale 7-10) 05/11/19 11:15 05/18/19 11:14 05/12/19 10:21 Insulin Aspart (NovoLOG) BEFORE MEALS AND HS SUBQ 05/07/19 11:30 06/06/19 11:29 05/12/19 12:15 Insulin Aspart (NovoLOG) 3 units NOVOTIAC SUBQ 05/12/19 07:00 06/08/19 16:59 05/12/19 12:15 Insulin Detemir (Levemir) 10 units DAILY SUBQ 05/12/19 09:00 06/06/19 08:59 05/12/19 08:21 Metoclopramide HCl (Reglan) 10 mg THREE TIMES A DAY ORAL 05/09/19 18:00 06/08/19 17:59 05/12/19 13:26 Ondansetron HCl (Zofran) 4 mg Q6H PRN IVP Nausea & Vomiting 05/03/19 12:00 05/31/19 17:59 05/08/19 08:22 Pantoprazole (Protonix) 40 mg EVERY 12 HOURS ORAL 05/09/19 21:00 06/08/19 20:59 Radha Gill M.D. May 12, 2019 14:25
[2019-05-12 16:00] VITALS: BP 122/67
--- NOTE | 2019-05-12 16:37 | Cardiac Electrophysiology PN ---
Assessment/Plan Assessment/Plan 1. R LE severe necrotizing infection, gangrene SP emergency right BKA 05/02/19. On ABx per ID 2. Dm1 3. HTN 4. sickle cell anemia 5. Hx of R hip replacement DW RN Subjective Subjective Alert sitting in the chair. No CP or SOB Objective Last 24 Hour Vital Signs Date Time Temp Pulse Resp B/P (MAP) Pulse Ox O2 Delivery O2 Flow Rate FiO2 05/12/19 12:00 98.2 71 20 131/60 (83) 99 05/12/19 09:00 Room Air 05/12/19 08:50 79 139/74 05/12/19 08:00 97.5 79 18 139/74 (95) 99 05/12/19 06:00 122/70 05/12/19 04:00 98.2 71 18 122/68 (86) 98 05/12/19 00:00 98.8 71 18 114/58 (76) 99 05/11/19 22:00 122/59 05/11/19 21:00 Room Air 05/11/19 20:00 98.3 77 18 122/59 (80) 99 Intake and Output 05/11/19 05/12/19 19:00 07:00 Intake Total 480 ml 240 ml Balance 480 ml 240 ml Intake Oral 480 ml 240 ml # Voids 2 2 # Bowel Movements 1 2 Objective EENT: PERRL/EOMI, normal ENT inspection, TMs normal, pharynx normal Neck: non-tender, normal alignment, supple, normal inspection, no JVD Cardiovascular: normal peripheral pulses, normal rate, regular rhythm Respiratory/Chest: chest wall non-tender, lungs clear, normal breath sounds, no respiratory distress, no accessory muscle use Abdomen: normal bowel sounds, non tender, soft, no organomegaly, no mass Extremities: S/P Right KIA Matthew Beatty MD May 12, 2019 16:36
--- NOTE | 2019-05-12 16:38 | Cardiac Electrophysiology PN ---
Assessment/Plan Assessment/Plan 1. R LE severe necrotizing infection, gangrene SP emergency right BKA. On ABx per ID 2. Dm1 3. HTN, On Norvasc 10, Clonidine patch 0.2 and hydralazine 25 q 8hr 4. sickle cell anemia 5. Hx of R hip replacement DW RN Subjective Subjective Alert sitting in the chair. No CP or SOB Objective Last 24 Hour Vital Signs Date Time Temp Pulse Resp B/P (MAP) Pulse Ox O2 Delivery O2 Flow Rate FiO2 05/12/19 12:00 98.2 71 20 131/60 (83) 99 05/12/19 09:00 Room Air 05/12/19 08:50 79 139/74 05/12/19 08:00 97.5 79 18 139/74 (95) 99 05/12/19 06:00 122/70 05/12/19 04:00 98.2 71 18 122/68 (86) 98 05/12/19 00:00 98.8 71 18 114/58 (76) 99 05/11/19 22:00 122/59 05/11/19 21:00 Room Air 05/11/19 20:00 98.3 77 18 122/59 (80) 99 Intake and Output 05/11/19 05/12/19 19:00 07:00 Intake Total 480 ml 240 ml Balance 480 ml 240 ml Intake Oral 480 ml 240 ml # Voids 2 2 # Bowel Movements 1 2 Objective EENT: PERRL/EOMI, normal ENT inspection, TMs normal, pharynx normal Neck: non-tender, normal alignment, supple, normal inspection, no JVD Cardiovascular: normal peripheral pulses, normal rate, regular rhythm Respiratory/Chest: chest wall non-tender, lungs clear, normal breath sounds, no respiratory distress, no accessory muscle use Abdomen: normal bowel sounds, non tender, soft, no organomegaly, no mass Extremities: S/P Right BKA Matthew Beatty MD May 12, 2019 16:38
[2019-05-12 20:00] VITALS: BP 131/70
[2019-05-12] MEDS ORDERED: Epoetin Alfa-EPBX (NON ESRD)4000 units/ml vial SUBQ SCH (21:00)
[2019-05-13] MEDS: DiphenhydrAMINE 50mg/ml Inj IVP PRN ×3 (00:13→12:16)
[2019-05-13 00:31] VITALS: BP 135/73
[2019-05-13] MEDS: HYDROmorphone 4mg tab ORAL PRN (03:06)
[2019-05-13 04:00] VITALS: BP 124/57
[2019-05-13] MEDS: HydrALAZINE 25mg tab ORAL SCH ×2 (05:15→13:54)
[2019-05-13 06:39] LABS: BASOPHILS % (AUTO) 0.9 % (0.0-2.0); EOSINOPHILS % (AUTO) 5.1 % (0.0-3.0); HEMATOCRIT 25.8 % (37.0-47.0); LYMPHOCYTES % (AUTO) 25.5 % (20.0-45.0); MEAN CORPUSCULAR VOLUME 88 FL (80-99); MONOCYTES % (AUTO) 4.3 % (1.0-10.0); NEUTROPHILS % (AUTO) 64.2 % (45.0-75.0); PLATELET COUNT 361 K/UL (150-450); RED BLOOD COUNT 2.95 M/UL (4.20-5.40); RED CELL DISTRIBUTION WIDTH 18.1 % (11.6-14.8); WHITE BLOOD COUNT 14.3 K/UL (4.8-10.8)
[2019-05-13] MEDS: NovoLOG Insulin Flexpen SUBQ SCH ×4 (06:41→12:44)
[2019-05-13 06:43] LABS: ALANINE AMINOTRANSFERASE 68 U/L (12-78); ALBUMIN 2.1 G/DL (3.4-5.0); ALBUMIN/GLOBULIN RATIO 0.4 (1.0-2.7); ALKALINE PHOSPHATASE 285 U/L (46-116); ANION GAP 9 mmol/L (5-15); ASPARTATE AMINO TRANSFERASE 54 U/L (15-37); BILIRUBIN,TOTAL 0.4 MG/DL (0.2-1.0); BLOOD UREA NITROGEN 20 mg/dL (7-18); CALCIUM 7.6 MG/DL (8.5-10.1); CARBON DIOXIDE 20 MMOL/L (21-32); CHLORIDE 108 MMOL/L (98-107); PHOSPHORUS 4.3 MG/DL (2.5-4.9); SODIUM 137 MMOL/L (136-145)
[2019-05-13] MEDS: HYDROcodone/Acetamin 10/325 tab ORAL PRN ×2 (07:45→15:52)
[2019-05-13 08:00] VITALS: BP 137/70
[2019-05-13] MEDS: Levemir Flexpen SUBQ SCH (09:13)
[2019-05-13] MEDS: Lac Hydrin 12% Lotion 8oz TOPIC SCH (09:20)
--- NOTE | 2019-05-13 11:24 | Nephrology Progress Note ---
Assessment/Plan Problem List: (1) Diabetic nephropathy (2) Renal failure (ARF), acute on chronic (3) Anemia (4) Ischemia of right lower extremity (5) Right foot ulcer (6) Infection of right foot Assessment Renal Failure , likely diabetic nephropathy IDDM Anemia, h/o SS disease right foot appears gangerenous Plan K and mag supplement as needed change reglan to PO tolerating PO adjust BP meds Anemia management BS check gastric support per consultants post amputation care ( 05/02/19 amputation) Subjective ROS Limited/Unobtainable: No Constitutional: Reports: malaise, weakness Subjective no more Nausea Objective Objective Last 24 Hour Vital Signs Date Time Temp Pulse Resp B/P (MAP) Pulse Ox O2 Delivery O2 Flow Rate FiO2 05/13/19 09:10 80 137/70 05/13/19 08:16 Room Air 05/13/19 08:15 97.9 05/13/19 08:00 97.9 80 16 137/70 (92) 97 05/13/19 05:15 124/57 05/13/19 04:00 97.6 72 17 124/57 (79) 96 05/13/19 00:31 98.2 66 17 135/73 (93) 98 05/12/19 21:02 131/70 05/12/19 21:00 Room Air 05/12/19 20:00 98.0 69 18 131/70 (90) 98 05/12/19 16:00 98.5 85 18 122/67 (85) 99 05/12/19 12:00 98.2 71 20 131/60 (83) 99 Intake and Output 05/12/19 05/13/19 19:00 07:00 Intake Total 300 ml 240 ml Balance 300 ml 240 ml Intake Oral 300 ml 240 ml # Voids 1 # Bowel Movements 1 Laboratory Tests 05/13/19 05:45: White Blood Count 14.3H, Red Blood Count 2.95L, Hemoglobin 8.0L, Hematocrit 25.8L, Mean Corpuscular Volume 88, Mean Corpuscular Hemoglobin 27.3, Mean Corpuscular Hemoglobin Concent 31.2L, Red Cell Distribution Width 18.1H, Platelet Count 361, Mean Platelet Volume 8.9, Neutrophils (%) (Auto) 64.2, Lymphocytes (%) (Auto) 25.5, Monocytes (%) (Auto) 4.3, Eosinophils (%) (Auto) 5.1H, Basophils (%) (Auto) 0.9, Sodium Level 137, Potassium Level 4.0, Chloride Level 108H, Carbon Dioxide Level 20L, Anion Gap 9, Blood Urea Nitrogen 20H, Creatinine 2.0H, Estimat Glomerular Filtration Rate 33.3, Glucose Level 165H, Calcium Level 7.6L, Phosphorus Level 4.3, Magnesium Level 1.5L, Total Bilirubin 0.4, Aspartate Amino Transf (AST/SGOT) 54H, Alanine Aminotransferase (ALT/SGPT) 68, Alkaline Phosphatase 285H, Total Protein 7.2, Albumin 2.1L, Globulin 5.1, Albumin/Globulin Ratio 0.4L Height (Feet): 4 Height (Inches): 9.00 Weight (Pounds): 114 General Appearance: no apparent distress Cardiovascular: normal rate Respiratory/Chest: decreased breath sounds Abdomen: soft Objective no change Elfego Vázquez MD May 13, 2019 11:24
--- NOTE | 2019-05-13 11:45 | Cardiology Report ---
APPROVED REPORT EXAM: Two-dimensional and M-mode echocardiogram with Doppler and color Doppler. INDICATION Hypertension/HCVD M-Mode DIMENSIONS IVSd1.2 (0.7-1.1cm)Left Atrium (MM)3.9 (1.6-4.0cm) LVDd4.1 (3.5-5.6cm)Aortic Root2.1 (2.0-3.7cm) PWd0.8 (0.7-1.1cm)Aortic Cusp Exc.1.6 (1.5-2.0cm) LVDs2.7 (2.5-4.0cm) PWs1.2 cm Normal left ventricular chamber size, systolic function and wall motion. Left ventricular ejection fraction estimated to be 65-70 %. No evidence of left ventricular hypertrophy. No evidence of pericardial effusion. All other cardiac chamber sizes are within normal limits. Mild focal aortic valve sclerosis with adequate cusp excursion. Mildly thickened mitral valve leaflets with normal excursion. Mild mitral annulus and aortic root calcification. Normal pulmonic valve structure. Normal tricuspid valve structure. IVC at normal size with physiologic collapse. A color flow and spectral Doppler study was performed and revealed: Trace to mild aortic regurgitation. Mild to moderate mitral regurgitation. Mitral diastolic velocities suggest reduced left ventricular relaxation c/w mild LV diastolic dysfunction (Grade I). Mild tricuspid regurgitation. Tricuspid systolic velocities suggests peak right ventricular systolic pressure of 50 mmHg, consistent with moderate pulmonary hypertension. Mild to moderate pulmonic regurgitation present.
--- NOTE | 2019-05-13 11:47 | Pulmonology Progress Note ---
Assessment/Plan Problems: (1) Gas gangrene (2) Diabetic nephropathy (3) Renal insufficiency (4) Diabetes (5) Ischemia of right lower extremity Assessment/Plan doing better sliding scale diabetic diet needs placement pt./ot pending dc planning Subjective ROS Limited/Unobtainable: Yes Allergies: Coded Allergies: No Known Allergies (Unverified , 05/01/19) Objective Last 24 Hour Vital Signs Date Time Temp Pulse Resp B/P (MAP) Pulse Ox O2 Delivery O2 Flow Rate FiO2 05/13/19 09:10 80 137/70 05/13/19 08:16 Room Air 05/13/19 08:15 97.9 05/13/19 08:00 97.9 80 16 137/70 (92) 97 05/13/19 05:15 124/57 05/13/19 04:00 97.6 72 17 124/57 (79) 96 05/13/19 00:31 98.2 66 17 135/73 (93) 98 05/12/19 21:02 131/70 05/12/19 21:00 Room Air 05/12/19 20:00 98.0 69 18 131/70 (90) 98 05/12/19 16:00 98.5 85 18 122/67 (85) 99 05/12/19 12:00 98.2 71 20 131/60 (83) 99 Intake and Output 05/12/19 05/13/19 19:00 07:00 Intake Total 300 ml 240 ml Balance 300 ml 240 ml Intake Oral 300 ml 240 ml # Voids 1 # Bowel Movements 1 General Appearance: WD/WN HEENT: normocephalic, atraumatic Respiratory/Chest: chest wall non-tender, lungs clear Breasts: no masses Cardiovascular: normal peripheral pulses, normal rate Abdomen: normal bowel sounds, soft, non tender Genitourinary: normal external genitalia Laboratory Tests 05/13/19 05:45: White Blood Count 14.3H, Red Blood Count 2.95L, Hemoglobin 8.0L, Hematocrit 25.8L, Mean Corpuscular Volume 88, Mean Corpuscular Hemoglobin 27.3, Mean Corpuscular Hemoglobin Concent 31.2L, Red Cell Distribution Width 18.1H, Platelet Count 361, Mean Platelet Volume 8.9, Neutrophils (%) (Auto) 64.2, Lymphocytes (%) (Auto) 25.5, Monocytes (%) (Auto) 4.3, Eosinophils (%) (Auto) 5.1H, Basophils (%) (Auto) 0.9, Sodium Level 137, Potassium Level 4.0, Chloride Level 108H, Carbon Dioxide Level 20L, Anion Gap 9, Blood Urea Nitrogen 20H, Creatinine 2.0H, Estimat Glomerular Filtration Rate 33.3, Glucose Level 165H, Calcium Level 7.6L, Phosphorus Level 4.3, Magnesium Level 1.5L, Total Bilirubin 0.4, Aspartate Amino Transf (AST/SGOT) 54H, Alanine Aminotransferase (ALT/SGPT) 68, Alkaline Phosphatase 285H, Total Protein 7.2, Albumin 2.1L, Globulin 5.1, Albumin/Globulin Ratio 0.4L Current Medications Medications (Trade) Dose Ordered Sig/Trey Route PRN Reason Start Time Stop Time Status Last Admin Dose Admin Acetaminophen (Tylenol) 650 mg Q4H PRN ORAL Mild Pain/Temp > 100.5 05/03/19 11:05 06/02/19 11:04 Acetaminophen/ Hydrocodone Bitart ([place] 10/325) 1 tab Q6H PRN ORAL moderate pain 05/09/19 09:45 05/16/19 09:44 05/13/19 07:45 Amlodipine Besylate (Norvasc) 10 mg DAILY ORAL 05/08/19 09:00 06/07/19 08:59 05/13/19 09:10 Ammonium Lactate (Lac Hydrin) 1 applic TWICE A DAY TOPIC 05/03/19 18:00 06/01/19 11:29 05/13/19 09:20 Clonidine HCl (Catapres TTS-2) 1 patch QWEEK TDERMAL 05/08/19 13:00 06/07/19 12:59 05/08/19 13:13 Clonidine HCl (Catapres Tab) 0.1 mg Q4H PRN ORAL For High BP 160 syst 05/08/19 11:41 06/07/19 11:40 05/08/19 23:43 Dextrose (Dextrose 50%) 25 ml Q30M PRN IV Hypoglycemia 05/09/19 17:00 06/08/19 16:59 Dextrose (Dextrose 50%) 50 ml Q30M PRN IV Hypoglycemia 05/09/19 17:00 06/08/19 16:59 Diphenhydramine HCl (Benadryl) 25 mg Q6H PRN IVP Itching 05/03/19 11:05 06/02/19 11:04 05/13/19 06:34 Epoetin Matt (Epoetin Matt-EPBX(NON ESRD)) 8,000 unit SUN-SUN-SUN SUBQ 05/12/19 21:00 06/11/19 20:59 05/12/19 20:13 Hydralazine HCl (Apresoline) 25 mg Q8HR ORAL 05/09/19 14:00 06/08/19 13:59 05/13/19 05:15 Hydromorphone HCl (Dilaudid) 4 mg Q4H PRN ORAL Severe Pain (Pain Scale 7-10) 05/11/19 11:15 05/18/19 11:14 05/13/19 03:06 Insulin Aspart (NovoLOG) BEFORE MEALS AND HS SUBQ 05/07/19 11:30 06/06/19 11:29 05/13/19 06:41 Insulin Aspart (NovoLOG) 3 units NOVOTIAC SUBQ 05/12/19 07:00 06/08/19 16:59 05/13/19 06:42 Insulin Detemir (Levemir) 10 units DAILY SUBQ 05/12/19 09:00 06/06/19 08:59 05/13/19 09:13 Magnesium Sulfate 100 ml @ 100 mls/hr Q1H IVPB 05/13/19 10:30 05/13/19 14:29 05/13/19 10:36 Metoclopramide HCl (Reglan) 10 mg THREE TIMES A DAY ORAL 05/09/19 18:00 06/08/19 17:59 05/12/19 18:19 Ondansetron HCl (Zofran) 4 mg Q6H PRN IVP Nausea & Vomiting 05/03/19 12:00 05/31/19 17:59 05/08/19 08:22 Pantoprazole (Protonix) 40 mg EVERY 12 HOURS ORAL 05/09/19 21:00 06/08/19 20:59 05/12/19 20:09 Serena Gordon MD May 13, 2019 11:47
--- NOTE | 2019-05-13 11:51 | Infectious Diseases Prog Note ---
Assessment/Plan Assessment/Plan R LE wound- severe necrotizing infection, gangrene, OM -05/02 SP emergency right lower extremity amputation bka --OR findings: Acutely infected necrotic gangrenous with subcutaneous gas and soft tissues of the right lower extremity --cx: ?done -Tibia/fibula MRI: Large ulcer with large amount of subcutaneous gas in the soft tissues of the posterior distal leg. Chronic deformity of the calcaneus with abnormal bone marrow signal suggesting osteomyelitis. Markedly abnormal bone marrow signal of the distal tibia including the tibial diaphysis spanning up at least 10 cm cranial to the ankle joint highly concerning for infection/ osteomyelitis. This is on a background of diffuse marrow signal heterogeneity which may be related to patient's known history of sickle cell disease. -Xray tibia/fibula: Soft tissue gas and edema in the foot and ankle are concerning for infection. No definite acute osseous abnormality. Osteopenia. -R foot/ankle xray: Soft tissue gas and edema in the foot and ankle are concerning for infection. Extensive soft tissue gas limits evaluation of fine bony detail. Deformity of the calcaneus is nonspecific and may be related to osteomyelitis or trauma. MRI with and without intravenous contrast may be considered for further characterization. -ESR 95, CRP 7.1 Afebrile Leukocytosis; increased -05/08 u./a no pyuria, nit neg, leuk +2 -05/07 CXR: No acute findings Dm1 HTN sickle cell anemia R hip replacement Plan: -Continue to monitor off abx -05/11 SP ZOsyn #10 -05/08 SP IV Vancomcyin #7 -f/u cx -Monitor CBC/CMP, temperatures -Sx f/u -wound care per surgical team -aspiration precautions -Cdiff if dfiarrhea -CXR -CBC, CMP am Thank you for this consultation. Will continue to follow along with you. Subjective Allergies: Coded Allergies: No Known Allergies (Unverified , 05/01/19) Subjective afebrile wbc increased Objective Vital Signs Last 24 Hour Vital Signs Date Time Temp Pulse Resp B/P (MAP) Pulse Ox O2 Delivery O2 Flow Rate FiO2 05/13/19 09:10 80 137/70 05/13/19 08:16 Room Air 05/13/19 08:15 97.9 05/13/19 08:00 97.9 80 16 137/70 (92) 97 05/13/19 05:15 124/57 05/13/19 04:00 97.6 72 17 124/57 (79) 96 05/13/19 00:31 98.2 66 17 135/73 (93) 98 05/12/19 21:02 131/70 05/12/19 21:00 Room Air 05/12/19 20:00 98.0 69 18 131/70 (90) 98 05/12/19 16:00 98.5 85 18 122/67 (85) 99 05/12/19 12:00 98.2 71 20 131/60 (83) 99 Height (Feet): 4 Height (Inches): 9.00 Weight (Pounds): 114 Objective General appearance: alert, cooperative, no distress, appears stated age Head: Normocephalic, without obvious abnormality, atraumatic Eyes: conjunctivae/corneas clear. PERRL, EOM's intact. Fundi benign Throat: Lips, mucosa, and tongue normal. Teeth and gums normal Neck: supple, symmetrical, trachea midline, no adenopathy, thyroid: not enlarged, symmetric, no tenderness/mass/nodules, no carotid bruit and no JVD Lungs: clear to auscultation bilaterally Heart: regular rate and rhythm, S1, S2 normal, no murmur, click, rub or gallop Abdomen: soft, non-tender. Bowel sounds normal. No masses, no organomegaly Extremities: s/p R BKA, dressings in place Pulses: 2+ and symmetric Skin: Skin color, texture, turgor normal. No rashes or lesions Neurologic: Grossly normal Laboratory Tests Test 05/13/19 05:45 White Blood Count 14.3 K/UL (4.8-10.8) H Red Blood Count 2.95 M/UL (4.20-5.40) L Hemoglobin 8.0 G/DL (12.0-16.0) L Hematocrit 25.8 % (37.0-47.0) L Mean Corpuscular Volume 88 FL (80-99) Mean Corpuscular Hemoglobin 27.3 PG (27.0-31.0) Mean Corpuscular Hemoglobin Concent 31.2 G/DL (32.0-36.0) L Red Cell Distribution Width 18.1 % (11.6-14.8) H Platelet Count 361 K/UL (150-450) Mean Platelet Volume 8.9 FL (6.5-10.1) Neutrophils (%) (Auto) 64.2 % (45.0-75.0) Lymphocytes (%) (Auto) 25.5 % (20.0-45.0) Monocytes (%) (Auto) 4.3 % (1.0-10.0) Eosinophils (%) (Auto) 5.1 % (0.0-3.0) H Basophils (%) (Auto) 0.9 % (0.0-2.0) Sodium Level 137 MMOL/L (136-145) Potassium Level 4.0 MMOL/L (3.5-5.1) Chloride Level 108 MMOL/L (98-107) H Carbon Dioxide Level 20 MMOL/L (21-32) L Anion Gap 9 mmol/L (5-15) Blood Urea Nitrogen 20 mg/dL (7-18) H Creatinine 2.0 MG/DL (0.55-1.30) H Estimat Glomerular Filtration Rate 33.3 mL/min (>60) Glucose Level 165 MG/DL (74-106) H Calcium Level 7.6 MG/DL (8.5-10.1) L Phosphorus Level 4.3 MG/DL (2.5-4.9) Magnesium Level 1.5 MG/DL (1.8-2.4) L Total Bilirubin 0.4 MG/DL (0.2-1.0) Aspartate Amino Transf (AST/SGOT) 54 U/L (15-37) H Alanine Aminotransferase (ALT/SGPT) 68 U/L (12-78) Alkaline Phosphatase 285 U/L (46-116) H Total Protein 7.2 G/DL (6.4-8.2) Albumin 2.1 G/DL (3.4-5.0) L Globulin 5.1 g/dL Albumin/Globulin Ratio 0.4 (1.0-2.7) L Current Medications Medications (Trade) Dose Ordered Sig/Trey Route PRN Reason Start Time Stop Time Status Last Admin Dose Admin Acetaminophen (Tylenol) 650 mg Q4H PRN ORAL Mild Pain/Temp > 100.5 05/03/19 11:05 06/02/19 11:04 Acetaminophen/ Hydrocodone Bitart ([place] ) 1 tab Q6H PRN ORAL moderate pain 05/09/19 09:45 05/16/19 09:44 05/13/19 07:45 Amlodipine Besylate (Norvasc) 10 mg DAILY ORAL 05/08/19 09:00 06/07/19 08:59 05/13/19 09:10 Ammonium Lactate (Lac Hydrin) 1 applic TWICE A DAY TOPIC 05/03/19 18:00 06/01/19 11:29 05/13/19 09:20 Clonidine HCl (Catapres TTS-2) 1 patch QWEEK TDERMAL 05/08/19 13:00 06/07/19 12:59 05/08/19 13:13 Clonidine HCl (Catapres Tab) 0.1 mg Q4H PRN ORAL For High BP 160 syst 05/08/19 11:41 06/07/19 11:40 05/08/19 23:43 Dextrose (Dextrose 50%) 25 ml Q30M PRN IV Hypoglycemia 05/09/19 17:00 06/08/19 16:59 Dextrose (Dextrose 50%) 50 ml Q30M PRN IV Hypoglycemia 05/09/19 17:00 06/08/19 16:59 Diphenhydramine HCl (Benadryl) 25 mg Q6H PRN IVP Itching 05/03/19 11:05 06/02/19 11:04 05/13/19 06:34 Epoetin Matt (Epoetin Matt-EPBX(NON ESRD)) 8,000 unit SUN-SUN-SUN SUBQ 05/12/19 21:00 06/11/19 20:59 05/12/19 20:13 Hydralazine HCl (Apresoline) 25 mg Q8HR ORAL 05/09/19 14:00 06/08/19 13:59 05/13/19 05:15 Hydromorphone HCl (Dilaudid) 4 mg Q4H PRN ORAL Severe Pain (Pain Scale 7-10) 05/11/19 11:15 05/18/19 11:14 05/13/19 03:06 Insulin Aspart (NovoLOG) BEFORE MEALS AND HS SUBQ 05/07/19 11:30 06/06/19 11:29 05/13/19 06:41 Insulin Aspart (NovoLOG) 3 units NOVOTIAC SUBQ 05/12/19 07:00 06/08/19 16:59 05/13/19 06:42 Insulin Detemir (Levemir) 10 units DAILY SUBQ 05/12/19 09:00 06/06/19 08:59 05/13/19 09:13 Magnesium Sulfate 100 ml @ 100 mls/hr Q1H IVPB 05/13/19 10:30 05/13/19 14:29 05/13/19 10:36 Metoclopramide HCl (Reglan) 10 mg THREE TIMES A DAY ORAL 05/09/19 18:00 06/08/19 17:59 05/12/19 18:19 Ondansetron HCl (Zofran) 4 mg Q6H PRN IVP Nausea & Vomiting 05/03/19 12:00 05/31/19 17:59 05/08/19 08:22 Pantoprazole (Protonix) 40 mg EVERY 12 HOURS ORAL 05/09/19 21:00 06/08/19 20:59 05/12/19 20:09 Radha Gill M.D. May 13, 2019 11:51
[2019-05-13 12:00] VITALS: BP 125/64
--- NOTE | 2019-05-13 13:49 | Hematology/Onc Progress Note ---
Assessment/Plan Assessment/Plan Assessment and Recs: # Sickle cell disease - hgb baseline 5-6 range, per patient she does not want blood transfusions --> refusing blood transfusions, per her the baseline is 5-6 range --> trend hgb 5.85-->4.8-->8.9-->8.9-->9.5-->9-->8.6-->8.9-->7.4-->7.3-->8 --> anemia panel reviewed and c/w these labs values, ferritin is high --> not in hemolysis at this time --> electrophoresis as needed, not during stay at this time --> epo has been ordered 3 x a week --> iron stores are sufficient --> recommended transfusion can be life saving but patient declined # Leukocytosis/elevated white blood cell count, unspecified likely related to underlying stress reaction, smoking v from crisis, doing better s/o bka r --> have reviewed peripheral smear and bandemia/neutrophilia noted --> continue antibiotics if they have been started by ID team --> monitor for resolution --> trend wbc 25k-->23k-->12k-->14.8-->12-->11.9-->14 --> may need surg, refusing # HAYDEE can be dm related --> trend and establish baseline --> may be dehydrated --> cr 2-->1.5-->1.8-->1.8-->2 # Electrolyte abnml --> as per renal, Na+ trend and volume expansion # DM2 --> a1c goal <8 goal --> accuchecks qac and qhs # HTN, persistent --> bp goal <150, on clonidine and hydra prn The timing of this note does not necessarily reflect the time of the patient was seen. GREATLY APPRECIATE CONSULTATION. Subjective Constitutional: Denies: no symptoms, chills, fever, malaise, weakness, other HEENT: Denies: no symptoms, eye pain, blurred vision, tearing, double vision, ear pain, ear discharge, nose pain, nose congestion, throat pain, throat swelling, mouth pain, mouth swelling, other Cardiovascular: Denies: no symptoms, chest pain, edema, irregular heart rate, lightheadedness, palpitations, syncope, other Respiratory: Denies: no symptoms, cough, shortness of breath, SOB with excertion, SOB at rest, sputum, wheezing, other Neurologic/Psychiatric: Denies: no symptoms, anxiety, depressed, emotional problems, headache, numbness, paresthesia, pre-existing deficit, seizure, tingling, tremors, weakness, other Endocrine: Denies: no symptoms, excessive sweating, flushing, intolerance to cold, intolerance to heat, increased hunger, increased thirst, increased urine, unexplained weight gain, unexplained weight loss, other Hematologic/Lymphatic: Denies: no symptoms, anemia, easy bleeding, easy bruising, adenopathy, other Allergies: Coded Allergies: No Known Allergies (Unverified , 05/01/19) Subjective 05/02: on epogen, hgb lower 4.8, initially refused transfusion, now accepting, shiva rn, refusing sx 05/04: is pod 2 and doing better, still in pain this am 05/05: no bleeding noted, no chills, no night sweats, no f/c 05/06: no bleeding, no chills, appears to be in pain on subj, but when not interviewed asymptomatic 05/07: still with some foot pain, remains on abx, no f/c 05/08: no events noted, no bleeding, hgb 8.9, seen by consultants, with n/v today 05/09: continying on epo, novolog was added today, less pain 05/12: awake and alert, no overnight events, pending placement 05/13: awake, no events, hgb reviewed, on epo, doesn't want prbc transf Objective Objective Current Medications Medications (Trade) Dose Ordered Sig/Trey Route PRN Reason Start Time Stop Time Status Last Admin Dose Admin Acetaminophen (Tylenol) 650 mg Q4H PRN ORAL Mild Pain/Temp > 100.5 05/03/19 11:05 06/02/19 11:04 Acetaminophen/ Hydrocodone Bitart ([place] 10/325) 1 tab Q6H PRN ORAL moderate pain 05/09/19 09:45 05/16/19 09:44 05/13/19 07:45 Amlodipine Besylate (Norvasc) 10 mg DAILY ORAL 05/08/19 09:00 06/07/19 08:59 05/13/19 09:10 Ammonium Lactate (Lac Hydrin) 1 applic TWICE A DAY TOPIC 05/03/19 18:00 06/01/19 11:29 05/13/19 09:20 Clonidine HCl (Catapres TTS-2) 1 patch QWEEK TDERMAL 05/08/19 13:00 06/07/19 12:59 05/08/19 13:13 Clonidine HCl (Catapres Tab) 0.1 mg Q4H PRN ORAL For High BP 160 syst 05/08/19 11:41 06/07/19 11:40 05/08/19 23:43 Dextrose (Dextrose 50%) 25 ml Q30M PRN IV Hypoglycemia 05/09/19 17:00 06/08/19 16:59 Dextrose (Dextrose 50%) 50 ml Q30M PRN IV Hypoglycemia 05/09/19 17:00 06/08/19 16:59 Diphenhydramine HCl (Benadryl) 25 mg Q6H PRN IVP Itching 05/03/19 11:05 06/02/19 11:04 05/13/19 12:16 Epoetin Matt (Epoetin Matt-EPBX(NON ESRD)) 8,000 unit SUN-SUN-SUN SUBQ 05/12/19 21:00 06/11/19 20:59 05/12/19 20:13 Hydralazine HCl (Apresoline) 25 mg Q8HR ORAL 05/09/19 14:00 06/08/19 13:59 05/13/19 05:15 Hydromorphone HCl (Dilaudid) 4 mg Q4H PRN ORAL Severe Pain (Pain Scale 7-10) 05/11/19 11:15 05/18/19 11:14 05/13/19 03:06 Insulin Aspart (NovoLOG) BEFORE MEALS AND HS SUBQ 05/07/19 11:30 06/06/19 11:29 05/13/19 06:41 Insulin Aspart (NovoLOG) 3 units NOVOTIAC SUBQ 05/12/19 07:00 06/08/19 16:59 05/13/19 12:44 Insulin Detemir (Levemir) 10 units DAILY SUBQ 05/12/19 09:00 06/06/19 08:59 05/13/19 09:13 Magnesium Sulfate 100 ml @ 100 mls/hr Q1H IVPB 05/13/19 10:30 05/13/19 14:29 05/13/19 13:11 Metoclopramide HCl (Reglan) 10 mg THREE TIMES A DAY ORAL 05/09/19 18:00 06/08/19 17:59 05/13/19 13:07 Ondansetron HCl (Zofran) 4 mg Q6H PRN IVP Nausea & Vomiting 05/03/19 12:00 05/31/19 17:59 05/08/19 08:22 Pantoprazole (Protonix) 40 mg EVERY 12 HOURS ORAL 05/09/19 21:00 06/08/19 20:59 05/12/19 20:09 Last 24 Hour Vital Signs Date Time Temp Pulse Resp B/P (MAP) Pulse Ox O2 Delivery O2 Flow Rate FiO2 05/13/19 09:10 80 137/70 05/13/19 08:16 Room Air 05/13/19 08:15 97.9 05/13/19 08:00 97.9 80 16 137/70 (92) 97 05/13/19 05:15 124/57 05/13/19 04:00 97.6 72 17 124/57 (79) 96 05/13/19 00:31 98.2 66 17 135/73 (93) 98 05/12/19 21:02 131/70 05/12/19 21:00 Room Air 05/12/19 20:00 98.0 69 18 131/70 (90) 98 05/12/19 16:00 98.5 85 18 122/67 (85) 99 05/12/19 12:00 98.2 71 20 131/60 (83) 99 05/12/19 09:00 Room Air 05/12/19 08:50 79 139/74 05/12/19 08:00 97.5 79 18 139/74 (95) 99 05/12/19 06:00 122/70 05/12/19 04:00 98.2 71 18 122/68 (86) 98 05/12/19 00:00 98.8 71 18 114/58 (76) 99 05/11/19 22:00 122/59 05/11/19 21:00 Room Air 05/11/19 20:00 98.3 77 18 122/59 (80) 99 05/11/19 16:30 Room Air 05/11/19 16:00 97.2 77 117/84 (95) 05/11/19 14:13 119/62 05/11/19 14:12 80 119/62 (81) Intake and Output 05/12/19 05/13/19 19:00 07:00 Intake Total 300 ml 240 ml Balance 300 ml 240 ml Intake Oral 300 ml 240 ml # Voids 1 # Bowel Movements 1 Labs Test 05/11/19 05:00 05/13/19 05:45 White Blood Count 11.9 K/UL (4.8-10.8) 14.3 K/UL (4.8-10.8) Red Blood Count 2.69 M/UL (4.20-5.40) 2.95 M/UL (4.20-5.40) Hemoglobin 7.3 G/DL (12.0-16.0) 8.0 G/DL (12.0-16.0) Hematocrit 23.5 % (37.0-47.0) 25.8 % (37.0-47.0) Mean Corpuscular Volume 87 FL (80-99) 88 FL (80-99) Mean Corpuscular Hemoglobin 27.1 PG (27.0-31.0) 27.3 PG (27.0-31.0) Mean Corpuscular Hemoglobin Concent 31.0 G/DL (32.0-36.0) 31.2 G/DL (32.0-36.0) Red Cell Distribution Width 17.3 % (11.6-14.8) 18.1 % (11.6-14.8) Platelet Count 308 K/UL (150-450) 361 K/UL (150-450) Mean Platelet Volume 8.0 FL (6.5-10.1) 8.9 FL (6.5-10.1) Neutrophils (%) (Auto) % (45.0-75.0) 64.2 % (45.0-75.0) Lymphocytes (%) (Auto) % (20.0-45.0) 25.5 % (20.0-45.0) Monocytes (%) (Auto) % (1.0-10.0) 4.3 % (1.0-10.0) Eosinophils (%) (Auto) % (0.0-3.0) 5.1 % (0.0-3.0) Basophils (%) (Auto) % (0.0-2.0) 0.9 % (0.0-2.0) Differential Total Cells Counted 100 Neutrophils % (Manual) 66 % (45-75) Lymphocytes % (Manual) 23 % (20-45) Monocytes % (Manual) 7 % (1-10) Eosinophils % (Manual) 4 % (0-3) Basophils % (Manual) 0 % (0-2) Band Neutrophils 0 % (0-8) Nucleated Red Blood Cells 1 /100 WBC Platelet Estimate Adequate Platelet Morphology Giant Platelets Occasional Polychromasia 1+ Hypochromasia 2+ Anisocytosis 2+ Target Cells Occasional Sodium Level 143 MMOL/L (136-145) 137 MMOL/L (136-145) Potassium Level 3.3 MMOL/L (3.5-5.1) 4.0 MMOL/L (3.5-5.1) Chloride Level 113 MMOL/L (98-107) 108 MMOL/L (98-107) Carbon Dioxide Level 20 MMOL/L (21-32) 20 MMOL/L (21-32) Anion Gap 10 mmol/L (5-15) 9 mmol/L (5-15) Blood Urea Nitrogen 15 mg/dL (7-18) 20 mg/dL (7-18) Creatinine 1.9 MG/DL (0.55-1.30) 2.0 MG/DL (0.55-1.30) Estimat Glomerular Filtration Rate 35.4 mL/min (>60) 33.3 mL/min (>60) Glucose Level 162 MG/DL (74-106) 165 MG/DL (74-106) Calcium Level 7.4 MG/DL (8.5-10.1) 7.6 MG/DL (8.5-10.1) Phosphorus Level 3.8 MG/DL (2.5-4.9) 4.3 MG/DL (2.5-4.9) Magnesium Level 1.7 MG/DL (1.8-2.4) 1.5 MG/DL (1.8-2.4) Total Bilirubin 0.5 MG/DL (0.2-1.0) 0.4 MG/DL (0.2-1.0) Aspartate Amino Transf (AST/SGOT) 27 U/L (15-37) 54 U/L (15-37) Alanine Aminotransferase (ALT/SGPT) 25 U/L (12-78) 68 U/L (12-78) Alkaline Phosphatase 200 U/L (46-116) 285 U/L (46-116) C-Reactive Protein, Quantitative 0.5 mg/dL (0.00-0.90) Pro-B-Type Natriuretic Peptide 1825 pg/mL (0-125) Total Protein 6.5 G/DL (6.4-8.2) 7.2 G/DL (6.4-8.2) Albumin 1.8 G/DL (3.4-5.0) 2.1 G/DL (3.4-5.0) Globulin 4.7 g/dL 5.1 g/dL Albumin/Globulin Ratio 0.4 (1.0-2.7) 0.4 (1.0-2.7) Height (Feet): 4 Height (Inches): 9.00 Weight (Pounds): 114 Objective Vitals: reviewed General Appearance: NAD HEENT: normocephalic, atraumatic Neck: non-tender, normal alignment Respiratory/Chest: normal breath sounds bilaterally Cardiovascular/Chest: normal peripheral pulses, normal rate Abdomen: normal bowel sounds, soft, nontender Extremities: normal range of motion, is now s/p R BKA (05/02) Raphael Shrestha MD May 13, 2019 13:49
[2019-05-13 13:56] VITALS: BP 129/68
--- NOTE | 2019-05-13 14:06 | General Progress Note ---
Assessment/Plan Assessment/Plan: (1) Right foot pain (2) Right foot ulcer (3) S/p Right LE BKA Patient will be continued on Miranda and Dilaudid D/w Dr. Marsh and he concurred. Subjective Date patient seen: May 13, 2019 Time patient seen: 01:00 - pm Allergies: Coded Allergies: No Known Allergies (Unverified , 05/01/19) Subjective Constitutional: Reports: no symptoms HEENT: Reports: no symptoms Cardiovascular: Reports: no symptoms Respiratory: Reports: no symptoms Gastrointestinal/Abdominal: Reports: no symptoms Genitourinary: Reports: no symptoms Neurologic/Psychiatric: Reports: no symptoms Endocrine: Reports: no symptoms Hematologic/Lymphatic: Reports: no symptoms Subjective Patient has been in bed and reports that her pain has stable and at a moderate level. Tolerated on the Dilaudid. No new complaints at this time. Objective Last 24 Hour Vital Signs Date Time Temp Pulse Resp B/P (MAP) Pulse Ox O2 Delivery O2 Flow Rate FiO2 05/13/19 13:56 85 129/68 (88) 05/13/19 13:54 129/68 05/13/19 09:10 80 137/70 05/13/19 08:16 Room Air 05/13/19 08:15 97.9 05/13/19 08:00 97.9 80 16 137/70 (92) 97 05/13/19 05:15 124/57 05/13/19 04:00 97.6 72 17 124/57 (79) 96 05/13/19 00:31 98.2 66 17 135/73 (93) 98 05/12/19 21:02 131/70 05/12/19 21:00 Room Air 05/12/19 20:00 98.0 69 18 131/70 (90) 98 05/12/19 16:00 98.5 85 18 122/67 (85) 99 Intake and Output 05/12/19 05/13/19 19:00 07:00 Intake Total 300 ml 240 ml Balance 300 ml 240 ml Intake Oral 300 ml 240 ml # Voids 1 # Bowel Movements 1 Laboratory Tests 05/13/19 05:45: White Blood Count 14.3H, Red Blood Count 2.95L, Hemoglobin 8.0L, Hematocrit 25.8L, Mean Corpuscular Volume 88, Mean Corpuscular Hemoglobin 27.3, Mean Corpuscular Hemoglobin Concent 31.2L, Red Cell Distribution Width 18.1H, Platelet Count 361, Mean Platelet Volume 8.9, Neutrophils (%) (Auto) 64.2, Lymphocytes (%) (Auto) 25.5, Monocytes (%) (Auto) 4.3, Eosinophils (%) (Auto) 5.1H, Basophils (%) (Auto) 0.9, Sodium Level 137, Potassium Level 4.0, Chloride Level 108H, Carbon Dioxide Level 20L, Anion Gap 9, Blood Urea Nitrogen 20H, Creatinine 2.0H, Estimat Glomerular Filtration Rate 33.3, Glucose Level 165H, Calcium Level 7.6L, Phosphorus Level 4.3, Magnesium Level 1.5L, Total Bilirubin 0.4, Aspartate Amino Transf (AST/SGOT) 54H, Alanine Aminotransferase (ALT/SGPT) 68, Alkaline Phosphatase 285H, Total Protein 7.2, Albumin 2.1L, Globulin 5.1, Albumin/Globulin Ratio 0.4L Height (Feet): 4 Height (Inches): 9.00 Weight (Pounds): 114 Objective General Appearance: no apparent distress, alert EENT: PERRL/EOMI, normal ENT inspection Neck: non-tender, normal alignment Cardiovascular: normal rate, regular rhythm Abdomen: non tender, soft Extremities: other - BKA noted Neurologic: abnormal gait, oriented x 3 Skin: normal pigmentation Navi Menchaca May 13, 2019 14:06
[2019-05-13 16:00] VITALS: BP 120/61
[2019-05-13] MEDS ORDERED: Tubing IV Secondary IV ONE (16:40)
[2019-05-13] MEDS ORDERED: NS 275ml ONE (16:40)
--- NOTE | 2019-05-13 16:47 | Diagnostic Imaging Report ---
Indication: Cough Technique: One view of the chest Comparison: 05/07/2019 Findings: Suboptimal inspiration currently. The heart is upper limits normal in size. The lungs pleural spaces are clear. Findings are unchanged Impression: No acute process
--- NOTE | 2019-05-14 08:23 | Discharge Summary ---
Discharge Summary Discharge Summary _ DATE OF ADMISSION: 05/01/2019 DATE OF DISCHARGE: 05/13/2019 DISCHARGED BY: Dr Enriquez REASON FOR ADMISSION: 43 years old female with past medical history of sickle cell anemia, diabetes mellitus type 1, presented for evaluation of the right lower extremity wound with foul-smelling drainage . Upon evaluation vital signs were stable. Laboratory work-up revealed WBC 27.5, hemoglobin 5.5 , hematocrit 18.4 , MCV 80 , ESR 95 , reticulocyte count 7.9. Sodium 130, potassium 5.2. BUN 29, creatinine 2.0. Calcium 7.5. Albumin 2.7. CRP 7.1 . Lactic acid 2.1 Urinalysis revealed +2 protein, no evidence of urinary tract infection. Right right foot x-ray revealed significant amount of soft tissue gas, concerning for infection, chronically appearing deformity of the hindfoot with flattening of the calcaneus, possibly representing sequela of remote trauma or degenerative changes. Superimposed acute infection/osteomyelitis could not be excluded. No obvious acute fracture identified. X-ray of the right tibia/fibula revealed no definite evidence of acute fracture. Marked soft tissue gas and edema in the distal leg and ankle were highly concerning for infection. Gas was also noted with the plantar soft tissue of the foot. Right ankle x-ray also revealed significant amount of soft tissue gas , including gas in the plantar soft tissue of the foot, highly concerning for infection. Superimposed acute infection/osteomyelitis could not be excluded. No obvious acute fracture was identified. Ankle mortise was intact . Patient subsequently was admitted for further management. CONSULTANTS: hot end operator Dr. Anne pulmonary Dr. Gordon ID specialist Dr. Gill show girl Dr. Vázquez slate worker Dr. Velázquez pain specialist Dr. Marsh digital design engineer/oncologist Dr. Shrestha surgery Dr. Avalos [facility] COURSE: Patient admitted to medical surgical floor. Patient started on IV hydration and empiric antibiotics. Surgeon seen and evaluated the patient. Right lower wound infection was with severe necrotizing infection, gas gangrene and osteomyelitis. Patient was taken to operating room and undergone emergency below-knee amputation right lower extremity on 05/02. MRI of the right tibia-fibula revealed large ulcer with large amount of subcutaneous gas in the soft tissue of the posterior distal leg. Chronic deformity of the calcaneus with abnormal bone marrow signal suggesting osteomyelitis. Markedly abnormal bone marrow signal of the distal tibia including the tibial diaphysis spanning up at least 10 cm cranial to the ankle joint highly concerning for infection/osteomyelitis. Blood culture revealed no evidence of growth. Patient completed antibiotic course as per ID specialist recommendation while in the hospital. Pain management was addressed as per pain specialist recommendation. Stump care provided. Blood sugar was managed as per slate worker recommendation. Hemoglobin A1c not at goal of 10.0. Blood sugar was managed with long-acting Levemir , pre-meal short acting NovoLog as well as a sliding scale of insulin as needed. Diabetic teaching provided . Diabetic diet provided. Doses of both Levemir and NovoLog were uptitrated as per slate worker. Blood pressure was managed with multiply antihypertensive regimen remained stable Patient completed antibiotic for as per ID specialist recommendation. CRP down to normal. Leukocytosis trending down patient remained afebrile. Echocardiogram revealed preserved ejection fraction 65 to 70% with no evidence of wall motion abnormality. No evidence of left ventricular hypertrophy. No evidence of pericardial effusion. Right ventricular systolic pressure of 50 consistent with a moderate pulmonary hypertension. Chest x-ray revealed no acute cardiopulmonary pathology. Supplemental oxygen titrated as needed to keep pulse oximetry above 92%. Pulse oximetry was stable on room air. Hemoglobin and hematocrit were closely monitored with goal to keep hemoglobin above 7. Patient undergone transfusion of total of 2 units of packed red blood cells. Anemia work-up consistent with anemia of chronic disease. Renal parameters and electrolytes were closely monitored. Electrolytes were corrected as needed. Per show girl, patient had diabetic nephropathy and acute on chronic renal failure. [employer] recommended avoid nephrotoxic and closely monitor renal parameters and electrolytes at the facility. Surgeon closely followed after surgery. BKA stump clean, dry, and intact. Flap was healing. Patient to follow-up in 4 to 6-week with surgeon for staple removal. Surgeon cleared patient for discharge. Patient completed antibiotic while in the hospital. Leukocytosis trending down. Patient remained afebrile. Patient was working with physical therapist. Placement was arranged to the intermediate facility for continuation of care. Patient was stable for discharge FINAL DIAGNOSES: Right lower extremity wound with acute severe necrotizing infection, gas gangrene, osteomyelitis Status post emergency right BKA Diabetes mellitus out of control Diabetic nephropathy Renal failure, acute on chronic Electrolyte abnormality Hypertension Sickle cell disease Sickle cell anemia DISCHARGE MEDICATIONS: See Medication Reconciliation list. DISCHARGE INSTRUCTIONS: Patient was discharged to the intermediate facility. Follow up with medical doctor at the facility. I have been assigned to dictate discharge summary for this account. I was not involved in the patient's management. Lien Galicia NP May 14, 2019 08:23
== END 2019-05-13 16:41 | DRG 305 ==
LOC: EDBD 01:16 → EMR 01:29 → EDBEDREQ 01:31 → 2E 02:41 → 4E 16:45 → ICU 05-02 16:27 → 3E 05-03 10:57
PROC: 0Y6H0Z2 Detachment at Right Lower Leg, Mid, Open Approach (ICD-10-PCS; principal; 2019-05-02 14:30)
DX: E10.52 Type 1 diabetes mellitus with diabetic peripheral angiopathy with gangrene (principal); A48.0 Gas gangrene; D64.9 Anemia, unspecified; D57.1 Sickle-cell disease without crisis; N17.9 Acute kidney failure, unspecified; E10.621 Type 1 diabetes mellitus with foot ulcer; E10.69 Type 1 diabetes mellitus with other specified complication; E10.649 Type 1 diabetes mellitus with hypoglycemia without coma; M86.171 Other acute osteomyelitis, right ankle and foot; L97.518 Non-pressure chronic ulcer of other part of right foot with other specified severity; Z79.4 Long term (current) use of insulin; I12.9 Hypertensive chronic kidney disease with stage 1 through stage 4 chronic kidney disease, or unspecified chronic kidney disease; E10.22 Type 1 diabetes mellitus with diabetic chronic kidney disease; N18.9 Chronic kidney disease, unspecified; Z96.641 Presence of right artificial hip joint
CPT/HCPCS: 36415; 71045; 74018; 80048; 80053; 80061; 80076; 80202; 80307; 81001; 81003; 81025; 82607; 82728; 82746; 82947; 82962; 82977; 83036; 83540; 83550; 83605; 83690; 83735; 83880; 84100; 84443; 84550; 85007; 85025; 85044; 85610; 85651; 85730; 86140; 86850; 86900; 86901; 86920; 87040; 93005; 93306; 94003; 94150; 96365; 97803; 99285; J1815; J2370; J2405; J2765; J8499; S5561